=== PATIENT | female | born 1945 | race Caucasian/White ===

== ENCOUNTER → 2017-01-17 | Outpatient (CLI) | payer BC ==
[~2017-01-17] MED LIST: ACET-1138 PO; ASPEC81 PO; ATEN50TA8 PO; ATOR-24 PO; CLBCRM30 EXT; CLR10 PO; GLC/500 PO; LISI10TA PO; MULTCAP98 PO; OXYSR10 PO; PARO20TA4 PO; POTA-335 PO; RXC5 PO; TRIA75TA53 PO
== END | disposition home or self-care (01) ==
LOC: C.PATHSPEC 10:36
PROVIDERS: ATTEND Plastic Surgery
DX: C44.722 Squamous cell carcinoma of skin of right lower limb, including hip (principal)

== ENCOUNTER 2020-09-24 09:39 | Inpatient (IN) ==
[2020-09-24 10:15] LABS: Basophils # (auto) 0.01 K/uL (0-0.2); Basophils % (auto) 0.1 %; Eosinophils # (auto) 0.19 K/uL (0-0.5); Eosinophils % (auto) 2.6 %; Hematocrit (blood only) 30.4 % (37-47); Hemoglobin 10.1 g/dL (12.0-16.0); Immature Granulocytes # (auto) 0.01 K/uL (0.00-0.02); Immature Granulocytes % (auto) 0.1 %; Lymphocytes # (auto) 0.97 K/uL (1.2-3.4); Lymphocytes % (auto) 13.5 %; Mean Corpuscular Hemoglobin 32.1 pg (25-34); Mean Corpuscular Hgb Conc 33.2 g/dL (32-36); Mean Corpuscular Volume 96.5 fL (80-100); Mean Platelet Volume 11.6 fL (7.4-10.4); Neutrophils # (auto) 5.51 K/uL (1.4-6.5); Neutrophils % (auto) 76.7 %; Platelet Count 108 K/uL (130-400); RDW Coefficient of Variation 15.5 % (11.5-14.5); RDW Standard Deviation 54.1 fL (36.4-46.3); Red Blood Count 3.15 M/uL (4.2-5.4); White Blood Count 7.19 K/uL (4.8-10.8)
[2020-09-24 10:27] LABS: INR 2.1 (0.9-1.1)
[2020-09-24 10:38] LABS: Albumin Level 2.8 gm/dl (3.4-5.0); BUN Creatinine Ratio 11.1 (10-20); Calcium 8.7 mg/dl (8.5-10.1); Creatinine Clr Calc Pharmacy 12.6 ml/min; Est GFR (African American) 15.3; Est GFR (Non-African American) 13.2; Potassium 3.5 mmol/L (3.5-5.1)
[2020-09-24 10:48] LABS: Albumin Globulin Ratio 0.6 (0.9-2); Bilirubin,Total 1.9 mg/dl (0.2-1); Globulin 4.9 gm/dl (2.5-4.0); Phosphorus 3.3 mg/dl (2.5-4.9); Thyroid Stimulating Hormone 2.76 uIu/ml (0.300-4.500); Total Protein 7.7 gm/dl (6.4-8.2)
--- NOTE | 2020-09-24 11:11 | Emergency Department Note ---
Impression & Plan Renal failure (ARF), acute on chronic ED Provider Note Provider: Kevan Erazo MD DATE OF SERVICE: 09/24/2020 CHIEF COMPLAINT: Lab abnormality HISTORY OF PRESENT ILLNESS: Patient is a 74-year-old female history of Reardon liver disease, CKD, hypertension, and arthritis presenting here today referred by her application spec. Evidently the patient states her renal functions and worsening in her numbers from blood draw on Sunday were bad and her doctor sent her here to be admitted for further care. Patient herself denies significant nausea or fevers. She denies any trauma. Denies difficulty urinating. Patient states she stopped her diuretics recently at the direction of her doctor. Rep orts over the past several she is had a little bit of bandlike discomfort around her back and abdomen but not more focal than that. Denies any palpitations or chest discomfort. Occasionally some exertion she might get a little short of breath but this has been ongoing for some weeks. Denies sick contact to her knowledge. REVIEW OF SYSTEMS: A total of 10 review of systems was obtained and negative except as stated above in the HPI. PAST MEDICAL HISTORY: As noted above MEDICATIONS: Reviewed home medication list SOCIAL HISTORY: Former smoker, lives at home PHYSICAL EXAM: GENERAL: alert and oriented in no acute distress on stretcher Head: normocephalic and atraumatic EYES: No injection, discharge or icterus. NECK: Trachea midline. LUNGS: Airway patent. No retractions. Breath sounds clear with good air entry bilaterally. HEART: Regular rate and rhythm. No chest wall tenderness ABDOMEN: Soft and non-tender, without guarding or rebound. There is slight distention but not peritoneal and no large fluid wave appreciated. SKIN: Acyanotic, warm, dry, without rashes EXTREMITIES: Without swelling, tenderness or deformity NEUROLOGICAL: No focal deficits. No aphasia. No facial droop or slurred speech. CONTINUOUS CARDIAC MONITORING: was ordered and showed a heart rate of 62 bpm in normal sinus rhythm Patient's laboratory studies reviewed. Differential includes Renal colic, UTI, appendicitis, diverticulitis, mesenteric ischemia, aortic pathology, infections, inflammatory bowel disease, PUD, biliary pathology, as well as other pathologies. IMPRESSION/MEDICAL DECISION MAKING: Patient presents not significantly symptomatic but with worsening renal function. Referred by her application spec. No severe electrolyte abnormality noted today. Thyroid function appears normal. Negative Covid test. Slight anemia but no leukocytosis. Do not believe any abdominal imaging at this time of the abdomen pelvis. Given the chronicity of this doubt this is acute obstructive process some doubt kidney stone. As her application spec notes from [facility] which were reviewed note do believe there is likely some component of hepatorenal dysfunction related to her liver disease. I doubt SBP or the need for tap of the abdomen with a very minimal fluid likely present but very likely her liver function and issues are playing into her renal dysfunction. Given the concern of her application spec did discuss with the hospitalist group (who had previously been alerted by nephrology and was awaiting the patient) who will evaluate the patient for admission and further inpatient care. Patient was in agreement this plan. DIAGNOSIS: Renal failure acute on chronic DISPOSITION: Hospitalist will evaluate Patient was agreeable with this plan. 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 Pancreatic cyst Portal hypertension Secondary esophageal varices without bleeding Squamous cell cancer of skin of forearm Weight loss Surgical History History of appendectomy History of bilateral knee replacement History of tonsillectomy and adenoidectomy Social History Smoking Status: Former smoker Tobacco Type: Cigarettes Second Hand Exposure: No; Hx Alcohol Use: No Hx Substance Use: No Preferred Language: Kiswahili Communication Ability: Effective Brick Machine Operator Required: No Beliefs That Will Affect Care: None Current Living Situation: Spouse Feels Safe at Home: Yes Safety Concerns: Feels Safe At This Time Assistive Devices: Cane, Denture - Upper and Glasses Allergies Allergies Allergy/AdvReac Type Severity Reaction Status Date / Time No Known Drug Allergies Allergy Unknown Verified 09/24/20 10:40 adhesive AdvReac Intermediate BANDAIDS-INCREASES Unverified 09/24/20 10:40 ECZEMA REDNESS Home Meds Home Medications Medication Instructions Recorded Confirmed clobetasol [Temovate] 1 applic TOPICAL DAILY PRN #0 tube 10/09/14 09/24/20 loratadine [Claritin] 10 mg PO QAM #0 tab 10/09/14 09/24/20 paroxetine HCl [Paxil] 10 mg PO QAM #0 tab 10/09/14 09/24/20 potassium chloride 20 meq PO QAM #0 01/24/18 09/24/20 Bifidobacterium infantis [Align] 4 mg PO QAM 01/21/19 09/24/20 ferrous sulfate 27 mg PO QAM 01/21/19 09/24/20 dicyclomine 10 mg PO HS 04/05/20 09/24/20 furosemide 10 mg PO DAILY 09/24/20 09/24/20 multivitamin 1 tab PO QAM 09/24/20 09/24/20 spironolactone 12.5 mg PO DAILY 09/24/20 09/24/20 Results & Data (ED) Vital Signs Vital Signs - 24 hr 09/24/20 09:47 09/24/20 11:18 Temperature 36.6 C Temperature Source Skin Pulse Rate 55 L 58 L Respiratory Rate 20 16 Respiratory Effort / Characteristics Non-Labored Spontaneous Respiratory Depth Normal Respiratory Pattern Regular Blood Pressure 134/74 114/67 Blood Pressure Mean 94 82 Pulse Oximetry 100 98 Oxygen Delivery Method Room Air Sepsis Recent Fever Within 48 Hours No Sepsis New/Unexplained Change in Mental Status N/A Sepsis Action Taken by Nursing No Action Required Laboratory Data Result diagrams: 09/24/20 10:01 09/24/20 10:01 Lab Results 09/24/20 09/24/20 09/24/20 Range/Units 10:01 10:01 10:01 WBC 7.19 (4.8-10.8) K/uL RBC 3.15 L (4.2-5.4) M/uL Hgb 10.1 L (12.0-16.0) g/dL Hct 30.4 L (37-47) % MCV 96.5 (80-100) fL MCH 32.1 (25-34) pg MCHC 33.2 (32-36) g/dL RDW Std Deviation 54.1 H (36.4-46.3) fL RDW Coeff of Suly 15.5 H (11.5-14.5) % Plt Count 108 L (130-400) K/uL MPV 11.6 H (7.4-10.4) fL Immature Gran % (Auto) 0.1 % Neut % (Auto) 76.7 % Lymph % (Auto) 13.5 % Beauregard % (Auto) 7.0 % Eos % (Auto) 2.6 % Baso % (Auto) 0.1 % Neut # (Auto) 5.51 (1.4-6.5) K/uL Lymph # (Auto) 0.97 L (1.2-3.4) K/uL Beauregard # (Auto) 0.50 (0.11-0.59) K/uL Eos # (Auto) 0.19 (0-0.5) K/uL Baso # (Auto) 0.01 (0-0.2) K/uL Immature Gran # (Auto) 0.01 (0.00-0.02) K/uL PT 20.0 H (9.0-12.0) Seconds INR 2.1 H (0.9-1.1) Sodium 143 (136-145) mmol/L Potassium 3.5 (3.5-5.1) mmol/L Chloride 119 H (98-107) mmol/L Carbon Dioxide 13 L (21-32) mmol/L Anion Gap 11.0 (3-11) BUN 37 H (7-18) mg/dl Creatinine 3.29 H (0.6-1.2) mg/dl Est Cr Clr Drug Dosing 12.6 ml/min Est GFR ( Amer) 15.3 Est GFR (Non-Af Amer) 13.2 BUN/Creatinine Ratio 11.1 (10-20) Glucose 138 H (70-99) mg/dl Calcium 8.7 (8.5-10.1) mg/dl Phosphorus 3.3 (2.5-4.9) mg/dl Magnesium 2.0 (1.8-2.4) mg/dl Total Bilirubin 1.9 H (0.2-1) mg/dl AST 72 H (15-37) U/L ALT 69 (12-78) U/L Alkaline Phosphatase 463 H (45-117) U/L Total Protein 7.7 (6.4-8.2) gm/dl Albumin 2.8 L (3.4-5.0) gm/dl Globulin 4.9 H (2.5-4.0) gm/dl Albumin/Globulin Ratio 0.6 L (0.9-2) TSH 2.760 (0.300-4.500) uIu/ml COVID-19 Eval Order SARS-CoV-2, RNA, NAAT (NEGATIVE) 09/24/20 09/24/20 Range/Units 10:26 10:26 WBC (4.8-10.8) K/uL RBC (4.2-5.4) M/uL Hgb (12.0-16.0) g/dL Hct (37-47) % MCV (80-100) fL MCH (25-34) pg MCHC (32-36) g/dL RDW Std Deviation (36.4-46.3) fL RDW Coeff of Suly (11.5-14.5) % Plt Count (130-400) K/uL MPV (7.4-10.4) fL Immature Gran % (Auto) % Neut % (Auto) % Lymph % (Auto) % Beauregard % (Auto) % Eos % (Auto) % Baso % (Auto) % Neut # (Auto) (1.4-6.5) K/uL Lymph # (Auto) (1.2-3.4) K/uL Beauregard # (Auto) (0.11-0.59) K/uL Eos # (Auto) (0-0.5) K/uL Baso # (Auto) (0-0.2) K/uL Immature Gran # (Auto) (0.00-0.02) K/uL PT (9.0-12.0) Seconds INR (0.9-1.1) Sodium (136-145) mmol/L Potassium (3.5-5.1) mmol/L Chloride (98-107) mmol/L Carbon Dioxide (21-32) mmol/L Anion Gap (3-11) BUN (7-18) mg/dl Creatinine (0.6-1.2) mg/dl Est Cr Clr Drug Dosing ml/min Est GFR ( Amer) Est GFR (Non-Af Amer) BUN/Creatinine Ratio (10-20) Glucose (70-99) mg/dl Calcium (8.5-10.1) mg/dl Phosphorus (2.5-4.9) mg/dl Magnesium (1.8-2.4) mg/dl Total Bilirubin (0.2-1) mg/dl AST (15-37) U/L ALT (12-78) U/L Alkaline Phosphatase (45-117) U/L Total Protein (6.4-8.2) gm/dl Albumin (3.4-5.0) gm/dl Globulin (2.5-4.0) gm/dl Albumin/Globulin Ratio (0.9-2) TSH (0.300-4.500) uIu/ml COVID-19 Eval Order Covid19 [facility] SARS-CoV-2, RNA, NAAT NEGATIVE (NEGATIVE) Discharge Plan Visit Data Chief Complaint: Abnormal Labs/Diagnostic Testing Stated Complaint: KIDNEY DISEASE, SENT FOR ADMISSION ED Provider: Kevan Erazo Discharge Problem: Renal failure (ARF), acute on chronic Patient Disposition: Admitted As Inpatient Discharge Instructions Interventions: ED Discharge Assessment Last Done: 09/24/20 11:44
--- NOTE | 2020-09-24 11:12 | History & Physical Report ---
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 Acute on chronic renal insufficiency CKD IV Sent in by Dr. Hernandez for worsening renal function. 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 Ordered MRCP to rule out biliary obstruction, US for ascites check Keep previously scheduled EGD/EUS appt on 11/01/2020 Low Na diet Pancreas IPMNs Last OP pancreas MRI from Jul 2020 showing: * "progressive dilatation of proximal common bile duct with abrupt cut off in the mid portion, possibly from presumed stricture; also possible stricture of pancreatic duct and persistent soft tissue in the retroperitoneum, celiac and peripancreatic regions -this is indeterminate, a benign etiology is favored given stability from previous MRIs" GI plans for further monitoring with OP EUS on 11/01/20 Anxiety Continue SSRI JESSICA Continue iron supplementation DVT Ppx: SCDs in setting of elevated INR and thrombocytopenia Code status: FULL PCP: Rosalina Dispo: Admitted to med/surg. Plan to return home once medically stable. Patient seen in collaboration with Dr. La. Please see addendum. History of Present Illness Chief Complaint: abnormal labwork Primary Care Provider: Anisha Romano DO This is a 74yo F with a PMH of CKD IV, REARDON cirrhosis with portal HTN and secondary esophageal varices without bleeding and ascites development (MELD 12), JESSICA, HTN, h/o recurrent Cdiff s/p fecal transplant, IPMN pancreas and other medical problems listed below who was sent in due to abnormal lab work. Patient follows with Dr. Hernandez for continued worsening of renal function and ongoing significant acid-base abnormalities. Diuretics were discontinued approximately 2 weeks ago. Lab work from 09/21 showed continued decline of renal function with Cr 3.2 (from 2.8 on 09/15). Was agreeable to coming to hospital for further evaluation. Patient is currently feeling well. Endorses some dyspnea on exertion that is worse over the course of the past month. Has not noticed lower extremity swelling. Also endorses mild lower back discomfort on left side in bandlike distribution. Denies fever, chills, headache, lightheadedness, visual changes, sore throat, cough, chest pain, palpitations, shortness of breath, abdominal pain, nausea, vomiting, dysuria, constipation or diarrhea. Allergies Allergy/AdvReac Type Severity Reaction Status Date / Time No Known Drug Allergies Allergy Unknown Verified 09/24/20 10:40 adhesive AdvReac Intermediate BANDAIDS-INCREASES Unverified 09/24/20 10:40 ECZEMA REDNESS Home Medications Medication Instructions Recorded Confirmed Type clobetasol [Temovate] 1 applic TOPICAL DAILY PRN #0 tube 10/09/14 09/24/20 History loratadine [Claritin] 10 mg PO QAM #0 tab 10/09/14 09/24/20 History paroxetine HCl [Paxil] 10 mg PO QAM #0 tab 10/09/14 09/24/20 History potassium chloride 20 meq PO QAM #0 01/24/18 09/24/20 History Align 4 mg PO QAM 01/21/19 09/24/20 History ferrous sulfate 27 mg PO QAM 01/21/19 09/24/20 History dicyclomine 10 mg PO HS 04/05/20 09/24/20 History furosemide 10 mg PO DAILY 09/24/20 09/24/20 History multivitamin 1 tab PO QAM 09/24/20 09/24/20 History spironolactone 12.5 mg PO DAILY 09/24/20 09/24/20 History ciprofloxacin HCl 500 mg PO HS #4 tab 09/30/20 Rx simethicone [Gas Relief 80 mg PO TID PRN #30 tab 09/30/20 Rx (simethicone)] sodium bicarbonate 650 mg PO BID #60 tab 09/30/20 Rx Past Med/Surg History Medical History Anxiety CKD (chronic kidney disease), stage IV Degenerative arthritis of left knee History of Clostridioides difficile infection s/p fecal transplant JESSICA (iron deficiency anemia) 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 Pancreatic cyst Portal hypertension Secondary esophageal varices without bleeding Squamous cell cancer of skin of forearm Weight loss [facility] weights 2019145; March 158; Apr 145; Aug 2020 133 lb Surgical History History of appendectomy History of bilateral knee replacement History of tonsillectomy and adenoidectomy Family History Father Cancer Mother Diabetes Social History Smoking Status: Former smoker Tobacco Type: Cigarettes Second Hand Exposure: No; Hx Alcohol Use: No Hx Substance Use: No Preferred Language: Portuguese Communication Ability: Effective Ophthalmic Tech Required: No Beliefs That Will Affect Care: None marital status: yes Current Living Situation: Spouse Feels Safe at Home: Yes Safety Concerns: Feels Safe At This Time Assistive Devices: Denture - Upper, Denture - Lower and Glasses Review of Systems Review of Systems: At least ten systems reviewed and negative except as noted in the HPI. Physical Exam Physical Exam: General Appearance: WD/WN, vitals as above, NAD, sitting up in bed, pleasant, conversing easily Head: normocephalic, atraumatic Eyes: normal inspection, PERRL, conjunctivae normal, anicteric sclerae ENT: external ear and nose normal, oropharynx normal Neck: normal visual inspection, trachea midline, no thyromegaly Respiratory: normal respiratory effort, lungs clear to auscultation, no wheeze, rales, rhonchi. No accessory muscle use Cardiovascular: regular rate, rhythm, no murmur, normal peripheral pulses, no BLE edema. Vessels: no JVD Chest: normal inspection of chest Abdomen/GI: normal bowel sounds, mildly distended but soft, nontender, no hepatosplenomegaly Extremities/Musculoskeletal: no cyanosis or clubbing, extremities motor strength 5/5 Neurologic: PERRL, EOMI, accommodation nl, no face palsy, no dysarthria, CN's II-XI intact bilaterally and moves all extremities Psychiatric: A+Ox3, euthymic affect Skin: no rashes, normal color, warm/dry Results & Data Results & Data ([facility]) Vital Signs (Past 12 Hours) Vital Signs Temp Pulse Resp BP Pulse Ox 09/24/20 09:47 36.6 C 55 L 20 134/74 100 Laboratory Results Short CBC 09/24/20 09/24/20 Range/Units 10:01 11:41 WBC 7.19 (4.8-10.8) K/uL Hgb 10.1 L (12.0-16.0) g/dL Hct 30.4 L (37-47) % Plt Count 108 L (130-400) K/uL Protein/Creatinin Ratio 0.8 H (0-0.2) BMP 09/24/20 10:01 Sodium 143 Potassium 3.5 Chloride 119 H Carbon Dioxide 13 L BUN 37 H Creatinine 3.29 H Glucose 138 H Calcium 8.7 Liver Function 09/24/20 Range/Units 10:01 Total Bilirubin 1.9 H (0.2-1) mg/dl AST 72 H (15-37) U/L ALT 69 (12-78) U/L Alkaline Phosphatase 463 H (45-117) U/L Albumin 2.8 L (3.4-5.0) gm/dl Urine 09/24/20 Range/Units 11:41 Urine Color Dark Yellow Urine Appearance Cloudy A (Clear) Urine pH 5.0 (4.5-7.5) Ur Specific Otis 1.017 (1.000-1.030) Urine Protein 1+ H (Negative) Urine Glucose (UA) Negative (Negative) Diagnostic Findings CXR: pending Abd ultrasound: pending Supervising Physician Co-Signing Physician Notes Pt was seen and examined. Agreed with Jocelyn EDUARDO exam, assessment and plan. 74yo F with a PMH of CKD IV, REARDON cirrhosis with portal HTN and secondary esophageal varices without bleeding and ascites development (MELD 12), JESSICA, HTN, h/o recurrent Cdiff s/p fecal transplant, IPMN pancreas was sent to the hospital due to abnormal lab work. Pt creatinine has been worsening at 3.2 even though lasix has been on hold. Pt said that she does not have any symptoms. Denies fever, chills, headache, lightheadedness, visual changes, sore throat, cough, chest pain, palpitations, shortness of breath, abdominal pain, nausea, vomiting, dysuria, constipation or diarrhea. Lab showed creatinine 3.29 and elevated alkaline phos and AST. Nephrology consult. Will continue monitor BMP. Gastro was consulted. Will get an abdominal u/s. Case discussed with GI recommended to get a MRCP. Continue monitor closely. MD Bessie
[2020-09-24 11:58] LABS: Appearance Urine Cloudy (Clear); Bacteria Urine Automated Negative (Negative); Bilirubin Urine Negative (Negative); Blood Urine 2+ (Negative); Color Urine Dark Yellow; Epithelial Cell Urine Auto >30 /lpf (0-5); Glucose Urine UA Negative (Negative); Ketones Urine Negative (Negative); Leukocyte Esterase Urine 2+ (Negative); Nitrite Urine Negative (Negative); Protein Urine 1+ (Negative); Specific Gravity Urine 1.017 (1.000-1.030); Urobilinogen Urine Negative (Negative); WBC Urine Automated >30 /hpf (0-5)
[2020-09-24] MEDS ORDERED: POLYETHYLENE (MIRALAX) 17 GM PACK PO PRN (12:06)
[2020-09-24] MEDS ORDERED: ONDANSETRON INJ 2 MG/ML 2 ML VIAL IV PRN (12:06)
[2020-09-24 12:23] LABS: Creatinine Urine Random 96.8 mg/dl; Protein Creatinine Ratio Urine 0.8 (0-0.2); Total Protein Urine Random 77.9 mg/dl (0-11.9)
[2020-09-24] MEDS ORDERED: HEPARIN SOD 5,000 UNIT/0.5 ML VIAL SQ SCH (14:00)
--- NOTE | 2020-09-24 14:26 | Gastrointestinal Consultation ---
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 Baseline MELD 12, currently 28. LFTs w elevation of Tbili and alk phos compared to baseline but otherwise no clinical signs of liver dz decompensation (encephalopathy, volume overload, GI bleeding etc). - Nephrology following - Will obtain MRCP to r/o biliary obstruction given rise in Tbili and alk phos - US for ascites check - Keep previously scheduled EGD/EUS appt on 11/01/2020 - Pls recall GI over weekend if have questions/concerns Supervising Physician Co-Signing Physician Notes I saw and evaluated the patient. We were consulted as he was admitted with worsening renal failure. The patient does have a history of nonalcoholic steatohepatitis and is followed for cirrhosis. She notes no abdominal pain nausea or vomiting. She also has a history of a pancreatic cyst and is due for follow-up with endoscopic ultrasound early next month. Physical examination No obvious distress, no scleral icterus no abdominal tenderness Impression: Patient with worsening renal insufficiency, based on the available information it appears that it may not be related to hepatorenal syndrome. I would recommend further consultation with nephrology as this could represent prerenal azotemia or perhaps another process. Please call with any additional questions or concerns during the remainder of the hospital admission History of Present Illness Reason for Consultation: REARDON cirrhosis, pancreas cyst Requesting Physician: Dr. Dawit La Attending Physician: Dr. Manny Duron History of Present Illness Pt is a 74 y/o female who is referred to ED by her matting press tender (Dr. Keyana Hernandez) for worsening renal function 2.8 -> 3.2. She has hx of recurrent Cdiff s/p fecal transplant, IPMN pancreas, REARDON cirrhosis complicated by portal HTN, grade II varices development, ascites development (MELD 12). Previously has u/s paracentesis ordered but found to not have sufficient ascites to be removed. TIPS placement deferred. Her diuretics have been on hold since 09/10 per Nephrology given worsening renal function. She is reporting some LEE in past month. Denies fever, chills, abd pain, increased abd distension or leg edema. Bowels move 3x a day, soft stools, denies rectal bleeding. She is currently scheduled to undergo repeat EUS on 11/01/2020 as her last outpt MRI to monitor pancreas IPMNs showed progressive dilatation of proximal common bile duct with abrupt cut off in the mid portion, possibly from presumed stricture; also possible stricture of pancreatic duct. She was also noted to have persistent soft tissue in the retroperitoneum, celiac and peripancreatic regions. This is indeterminate, a benign etiology is favored given stability from previous MRIs. Labs from admission reviewed, LFTs noted to be increased especially Tbili now 1.9, alk phos 400s. Allergies Allergy/AdvReac Type Severity Reaction Status Date / Time No Known Drug Allergies Allergy Unknown Verified 09/24/20 10:40 adhesive AdvReac Intermediate BANDAIDS-INCREASES Unverified 09/24/20 10:40 ECZEMA REDNESS Home Medications Medication Instructions Recorded Confirmed Type clobetasol [Temovate] 1 applic TOPICAL DAILY PRN #0 tube 10/09/14 09/24/20 History loratadine [Claritin] 10 mg PO QAM #0 tab 10/09/14 09/24/20 History paroxetine HCl [Paxil] 10 mg PO QAM #0 tab 10/09/14 09/24/20 History potassium chloride 20 meq PO QAM #0 01/24/18 09/24/20 History Bifidobacterium infantis [Align] 4 mg PO QAM 01/21/19 09/24/20 History ferrous sulfate 27 mg PO QAM 01/21/19 09/24/20 History dicyclomine 10 mg PO HS 04/05/20 09/24/20 History furosemide 10 mg PO DAILY 09/24/20 09/24/20 History multivitamin 1 tab PO QAM 09/24/20 09/24/20 History spironolactone 12.5 mg PO DAILY 09/24/20 09/24/20 History Patient History Medical History Anxiety Degenerative arthritis of left knee DJD (degenerative joint disease) of knee History of Clostridioides difficile infection History of hypertension JESSICA (iron deficiency anemia) 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 Pancreatic cyst Portal hypertension Secondary esophageal varices without bleeding Squamous cell cancer of skin of forearm Weight loss Surgical History History of appendectomy History of bilateral knee replacement History of tonsillectomy and adenoidectomy Social History Smoking Status: Former smoker Tobacco Type: Cigarettes Second Hand Exposure: No; Hx Alcohol Use: No Hx Substance Use: No Preferred Language: Kiswahili Communication Ability: Effective Photogrammetric Engineer Required: No Beliefs That Will Affect Care: None Current Living Situation: Spouse Feels Safe at Home: Yes Safety Concerns: Feels Safe At This Time Assistive Devices: Cane, Denture - Upper and Glasses Review of Systems Review of Systems: All systems reviewed & are unremarkable except as noted in HPI & below Physical Exam Constitutional: WD/WN, vitals as above well groomed, cooperative and comfortable Eyes: PERRL, conjunctivae normal, anicteric sclerae ENMT: external ear and nose normal, oropharynx normal Respiratory: normal respiratory effort, lungs clear to auscultation Cardiovascular: RRR, no murmur, no edema Gastrointestinal (Abdomen): normal bowel sounds, soft, nontender, no hepat osplenomegaly Skin: no rashes, warm and dry no jaundice Neurologic: Motor/Sensory: no asterixis Psychiatric: A+Ox3, euthymic affect Lymphatic: no lymphedema Results & Data ([facility]) Vital Signs (Past 12 Hours) Vital Signs Temp Pulse Pulse Resp BP BP Pulse Ox 09/24/20 12:10 36.3 C L 60 16 140/65 100 09/24/20 11:18 58 L 16 114/67 98 09/24/20 09:47 36.6 C 55 L 20 134/74 100
[2020-09-24] MEDS ORDERED: CLOBETASOL PROPIONATE 0.05% OINT 15 GM TUBE EXT PRN (14:58)
--- NOTE | 2020-09-24 16:13 | Magnetic Resonance Report ---
MR MRCP CLINICAL HISTORY: Ductal dilatation. Hepatic cirrhosis. Possible choledocholithiasis COMPARISON STUDY: No previous studies for comparison. FINDINGS: A breath-hold MRCP was performed. There is abdominal ascites. The spleen is enlarged measuring 13.4 cm. The liver has a cirrhotic morphology. There is intra and extrahepatic biliary ductal dilatation. The common bile duct measures 12 mm. The g allbladder appears distended. There is an abrupt cut off of the common bile duct suggestive of a stri cture or mass. There are multiple cystic lesions within the pancreatic body and tail. The pancreatic duct within the distal body is dilated measuring 7 mm. There is an abrupt change in the pancreatic du ctal caliber and the duct within the proximal pancreatic body and head appears narrowed. The findings suggest a pancreatic stricture or mass. There is mild soft tissue fullness in the region of the panc reatic head. An ERCP with endoscopic ultrasound should be considered in follow-up. IMPRESSION: 1. Cirrhotic morphology the liver with ascites and splenomegaly 2. Intra and extrahepatic biliary ductal dilatation with abrupt common bile duct cut off suggestive o f a stricture or mass 3. Dilatation of the pancreatic duct within the distal body and tail with an abrupt change in pancrea tic ductal caliber involving the proximal body and head. The findings are also suggestive of a strict ure or mass. 4. Multiple cystic lesions within the pancreatic body and tail, possibly representing IPMNs 5. No ductal calculi identified 6. An ERCP with endoscopic ultrasound should be considered in follow-up. ACT 112: Negative or not required by law. Electronically signed by: Dave Parada M.D. 09/24/2020 4:12 PM
--- NOTE | 2020-09-24 17:00 | XRay Report ---
SINGLE VIEW CHEST CLINICAL HISTORY: Dyspnea on exertion. FINDINGS: An AP, portable, upright chest radiograph is compared to study dated 06/22/2016. The heart is enlarged noting atherosclerotic calcification of the thoracic aorta. The pulmonary vasculature is noncongested. Chronic interstitial thickening is similar to previous. There is no airspace consolidat ion or large pleural effusion. No pneumothorax is seen. The skeletal structures are osteopenic. The b winnie thorax is grossly intact. IMPRESSION: Cardiomegaly with no active disease in the chest. ACT 112: Negative or not required by law. Electronically signed by: Jadon Esparza M.D. 09/24/2020 4:58 PM
--- NOTE | 2020-09-24 17:29 | Nephrology Consultation ---
Date of Consultation September 24, 2020 Assessment & Plan (1) Acute on chronic renal insufficiency: rapidly progressive CKD bordering on stage 5. Her baseline creatinine in 2019 had been 1.7-1.9 through April but worsened thereafter to mid then in 2020 high 2's. her most recent bloodwork on 09/21 as OP showed creatinine of 3.2. Her diuretics have been on complete hold since 09/10/20. inflamed urine sediment without evidence for infection and 800 mg protienuria >> ? 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 anion gap for her albumin corrected is 13.2. also w/ hyperchloremia and hypokalemia despite K supplements -strict I/O -ABG ordered -bicarb rich fluids as above Present on Admission?: Yes (4) Hypertension: intermittent hypertension > ? a sign of volume overload; generally like most liver pts she is normotensive -low Na diet Present on Admission?: Yes History of Present Illness Reason for Consultation: worsening renal function Requesting Physician: Dr La Attending Physician: Dawit La MD History of Present Illness 74 y/o F whom I'm asked to see for worsening renal function was direct admission here today at my request for same. PMH includes REARDON cirrhosis c/b portal HTN, esophageal varices, and loculated ascites, ideopathic PMN of pancreas, recurrent C diff starting 2016 s/p fecal transplant, CKD4, squamous cell carcinoma of skin. Note no HTN, no DM. She did on 09/18 have Mohs excision of atypical squamous proliferation on her left lower leg; two excisions in August as well for LLE SCC. Recent negative outpatient work up for bradycardia. Her baseline creatinine in 2019 had been 1.7-1.9 through April but worsened thereafter to mid then in 2020 high 2's. her baseline creatinine in late 2018 was mid ones. her most recent bloodwork on 09/21 as OP showed creatinine of 3.2. Her diuretics have been on complete hold since 09/10/20. She is only in the past few days noticing some slight volume increase with this -- though her weights have been stable at 133-137 lb at home, she is noticing a bit more dyspnea in the 24 hrs prior to admission and slightly more abdominal fullness. Other ROS notable for back pain above her BL iliac crests more in the past few months. no voiding concerns. no palpitations or chest pain. no edema. GI saw the pt and given elevation of Tbili and alk phos compared to baseline did MRCP. OP EUS remains on schedule for next month. Allergies Allergy/AdvReac Type Severity Reaction Status Date / Time No Known Drug Allergies Allergy Unknown Verified 09/24/20 10:40 adhesive AdvReac Intermediate BANDAIDS-INCREASES Unverified 09/24/20 10:40 ECZEMA REDNESS Home Medications Medication Instructions Recorded Confirmed Type clobetasol [Temovate] 1 applic TOPICAL DAILY PRN #0 tube 10/09/14 09/24/20 History loratadine [Claritin] 10 mg PO QAM #0 tab 10/09/14 09/24/20 History paroxetine HCl [Paxil] 10 mg PO QAM #0 tab 10/09/14 09/24/20 History potassium chloride 20 meq PO QAM #0 01/24/18 09/24/20 History Bifidobacterium infantis [Align] 4 mg PO QAM 01/21/19 09/24/20 History ferrous sulfate 27 mg PO QAM 01/21/19 09/24/20 History dicyclomine 10 mg PO HS 04/05/20 09/24/20 History furosemide 10 mg PO DAILY 09/24/20 09/24/20 History multivitamin 1 tab PO QAM 09/24/20 09/24/20 History spironolactone 12.5 mg PO DAILY 09/24/20 09/24/20 History Patient History Medical History (Updated 09/24/20 @ 17:48 by Keyana Hernandez MD, PhD) Anxiety CKD (chronic kidney disease), stage IV Degenerative arthritis of left knee History of Clostridioides difficile infection s/p fecal transplant JESSICA (iron deficiency anemia) 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 Pancreatic cyst Portal hypertension Secondary esophageal varices without bleeding Squamous cell cancer of skin of forearm Weight loss [facility] clinic weights 2019145; March 158; Apr 145; Aug 2020 133 lb Surgical History History of appendectomy History of bilateral knee replacement History of tonsillectomy and adenoidectomy Family History Father Cancer Mother Diabetes Social History Smoking Status: Former smoker Tobacco Type: Cigarettes Second Hand Exposure: No; Hx Alcohol Use: No Hx Substance Use: No Preferred Language: Macedonian Communication Ability: Effective Salvage Repairer Required: No Beliefs That Will Affect Care: None Current Living Situation: Spouse Feels Safe at Home: Yes Safety Concerns: Feels Safe At This Time Assistive Devices: Cane, Denture - Upper and Glasses Review of Systems Review of Systems: All systems reviewed & are unremarkable except as noted in HPI & below Physical Exam Constitutional: well developed and well nourished; no acute distress on RA Eyes: EOM intact bilaterally ENMT: Ears: no external ear abnormality Nose: no external nose abnormality Mouth: + dry oral mucous membranes Neck: no nuchal rigidity Respiratory: normal respiratory effort and + labored breathing (slight but notable) Auscultation: + diminished lung sounds and + crackles (end inspiratory L base fine) on RA Cardiovascular: Rate/Rhythm: regular rhythm and + bradycardic Extremities: no edema Gastrointestinal (Abdomen): Inspection/Auscultation: + abdomen distended and normal bowel sounds Percussion/Palpation: abdomen soft and + ascites; abdomen nontender Musculoskeletal: Extremities: strength 5/5 throughout Skin: no rashes, warm and dry + lesion (numerous 1 cm scabs from recent derm cryo procedures ) and + wound (L medial calf healing after Mohs) Neurologic: sanchez, fluent speech, no tremor Psychiatric: A+Ox3, euthymic affect Insight: good insight Judgement: good judgement Results & Data ([facility]) Vital Signs (Past 12 Hours) Vital Signs Temp Pulse Pulse Resp BP BP Pulse Ox 09/24/20 16:36 36.7 C 52 L 20 144/79 H 100 09/24/20 12:10 36.3 C L 60 16 140/65 100 09/24/20 11:18 58 L 16 114/67 98 09/24/20 09:47 36.6 C 55 L 20 134/74 100 Laboratory Results 09/24/20 10:01 09/24/20 10:01 UA >> 1017, 2+ blood , 2+ LE, no bacter; > 30 epithelial cells 800 mg proteinuria on spot ratio Diagnostic Findings Outpatient MRI pancreas 08/11/20 1. Gallbladder hydrops with progressive dilatation of proximal common bile duct with abrupt cut off in the mid portion, possibly from presumed stricture. No obstructive mass is identified. Consider repeat EUS for confirmation depending on clinical suspicion. 2. Stable cystic lesions in the pancreatic body/tail, may represent mixed type IPMNs given distal pancreatic ductal dilatation or multiple side-branch IPMNs with possible stricture of the pancreatic duct. 3. Persistent soft tissue in the retroperitoneum, celiac and peripancreatic regions. This is indeterminate, a benign etiology is favored given stability from previous MRIs. Attention is recommended on follow-up MRI. 4. Cirrhosis with portal hypertension, as above. cxr IMPRESSION: Cardiomegaly with no active disease in the chest. MRCP There is abdominal ascites. The spleen is enlarged measuring 13.4 cm. The liver has a cirrhotic morphology. There is intra and extrahepatic biliary ductal dilatation. The common bile duct measures 12 mm. The gallbladder appears distended. There is an abrupt cut off of the common bile duct suggestive of a stricture or mass. There are multiple cy stic lesions within the pancreatic body and tail. The pancreatic duct within the distal body is dilated measuring 7 mm. There is an abrupt change in the pancreatic ductal caliber and the duct within the proximal pancreatic body and head appears narrowed. The findings suggest a pancreatic stricture or mass. There is mild soft tissue fullness in the region of the pancreatic head. An ERCP with endoscopic ultrasound should be considered in follow-up. IMPRESSION: 1. Cirrhotic morphology the liver with ascites and splenomegaly 2. Intra and extrahepatic biliary ductal dilatation with abrupt common bile duct cut off suggestive of a stricture or mass 3. Dilatation of the pancreatic duct within the distal body and tail with an abrupt change in pancreatic ductal caliber involving the proximal body and head. The findings are also suggestive of a stricture or mass. 4. Multiple cystic lesions within the pancreatic body and tail, possibly representing IPMNs 5. No ductal calculi identified 6. An ERCP with endoscopic ultrasound should be considered in follow-up. complete abd u/s pending
[2020-09-24 18:35] LABS: Base Excess ABG -11.3 mEq/L (-9-1.8); HCO3 ABG 12 mmol/L (19-24); PCO2 ABG 22 mmHg (35-46); PO2 ABG 140 mmHg (80-95); pH ABG 7.37 (7.35-7.45)
[2020-09-24 18:36] LABS: Allen Test Pos (Pos)
[2020-09-24] MEDS: SODIUM BICARBONATE IV SCH (19:54)
[2020-09-24] MEDS: POTASSIUM CHLORIDE IV SCH (19:54)
[2020-09-24] MEDS: DEXTROSE 5% IV SCH (19:54)
--- NOTE | 2020-09-24 20:50 | Ultrasound Report ---
US abdomen complete CLINICAL HISTORY: Biliary ductal dilatation. Possible common bile duct mass. Ascites. COMPARISON STUDY: MRCP dated 09/24/2020 FINDINGS: The liver has a cirrhotic morphology. There is perihepatic ascites. There is ductal dilatation. The gallbladder is sludge-filled with a few shadowing calculi.. There is mild wall thickening likely secondary to hepatocellular disease. The common bile duct measures 1 cm. The right kidney measures 9.2 cm in length. The left kidney measures 9.2 cm in length. There is no hy dronephrosis. Spleen is mildly enlarged measuring 12.5 cm. There is no evidence of abdominal aortic aneurysm. The IVC is patent. Evaluation the pancreas was nondiagnostic. IMPRESSION: 1. Hepatic cirrhosis 2. Biliary ductal dilatation 3. Low volume ascites 4. Gallbladder sludge and calculi 5. Nondiagnostic evaluation the pancreas 6. Mild splenomegaly ACT 112: Negative or not required by law. Electronically signed by: Dave Parada M.D. 09/24/2020 8:48 PM
[2020-09-24] MEDS: DICYCLOMINE HCL 10 MG CAP PO SCH (22:03)
[2020-09-25 06:14] LABS: Hemoglobin 8.4 g/dL (12.0-16.0); Mean Corpuscular Hemoglobin 32.2 pg (25-34); Mean Corpuscular Hgb Conc 33.6 g/dL (32-36); Mean Corpuscular Volume 95.8 fL (80-100); RDW Coefficient of Variation 15.1 % (11.5-14.5); RDW Standard Deviation 52.5 fL (36.4-46.3); Red Blood Count 2.61 M/uL (4.2-5.4); White Blood Count 4.12 K/uL (4.8-10.8)
[2020-09-25 06:28] LABS: Mean Platelet Volume 11.7 fL (7.4-10.4); Platelet Count 85 K/uL (130-400)
[2020-09-25 06:53] LABS: Albumin Level 2.3 gm/dl (3.4-5.0); Calcium 8.1 mg/dl (8.5-10.1); Creatinine Clr Calc Pharmacy 13.4 ml/min; Est GFR (African American) 16.4; Est GFR (Non-African American) 14.1; Potassium 3.3 mmol/L (3.5-5.1)
[2020-09-25 06:55] LABS: Albumin Globulin Ratio 0.5 (0.9-2); Bilirubin,Total 1.5 mg/dl (0.2-1); Globulin 4.2 gm/dl (2.5-4.0); Total Protein 6.5 gm/dl (6.4-8.2)
[2020-09-25] MEDS: FERROUS SULFATE 325 MG TAB PO SCH (07:44)
[2020-09-25] MEDS: PARoxetine HCL 10 MG TAB PO SCH (07:44)
[2020-09-25] MEDS: MULTIVITAMIN TAB PO SCH (07:44)
[2020-09-25] MEDS: ADVANCED PROBIOTIC 1250 MG CAPSULE PO SCH (07:44)
[2020-09-25] MEDS: LORATADINE 10 MG TAB PO SCH (07:44)
[2020-09-25 07:50] LABS: Hepatitis B Surf Ag Rflx Conf Neg (Neg)
[2020-09-25] MEDS: SODIUM BICARBONATE IV SCH ×2 (08:11→22:38)
[2020-09-25] MEDS: DEXTROSE 5% IV SCH ×2 (08:11→22:38)
[2020-09-25] MEDS: POTASSIUM CHLORIDE IV SCH ×2 (08:11→22:38)
[2020-09-25 08:19] LABS: Hepatitis C IgG 13Yrs+Old_Rflx Neg (Neg)
[2020-09-25] MEDS ORDERED: POTASSIUM CHLORIDE CRTAB 20 MEQ TABCR PO SCH (09:00)
[2020-09-25] MEDS ORDERED: POTASSIUM CHLORIDE 10 MEQ TABCR PO STA (09:46)
--- NOTE | 2020-09-25 15:17 | Progress Notes ---
DATE: 09/25/2020 I reviewed the MRCP that was performed on the and it shows evidence of an abrupt change at both the common bile duct and pancreatic duct. This is suggestive of a stricture or mass lesion. Though the bilirubin is stable, further diagnostic imaging and possible therapeutic maneuvers may be indicated. I will discuss this case with my advanced endoscopic colleagues and plan for an EUS and possible ERCP in the near future as scheduling at the hospital permits. Continue to follow liver enzymes. BRIGETTED
--- NOTE | 2020-09-25 15:24 | Progress Notes ---
DATE: 09/25/2020 SUBJECTIVE: Overnight, no new issues. The patient appears completely normal and at baseline. She denies having any symptoms at this time. OBJECTIVE: VITAL SIGNS: Blood pressure is 139/64, pulse rate 58, temperature 36.8, 99% on room air. HEENT: Mucous membranes moist. NECK: Supple. No jugular venous distention. CHEST: Bilateral clear to auscultation. CARDIOVASCULAR: S1, S2 regular. ABDOMEN: Distended, mildly but at about baseline. EXTREMITIES: Shows no edema. LABORATORY TESTS: From this morning shows sodium 146, potassium 3.3, BUN 41, creatinine is down a little bit to 3.12 from yesterday. Albumin is 2.3. 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 Acute on chronic renal failure. The patient appears very comfortable and has normal vital signs at this time. Given her current blood pressure of 139 and her physical exam, she does not appear to be really volume depleted at this time. However, she does have a low bicarbonate and low potassium, so we will continue with the fluid, but I would like to change the fluid to D5 with 2 amps of sodium bicarbonate with 20 mEq of potassium chloride and run at 80 mL per hour. RECOMMENDATIONS: 1. Continue fluid restriction. 2. Continue to hold diuretics for at least 1 more day more as a trial. 3. Continue daily labs. 4. Continue input output charting. Urine from yesterday showed lots of epithelial cells, Blood and protein and that is more consistent with ATN like picture than a simple prerenal. But even if it is acute tubular necrosis, there is no guarantee she will recover and it may take a long time even if it recovers. MTDD
--- NOTE | 2020-09-25 17:16 | Hospitalist Progress Note ---
Date of Service September 25, 2020 Assessment & Plan (1) Acute on chronic renal insufficiency: (2) CKD (chronic kidney disease), stage IV: This is a 74yo F with a PMH of CKD IV, REARDON cirrhosis with portal HTN and secondary esophageal varices without bleeding and ascites development (MELD 12), JESSICA, HTN, h/o recurrent Cdiff s/p fecal transplant, IPMN pancreas was sent to the hospital by [employer] due to abnormal blood work. 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 Hepatitis C negative MRCP showed cirrhotic morphology of the liver with ascites and splenomegaly Abdominal u/s showed Hepatic cirrhosis biliary ductal dilatation and Low volume ascites Continue monitor closely while diuretic on hold Keep previously scheduled EGD/EUS appt on 11/01/2020 Low Na diet (4) Pancreatic cyst: MRCP showed Intra and extrahepatic biliary ductal dilatation with abrupt common bile duct cut off suggestive of a stricture or mass Dilatation of the pancreatic duct within the distal body and tail with an abrupt change in pancreatic ductal caliber involving the proximal body and head. The findings are also suggestive of a stricture or mass. Multiple cystic lesions within the pancreatic body and tail, possibly representing IPMNs GI plan for an EUS and possible ERCP in the near future. Continue monitor (5) Hypertension: Diuretics on hold Continue monitor BP (6) Anxiety: Continue paroxetine Stable (7) JESSICA (iron deficiency anemia): Hgb dropped to 8.4 Continue iron supplement Continue monitor CBC Elevated INR Thrombocytopenia Due to Liver disease No sign of active bleeding Will avoid any anticoagulant for now Hypokalemia K 3.3 today K replaced and on IVF with Bicarb and Potassium Continue monitor BMP DVT Ppx: SCDs in setting of elevated INR and thrombocytopenia Code status: FULL PCP: Rosalina Dispo: Will discharge once medically stable Admission and Anticipated Discharge Date Admission Date: September 24, 2020 Subjective Pt was seen and examined for follow up of PUNEET Sitting in chair with no distress watching TV Pt said that she feels ok She denies any chest pain, palpitation, dizziness and SOB Physical Exam Physical Exam: General- No acute distress Head- atraumatic Eyes- PERRL, EOMI, ENT- oropharynx clear Neck- supple, no JVD Lungs- clear to auscultation Heart- regular rhythm; no murmur Abdomen- normal bowel sounds, +distended Extremities- no calf tenderness, No edema Neuro- alert, oriented x 3; PERRL, EOMI; no facial palsy; no dysarthria Skin- warm & dry Results & Data Results & Data ([facility]) Vital Signs (Past 12 Hours) Vital Signs Temp Pulse Resp BP Pulse Ox 09/25/20 16:16 36.9 C 59 L 18 145/69 H 92 09/25/20 07:26 36.8 C 58 L 18 139/64 99
[2020-09-25] MEDS: POTASSIUM CHLORIDE CRTAB 20 MEQ TABCR PO SCH (21:14)
[2020-09-25] MEDS: DICYCLOMINE HCL 10 MG CAP PO SCH (21:14)
[2020-09-26 06:11] LABS: Hemoglobin 8.9 g/dL (12.0-16.0); Mean Corpuscular Hemoglobin 32.6 pg (25-34); Mean Corpuscular Hgb Conc 34.2 g/dL (32-36); Mean Corpuscular Volume 95.2 fL (80-100); RDW Coefficient of Variation 15.2 % (11.5-14.5); RDW Standard Deviation 53.2 fL (36.4-46.3); Red Blood Count 2.73 M/uL (4.2-5.4); White Blood Count 4.68 K/uL (4.8-10.8)
[2020-09-26 06:24] LABS: Mean Platelet Volume 11.4 fL (7.4-10.4); Platelet Count 91 K/uL (130-400)
[2020-09-26 06:48] LABS: Albumin Globulin Ratio 0.6 (0.9-2); Albumin Level 2.3 gm/dl (3.4-5.0); Bilirubin,Total 1.3 mg/dl (0.2-1); Calcium 8.7 mg/dl (8.5-10.1); Creatinine Clr Calc Pharmacy 14.4 ml/min; Est GFR (African American) 17.6; Est GFR (Non-African American) 15.2; Total Protein 6.3 gm/dl (6.4-8.2)
[2020-09-26] MEDS: MULTIVITAMIN TAB PO SCH (07:56)
[2020-09-26] MEDS: ADVANCED PROBIOTIC 1250 MG CAPSULE PO SCH (07:56)
[2020-09-26] MEDS: PARoxetine HCL 10 MG TAB PO SCH (07:56)
[2020-09-26] MEDS: LORATADINE 10 MG TAB PO SCH (07:56)
[2020-09-26] MEDS: FERROUS SULFATE 325 MG TAB PO SCH (07:56)
[2020-09-26] MEDS: POTASSIUM CHLORIDE CRTAB 20 MEQ TABCR PO SCH ×2 (07:58→20:14)
--- NOTE | 2020-09-26 08:23 | Progress Notes ---
DATE: 09/26/2020 NEPHROLOGY PROGRESS NOTE SUBJECTIVE: Overnight, no new issues. The patient appears completely normal and at baseline. She denies having any symptoms at this time. OBJECTIVE: VITAL SIGNS: Blood pressure 138/81, pulse rate 55, temperature 36.4, 99% on room air. HEENT: Mucous membrane is moist. NECK: Supple. No jugular venous distention. CHEST: Bilaterally clear to auscultation. CARDIOVASCULAR: S1, S2 regular. ABDOMEN: Soft, nontender, very minimal ascites. EXTREMITIES: Show no edema. LABORATORY TESTS: From this morning shows improving renal function. Sodium is 145, potassium 4.0, BUN 45, creatinine 2.93. ASSESSMENT AND PLAN: A 74-year-old female with liver cirrhosis secondary to nonalcoholic steatohepatitis and chronic kidney disease, admitted with acute on chronic renal failure. Acute renal failure: The acute component seems to be getting better slowly. Looking at the urine sediment on admission, it is quite possible that she has some component of acute tubular necrosis and there might be slight improvement in the coming days, but this is not guaranteed. This could very well be her new baseline. She has pending serologies for acute renal failure, but are very unlikely to be positive. At this time, she appears very normal without any complaints. Vital signs appear stable. Recommendations for today: 1. Stop the IV fluid. 2. Continue to hold diuretics for at least 1 more day. 3. Continue input/output. 4. Daily labs and will need followup with nephrology after discharge.
[2020-09-26] MEDS: SODIUM BICARBONATE 650 MG TAB PO SCH ×2 (08:47→20:14)
--- NOTE | 2020-09-26 17:21 | Hospitalist Progress Note ---
Date of Service September 26, 2020 Assessment & Plan (1) Acute on chronic renal insufficiency: (2) CKD (chronic kidney disease), stage IV: 74yo F with a PMH of CKD IV, REARDON cirrhosis with portal HTN and secondary esophageal varices without bleeding and ascites development (MELD 12), JESSICA, HTN, h/o recurrent Cdiff s/p fecal transplant, IPMN pancreas was sent to the hospital by [employer] due to worsening creatinine Creatinine on admission 3.2 Diuretics have been on hold since 09/10/20, but creatinine has been increased gradually Abdominal u/s showed no hydronephrosis Nephrology on board On D5W with Bicarb at 80ml Creatinine slighly decreased to 2.9 today Continue fluid restriction at 1500ml daily Markers for ANCA, DANIEL, anti DS DNA, SFLC, MAI, pending Continue to hold diuretic Continue monitor I/O Continue monitor BMP (3) 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 Hepatitis C negative MRCP showed cirrhotic morphology of the liver with ascites and splenomegaly Abdominal u/s showed Hepatic cirrhosis biliary ductal dilatation and Low volume ascites Continue monitor closely while diuretic on hold Plan EGD/EUS on 11/01/20 (4) Pancreatic cyst: MRCP showed Intra and extrahepatic biliary ductal dilatation with abrupt common bile duct cut off suggestive of a stricture or mass Dilatation of the pancreatic duct within the distal body and tail with an abrupt change in pancreatic ductal caliber involving the proximal body and head. The findings are also suggestive of a stricture or mass. Multiple cystic lesions within the pancreatic body and tail, possibly representing IPMNs GI plan for an EUS and possible ERCP in the near future. Will discuss with GI for possible inpatient ERCP and EUS (5) Hypertension: Diuretics on hold Continue monitor BP (6) Anxiety: Continue paroxetine Stable (7) JESSICA (iron deficiency anemia): Hgb slightly bumped to 8.9 Continue iron supplement Continue monitor CBC Elevated INR Thrombocytopenia Due to Liver disease Platelet slightly increased from 85 to 91 No sign of active bleeding Will avoid any anticoagulant for now Hypokalemia K 4 today K replaced and on IVF with Bicarb and Potassium Continue monitor BMP DVT Ppx: SCDs in setting of elevated INR and thrombocytopenia Code status: FULL PCP: Rosalina Dispo: Will discharge once medically stable Admission and Anticipated Discharge Date Admission Date: September 24, 2020 Subjective Pt was seen and examined for follow up of elevating creatinine Sitting in chair with no distress watching TV Pt said that she feels fine She said that she does not have any new complaint Denies any chest pain, palpitation, dizziness and SOB Review of Systems Review of Systems: All systems reviewed & are unremarkable except as noted in Subjective Physical Exam Physical Exam: General- No acute distress Head- atraumatic Eyes- PERRL, EOMI, ENT- oropharynx clear Neck- supple, no JVD Lungs- clear to auscultation Heart- regular rhythm; no murmur Abdomen- normal bowel sounds, +distended Extremities- no calf tenderness, No edema Neuro- alert, oriented x 3; PERRL, EOMI; no facial palsy; no dysarthria Skin- warm & dry Results & Data Results & Data ([facility]) Vital Signs (Past 12 Hours) Vital Signs Temp Pulse Resp BP Pulse Ox 09/26/20 15:22 36.7 C 56 L 18 127/79 99 09/26/20 07:46 36.4 C L 55 L 18 138/81 99
[2020-09-26] MEDS: DICYCLOMINE HCL 10 MG CAP PO SCH (20:14)
[2020-09-27] MEDS: MULTIVITAMIN TAB PO SCH (09:05)
[2020-09-27] MEDS: LORATADINE 10 MG TAB PO SCH (09:05)
[2020-09-27] MEDS: ADVANCED PROBIOTIC 1250 MG CAPSULE PO SCH (09:05)
[2020-09-27] MEDS: FERROUS SULFATE 325 MG TAB PO SCH (09:05)
[2020-09-27] MEDS: PARoxetine HCL 10 MG TAB PO SCH (09:06)
[2020-09-27] MEDS: POTASSIUM CHLORIDE CRTAB 20 MEQ TABCR PO SCH ×2 (09:06→19:49)
[2020-09-27] MEDS: SODIUM BICARBONATE 650 MG TAB PO SCH ×2 (09:06→19:50)
--- NOTE | 2020-09-27 10:50 | Gastroenterology Progress Note ---
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 Manny Duron to r/o choledocholithiasis, pancreatic or bile duct masses. Regarding cirrhosis and renal function - appreciated nephrology management of PUNEET and will defer to nephrology regarding timing/dosing of restarting her diuretics. Will order COVID PCR. OR aware - listed. NPO after midnight please. Present on Admission?: Yes (2) Pancreatic cyst: EUS tomorrow Present on Admission?: Yes (3) Dilated bile duct: EUS tomorrow Present on Admission?: Yes Admission and Anticipated Discharge Date Admission Date: September 24, 2020 Supervising Physician Co-Signing Physician Notes I have seen and discussed the management with LEORA Ma. Tolerating breakfast this morning. No acute complaints. Agree with further plan of care as per Jarad's assessment and plan. Subjective Ms Stafford is a 74-year-old female patient with cirrhosis who was admitted on September 24 for acute renal injury, which is improving. Imaging on arrival with suggestion of dilated bile duct and abrupt cut off at the distal bile duct. She also had bump in her LFTs. Denies any abdominal pain. Awake alert oriented not jaundiced. No leukocytosis or fevers. Review of Systems Review of Systems: ROS: Gen: Had weakness prior to arrival which is now improved. No fevers. + weight loss over the past year Eyes: No eye redness, or pain, no recent vision changes Resp: No SOB, no cough Cardio: No palpitations/irregular beats, no chest pain GI: No abdominal pain, no nausea/vomiting : Denies pain on urination Skin: No jaundice, itching or new rashes Constitutional: Appetite is good Physical Exam Constitutional: well developed, well nourished, cooperative and comfortable Eyes: PERRL, conjunctivae normal, anicteric sclerae ENMT: external ear and nose normal, oropharynx normal Neck: trachea midline, no thyromegaly Respiratory: normal respiratory effort, lungs clear to auscultation Cardiovascular: Rate/Rhythm: regular rate and regular rhythm Vessels: no JVD Extremities: + edema (trace bilat lower leg/ankle) Gastrointestinal (Abdomen): normal bowel sounds, soft, nontender, no hepatosplenomegaly Percussion/Palpation: abdomen soft mild ascites Skin: no rashes, warm and dry Neurologic: PERRL, EOMI, accommodation nl, no face palsy, no dysarthria Psychiatric: A+Ox3, euthymic affect Lymphatic: no cervical or axillary lymphadenopathy Results & Data ([facility]) Vital Signs (Past 12 Hours) Vital Signs Temp Pulse Resp BP Pulse Ox 09/27/20 07:24 36.7 C 75 16 144/48 H 96 09/26/20 22:44 36.8 C 63 16 144/86 H 99 Laboratory Results WBC 4.6, Hb 8.9, Hct 26, Na 145, BUN 41, Cr 2.93, T Bili 1.3, AST 55, ALT 55, AK 413. Diagnostic Findings MRCP 09/24/20: 1. Cirrhotic morphology the liver with ascites and splenomegaly 2. Intra and extrahepatic biliary ductal dilatation with abrupt common bile duct cut off suggestive of a stricture or mass 3. Dilatation of the pancreatic duct within the distal body and tail with an abrupt change in pancreatic ductal caliber involving the proximal body and head. The findings are also suggestive of a stricture or mass. 4. Multiple cystic lesions within the pancreatic body and tail, possibly representing IPMNs 5. No ductal calculi identified 6. An ERCP with endoscopic ultrasound should be considered in follow-up. Liver US 09/24/20: 1. Hepatic cirrhosis 2. Biliary ductal dilatation 3. Low volume ascites 4. Gallbladder sludge and calculi 5. Nondiagnostic evaluation the pancreas 6. Mild splenomegaly
[2020-09-27 12:57] LABS: BUN Creatinine Ratio 14.1 (10-20); Calcium 9.2 mg/dl (8.5-10.1); Creatinine Clr Calc Pharmacy 13.3 ml/min; Est GFR (Non-African American) 13.8; Potassium 4.1 mmol/L (3.5-5.1)
--- NOTE | 2020-09-27 17:53 | Hospitalist Progress Note ---
Date of Service September 27, 2020 Assessment & Plan (1) Acute on chronic renal insufficiency: (2) CKD (chronic kidney disease), stage IV: This is a 74yo F with a PMH of CKD IV, REARDON cirrhosis with portal HTN and secondary esophageal varices without bleeding and ascites development (MELD 12), JESSICA, HTN, h/o recurrent Cdiff s/p fecal transplant, IPMN pancreas was sent to the hospital by [facility] due to abnormal blood work. 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 Hepatitis C negative MRCP showed cirrhotic morphology of the liver with ascites and splenomegaly Abdominal u/s showed Hepatic cirrhosis biliary ductal dilatation and Low volume ascites Continue monitor closely while diuretic on hold (4) Pancreatic cyst: MRCP showed Intra and extrahepatic biliary ductal dilatation with abrupt common bile duct cut off suggestive of a stricture or mass Dilatation of the pancreatic duct within the distal body and tail with an abrupt change in pancreatic ductal caliber involving the proximal body and head. The findings are also suggestive of a stricture or mass. Multiple cystic lesions within the pancreatic body and tail, possibly representing IPMNs plan for EUS and ERCP tomorrow by GI Will make NPO after midnight (5) Hypertension: Continue to hold diuretic Continue monitor BP (6) Anxiety: Continue paroxetine Stable (7) JESSICA (iron deficiency anemia): Hgb dropped to 8.4 Continue iron supplement Continue monitor CBC Elevated INR Thrombocytopenia Due to Liver disease No sign of active bleeding Will avoid any anticoagulant for now Hypokalemia K 4.1 today Stable Continue monitor BMP DVT Ppx: SCDs in setting of elevated INR and thrombocytopenia Code status: FULL PCP: Rosalina Dispo: Will discharge once medically stable Admission and Anticipated Discharge Date Admission Date: September 24, 2020 Subjective Pt was seen and examined for follow up of elevating creatinine Sitting in chair with no distress watching TV She would like to get the ERCP and EUS while in the hospital Denies any chest pain, palpitation, dizziness and SOB Review of Systems Review of Systems: All systems reviewed & are unremarkable except as noted in Subjective Physical Exam Physical Exam: General- No acute distress Head- atraumatic Eyes- PERRL, EOMI, ENT- oropharynx clear Neck- supple, no JVD Lungs- clear to auscultation Heart- regular rhythm; no murmur Abdomen- normal bowel sounds, +distended Extremities- no calf tenderness, No edema Neuro- alert, oriented x 3; PERRL, EOMI; no facial palsy; no dysarthria Skin- warm & dry Results & Data Results & Data ([facility]) Vital Signs (Past 12 Hours) Vital Signs Temp Pulse Resp BP Pulse Ox 09/27/20 15:00 36.6 C 57 L 16 122/64 99 09/27/20 07:24 36.7 C 75 16 144/48 H 96
[2020-09-27] MEDS: DICYCLOMINE HCL 10 MG CAP PO SCH (19:49)
[2020-09-28 05:55] LABS: Hemoglobin 8.4 g/dL (12.0-16.0); Mean Corpuscular Hemoglobin 32.7 pg (25-34); Mean Corpuscular Hgb Conc 33.6 g/dL (32-36); Mean Corpuscular Volume 97.3 fL (80-100); RDW Coefficient of Variation 15.3 % (11.5-14.5); RDW Standard Deviation 54.2 fL (36.4-46.3); Red Blood Count 2.57 M/uL (4.2-5.4)
[2020-09-28 06:00] LABS: Mean Platelet Volume 11.4 fL (7.4-10.4); Platelet Count 84 K/uL (130-400)
[2020-09-28 06:23] LABS: BUN Creatinine Ratio 13.8 (10-20); Calcium 8.6 mg/dl (8.5-10.1); Creatinine Clr Calc Pharmacy 12.9 ml/min; Est GFR (African American) 15.4; Est GFR (Non-African American) 13.3; Potassium 4.2 mmol/L (3.5-5.1)
--- NOTE | 2020-09-28 09:01 | Gastroenterology Progress Note ---
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 (2) Pancreatic cyst: EUS today (3) Dilated bile duct: EUS today Will order COVID PCR (RNA negative x 2, but PCR not done yet - ordered urgently). Continue NPO. OR and endo aware. Procedure described in detail to the pt including complications. She would like to go forward with the procedure. Admission and Anticipated Discharge Date Admission Date: September 24, 2020 Supervising Physician Co-Signing Physician Notes I have seen and examined the patient and discussed the management with LEORA Ma. No acute complaints this am. REARDON cirrhotic admitted with arf that is improving. Imaging showing distal cbd findings. Agree with further plan of care as per Jarad's plan of care. Subjective 74 yr female with cirrhosis with ascites admitted for PUNEET. MRCP with brian dil and abrupt cut off of the distal CBD. Pt sitting up in a chair at the bedside. No events overnight. Comfortable. NPO. Review of Systems Review of Systems: ROS: Gen: Denies weakness, fevers, weight loss Eyes: No eye redness, or pain, no recent vision changes Resp: No SOB, no cough Cardio: No palpitations/irregular beats, no chest pain GI: No abdominal pain, no nausea/vomiting : Denies pain on urination Skin: No jaundice, itching or new rashes Physical Exam Constitutional: well developed, well nourished, cooperative and comfortable Eyes: PERRL, conjunctivae normal, anicteric sclerae ENMT: external ear and nose normal, oropharynx normal Neck: trachea midline, no thyromegaly Respiratory: normal respiratory effort, lungs clear to auscultation Cardiovascular: Rate/Rhythm: regular rate and regular rhythm Vessels: no JVD Extremities: + edema (trace bilat lower leg/ankle) Gastrointestinal (Abdomen): normal bowel sounds, soft, nontender, no hepatosplenomegaly Percussion/Palpation: abdomen soft Skin: no rashes, warm and dry Neurologic: PERRL, EOMI, accommodation nl, no face palsy, no dysarthria Psychiatric: A+Ox3, euthymic affect Lymphatic: no cervical or axillary lymphadenopathy Results & Data ([facility]) Vital Signs (Past 12 Hours) Vital Signs Temp Pulse Resp BP Pulse Ox 09/28/20 07:44 36.7 C 68 18 158/82 H 98 09/27/20 22:00 36.8 C 61 16 125/56 L 99 Laboratory Results WBC 4, Hb 8.4, Hct 25, Plats 84, Na 145, K 4.2, Cl 120, CO2 15, BUN 45, Cr 3.28, 114 Diagnostic Findings MRCP 09/24/20: 1. Cirrhotic morphology the liver with ascites and splenomegaly 2. Intra and extrahepatic biliary ductal dilatation with abrupt common bile duct cut off suggestive of a stricture or mass 3. Dilatation of the pancreatic duct within the distal body and tail with an abrupt change in pancreatic ductal caliber involving the proximal body and head. The findings are also suggestive of a stricture or mass. 4. Multiple cystic lesions within the pancreatic body and tail, possibly representing IPMNs 5. No ductal calculi identified 6. An ERCP with endoscopic ultrasound should be considered in follow-up.
[2020-09-28] MEDS: PARoxetine HCL 10 MG TAB PO SCH (09:31)
[2020-09-28] MEDS: SODIUM BICARBONATE 650 MG TAB PO SCH ×2 (09:31→20:05)
[2020-09-28] MEDS: ADVANCED PROBIOTIC 1250 MG CAPSULE PO SCH (09:31)
[2020-09-28] MEDS: POTASSIUM CHLORIDE CRTAB 20 MEQ TABCR PO SCH ×2 (09:31→20:06)
[2020-09-28] MEDS: FERROUS SULFATE 325 MG TAB PO SCH (09:31)
[2020-09-28] MEDS: LORATADINE 10 MG TAB PO SCH (09:31)
[2020-09-28] MEDS: MULTIVITAMIN TAB PO SCH (09:32)
[2020-09-28 10:49] LABS: Influenza A virus by PCR Negative (Neg); Influenza B virus by PCR Negative (Neg); RSV by PCR Negative (Neg); SARS CoV2 RNA(COVID-19) InHosp NEGATIVE (Negative)
[2020-09-28] MEDS ORDERED: fentaNYL citrate 100 MCG/2 ML VIAL ONE (11:43)
[2020-09-28] MEDS ORDERED: MIDAZOLAM HCL 1 MG/ML 2ML VIAL ONE (11:43)
[2020-09-28] MEDS ORDERED: PROPOFOL IV EMULSION 10 MG/ML 20 ML VIAL IV ONE (11:43)
--- NOTE | 2020-09-28 11:54 | History & Physical Bridge Note ---
Date of Service September 28, 2020 History & Physical Bridge Note I have examined the patient, reviewed the History & Physical and in the interval since the performance of the History & Physical I have noted the following changes of clinical significance: no changes noted. We are planning for EUS and ERCP this afternoon for suspected biliary obstruction from a large pancreatic body IPMN. We have discussed the risks to include bleeding, infection, peforation, pain, pancreatitits and failed biliary cannulation.
[2020-09-28] MEDS: CIPROFLOXACIN / D5W 200 MG/100 ML BAG IV SCH ×2 (12:29→21:05)
[2020-09-28] MEDS ORDERED: INDOMETHACIN 50 MG SUPP PR ONE (12:30)
[2020-09-28] MEDS ORDERED: LIDOCAINE HCL 2% 2 ML VIAL/AMP(20MG/ML) INFIL ONE (12:49)
[2020-09-28] MEDS ORDERED: ONDANSETRON INJ 2 MG/ML 2 ML VIAL ONE (12:49)
--- NOTE | 2020-09-28 13:08 | Anesthesiology Consultation ---
Date of Service September 28, 2020 Assessment & Plan Chart Review Chart Review: Acceptable Risk for Surgery Consults Requested none History Surgery Operation Date: 09/28/20 08:50 Proposed Procedures p Endoscopic Retrograde Cholangiopancreato - Manny Duron DO Operation Date: 09/28/20 13:00 Proposed Procedures p Upper Endoscopic Ultrasonography, - Manny Duron DO s Esophagogastroduodenoscopy - Manny Duron DO Height/Weight Height: 5 ft 1 in Weight: 59 kg Allergies Allergy/AdvReac Type Severity Reaction Status Date / Time No Known Drug Allergies Allergy Unknown Verified 09/24/20 10:40 adhesive AdvReac Intermediate BANDAIDS-INCREASES Unverified 09/24/20 10:40 ECZEMA REDNESS Medications Home Medications Medication Instructions Recorded Confirmed Last Taken clobetasol [Temovate] 1 applic TOPICAL DAILY PRN #0 tube 10/09/14 09/24/20 01/19/19 loratadine [Claritin] 10 mg PO QAM #0 tab 10/09/14 09/24/20 09/23/20 paroxetine HCl [Paxil] 10 mg PO QAM #0 tab 10/09/14 09/24/20 09/23/20 potassium chloride 20 meq PO QAM #0 01/24/18 09/24/20 09/23/20 Bifidobacterium infantis [Align] 4 mg PO QAM 01/21/19 09/24/20 09/23/20 ferrous sulfate 27 mg PO QAM 01/21/19 09/24/20 09/23/20 dicyclomine 10 mg PO HS 04/05/20 09/24/20 09/23/20 furosemide 10 mg PO DAILY 09/24/20 09/24/20 Unknown multivitamin 1 tab PO QAM 09/24/20 09/24/20 09/23/20 spironolactone 12.5 mg PO DAILY 09/24/20 09/24/20 Unknown Active Medications Generic Name Dose Route Start Last Admin Trade Name Freq PRN Reason Stop Dose Admin Dicyclomine HCl 10 mg 09/24/20 21:00 09/27/20 19:49 Dicyclomine Hcl 10 Mg Cap PO 10/24/20 20:59 10 mg HS KARAN Administration Ferrous Sulfate 325 mg 09/25/20 09:00 09/28/20 09:31 Ferrous Sulfate 325 Mg Tab PO 10/25/20 08:59 325 mg QAM KARAN Administration Ciprofloxacin Lactate 200 mg in 100 mls @ 100 mls/hr 09/28/20 12:15 09/28/20 12:29 Cipro / D5w IV 09/30/20 12:14 100 mls/hr Q12 KARAN Administration Protocol Lactobacillus Acidoph/Casei/Rhamnos 2 cap 09/25/20 09:00 09/28/20 09:31 Advanced Probiotic 1250 Mg Capsule PO 10/25/20 08:59 2 cap QAM KARAN Administration Loratadine 10 mg 09/25/20 09:00 09/28/20 09:31 Loratadine 10 Mg Tab PO 10/25/20 08:59 10 mg QAM KARAN Administration Multivitamins 1 tab 09/25/20 09:00 09/28/20 09:32 Multivitamin Tab PO 10/25/20 08:59 1 tab QAM KARAN Administration Paroxetine HCl 10 mg 09/25/20 09:00 09/28/20 09:31 Paroxetine Hcl 10 Mg Tab PO 10/25/20 08:59 10 mg QAM KARAN Administration Potassium Chloride 20 meq 09/25/20 21:00 09/28/20 09:31 Potassium Chloride Crtab 20 Meq Tabcr PO 10/25/20 20:59 20 meq BID KARAN Administration Sodium Bicarbonate 650 mg 09/26/20 09:00 09/28/20 09:31 Sodium Bicarbonate 650 Mg Tab PO 10/26/20 08:59 650 mg BID KARAN Administration NPO Date Last Intake of Fluids: 09/28/20 Time Last Intake of Fluids: 20:00 Last Intake of Fluids Comment: sip of water 0930 w/meds Date Last Intake of Solids: 09/28/20 Time Last Intake of Solids: 18:00 Past Medical History Medical History Anxiety CKD (chronic kidney disease), stage IV Degenerative arthritis of left knee History of Clostridioides difficile infection s/p fecal transplant JESSICA (iron deficiency anemia) 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 Pancreatic cyst Portal hypertension Secondary esophageal varices without bleeding Squamous cell cancer of skin of forearm Weight loss [facility] clinic weights 2019145; March 158; Apr 145; Aug 2020 133 lb Past Family History Family History Father Cancer Mother Diabetes Past Surgical History Surgical History History of appendectomy History of bilateral knee replacement History of tonsillectomy and adenoidectomy Social History Smoking Status: Former smoker tobacco type: cigarettes Hx Alcohol Use: No Hx Substance Use: No substance use type: does not use Physical Exam Vital Signs Last Vital Signs Temp 36.7 C 09/28/20 11:55 Pulse 58 L 09/28/20 11:55 Resp 18 09/28/20 11:55 BP 151/71 H 09/28/20 11:55 Pulse Ox 100 09/28/20 11:55 Testing Laboratory Results 09/28/20 05:26 09/28/20 05:26 PT 20.0 Seconds (9.0-12.0) H 09/24/20 10:01 INR 2.1 (0.9-1.1) H 09/24/20 10:01 Urine Color Dark Yellow 09/24/20 11:41 Urine Appearance Cloudy (Clear) A 09/24/20 11:41 Urine pH 5.0 (4.5-7.5) 09/24/20 11:41 Ur Specific [place] 1.017 (1.000-1.030) 09/24/20 11:41 Urine Protein 1+ (Negative) H 09/24/20 11:41 Urine Glucose (UA) Negative (Negative) 09/24/20 11:41 Urine Ketones Negative (Negative) 09/24/20 11:41 Urine Nitrite Negative (Negative) 09/24/20 11:41 Ur Leukocyte Esterase 2+ (Negative) H 09/24/20 11:41 Urine WBC (Auto) >30 /hpf (0-5) H 09/24/20 11:41 Urine RBC (Auto) 10-30 /hpf (0-4) H 09/24/20 11:41 U Hyaline Cast (Auto) 1-5 /lpf (0-5) 09/24/20 11:41 U Epithel Cells (Auto) >30 /lpf (0-5) H 09/24/20 11:41 Urine Bacteria (Auto) Negative (Negative) 09/24/20 11:41 09/24/20 11:41 Urine Culture - Final Urine,Clean Catch Three types of organisms present, all high counts. Repeat collection recommended. No further identifications or sensitivities to follow.
[2020-09-28] MEDS ORDERED: fentaNYL citrate 100 MCG/2 ML VIAL IV PRN (13:09)
[2020-09-28] MEDS ORDERED: METOCLOPRAMIDE HCL INJ 5 MG/ML 2 ML VIAL IV PRN (13:09)
[2020-09-28] MEDS ORDERED: HYDROmorphone INJ 2 MG/ML SYR/VIAL IV PRN (13:09)
[2020-09-28] MEDS ORDERED: ePHEDrine sulfate 50 MG/ML AMP IV PRN (13:09)
[2020-09-28] MEDS ORDERED: ONDANSETRON INJ 2 MG/ML 2 ML VIAL IV PRN (13:09)
[2020-09-28] MEDS ORDERED: PROMETHAZINE HCL 12.5 MG in SODIUM CHLORIDE 0.9% 50 ML IV PRN (13:09)
[2020-09-28] MEDS ORDERED: ATROPINE SULFATE 0.1 MG/ML 10ML SYR IV PRN (13:09)
--- NOTE | 2020-09-28 14:02 | Post Operative Brief Note ---
Immediate Post Op Note v1 Date of Surgery September 28, 2020 Pre & Post Diagnosis Operation Date: 09/28/20 08:50 <No data on this case meets the specified criteria> Operation Date: 09/28/20 13:00 Pre-Op Diagnosis: Pancreatic Cyst; Biliary Obstruction Post-Op Diagnosis: Pancreatic Cystic neoplasm; Biliary Obstruction I identified the patient and participated in the time-out.: Yes Procedure Operation Date: 09/28/20 08:50 <No data on this case meets the specified criteria> Operation Date: 09/28/20 13:00 Actual Procedures p Upper Endoscopic Ultrasonography, Esophagogastroduodenoscopy(Not Applicable) - Manny Duron DO s Endoscopic Retrograde Cholangiopancreatography(Not Applicable) - Manny Duron DO Surgeon Manny Duron DO Nurse Wound Nonce Estimated Blood Loss 0 Findings Consistent with Post-Op Diagnosis
--- NOTE | 2020-09-28 14:05 | Communication Note ---
Date of Service: September 28, 2020 The patient underwent EUS and ERCP this afternoon for biliary obstruction. She was found to have a large cystic mass arising from the pancreatic body extending into the uncinate process of the pancreas. This was causing biliary obstruction of the midportion of the common bile duct fine-needle aspiration was performed from the primary mass and a biliary stent was placed into the common bile duct and a prophylactic stent was placed into the pancreatic duct. Recommendations May have clear liquids today Advance diet as tolerated tomorrow Prophylactic antibiotic coverage with ciprofloxacin twice daily for a total of 5 days Avoid anticoagulation and antiplatelet agents for 5 days Please call with any questions or concerns
[2020-09-28] MEDS ORDERED: NEOSTIGMINE METHYLSULFATE 5 MG/5 ML SYR ONE (14:07)
[2020-09-28] MEDS ORDERED: SUCCINYLCHOLINE CHLORIDE 20 MG/ML 10 ML VIAL IV ONE (14:07)
[2020-09-28] MEDS ORDERED: ROCURONIUM BROMIDE 10 MG/ML 5 ML VIAL IV ONE (14:07)
[2020-09-28] MEDS ORDERED: GLYCOPYRROLATE 0.2 MG/ML VIAL ONE (14:07)
--- NOTE | 2020-09-28 14:08 | Fluoroscopy Report ---
FL ERCP biliary ductal CLINICAL HISTORY: ERCP TO BE DONE IN THE O.R. COMPARISON STUDY: None. FLUOROSCOPY TIME: 2 minutes and 58 seconds. FINDINGS: 12 fluoroscopic spot images of the right upper quadrant were submitted. The ampulla was can nulated and contrast was injected into the common bile duct. A balloon sweep was performed. Focal manny rowing/stricture at the mid common bile duct. There is mild intrahepatic bile duct dilatation. IMPRESSION: Fluoroscopy for for ERCP. Common bile duct stricturing is again noted and raises the poss ibility of a pancreatic mass. ACT 112: Negative or not required by law. Electronically signed by: Mike George M.D. 09/28/2020 2:07 PM
--- NOTE | 2020-09-28 14:15 | GI REPORT ---
Patient Name: Roselia Stafford Procedure Date: 09/28/2020 12:17 PM Date of : 1945 Admit Type: Inpatient Age: 74 Gender: Female Attending MD: Manny Duron DO Procedure: Upper EUS Providers: Manny Duron DO Referring MD: Referred Jair, [place] BARNHART Indications: Dilated pancreatic duct on MRCP, Suspected mass in pancreas on MRCP, Obstruction of bile duct on MRCP Medicines: General Anesthesia Complications: No immediate complications. Estimated blood loss: Minimal. Estimated Blood Loss: Estimated blood loss was minimal. Procedure: Pre-Anesthesia Assessment: - Prior to the procedure, a History and Physical was performed, and patient medications, allergies and sensitivities were reviewed. The patient's tolerance of previous anesthesia was reviewed. - The risks and benefits of the procedure and the sedation options and risks were discussed with the patient. All questions were answered and informed consent was obtained. - Patient identification and proposed procedure were verified prior to the procedure by the physician, the nurse and the blueberry grower. The procedure was verified in the procedure room. - Pre-procedure physical examination revealed no contraindications to sedation. - ASA Grade Assessment: III - A patient with severe systemic disease. - After reviewing the risks and benefits, the patient was deemed in satisfactory condition to undergo the procedure. - The anesthesia plan was to use general anesthesia. - Immediately prior to administration of medications, the patient was re-assessed for adequacy to receive sedatives. - The heart rate, respiratory rate, oxygen saturations, blood pressure, adequacy of pulmonary ventilation, and response to care were monitored throughout the procedure. - The physical status of the patient was re-assessed after the procedure. After obtaining informed consent, the endoscope was passed under direct vision. Throughout the procedure, the patient's blood pressure, pulse, and oxygen saturations were monitored continuously. The scope was introduced through the mouth, and advanced to the second part of duodenum. The upper EUS was accomplished without difficulty. The patient tolerated the procedure well. Findings: ENDOSONOGRAPHIC FINDING: : There was no sign of significant endosonographic abnormality in the ampulla. No masses were identified. There was dilation in the upper third of the main bile duct which measured up to 11 mm. There was a suggestion of a stricture in the middle third of the main bile duct. Intrahepatid ductal dilation No lymphadenopathy seen. An irregular mass was identified in the pancreatic body and uncinate process of the pancreas. The mass was hypoechoic, heterogenous and multicystic. The mass measured 35 mm by 28 mm in maximal cross-sectional diameter. The endosonographic borders were poorly-defined. An intact interface was seen between the mass and the superior mesenteric artery, celiac trunk and portal vein suggesting a lack of invasion. The remainder of the pancreas was examined. The endosonographic appearance of parenchyma and the upstream pancreatic duct indicated parenchymal atrophy. Diagnostic needle aspiration for fluid was performed. Color Doppler imaging was utilized prior to needle puncture to confirm a lack of significant vascular structures within the needle path. Two passes were made with the 22 gauge needle using a transgastric approach. A stylet was used. The amount of fluid collected was 2 mL. The fluid was serous and viscous. Sample(s) were sent for amylase concentration, cytology and CEA. Fine needle aspiration for cytology was performed. Color Doppler imaging was utilized prior to needle puncture to confirm a lack of significant vascular structures within the needle path. Three passes were made with the 22 gauge needle using a transduodenal approach. A stylet was used. A summer analyst was present and performed a preliminary cytologic examination. Final cytology results are pending. Estimated blood loss was minimal. A small amount of fluid, visualized as a hypoechoic feature, was found in the peritoneal cavity. Impression: - There was no sign of significant pathology in the ampulla. - There was dilation in the upper third of the main bile duct which measured up to 11 mm. - There was a suggestion of a stricture in the middle third of the main bile duct. - A mass was identified in the pancreatic body and uncinate process of the pancreas. The diagnosis is consistent with an intraductal papillary mucinous neoplasm. This was staged T3 N0 M0 by endosonographic criteria. The staging applies if malignancy is confirmed. Fine needle aspiration for fluid performed. Fine needle aspiration performed. Recommendation: - Perform an upper endoscopic ultrasound (UEUS) today. - Await cytology results and await tumor markers. - Use broad spectrum antibiotics for 5 days. Manny Duron D.O. Manny Duron, 09/28/2020 2:15:27 PM This report has been signed electronically. Note Initiated On: 09/28/2020 12:17 PM Number of Addenda: 0 I attest to the content of the Intraoperative Record and orders documented therein, exceptions below {[id number]}
--- NOTE | 2020-09-28 14:25 | GI REPORT ---
Patient Name: Roselia Stafford Procedure Date: 09/28/2020 12:56 PM Date of : 1945 Admit Type: Inpatient Age: 74 Gender: Female Attending MD: Manny Duron DO Procedure: ERCP Providers: Manny Duron DO Referring MD: [place] KHANNA Indications: Abnormal abdominal MRI, Abnormal endoscopic ultrasound of the biliary system, Elevated alkaline phosphatase Medicines: General Anesthesia Complications: No immediate complications. Estimated blood loss: Minimal. Estimated Blood Loss: Estimated blood loss was minimal. Procedure: Pre-Anesthesia Assessment: - Prior to the procedure, a History and Physical was performed, and patient medications, allergies and sensitivities were reviewed. The patient's tolerance of previous anesthesia was reviewed. - The risks and benefits of the procedure and the sedation options and risks were discussed with the patient. All questions were answered and informed consent was obtained. - Patient identification and proposed procedure were verified prior to the procedure by the physician, the nurse and the instructor wastewater treatment plant. The procedure was verified in the procedure room. - Pre-procedure physical examination revealed no contraindications to sedation. - ASA Grade Assessment: III - A patient with severe systemic disease. - After reviewing the risks and benefits, the patient was deemed in satisfactory condition to undergo the procedure. - The anesthesia plan was to use general anesthesia. - Immediately prior to administration of medications, the patient was re-assessed for adequacy to receive sedatives. - The heart rate, respiratory rate, oxygen saturations, blood pressure, adequacy of pulmonary ventilation, and response to care were monitored throughout the procedure. - The physical status of the patient was re-assessed after the procedure. After obtaining informed consent, the scope was passed under direct vision. Throughout the procedure, the patient's blood pressure, pulse, and oxygen saturations were monitored continuously. The Scope was introduced through the mouth, and advanced to the duodenum and used to inject contrast into the bile duct and ventral pancreatic duct. The patient tolerated the procedure well. The ERCP was performed with moderate difficulty due to difficulty passing guidewires through biliary ductal stenosis. Successful completion of the procedure was aided by performing the maneuvers documented (below) in this report. Findings: A operations specialists film of the abdomen was obtained. Surgical clips, consistent with a previous cholecystectomy, were seen in the area of the right upper quadrant of the abdomen. The esophagus was successfully intubated under direct vision without detailed examination of the pharynx, larynx, and associated structures, and upper GI tract. The upper GI tract was grossly normal. The major papilla was normal. The ventral pancreatic duct was inadvertently cannulated with the short-nosed traction sphincterotome and 0.025 in Acrobat 2 guidewire without any complications. The wire was left in place to aid in biliary cannulaion and later place a prophylactic pancreatic stent. The bile duct was deeply cannulated with the short-nosed traction sphincterotome and 0.025 in Acrobat 2guidewire. Contrast was injected. I personally interpreted the bile duct images. Contrast extended to the hepatic ducts. The middle third of the main bile duct contained a single segmental stenosis 20 mm in length. The upper third of the main bile duct, common hepatic duct, right main hepatic duct and right intrahepatic branches were diffusely dilated. The largest diameter was 12 mm. Biliary sphincterotomy was made with a monofilament Fusion OMNI sphincterotome using ERBE electrocautery. There was no post-sphincterotomy bleeding. The wire was then exchanged for a 0.035 in Acrobat 2 to help with later placement of a stent. Cells for cytology were obtained by brushing in the middle third of the main bile duct. One 7 Fr by 5 cm pancreatic stent with a 3/4 external pigtail and no internal flaps was placed 7 cm into the ventral pancreatic duct. Clear fluid flowed through the stent. The stent was in good position. One 8.5 Fr by 8 cm covered metal stent ([place] Viabil) was placed 8 cm into the common bile duct. Bile flowed through the stent. The stent was in good position. Indomethacin 100 mg was given via suppository to decrease the risk of post-ERCP pancreatitis (PEP). The endoscope was withdrawn from the patient. Impression: - The major papilla appeared normal. - A single segmental biliary stricture was found in the middle third of the main bile duct. The stricture was malignant appearing and correlates with the mass seen during EUS. - The upper third of the main bile duct, right main hepatic duct, right intrahepatic branches and common hepatic duct were dilated. - A biliary sphincterotomy was performed. - Cells for cytology obtained in the middle third of the main bile duct. - One pancreatic stent was placed into the ventral pancreatic duct. - One covered metal stent was placed into the common bile duct. - Indomethacin given to decrease risk of post-ERCP pancreatitis. Recommendation: - Avoid aspirin and nonsteroidal anti-inflammatory medicines for 5 days. - Clear liquid diet today. - Use broad spectrum antibiotics for 5 days. - Await cytology results. - Surgical oncology referral (had been seen by Dr. Bai in the past) Manny Duron D.O. Manny Duron, 09/28/2020 2:24:57 PM This report has been signed electronically. Note Initiated On: 09/28/2020 12:56 PM Number of Addenda: 0 I attest to the content of the Intraoperative Record and orders documented therein, exceptions below {[id number]}
--- NOTE | 2020-09-28 14:34 | Anesthesiology Progress Note ---
Date of Service September 28, 2020 Anesthesia Post Procedure Vital Signs Vital Signs: Temp Pulse Pulse Resp BP Pulse Ox 09/28/20 14:10 59 L 15 144/64 H 99 09/28/20 14:00 69 12 122/68 100 09/28/20 13:50 36.0 C L 84 14 127/71 97 09/28/20 11:55 36.7 C 58 L 18 151/71 H 100 09/28/20 07:44 36.7 C 68 18 158/82 H 98 09/27/20 22:00 36.8 C 61 16 125/56 L 99 09/27/20 15:00 36.6 C 57 L 16 122/64 99 Pain Intensity Lower Back: Pain Intensity: 1 Transfer of Care Handoff Completed per policy Notes Mental Status: alert / awake / arousable Patient Amnestic to Procedure: Yes Nausea / Vomiting: adequately controlled Pain: adequately controlled Airway Patency, RR, SpO2: stable & adequate BP & HR: stable & adequate Hydration State: stable & adequate Anesthetic Complications: no major complications apparent and Pt Satisfied with anesthetic care
--- NOTE | 2020-09-28 14:40 | Progress Notes ---
DATE: 09/28/2020 SUBJECTIVE: Overnight, no new acute symptoms. However, creatinine has started to get worse again for no clear reason. She is scheduled to have a procedure done later today for dilated CB duct and suspected biliary obstruction. She is otherwise feeling fine. OBJECTIVE: VITAL SIGNS: Blood pressure is 127/71, temperature 36 degrees Celsius, oxygen 4 liters per minute, and 97% saturation. HEENT: Mucous membrane moist. NECK: Supple. No jugular venous distention. CHEST: Bilateral clear to auscultation. CARDIOVASCULAR: S1, S2 regular. ABDOMEN: Slightly distended. EXTREMITIES: Shows no edema. LABORATORY TESTS: From this morning shows creatinine has started to get worse again. It was down to 2.93 two days ago, but it is now up to 3.28. BUN today is 45. Sodium 145, potassium 4.2. ASSESSMENT AND PLAN: A 74-year-old female with liver cirrhosis secondary to nonalcoholic steatohepatitis and chronic kidney disease stage IV to stage V, admitted with acute on chronic renal failure. Acute renal failure: It seems the acute component is very minimal if any. After improving slowly down to 2.93, creatinine is up again to 3.29. So, my sense is this is pretty much her baseline from this point. The plan was to restart diuretics today, but now with a rising creatinine and dilated/obstructed common bile duct we will hold off for today. She is scheduled to have ERCP later today depending on the labs tomorrow will decide about the diuretics. However, I do not feel that we have to wait for the renal recovery at this point as it is very unlikely she will recover much and this will be accepted as her baseline.
--- NOTE | 2020-09-28 18:41 | Hospitalist Progress Note ---
Date of Service September 28, 2020 Assessment & Plan (1) Acute on chronic renal insufficiency: (2) CKD (chronic kidney disease), stage IV: This is a 74yo F with a PMH of CKD IV, REARDON cirrhosis with portal HTN and secondary esophageal varices without bleeding and ascites development (MELD 12), JESSICA, HTN, h/o recurrent Cdiff s/p fecal transplant, IPMN pancreas was sent to the hospital by [employer] due to abnormal blood work. Creatinine on presentation 3.2 Diuretics have been on hold since 09/10/20, but creatinine has been increased gradually Abdominal u/s showed no hydronephrosis Nephrology on board IVF was discontinued by nephrology Creatinine continue to bump to 3.28 today (Might be her new baseline creatinine as per Nephrology) Continue fluid restriction at 1500ml daily Markers for ANCA, DANIEL, anti DS DNA, SFLC, MAI, pending Continue to hold diuretic Continue monitor I/O Continue monitor BMP (3) 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 Hepatitis C negative MRCP showed cirrhotic morphology of the liver with ascites and splenomegaly Abdominal u/s showed Hepatic cirrhosis biliary ductal dilatation and Low volume ascites Continue monitor closely while diuretic on hold (4) Pancreatic cyst: MRCP showed Intra and extrahepatic biliary ductal dilatation with abrupt common bile duct cut off suggestive of a stricture or mass Dilatation of the pancreatic duct within the distal body and tail with an abrupt change in pancreatic ductal caliber involving the proximal body and head. The findings are also suggestive of a stricture or mass. Multiple cystic lesions within the pancreatic body and tail, possibly representing IPMNs s/p Upper Endoscopic Ultrasonography, Esophagogastroduodenoscopy by Dr. Manny Duron S/p Endoscopic Retrograde Cholangiopancreatography performed by Manny Duron, DO ERCP showed a billiary structure with malignancy appearance Starting on clear liquids today Advance diet as tolerated tomorrow Prophylactic antibiotic coverage with ciprofloxacin twice daily for a total of 5 days Avoid anticoagulation and antiplatelet agents for 5 days Cytology pending Will need to follow with Oncology (5) Hypertension: Continue to hold diuretic Continue monitor BP (6) Anxiety: Continue paroxetine Stable (7) JESSICA (iron deficiency anemia): Hgb dropped to 8.4 Continue iron supplement Continue monitor CBC Elevated INR Thrombocytopenia Due to Liver disease No sign of active bleeding Will avoid any anticoagulant for now Hypokalemia K 4.2 today Stable Continue monitor BMP DVT Ppx: SCDs in setting of elevated INR and thrombocytopenia Code status: FULL PCP: Rosalina Dispo: Will discharge once medically stable Admission and Anticipated Discharge Date Admission Date: September 24, 2020 Subjective Pt was seen and examined for follow up on elevated creatinine Lying in bed with no distress Pt said that she feels tired because she just got back from OR for the ERCP She denies any chest pain, palpitation, dizziness and SOB Review of Systems Review of Systems: All systems reviewed & are unremarkable except as noted in Subjective Physical Exam Physical Exam: General- No acute distress Head- atraumatic Eyes- PERRL, EOMI, ENT- oropharynx clear Neck- supple, no JVD Lungs- clear to auscultation Heart- regular rhythm; no murmur Abdomen- normal bowel sounds, +distended Extremities- no calf tenderness, No edema Neuro- alert, oriented x 3; PERRL, EOMI; no facial palsy; no dysarthria Skin- warm & dry Results & Data Results & Data ([facility]) Vital Signs (Past 12 Hours) Vital Signs Temp Pulse Pulse Resp BP Pulse Ox 09/28/20 17:50 36.3 C L 52 L 18 149/72 H 99 09/28/20 16:51 36.3 C L 50 L 16 123/65 95 09/28/20 15:50 36.2 C L 51 L 16 128/71 99 09/28/20 15:23 36.6 C 52 L 16 120/58 L 100 09/28/20 14:50 36.2 C L 58 L 14 138/76 100 09/28/20 14:30 36.4 C L 50 L 13 143/70 H 99 09/28/20 14:20 51 L 14 140/67 99 09/28/20 14:10 59 L 15 144/64 H 99 09/28/20 14:00 69 12 122/68 100 09/28/20 13:50 36.0 C L 84 14 127/71 97 09/28/20 11:55 36.7 C 58 L 18 151/71 H 100 09/28/20 07:44 36.7 C 68 18 158/82 H 98
[2020-09-28] MEDS: DICYCLOMINE HCL 10 MG CAP PO SCH (20:06)
[2020-09-29 05:50] LABS: Hematocrit (blood only) 24.5 % (37-47); Hemoglobin 8.1 g/dL (12.0-16.0); Mean Corpuscular Hemoglobin 32.5 pg (25-34); Mean Corpuscular Hgb Conc 33.1 g/dL (32-36); Mean Corpuscular Volume 98.4 fL (80-100); Mean Platelet Volume 11.6 fL (7.4-10.4); Platelet Count 81 K/uL (130-400); RDW Coefficient of Variation 14.9 % (11.5-14.5); RDW Standard Deviation 54.1 fL (36.4-46.3); Red Blood Count 2.49 M/uL (4.2-5.4); White Blood Count 4.56 K/uL (4.8-10.8)
[2020-09-29 06:34] LABS: Albumin Level 2.2 gm/dl (3.4-5.0); BUN Creatinine Ratio 14.2 (10-20); Calcium 8.6 mg/dl (8.5-10.1); Creatinine Clr Calc Pharmacy 12.5 ml/min; Est GFR (African American) 15.2; Est GFR (Non-African American) 13.1; Potassium 4.5 mmol/L (3.5-5.1)
[2020-09-29 06:37] LABS: Albumin Globulin Ratio 0.6 (0.9-2); Bilirubin,Total 1.2 mg/dl (0.2-1); Globulin 3.7 gm/dl (2.5-4.0); Total Protein 5.9 gm/dl (6.4-8.2)
[2020-09-29] MEDS: CIPROFLOXACIN / D5W 200 MG/100 ML BAG IV SCH (07:54)
[2020-09-29] MEDS: FERROUS SULFATE 325 MG TAB PO SCH (07:55)
[2020-09-29] MEDS: POTASSIUM CHLORIDE CRTAB 20 MEQ TABCR PO SCH ×2 (07:55→21:16)
[2020-09-29] MEDS: SODIUM BICARBONATE 650 MG TAB PO SCH ×2 (07:55→21:16)
[2020-09-29] MEDS: PARoxetine HCL 10 MG TAB PO SCH (07:56)
[2020-09-29] MEDS: MULTIVITAMIN TAB PO SCH (07:56)
[2020-09-29] MEDS: ADVANCED PROBIOTIC 1250 MG CAPSULE PO SCH (07:56)
[2020-09-29] MEDS: LORATADINE 10 MG TAB PO SCH (07:56)
--- NOTE | 2020-09-29 08:31 | Anesthesiology Progress Note ---
Date of Service September 29, 2020 Anesthesia Post Procedure Vital Signs Vital Signs: Temp Pulse Pulse Resp BP BP Pulse Ox 09/29/20 08:00 36.6 C 50 L 18 104/81 99 09/29/20 03:38 36.3 C L 54 L 16 123/78 98 09/28/20 22:43 36.6 C 54 L 18 150/70 H 96 09/28/20 19:19 36.5 C 57 L 18 153/73 H 97 09/28/20 17:50 36.3 C L 52 L 18 149/72 H 99 09/28/20 16:51 36.3 C L 50 L 16 123/65 95 09/28/20 15:50 36.2 C L 51 L 16 128/71 99 09/28/20 15:23 36.6 C 52 L 16 120/58 L 100 09/28/20 14:50 36.2 C L 58 L 14 138/76 100 09/28/20 14:30 36.4 C L 50 L 13 143/70 H 99 09/28/20 14:20 51 L 14 140/67 99 09/28/20 14:10 59 L 15 144/64 H 99 09/28/20 14:00 69 12 122/68 100 09/28/20 13:50 36.0 C L 84 14 127/71 97 09/28/20 11:55 36.7 C 58 L 18 151/71 H 100 Pain Intensity Lower Back: Pain Intensity: 1 Notes Mental Status: alert / awake / arousable and participated in evaluation Patient Amnestic to Procedure: Yes Nausea / Vomiting: see Notes below Pain: adequately controlled Airway Patency, RR, SpO2: stable & adequate BP & HR: stable & adequate Hydration State: stable & adequate Anesthetic Complications: no major complications apparent and Pt Satisfied with anesthetic care
[2020-09-29] MEDS ORDERED: STAT IV STA (10:11)
[2020-09-29] MEDS ORDERED: SODIUM BICARBONATE 8.4% 75 MEQ in DEXTROSE 5% 1,000 ML IV SCH (10:30)
--- NOTE | 2020-09-29 10:43 | Progress Notes ---
DATE: 09/29/2020 NEPHROLOGY PROGRESS NOTE SUBJECTIVE: Overnight, she had ERCP done and had a stent placed in both bile duct as well as pancreatic duct. She is on a limited diet at this time. PHYSICAL EXAMINATION: VITAL SIGNS: Shows somewhat lower blood pressure than before 104/81, pulse 50, temperature 36.6, 99% on room air. HEENT: Mucous membranes moist. NECK: Supple. No jugular venous distention. CHEST: Bilaterally clear to auscultation. CARDIOVASCULAR: S1, S2 regular. ABDOMEN: Soft, nontender. He does have some ascites, but it is not very prominent. EXTREMITIES: Show no edema. LABORATORY TESTS: From this morning shows serum sodium slightly high at 146, potassium 4.5, bicarbonate is 18, BUN 47, creatinine is 3.32 and it has been going very slowly for the last 4 days. ASSESSMENT AND PLAN: A 74-year-old female with liver cirrhosis secondary to nonalcoholic steatohepatitis and chronic kidney disease stage IV to stage V at baseline, admitted with [id number] renal failure. Acute renal failure: It seems the acute component is very minimal if any. At this point, I will declare her to have chronic kidney disease stage V with liver cirrhosis. Given marginal and limited fluid/food intake, I would like to give her 1 liter of fluid to see if it makes any difference with her rising creatinine. Continue to hold diuretics at least for a day, but pretty soon we will have to restart her diuretics. We do not necessarily have to have much improved creatinine for discharge. As long as it is relatively stable, we can discharge her as long as she does not have any other gastrointestinal issues.
--- NOTE | 2020-09-29 11:00 | Gastroenterology Progress Note ---
Date of Service September 29, 2020 Assessment & Plan (1) 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: Regarding cirrhosis and renal function - appreciate nephrology management of PUNEET and will defer to nephrology regarding timing/dosing of restarting her diuretics. Present on Admission?: Yes (2) Dilated bile duct: Will await cytology results. OP Surg oncology referral was placed in [facility] by Dr. Duron. OK to adv diet to regular consistency, low fat. No GI contraindication to discharge - will contact her with results by phone when available. Present on Admission?: Yes Admission and Anticipated Discharge Date Admission Date: September 24, 2020 Supervising Physician Co-Signing Physician Notes I have seen and discussed the management with LEORA Ma. Doing well this am s/p eus -fna and pancreatic stent/biliary stent placement yesterday no pain reported, no change in PE Agree with further plan of care as per Jarad's plan of care. Subjective 74, Female, cirrhosis with ascites, admitted for JOSE. Diuretics not yet restarted. Nephrology following. Underwent EGD/EUS/ERCP yesterday with brushing of malignant appearing CBD stricture by Dr. Duron. Today, feels well, would like to eat. Review of Systems Review of Systems: ROS: Gen: Denies weakness, fevers, weight loss Eyes: No eye redness, or pain, no recent vision changes Resp: No SOB, no cough Cardio: No palpitations/irregular beats, no chest pain GI: No abdominal pain, no nausea/vomiting : Denies pain on urination Skin: No jaundice, itching or new rashes Physical Exam Constitutional: well developed, well nourished, cooperative and comfortable Eyes: PERRL, conjunctivae normal, anicteric sclerae ENMT: external ear and nose normal, oropharynx normal Neck: trachea midline, no thyromegaly Respiratory: normal respiratory effort, lungs clear to auscultation Cardiovascular: Rate/Rhythm: regular rate and regular rhythm Vessels: no JVD Extremities: no edema Gastrointestinal (Abdomen): normal bowel sounds, soft, nontender, no hepatosplenomegaly Percussion/Palpation: abdomen soft mild, non taunt ascites Skin: no rashes, warm and dry Neurologic: PERRL, EOMI, accommodation nl, no face palsy, no dysarthria Psychiatric: A+Ox3, euthymic affect Lymphatic: no cervical or axillary lymphadenopathy Results & Data ([facility]) Vital Signs (Past 12 Hours) Vital Signs Temp Pulse Resp BP Pulse Ox 09/29/20 08:00 36.6 C 50 L 18 104/81 99 09/29/20 03:38 36.3 C L 54 L 16 123/78 98 Laboratory Results WBC 4.5, Hb 8, Hct 24, Plt 81, Na 156, K 4.5, BUN 47, Cr 3.32, Glucose 86, T Bili 1.2, AST 41, ALT 40, Alk PHos 371. Diagnostic Findings ERCP 09/28 Dr. Manny Duron: - A single segmental biliary stricture was found in the middle third of the main bile duct. The stricture was malignant appearing and correlates with the mass seen during EUS. - The upper third of the main bile duct, right main hepatic duct, right intrahepatic branches and common hepatic duct were dilated. - A biliary sphincterotomy was performed. - Cells for cytology obtained in the middle third of the main bile duct. - One pancreatic stent was placed into the ventral pancreatic duct. - One covered metal stent was placed into the common bile duct. - Indomethacin given to decrease risk of post-ERCP
--- NOTE | 2020-09-29 13:04 | Hospitalist Progress Note ---
Date of Service September 29, 2020 Assessment & Plan (1) Acute on chronic renal insufficiency: (2) CKD (chronic kidney disease), stage IV: Pt is a 74yo F with a PMH of CKD IV, REARDON cirrhosis with portal HTN and secondary esophageal varices without bleeding and ascites development (MELD 12), JESSICA, HTN, h/o recurrent Cdiff s/p fecal transplant, IPMN pancreas was sent to the hospital by [employer] [facility] due to abnormal blood work. Creatinine on presentation 3.2 Diuretics have been on hold since 09/10/20, but creatinine has been increased gradually Abdominal u/s showed no hydronephrosis Nephrology on board IVF was discontinued by nephrology Creatinine continue to bump to 3.3 (Might be her new baseline creatinine as per Nephrology) Continued fluid restriction at 1500ml daily Markers for ANCA, DANIEL, anti DS DNA, SFLC, MAI, pending Continue to hold diuretic Continue monitor I/O Continue monitor BMP Give 1 L of IVF today (09/29) (3) 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 Hepatitis C negative MRCP showed cirrhotic morphology of the liver with ascites and splenomegaly Abdominal u/s showed Hepatic cirrhosis biliary ductal dilatation and Low volume ascites Continue monitor closely while diuretic on hold (4) Pancreatic cyst: MRCP showed Intra and extrahepatic biliary ductal dilatation with abrupt common bile duct cut off suggestive of a stricture or mass Dilatation of the pancreatic duct within the distal body and tail with an abrupt change in pancreatic ductal caliber involving the proximal body and head. The findings are also suggestive of a stricture or mass. Multiple cystic lesions within the pancreatic body and tail, possibly representing IPMNs s/p Upper Endoscopic Ultrasonography, Esophagogastroduodenoscopy by Dr. 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 Advance diet as tolerated today (low fat) Prophylactic antibiotic coverage with ciprofloxacin twice daily for a total of 5 days Avoid anticoagulation and antiplatelet agents for 5 days Cytology pending Will need to follow with Oncology (5) Hypertension: Continue to hold diuretic Continue monitor BP (6) Anxiety: Continue paroxetine Stable (7) JESSICA (iron deficiency anemia): Hgb dropped to 8.1 Continue iron supplement Continue monitor CBC Elevated INR Thrombocytopenia Due to Liver disease No sign of active bleeding Will avoid any anticoagulant for now Hypokalemia K 4.2 today Stable Continue monitor BMP DVT Ppx: SCDs in setting of elevated INR and thrombocytopenia Code status: FULL PCP: Rosalina Dispo: Will discharge once medically stable, likely tomorrow Admission and Anticipated Discharge Date Admission Date: September 24, 2020 Subjective Pt seen in follow up of cirrhosis with ascites, admitted for JOSE. Pt underwent EUS/ERCP yesterday w/ GI, tolerated procedure well Diuretics not yet restarted. Nephrology following. Recommend 1L of IVF today Today, feels well, would like to eat. Diet ordered Review of Systems Review of Systems: All systems reviewed & are unremarkable except as noted in HPI & below Constitutional: no fever and no chills Respiratory: no cough and no dyspnea Cardiovascular: no chest pain and no palpitations Gastrointestinal: no abdominal pain, no nausea and no vomiting Physical Exam Physical Exam: General- No acute distress Head- atraumatic Eyes- PERRL, EOMI, ENT- oropharynx clear Neck- supple, no JVD Lungs- clear to auscultation Heart- regular rhythm; no murmur Abdomen- normal bowel sounds, +non-distended (improved), nontender to palpation Extremities- no calf tenderness, No edema, moves extremities Neuro- alert, oriented x 3; PERRL, EOMI; no facial palsy; no dysarthria Skin- warm & dry Results & Data Results & Data ([facility]) Vital Signs (Past 12 Hours) Vital Signs Temp Pulse Resp BP Pulse Ox 09/29/20 08:00 36.6 C 50 L 18 104/81 99 09/29/20 03:38 36.3 C L 54 L 16 123/78 98 Laboratory Results 09/29/20 09/29/20 09/28/20 Range/Units 05:32 05:32 14:17 WBC 4.56 L (4.8-10.8) K/uL RBC 2.49 L (4.2-5.4) M/uL Hgb 8.1 L (12.0-16.0) g/dL Hct 24.5 L (37-47) % MCV 98.4 (80-100) fL MCH 32.5 (25-34) pg MCHC 33.1 (32-36) g/dL RDW Std Deviation 54.1 H (36.4-46.3) fL RDW Coeff of Suly 14.9 H (11.5-14.5) % Plt Count 81 L (130-400) K/uL MPV 11.6 H (7.4-10.4) fL Sodium 146 H (136-145) mmol/L Potassium 4.5 (3.5-5.1) mmol/L Chloride 119 H (98-107) mmol/L Carbon Dioxide 18 L (21-32) mmol/L Anion Gap 9.0 (3-11) BUN 47 H (7-18) mg/dl Creatinine 3.32 H (0.6-1.2) mg/dl Est Cr Clr Drug Dosing 12.5 ml/min Est GFR ( Amer) 15.2 Est GFR (Non-Af Amer) 13.1 BUN/Creatinine Ratio 14.2 (10-20) Glucose 86 (70-99) mg/dl Calcium 8.6 (8.5-10.1) mg/dl Total Bilirubin 1.2 H (0.2-1) mg/dl AST 41 H (15-37) U/L ALT 40 (12-78) U/L Alkaline Phosphatase 371 H (45-117) U/L Total Protein 5.9 L (6.4-8.2) gm/dl Albumin 2.2 L (3.4-5.0) gm/dl Globulin 3.7 (2.5-4.0) gm/dl Albumin/Globulin Ratio 0.6 L (0.9-2) Fluid Amylase Cancelled Pancr Cyst Fl Amylase Pending Pancreatic Cyst Fl CEA Pending Medications Administered Current Inpatient Medications Ciprofloxacin (Ciprofloxacin 500 Mg Tab) 500 mg PO HS [facility]; Protocol Stop: 10/03/20 12:00 Clobetasol Propionate (Clobetasol Propionate 0.05% Oint 15 Gm Tube) 1 appln EXT DAILY PRN PRN Reason: Rash Stop: 10/24/20 14:57 Dicyclomine HCl (Dicyclomine Hcl 10 Mg Cap) 10 mg PO HS [facility] Stop: 10/24/20 20:59 Last Admin: 09/28/20 20:06 Dose: 10 mg Documented by: Ferrous Sulfate (Ferrous Sulfate 325 Mg Tab) 325 mg PO QAM [facility] Stop: 10/25/20 08:59 Last Admin: 09/29/20 07:55 Dose: 325 mg Documented by: Sodium Bicarbonate 75 meq/ (Dextrose) 1,075 mls @ 80 mls/hr IV .[id number] [facility] Stop: 09/29/20 23:56 Last Admin: 09/29/20 10:43 Dose: 80 mls/hr Documented by: Lactobacillus Acidoph/Casei/Rhamnos (Advanced Probiotic 1250 Mg Capsule) 2 cap PO QAM [facility] Stop: 10/25/20 08:59 Last Admin: 09/29/20 07:56 Dose: 2 cap Documented by: Loratadine (Loratadine 10 Mg Tab) [facility] [place]: 10/25/20 08:59 Last Admin: 09/29/20 07:56 Dose: 10 mg Documented by: Multivitamins (Multivitamin Tab) 1 tab PO QAM [facility] Stop: 10/25/20 08:59 Last Admin: 09/29/20 07:56 Dose: 1 tab Documented by: Ondansetron HCl (Ondansetron Inj 2 Mg/Ml 2 Ml Vial) 4 mg IV Q6H PRN PRN Reason: Nausea Stop: 10/24/20 12:05 Paroxetine HCl (Paroxetine Hcl 10 Mg Tab) 10 mg PO QAM [facility] Stop: 10/25/20 08:59 Last Admin: 09/29/20 07:56 Dose: 10 mg Documented by: Polyethylene Glycol (Polyethylene (Miralax) 17 Gm Pack) 17 gm PO DAILY PRN PRN Reason: Constipation Stop: 10/24/20 12:05 Potassium Chloride (Potassium Chloride Crtab 20 Meq Tabcr) 20 meq PO BID [facility] Stop: 10/25/20 20:59 Last Admin: 09/29/20 07:55 Dose: 20 meq Documented by: Sodium Bicarbonate (Sodium Bicarbonate 650 Mg Tab) 650 mg PO BID [facility] Stop: 10/26/20 08:59 Last Admin: 09/29/20 07:55 Dose: 650 mg Documented by:
[2020-09-29] MEDS ORDERED: CIPROFLOXACIN 500 MG TAB PO SCH (21:00)
[2020-09-29] MEDS: DICYCLOMINE HCL 10 MG CAP PO SCH (21:16)
[2020-09-30 06:01] LABS: Hematocrit (blood only) 25.6 % (37-47); Hemoglobin 8.6 g/dL (12.0-16.0); Mean Corpuscular Hgb Conc 33.6 g/dL (32-36); Mean Corpuscular Volume 98.1 fL (80-100); RDW Coefficient of Variation 14.7 % (11.5-14.5); RDW Standard Deviation 52.3 fL (36.4-46.3); Red Blood Count 2.61 M/uL (4.2-5.4); White Blood Count 5.36 K/uL (4.8-10.8)
[2020-09-30 06:02] LABS: Mean Platelet Volume 11.8 fL (7.4-10.4); Platelet Count 85 K/uL (130-400)
[2020-09-30 06:29] LABS: BUN Creatinine Ratio 15.1 (10-20); Creatinine Clr Calc Pharmacy 12.7 ml/min; Est GFR (African American) 15.2; Est GFR (Non-African American) 13.1; Potassium 4.5 mmol/L (3.5-5.1)
--- NOTE | 2020-09-30 08:26 | Hospitalist Progress Note ---
Date of Service September 30, 2020 Assessment & Plan (1) Acute on chronic renal insufficiency: (2) CKD (chronic kidney disease), stage IV: Pt is a 74yo F with a PMH of CKD IV, REARDON cirrhosis with portal HTN and secondary esophageal varices without bleeding and ascites development (MELD 12), JESSICA, HTN, h/o recurrent Cdiff s/p fecal transplant, IPMN pancreas was sent to the hospital by [employer] due to abnormal blood work. Creatinine on presentation 3.2 Diuretics have been on hold since 09/10/20, but creatinine has been increased gradually Abdominal u/s showed no hydronephrosis Nephrology on board IVF was discontinued by nephrology Creatinine continue to bump to 3.3 (Might be her new baseline creatinine as per Nephrology) Continued fluid restriction at 1500ml daily Markers for ANCA, DANIEL, anti DS DNA, SFLC, MAI, pending Continue to hold diuretic Continue monitor I/O Continue monitor BMP 1 L of IVF (09/29) Essentially no change on Cr, per nephrology ok to resume home diuretics and follow up in 1-2 weeks Bicarb Rx sent to pt' pharmacy (3) 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 Hepatitis C negative MRCP showed cirrhotic morphology of the liver with ascites and splenomegaly Abdominal u/s showed Hepatic cirrhosis biliary ductal dilatation and Low volume ascites Continue monitor closely while diuretic on hold (4) Pancreatic cyst: MRCP showed Intra and extrahepatic biliary ductal dilatation with abrupt common bile duct cut off suggestive of a stricture or mass Dilatation of the pancreatic duct within the distal body and tail with an abrupt change in pancreatic ductal caliber involving the proximal body and head. The findings are also suggestive of a stricture or mass. Multiple cystic lesions within the pancreatic body and tail, possibly representing IPMNs s/p Upper Endoscopic Ultrasonography, Esophagogastroduodenoscopy by Dr. Manny Duron (09/28) S/p Endoscopic Retrograde Cholangiopancreatography performed by Manny Duron DO (09/28) S/p pancreatic duct and biliary duct stent placement Advance diet as tolerated(low fat) Prophylactic antibiotic coverage with ciprofloxacin for a total of 5 days Avoid anticoagulation and antiplatelet agents for 5 days Cytology pending Will need to follow with Oncology Follow up w/ GI scheduled (5) Hypertension: Continued to hold diuretic , ok to resume on dc Continue monitor BP (6) Anxiety: Continue paroxetine Stable (7) JESSICA (iron deficiency anemia): Hgb dropped to 8.1 Continue iron supplement Continue monitor CBC Elevated INR Thrombocytopenia Due to Liver disease No sign of active bleeding Will avoid any anticoagulant for now Hypokalemia K 4.2 today Stable Continue monitor BMP DVT Ppx: SCDs in setting of elevated INR and thrombocytopenia Code status: FULL PCP: Rosalina Dispo: Plan to discharge home today Admission and Anticipated Discharge Date Admission Date: September 24, 2020 Subjective Pt seen in follow up of cirrhosis with ascites, admitted for JOSE. Pt underwent EUS/ERCP w/ GI, tolerated procedure well Diuretics not yet restarted. But ok to restart on discharge. Pt feels well, sitting in the chair, however says that sometimes she feels blo ated and gets dry heaves. she says she was able to eat some. Review of Systems Review of Systems: All systems reviewed & are unremarkable except as noted in HPI & below Constitutional: no fever and no chills Respiratory: no cough and no dyspnea Cardiovascular: no chest pain and no palpitations Gastrointestinal: + nausea (on and off); no abdominal pain and no vomiting Physical Exam Physical Exam: General- No acute distress Head- atraumatic Eyes- PERRL, EOMI, ENT- oropharynx clear Neck- supple, no JVD Lungs- clear to auscultation Heart- regular rhythm; no murmur Abdomen- normal bowel sounds, +non-distended (improved), nontender to palpation Extremities- no calf tenderness, No edema, moves extremities Neuro- alert, oriented x 3; PERRL, EOMI; no facial palsy; no dysarthria Skin- warm & dry Results & Data Results & Data ([facility]) Vital Signs (Past 12 Hours) Vital Signs Temp Pulse Resp BP Pulse Ox 09/30/20 07:54 36.8 C 70 16 125/67 95 09/29/20 22:00 37.2 C 65 16 132/70 96 Laboratory Results 09/30/20 09/30/20 Range/Units 05:35 05:35 WBC 5.36 (4.8-10.8) K/uL RBC 2.61 L (4.2-5.4) M/uL Hgb 8.6 L (12.0-16.0) g/dL Hct 25.6 L (37-47) % MCV 98.1 (80-100) fL MCH 33.0 (25-34) pg MCHC 33.6 (32-36) g/dL RDW Std Deviation 52.3 H (36.4-46.3) fL RDW Coeff of Suly 14.7 H (11.5-14.5) % Plt Count 85 L (130-400) K/uL MPV 11.8 H (7.4-10.4) fL Sodium 145 (136-145) mmol/L Potassium 4.5 (3.5-5.1) mmol/L Chloride 118 H (98-107) mmol/L Carbon Dioxide 19 L (21-32) mmol/L Anion Gap 8.0 (3-11) BUN 50 H (7-18) mg/dl Creatinine 3.32 H (0.6-1.2) mg/dl Est Cr Clr Drug Dosing 12.7 ml/min Est GFR ( Amer) 15.2 Est GFR (Non-Af Amer) 13.1 BUN/Creatinine Ratio 15.1 (10-20) Glucose 107 H (70-99) mg/dl Calcium 8.0 L (8.5-10.1) mg/dl Medications Administered Current Inpatient Medications Ciprofloxacin (Ciprofloxacin 500 Mg Tab) 500 mg PO HS [facility]; Protocol Stop: 10/03/20 12:00 Last Admin: 09/29/20 21:16 Dose: 500 mg Documented by: Clobetasol Propionate (Clobetasol Propionate 0.05% Oint 15 Gm Tube) 1 appln EXT DAILY PRN PRN Reason: Rash Stop: 10/24/20 14:57 Dicyclomine HCl (Dicyclomine Hcl 10 Mg Cap) 10 mg PO HS [facility] Stop: 10/24/20 20:59 Last Admin: 09/29/20 21:16 Dose: 10 mg Documented by: Ferrous Sulfate (Ferrous Sulfate 325 Mg Tab) 325 mg PO QAM [facility] Stop: 10/25/20 08:59 Last Admin: 09/29/20 07:55 Dose: 325 mg Documented by: Lactobacillus Acidoph/Casei/Rhamnos (Advanced Probiotic 1250 Mg Capsule) 2 cap PO QAM [facility] Stop: 10/25/20 08:59 Last Admin: 09/29/20 07:56 Dose: 2 cap Documented by: Loratadine (Loratadine 10 Mg Tab) 10 mg PO QAM [facility] Stop: 10/25/20 08:59 Last Admin: 09/29/20 07:56 Dose: 10 mg Documented by: Multivitamins (Multivitamin Tab) 1 tab PO QAM [facility] Stop: 10/25/20 08:59 Last Admin: 09/29/20 07:56 Dose: 1 tab Documented by: Ondansetron HCl (Ondansetron Inj 2 Mg/Ml 2 Ml Vial) 4 mg IV Q6H PRN PRN Reason: Nausea Stop: 10/24/20 12:05 Paroxetine HCl (Paroxetine Hcl 10 Mg Tab) 10 mg PO QAM [facility] Stop: 10/25/20 08:59 Last Admin: 09/29/20 07:56 Dose: 10 mg Documented by: Polyethylene Glycol (Polyethylene (Miralax) 17 Gm Pack) 17 gm PO DAILY PRN PRN Reason: Constipation Stop: 10/24/20 12:05 Potassium Chloride (Potassium Chloride Crtab 20 Meq Tabcr) 20 meq PO BID [facility] Stop: 10/25/20 20:59 Last Admin: 09/29/20 21:16 Dose: 20 meq Documented by: Sodium Bicarbonate (Sodium Bicarbonate 650 Mg Tab) 650 mg PO BID [facility] Stop: 10/26/20 08:59 Last Admin: 09/29/20 21:16 Dose: 650 mg Documented by:
[2020-09-30] MEDS: LORATADINE 10 MG TAB PO SCH (08:39)
[2020-09-30] MEDS: FERROUS SULFATE 325 MG TAB PO SCH (08:40)
[2020-09-30] MEDS: MULTIVITAMIN TAB PO SCH (08:40)
[2020-09-30] MEDS: ADVANCED PROBIOTIC 1250 MG CAPSULE PO SCH (08:40)
[2020-09-30] MEDS: POTASSIUM CHLORIDE CRTAB 20 MEQ TABCR PO SCH (08:40)
[2020-09-30] MEDS: PARoxetine HCL 10 MG TAB PO SCH (08:40)
[2020-09-30] MEDS: SODIUM BICARBONATE 650 MG TAB PO SCH (08:41)
--- NOTE | 2020-09-30 10:37 | Progress Notes ---
DATE: 09/30/2020 SUBJECTIVE: Overnight, she had no new issues. She is gradually eating and drinking better, although she does not have much appetite, but that is not new. She is making urine. Denies any other symptoms. PHYSICAL EXAMINATION: VITAL SIGNS: Blood pressure is 125/67, pulse rate 70, temperature 36.8, 95% on room air. HEENT: Mucous membranes moist. NECK: Supple. No jugular venous distention. CHEST: Bilateral clear to auscultation. CARDIOVASCULAR: S1, S2 regular. ABDOMEN: Soft, nontender, mildly distended with very minimal ascites on exam. EXTREMITIES: Shows no edema. LABORATORY TESTS: From this morning shows sodium 145, potassium 4.5, BUN is 50, creatinine is 3.32, which is same as yesterday. Calcium 8.0, hemoglobin is low at 8.6, although better than yesterday, platelet count 85,000. ASSESSMENT AND PLAN: A 74-year-old female with liver cirrhosis secondary to nonalcoholic steatohepatitis and chronic kidney disease stage V. At this time, admitted with acute on chronic renal failure. Acute renal failure: It seems the acute component is very minimal if any. She has been in the hospital for a week now without diuretics and has received significant amount of fluid, but despite all this, her creatinine really has not changed much. So at this point, we will declare her as chronic kidney disease stage V with liver cirrhosis. RECOMMENDATIONS: 1. She is stable for discharge from renal standpoint. However, final decision is up to GI and primary service. 2. We can restart her diuretics that she was getting as an outpatient. It is obvious that she does not need a hefty dose of diuretics as she has done pretty well despite receiving no diuretics for a week. 3. Follow up with Nephrology, Dr. Keyana Hernandez within the next 1-2 weeks.
--- NOTE | 2020-09-30 12:38 | Discharge Summary ---
Date of Service September 30, 2020 Admission HPI Per Admitting Provider This is a 74yo F with a PMH of CKD IV, REARDON cirrhosis with portal HTN and secondary esophageal varices without bleeding and ascites development (MELD 12), JESSICA, HTN, h/o recurrent Cdiff s/p fecal transplant, IPMN pancreas and other medical problems listed below who was sent in due to abnormal lab work. Patient follows with Dr. Hernandez for continued worsening of renal function and ongoing significant acid-base abnormalities. Diuretics were discontinued approximately 2 weeks ago. Lab work from 09/21 showed continued decline of renal function with Cr 3.2 (from 2.8 on 09/15). Was agreeable to coming to hospital for further evaluation. Patient is currently feeling well. Endorses some dyspnea on exertion that is worse over the course of the past month. Has not noticed lower extremity swelling. Also endorses mild lower back discomfort on left side in bandlike distribution. Denies fever, chills, headache, lightheadedness, visual changes, sore throat, cough, chest pain, palpitations, shortness of breath, abdominal pain, nausea, vomiting, dysuria, constipation or diarrhea. Admission Exam Per Admitting Provider General Appearance: WD/WN, vitals as above, NAD, sitting up in bed, pleasant, conversing easily Head: normocephalic, atraumatic Eyes: normal inspection, PERRL, conjunctivae normal, anicteric sclerae ENT: external ear and nose normal, oropharynx normal Neck: normal visual inspection, trachea midline, no thyromegaly Respiratory: normal respiratory effort, lungs clear to auscultation, no wheeze, rales, rhonchi. No accessory muscle use Cardiovascular: regular rate, rhythm, no murmur, normal peripheral pulses, no BLE edema. 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 Pancreatic cyst Discharge Exam General- No acute distress Head- atraumatic Eyes- PERRL, EOMI, ENT- oropharynx clear Neck- supple, no JVD Lungs- clear to auscultation Heart- regular rhythm; no murmur Abdomen- normal bowel sounds, +non-distended (improved), nontender to palpation Extremities- no calf tenderness, No edema, moves extremities Neuro- alert, oriented x 3; PERRL, EOMI; no facial palsy; no dysarthria Skin- warm & dry Discharge Data Allergies Allergy/AdvReac Type Severity Reaction Status Date / Time No Known Drug Allergies Allergy Unknown Verified 09/24/20 10:40 adhesive AdvReac Intermediate BANDAIDS-INCREASES Unverified 09/24/20 10:40 ECZEMA REDNESS Consultations 09/24/20 10:51 ED Decision to Admit Stat 09/24/20 11:25 Consult Nephrology Routine 09/24/20 12:06 Consult Gastroenterology Routine Procedures Performed Operation Date: 09/28/20 08:50 <No data on this case meets the specified criteria> Operation Date: 09/28/20 13:00 Actual Procedures p Upper Endoscopic Ultrasonography, Esophagogastroduodenoscopy(Not Applicable) - Manny Duron DO s Endoscopic Retrograde Cholangiopancreatography(Not Applicable) - Manny Duron DO Ordered Studies 09/24/20 11:24 US abdomen complete Routine 09/24/20 14:27 MR MRCP Routine 09/28/20 12:00 FL ERCP biliary ductal Routine 09/28/20 12:12 US upper EUS PACS images Routine Hospital Course (1) Acute on chronic renal insufficiency: (2) CKD (chronic kidney disease), stage IV: Pt is a 74yo F with a PMH of CKD IV, REARDON cirrhosis with portal HTN and secondary esophageal varices without bleeding and ascites development (MELD 12), JESSICA, HTN, h/o recurrent Cdiff s/p fecal transplant, IPMN pancreas was sent to the hospital by [facility] due to abnormal blood work. Creatinine on presentation 3.2 Diuretics have been on hold since 09/10/20, but creatinine has been increased gradually Abdominal u/s showed no hydronephrosis Nephrology on board IVF was discontinued by nephrology Creatinine continue to bump to 3.3 (Might be her new baseline creatinine as per Nephrology) Continued fluid restriction at 1500ml daily Markers for ANCA, DANIEL, anti DS DNA, SFLC, MAI, pending Continue to hold diuretic Continue monitor I/O Continue monitor BMP 1 L of IVF (09/29) Essentially no change on Cr, per nephrology ok to resume home diuretics and follow up in 1-2 weeks Bicarb Rx sent to pt' pharmacy (3) 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 Hepatitis C negative MRCP showed cirrhotic morphology of the liver with ascites and splenomegaly Abdominal u/s showed Hepatic cirrhosis biliary ductal dilatation and Low volume ascites Continue monitor closely while diuretic on hold (4) Pancreatic cyst: MRCP showed Intra and extrahepatic biliary ductal dilatation with abrupt common bile duct cut off suggestive of a stricture or mass Dilatation of the pancreatic duct within the distal body and tail with an abrupt change in pancreatic ductal caliber involving the proximal body and head. The findings are also suggestive of a stricture or mass. Multiple cystic lesions within the pancreatic body and tail, possibly representing IPMNs s/p Upper Endoscopic Ultrasonography, Esophagogastroduodenoscopy by Dr. Manny Duron (09/28) S/p Endoscopic Retrograde Cholangiopancreatography performed by Manny Duron DO (09/28) S/p pancreatic duct and biliary duct stent placement Advance diet as tolerated(low fat) Prophylactic antibiotic coverage with ciprofloxacin for a total of 5 days Avoid anticoagulation and antiplatelet agents for 5 days Cytology pending Will need to follow with Oncology Follow up w/ GI scheduled (5) Hypertension: Continued to hold diuretic , ok to resume on dc Continue monitor BP (6) Anxiety: Continue paroxetine Stable (7) JESSICA (iron deficiency anemia): Hgb dropped to 8.1 Continue iron supplement Continue monitor CBC Elevated INR Thrombocytopenia Due to Liver disease No sign of active bleeding Will avoid any anticoagulant for now Hypokalemia K 4.2 Stable Continue monitor BMP PCP: Dr. 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 Pancreatic cyst Activity: Per Instructions section Non-emergency contact: Primary Care Provider, [employer] and [facility] Call non-emergency contact if: you have any medication questions and your symptoms worsen Follow-up/Referrals: Anisha Romano DO [Primary Care Provider] - (Date & Time 10/05/2020 11:10 AM Provider Anisha Romano DO Department Internal Medicine [facility] ) Janis Valverde PA-C [Physician Radiology Specialist] - (Date & Time 10/05/2020 12:00 PM Provider Jan[facility]de [facility]-C [facility] PLEASE NOTE THAT THIS IS A TELEVIDEO APPOINTMENT. PLEASE FOLLOW THE INSTRUCTIONS IN YOUR EMAIL THAT YOU WILL RECEIVE. IF YOU HAVE ANY QUESTIONS ABOUT THIS APPOINTMENT, PLEASE CALL ) Diet: Low Fat Fluids: 1800ml (7 cups) Addtl Attending Provider Instructions: Follow up with primary care provider, the appointment was scheduled for you for 10/05. If that does not work for you, please make sure to reschedule. Take antibiotic, ciprofloxacin, for 4 more days. Take sodium bicarbonate twice a day as prescribed. Follow up with nephrology - Dr. Hernandez - the appointment will be scheduled for you, and Gastroenterology as already scheduled. Continue your home diuretics - lasix and spironolactone. Monitor your weight at home and record these numbers. Make sure to bring this log to your health care providers during your appointments. Pending Studies at Discharge: No Stand-Alone Forms: My [facility] [employer], Smoking Cessation Medications and DC Order Prescriptions: New ciprofloxacin HCl 500 mg Tablet 500 mg PO HS Qty: 4 RF: 0 sodium bicarbonate 650 mg Tablet 650 mg PO BID Qty: 60 RF: 0 simethicone [Gas Relief (simethicone)] 80 mg tablet,chewable 80 mg PO TID PRN (Reason: abdominal distention) Qty: 30 RF: 0 Continued paroxetine HCl [Paxil] 10 mg Tablet 10 mg PO QAM Qty: 0 RF: 0 clobetasol [Temovate] 0.05 % Cream 1 applic TOPICAL DAILY PRN (Reason: Rash) Qty: 0 RF: 0 loratadine [Claritin] 10 mg Tablet 10 mg PO QAM Qty: 0 RF: 0 potassium chloride 20 mEq Tablet Extended Release 20 meq PO QAM Qty: 0 RF: 0 multivitamin Tablet 1 tab PO QAM RF: 0 spironolactone 25 mg tablet 12.5 mg PO DAILY RF: 0 furosemide 20 mg tablet 10 mg PO DAILY RF: 0 Align 4 mg Capsule 4 mg PO QAM RF: 0 ferrous sulfate 27 mg iron Tablet 27 mg PO QAM RF: 0 dicyclomine 10 mg Capsule 10 mg PO HS RF: 0 Discharge Orders: Discharge Order (Routine); Ordered 09/30/20 Ordered By: Alfredo Guadarrama Admission Data Admit Date/Time: 09/24/20 11:22 Attending Provider: Alfredo Guadarrama Admit Provider: Dawit La Primary Care Provider: Anisha Romano Other Providers: Dawit La ; Keyana Hernandez ; Manny Duron
[2020-09-30 23:01] LABS: ANCA Screen Negative (Negative); Albumin 2.7 g/dL (3.8-4.8); Alpha 1 Globulin 0.3 g/dL (0.2-0.3); Alpha 2 Globulin 0.6 g/dL (0.5-0.9); Anti Nuclear Antibody Screen NEGATIVE (NEGATIVE); Anti-dsDNA Recombinant <1 IU/mL; Beta-1-Globulin 0.4 g/dL (0.4-0.6); Beta-2-Globulin 0.8 g/dL (0.2-0.5); Complement C3 100 mg/dL (83-193); Complement Total(CH50) >60 U/mL (31-60); Free Kappa 177.6 mg/L (3.3-19.4); Free Kappa/Lambda Ratio 1.44 (0.26-1.65); Gamma Globulin 1.3 g/dL (0.8-1.7); Hepatitis B Core Antibody IgM NON-REACTIVE (NON-REACTIVE); Monoclonal Protein Band 2 DNR g/dL (NONE DETECTED); Monoclonal Protein Band 3 DNR g/dL (NONE DETECTED); Total Protein 6.1 g/dL (6.1-8.1)
== END 2020-09-30 15:15 | disposition home or self-care (01) | DRG 682 ==
LOC: ED 09:39 → 3N 11:22 → SUATTDRO 11:22 → 3N 11:44

== ENCOUNTER 2020-10-22 19:01 | Inpatient (IN) ==
[2020-10-22] MEDS ORDERED: SODIUM CHLORIDE 0.9% 500 ML IV SCH (19:30)
--- NOTE | 2020-10-22 19:33 | Emergency Department Note ---
History of Present Illness General Chief complaint: Weakness Stated complaint: lethargic, weak Time Seen by Provider: 10/22/20 19:12 Source: patient Mode of arrival: ambulatory Limitations: no limitations History of Present Illness Provider complaint: Generalized weakness Maximum Pain Intensity: 4 This is a 75-year-old female who presents to the ED with a chief complaint of generalized weakness. The patient also reports weight loss. She was discharged from the hospital just under a month ago. She was admitted for acute renal failure, liver cirrhosis secondary to Villagomez and a pancreatic cyst as well as a stricture of the common bile duct that required a stent placed in the pancreatic duct and biliary duct. The patient states that since discharge, she has been feeling weak and generally not well. She has been cold and having chills. She reports a history of C. difficile and has been having some liquid-like stools. She states that her weight went from 143 down to 128 since she was discharged a few weeks ago. She talk to the GI service and they recommended that she come in for evaluation. She reports poor appetite and decreased p.o. intake. She states that the site of food makes her lose her appetite. Home Medications Medication Instructions Recorded Confirmed Type loratadine [Claritin] 10 mg PO QAM #0 tab 10/09/14 10/22/20 History paroxetine HCl [Paxil] 10 mg PO QAM #0 tab 10/09/14 10/22/20 History potassium chloride 20 meq PO BID #0 01/24/18 10/22/20 History Align 4 mg PO QAM 01/21/19 10/22/20 History ferrous sulfate 27 mg PO QAM 01/21/19 10/22/20 History dicyclomine 10 mg PO HS 04/05/20 10/22/20 History furosemide 40 mg PO DAILY 09/24/20 10/22/20 History multivitamin 1 tab PO QAM 09/24/20 10/22/20 History simethicone [Gas Relief 80 mg PO TID PRN #30 tab 09/30/20 10/22/20 Rx (simethicone)] sodium bicarbonate 650 mg PO BID #60 tab 09/30/20 10/22/20 Rx cholecalciferol (vitamin D3) 25 mcg PO DAILY 10/22/20 10/22/20 History Allergies Allergy/AdvReac Type Severity Reaction Status Date / Time No Known Drug Allergies Allergy Unknown Verified 10/22/20 20:13 adhesive AdvReac Intermediate BANDAIDS-INCREASES Unverified 10/22/20 20:13 ECZEMA REDNESS Past Med/Surg History Medical History Anxiety CKD (chronic kidney disease), stage IV Degenerative arthritis of left knee History of Clostridioides difficile infection s/p fecal transplant JESSICA (iron deficiency anemia) Liver cirrhosis secondary to VILLAGOMEZ Pancreatic cyst Portal hypertension Secondary esophageal varices without bleeding Squamous cell cancer of skin of forearm Weight loss [facility] weights 2019145; March 158; Apr 145; Aug 2020 133 lb Surgical History History of appendectomy History of bilateral knee replacement History of tonsillectomy and adenoidectomy Family History Father Cancer Mother Diabetes Social History Smoking Status: Never smoker Tobacco Type: Cigarettes Second Hand Exposure: No; Hx Alcohol Use: No Hx Substance Use: No Preferred Language: Honduran Communication Ability: Effective Mortar Worker Required: No Beliefs That Will Affect Care: None marital status: yes Current Living Situation: Spouse Feels Safe at Home: Yes Assistive Devices: Denture - Upper, Denture - Lower and Glasses Review of Systems A total of 10 systems reviewed and were otherwise negative Physical Exam Vital Signs Vital Signs - 24 hr 10/22/20 19:07 10/22/20 19:36 10/22/20 19:52 Temperature 37.4 C Temperature Source Temporal Artery Scan Pulse Rate 97 H 89 Pulse Rate from SpO2 Sensor 89 Respiratory Rate 18 28 H Respiratory Effort / Characteristics Non-Labored Spontaneous Respiratory Depth Normal Blood Pressure 130/80 129/68 Blood Pressure Mean 96 88 Pulse Oximetry 99 100 97 Oxygen Delivery Method Room Air Room Air Sepsis Recent Fever Within 48 Hours No Sepsis New/Unexplained Change in Mental Status No Sepsis Action Taken by Nursing No Action Required 10/22/20 20:01 10/22/20 20:31 Temperature Temperature Source Pulse Rate 88 82 Pulse Rate from SpO2 Sensor 89 80 Respiratory Rate 21 23 Respiratory Effort / Characteristics Respiratory Depth Blood Pressure 116/63 123/71 Blood Pressure Mean 80 88 Pulse Oximetry 97 100 Oxygen Delivery Method Sepsis Recent Fever Within 48 Hours Sepsis New/Unexplained Change in Mental Status Sepsis Action Taken by Nursing CONSTITUTIONAL/VITAL SIGNS: Reviewed / noted above. GENERAL: Non-toxic in appearance. INTEGUMENTARY: Warm, dry, and [place]. HEAD: Normocephalic. EYES: without scleral icterus or trauma. ENT/OROPHARYNX: clear and moist. LYMPHADENOPATHY/NECK: Is supple without lymphadenopathy or meningismus. RESPIRATORY: Lungs clear and equal. CARDIOVASCULAR: Regular rate and rhythm. GI/ABDOMEN: Soft and nontender. No organomegaly or pulsatile mass. No rebound or guarding. Normal bowel sounds. EXTREMITIES: Warm and well perfused. BACK: No CVA tenderness. NEUROLOGICAL: Intact without focal deficits. PSYCHIATRIC: normal affect. MUSCULOSKELETAL: Normally developed with good muscle tone. TRIAGE NURSING DOCUMENTATION REVIEWED. Course Administered Medications Discontinued Medications Sodium Chloride (Nss) 500 mls @ 999 mls/hr IV .Q31M KARAN Stop: 10/22/20 20:00 Last Infusion: 10/22/20 20:44 Dose: 0 mls/hr Documented by: [id number] Admin: 10/22/20 19:50 Dose: 999 mls/hr Documented by: [id number] Medical Decision Making Differential Diagnosis Differential includes acute coronary syndrome, myocardial infarction, CVA, TIA, anemia, infection, pneumonia, UTI, pyelonephritis, poor nutrition, dehydration, electrolyte disturbance,hypoglycemia. Medical Records Attestation: I reviewed the patient's medical records. Home Medications Current Medication List: was personally reviewed by me Laboratory Data Attestation: I reviewed the patient's lab results. Result diagrams: 10/22/20 19:43 10/22/20 19:43 Lab Results 10/22/20 10/22/20 10/22/20 Range/Units 19:43 19:43 19:43 WBC 21.51 H (4.8-10.8) K/uL RBC 2.87 L (4.2-5.4) M/uL Hgb 9.4 L (12.0-16.0) g/dL Hct 26.4 L (37-47) % MCV 92.0 (80-100) fL MCH 32.8 (25-34) pg MCHC 35.6 (32-36) g/dL RDW Std Deviation 44.1 (36.4-46.3) fL RDW Coeff of Suly 12.9 (11.5-14.5) % Plt Count 127 L (130-400) K/uL MPV 11.5 H (7.4-10.4) fL Immature Gran % (Auto) 0.3 % Neut % (Auto) 86.3 % Lymph % (Auto) 8.1 % [place] % (Auto) 5.3 % Eos % (Auto) 0.0 % Baso % (Auto) 0.0 % Neut # (Auto) 18.54 H (1.4-6.5) K/uL Lymph # (Auto) 1.75 (1.2-3.4) K/uL [place] # (Auto) 1.13 H (0.11-0.59) K/uL Eos # (Auto) 0.01 (0-0.5) K/uL Baso # (Auto) 0.01 (0-0.2) K/uL Immature Gran # (Auto) 0.07 H (0.00-0.02) K/uL PT 16.0 H (9.0-12.0) Seconds INR 1.6 H (0.9-1.1) Sodium 133 L (136-145) mmol/L Potassium 3.6 (3.5-5.1) mmol/L Chloride 104 (98-107) mmol/L Carbon Dioxide 16 L (21-32) mmol/L Anion Gap 13.0 H (3-11) BUN 48 H (7-18) mg/dl Creatinine 5.11 H* (0.6-1.2) mg/dl Est Cr Clr Drug Dosing 8.0 ml/min Est GFR ( Amer) 8.9 Est GFR (Non-Af Amer) 7.7 BUN/Creatinine Ratio 9.4 L (10-20) Glucose 195 H (70-99) mg/dl Calcium 9.0 (8.5-10.1) mg/dl Magnesium 1.4 L (1.8-2.4) mg/dl Total Bilirubin 0.8 (0.2-1) mg/dl AST 17 (15-37) U/L ALT 15 (12-78) U/L Alkaline Phosphatase 173 H (45-117) U/L Troponin I < 0.015 (0-0.045) ng/ml Total Protein 7.6 (6.4-8.2) gm/dl Albumin 2.4 L (3.4-5.0) gm/dl Globulin 5.2 H (2.5-4.0) gm/dl Albumin/Globulin Ratio 0.5 L (0.9-2) Procalcitonin (0-0.5) ng/ml TSH 2.080 (0.300-4.500) uIu/ml Urine Color Urine Appearance (Clear) Urine pH (4.5-7.5) Ur Specific [place] (1.000-1.030) Urine Protein (Negative) Urine Glucose (UA) (Negative) Urine Ketones (Negative) Urine Blood (Negative) Urine Nitrite (Negative) Urine Bilirubin (Negative) Urine Urobilinogen (Negative) Ur Leukocyte Esterase (Negative) Urine WBC (Auto) (0-5) /hpf Urine RBC (Auto) (0-4) /hpf U Hyaline Cast (Auto) (0-5) /lpf U Epithel Cells (Auto) (0-5) /lpf Urine Bacteria (Auto) (Negative) COVID-19 Eval Order 10/22/20 10/22/20 10/22/20 Range/Units 20:24 20:57 21:00 WBC (4.8-10.8) K/uL RBC (4.2-5.4) M/uL Hgb (12.0-16.0) g/dL Hct (37-47) % MCV (80-100) fL MCH (25-34) pg MCHC (32-36) g/dL RDW Std Deviation (36.4-46.3) fL RDW Coeff of Suly (11.5-14.5) % Plt Count (130-400) K/uL MPV (7.4-10.4) fL Immature Gran % (Auto) % Neut % (Auto) % Lymph % (Auto) % [place] % (Auto) % Eos % (Auto) % Baso % (Auto) % Neut # (Auto) (1.4-6.5) K/uL Lymph # (Auto) (1.2-3.4) K/uL [place] # (Auto) (0.11-0.59) K/uL Eos # (Auto) (0-0.5) K/uL Baso # (Auto) (0-0.2) K/uL Immature Gran # (Auto) (0.00-0.02) K/uL PT (9.0-12.0) Seconds INR (0.9-1.1) Sodium (136-145) mmol/L Potassium (3.5-5.1) mmol/L Chloride (98-107) mmol/L Carbon Dioxide (21-32) mmol/L Anion Gap (3-11) BUN (7-18) mg/dl Creatinine (0.6-1.2) mg/dl Est Cr Clr Drug Dosing ml/min Est GFR ( Amer) Est GFR (Non-Af Amer) BUN/Creatinine Ratio (10-20) Glucose (70-99) mg/dl Calcium (8.5-10.1) mg/dl Magnesium (1.8-2.4) mg/dl Total Bilirubin (0.2-1) mg/dl AST (15-37) U/L ALT (12-78) U/L Alkaline Phosphatase (45-117) U/L Troponin I (0-0.045) ng/ml Total Protein (6.4-8.2) gm/dl Albumin (3.4-5.0) gm/dl Globulin (2.5-4.0) gm/dl Albumin/Globulin Ratio (0.9-2) Procalcitonin 16.43 H (0-0.5) ng/ml TSH (0.300-4.500) uIu/ml Urine Color Yellow Urine Appearance Cloudy A (Clear) Urine pH 5.0 (4.5-7.5) Ur Specific [place] 1.013 (1.000-1.030) Urine Protein Trace H (Negative) Urine Glucose (UA) Negative (Negative) Urine Ketones Negative (Negative) Urine Blood 3+ H (Negative) Urine Nitrite Negative (Negative) Urine Bilirubin Negative (Negative) Urine Urobilinogen Negative (Negative) Ur Leukocyte Esterase 1+ H (Negative) Urine WBC (Auto) 10-30 H (0-5) /hpf Urine RBC (Auto) 10-30 H (0-4) /hpf U Hyaline Cast (Auto) 1-5 (0-5) /lpf U Epithel Cells (Auto) >30 H (0-5) /lpf Urine Bacteria (Auto) Negative (Negative) COVID-19 Eval Order Covid19 IDNow [facility] Imaging Data Radiologist's Impression: SINGLE VIEW CHEST CLINICAL HISTORY: Generalized weakness. FINDINGS: An AP, portable, upright chest radiograph is compared to study dated 09/24/2020. The heart is enlarged noting atherosclerotic calcification of the thoracic aorta. The pulmonary vasculature is noncongested. Chronic interstitial thickening is similar to previous. The lungs and pleural spaces are clear. No pneumothorax is seen. The skeletal structures are osteopenic. The bony thorax is grossly intact. IMPRESSION: Cardiomegaly with no active disease in the chest. ECG Data Attestation: I personally reviewed and interpreted this ECG as follows: Indication: + weakness Rate (beats per minute): 84 Rhythm: + sinus rhythm ECG Intervals/blocks: + Normal QT-c ECG ST segments: no ST elevation ECG Findings: no PVCs MDM Narrative There is a 75-year-old female who presents with generalized weakness, weight loss and overall just not feeling well. Details listed above. The patient has a relatively benign exam. She is in no distress. The patient has no abdominal tenderness on my exam. Her lungs are clear. Her vital signs are normal. She is afebrile. Her EKG shows a normal sinus rhythm. Chest x-ray did not show acute process. Blood blood count is elevated 21.5. This could be related to C. difficile. Hemoglobin is 9.4. BUN is 48 and creatinine is 5.1. Baseline creatinine is 3.2. Magnesium slightly low at 1.4. Troponin was negative. Urine did not show obvious infection. The patient was told the results. She was hydrated with 500 cc of normal saline IV. I spoke with the hospitalist, who will see the patient for further inpatient evaluation and care. Impression & Plan Acute on chronic kidney failure, Leukocytosis, Weakness Discharge Plan Visit Data Chief Complaint: Weakness Stated Complaint: lethargic, weak ED Provider: Mayco Rollins Discharge Problem: Acute on chronic kidney failure, Leukocytosis, Weakness Patient Disposition: Being Evaluated by Hospitalist Forms Stand Alone Forms: My [facility] Prescriptions Prescriptions: No Action paroxetine HCl [Paxil] 10 mg Tablet 10 mg PO QAM Qty: 0 RF: 0 loratadine [Claritin] 10 mg Tablet 10 mg PO QAM Qty: 0 RF: 0 potassium chloride 20 mEq Tablet Extended Release 20 meq PO BID Qty: 0 RF: 0 multivitamin Tablet 1 tab PO QAM RF: 0 furosemide 20 mg tablet 40 mg PO DAILY RF: 0 sodium bicarbonate 650 mg Tablet 650 mg PO BID Qty: 60 RF: 0 simethicone [Gas Relief (simethicone)] 80 mg tablet,chewable 80 mg PO TID PRN (Reason: abdominal distention) Qty: 30 RF: 0 Align 4 mg Capsule 4 mg PO QAM RF: 0 ferrous sulfate 27 mg iron Tablet 27 mg PO QAM RF: 0 dicyclomine 10 mg Capsule 10 mg PO HS RF: 0 cholecalciferol (vitamin D3) 25 mcg (1,000 unit) Tablet 25 mcg PO DAILY RF: 0 Referrals Referrals: Anisha Romano DO [Primary Care Provider] -
[2020-10-22 20:00] LABS: Basophils # (auto) 0.01 K/uL (0-0.2); Eosinophils # (auto) 0.01 K/uL (0-0.5); Hematocrit (blood only) 26.4 % (37-47); Hemoglobin 9.4 g/dL (12.0-16.0); Immature Granulocytes # (auto) 0.07 K/uL (0.00-0.02); Immature Granulocytes % (auto) 0.3 %; Lymphocytes # (auto) 1.75 K/uL (1.2-3.4); Lymphocytes % (auto) 8.1 %; Mean Corpuscular Hemoglobin 32.8 pg (25-34); Mean Corpuscular Hgb Conc 35.6 g/dL (32-36); Mean Platelet Volume 11.5 fL (7.4-10.4); Monocytes # (auto) 1.13 K/uL (0.11-0.59); Monocytes % (auto) 5.3 %; Neutrophils # (auto) 18.54 K/uL (1.4-6.5); Neutrophils % (auto) 86.3 %; Platelet Count 127 K/uL (130-400); RDW Coefficient of Variation 12.9 % (11.5-14.5); RDW Standard Deviation 44.1 fL (36.4-46.3); Red Blood Count 2.87 M/uL (4.2-5.4); White Blood Count 21.51 K/uL (4.8-10.8)
--- NOTE | 2020-10-22 20:06 | XRay Report ---
SINGLE VIEW CHEST CLINICAL HISTORY: Generalized weakness. FINDINGS: An AP, portable, upright chest radiograph is compared to study dated 09/24/2020. The heart i s enlarged noting atherosclerotic calcification of the thoracic aorta. The pulmonary vasculature is n oncongested. Chronic interstitial thickening is similar to previous. The lungs and pleural spaces are clear. No pneumothorax is seen. The skeletal structures are osteopenic. The bony thorax is grossly i ntact. IMPRESSION: Cardiomegaly with no active disease in the chest. ACT 112: Negative or not required by law. Electronically signed by: Jadon Esparza M.D. 10/22/2020 8:05 PM
[2020-10-22 20:19] LABS: INR 1.6 (0.9-1.1)
[2020-10-22 20:34] LABS: Alanine Aminotransferase 15 U/L (12-78); Albumin Globulin Ratio 0.5 (0.9-2); Albumin Level 2.4 gm/dl (3.4-5.0); Alkaline Phosphatase 173 U/L (45-117); Aspartate Aminotransferase 17 U/L (15-37); BUN Creatinine Ratio 9.4 (10-20); Bilirubin,Total 0.8 mg/dl (0.2-1); Blood Urea Nitrogen 48 mg/dl (7-18); Carbon Dioxide 16 mmol/L (21-32); Chloride 104 mmol/L (98-107); Est GFR (African American) 8.9; Est GFR (Non-African American) 7.7; Globulin 5.2 gm/dl (2.5-4.0); Glucose 195 mg/dl (70-99); Magnesium 1.4 mg/dl (1.8-2.4); Potassium 3.6 mmol/L (3.5-5.1); Sodium 133 mmol/L (136-145); Total Protein 7.6 gm/dl (6.4-8.2); Troponin I < 0.015 ng/ml (0-0.045)
[2020-10-22] MEDS ORDERED: metroNIDAZOLE 500 MG/100 ML BAG IV STA (20:56)
[2020-10-22] MEDS ORDERED: LACTATED RINGER'S 1,000 ML IV ONE (20:56)
[2020-10-22 21:10] LABS: Appearance Urine Cloudy (Clear); Bacteria Urine Automated Negative (Negative); Bilirubin Urine Negative (Negative); Blood Urine 3+ (Negative); Color Urine Yellow; Epithelial Cell Urine Auto >30 /lpf (0-5); Glucose Urine UA Negative (Negative); Ketones Urine Negative (Negative); Leukocyte Esterase Urine 1+ (Negative); Nitrite Urine Negative (Negative); Protein Urine Trace (Negative); Specific Gravity Urine 1.013 (1.000-1.030); Urobilinogen Urine Negative (Negative)
--- NOTE | 2020-10-22 21:26 | History & Physical Report ---
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 Chart review, HPI completed by Amparo William PA-C. Assessment and Plan per Dr Bedoya, please see addendum. History of Present Illness Chief Complaint: chills Primary Care Provider: Anisha Romano, Pt is 75 y/o F with PMH CKD IV, REARDON cirrhosis with portal HTN, secondary esophageal varices without bleeding, ascites, HTN, h/o recurrent Cdiff s/p fecal transplant, IPMN pancreas presented to ER with c/o chills, diarrhea. Pt with recent hospitalization 09/24/20-09/30/20 for PUNEET on CKD IV. Pt states always feels cold however past 2 days with shaking chills. She denies any recorded fevers. Since home pt states having poor appetite and decreased oral intake. Is on 1800ml fluid restriction however pt reports only drinking approx 1000ml daily. She feels thirsty. Feels generalized weakness. Reports decreased urine output. Has chronic diarrhea at baseline however pt states recently with more watery diarrhea. Pt reports had her lasix increased from 20mg to 40mg daily a couple of weeks ago secondary to BLE edema. She feels edema has improved. Has lost approx 16 pounds since last hospital discharge. Denies any abdominal pain, cough, SOB, CP, diaphoresis, N/V, hematochezia, melena, hematuria, dysuria, FUNG, dizziness, syncope, vision changes, neck pain, orthopnea, palpitations, sore throat, choking, otalgia, rhinorrhea, paresthesias, rashes, ill contacts. Allergies Allergy/AdvReac Type Severity Reaction Status Date / Time No Known Drug Allergies Allergy Unknown Verified 10/22/20 20:13 adhesive AdvReac Intermediate BANDAIDS-INCREASES Unverified 10/22/20 20:13 ECZEMA REDNESS Home Medications Medication Instructions Recorded Confirmed Type loratadine [Claritin] 10 mg PO QAM #0 tab 10/09/14 10/22/20 History paroxetine HCl [Paxil] 10 mg PO QAM #0 tab 10/09/14 10/22/20 History potassium chloride 20 meq PO BID #0 01/24/18 10/22/20 History Align 4 mg PO QAM 01/21/19 10/22/20 History ferrous sulfate 27 mg PO QAM 01/21/19 10/22/20 History dicyclomine 10 mg PO HS 04/05/20 10/22/20 History furosemide 40 mg PO DAILY 09/24/20 10/22/20 History multivitamin 1 tab PO QAM 09/24/20 10/22/20 History simethicone [Gas Relief 80 mg PO TID PRN #30 tab 09/30/20 10/22/20 Rx (simethicone)] sodium bicarbonate 650 mg PO BID #60 tab 09/30/20 10/22/20 Rx cholecalciferol (vitamin D3) 25 mcg PO DAILY 10/22/20 10/22/20 History Past Med/Surg History Medical History Anxiety CKD (chronic kidney disease), stage IV Degenerative arthritis of left knee History of Clostridioides difficile infection s/p fecal transplant JESSICA (iron deficiency anemia) 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 Pancreatic cyst Portal hypertension Secondary esophageal varices without bleeding Squamous cell cancer of skin of forearm [place] [facility] 2019145; March 158; Apr 145; Aug 2020 133 lb Surgical History History of appendectomy History of bilateral knee replacement History of tonsillectomy and adenoidectomy Family History Father Cancer Mother Diabetes Social History Smoking Status: Former smoker Tobacco Type: Cigarettes Second Hand Exposure: No; Hx Alcohol Use: No Hx Substance Use: No Preferred Language: Lithuanian Communication Ability: Effective 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 Beliefs That Will Affect Care: None marital status: Current Living Situation: Spouse Other Information That Helps Us Care for You: No Feels Safe at Home: Yes Safety Concerns: Feels Safe At This Time Assistive Devices: Glasses Review of Systems Review of Systems: All systems reviewed & are unremarkable except as noted in HPI & below Physical Exam Physical Exam: General: no acute distress, WDWN Head: normocephalic, atraumatic Eyes: conjunctiva non-injected, anicteric ENT: normal inspection external ears, nose, mucous membranes mildly dry Neck: supple, trachea midline Lungs: clear, no respiratory distress, no wheezing/rhonchi/rales CV: RRR, no murmur, no significant LE edema Abd: normal BS, soft, non-tender Ext: no cyanosis, no calf tenderness Neuro: A&O x 3, no focal deficits noted, normal affect Skin: warm, dry Results & Data Results & Data ([facility]) Vital Signs (Past 12 Hours) Vital Signs Temp Pulse Resp BP Pulse Ox 10/22/20 20:31 82 23 123/71 100 10/22/20 20:01 88 21 116/63 97 10/22/20 19:52 97 10/22/20 19:36 89 28 H 129/68 100 10/22/20 19:07 37.4 C 97 H 18 130/80 99 Laboratory Results Short CBC 10/22/20 10/22/20 Range/Units 19:43 19:43 WBC 21.51 H (4.8-10.8) K/uL Hgb 9.4 L (12.0-16.0) g/dL Hct 26.4 L (37-47) % Plt Count 127 L (130-400) K/uL Creatinine 5.11 H* (0.6-1.2) mg/dl BMP 10/22/20 19:43 Sodium 133 L Potassium 3.6 Chloride 104 Carbon Dioxide 16 L BUN 48 H Creatinine 5.11 H* Glucose 195 H Calcium 9.0 Cardiac Enzymes 10/22/20 Range/Units 19:43 Troponin I < 0.015 (0-0.045) ng/ml Liver Function 10/22/20 Range/Units 19:43 Total Bilirubin 0.8 (0.2-1) mg/dl AST 17 (15-37) U/L ALT 15 (12-78) U/L Alkaline Phosphatase 173 H (45-117) U/L Albumin 2.4 L (3.4-5.0) gm/dl Diagnostic Findings CXR: IMPRESSION: Cardiomegaly with no active disease in the chest. Supervising Physician Co-Signing Physician Notes IM ATTENDING : Patient seen and examined. History obtained from patient and records. Preceding documentation by Ms. Amparo William PA-C reviewed. In addition : CT abdomen pelvis initial read: Enlarged pancreatic head with loss of adjacent fat planes likely reflecting pancreatic head mass or pancreatitis. Correlate with pancreatic enzymes. Nonspecific colitis. Nephrolithiasis. Peritoneal fluid likely related to pancreatic inflammation. FINAL ASSESSMENT AND PLAN as follows : Severe sepsis SIRS plus ARF on CKD Possible sources : Recurrent C. difficile colitis, hx C. difficile status post fecal transplantation Complicated UTI NAFLD cirrhosis, patient currently clinically dry Hypertension, BP stable Chronic anemia, hemoglobin better than baseline likely secondary to hemoconcentration Chronic metabolic acidosis Hyperglycemia rule out DM Past tobacco abuse Medical telemetry Cultures, Cefepime Stool C. difficile, Flagyl for now given sepsis criteria. May need oral vancomycin/[facility] ID consult for recurrent C. difficile if stool C. difficile positive Monitor creatinine response to IVF, appropriate hold home diuretics for now Nephrology consult Re: ARF on CKD Check hemoglobin A1c DVT prophylaxis. SCDs Re: Thrombocytopenia Full code Text document was generated using [employer] voice recognition software. It may contain grammatical or spelling errors. Kindly contact undersigned for clarification of any documentation item in question.
[2020-10-22] MEDS ORDERED: CEFEPIME 2,000 MG/20 ML VIAL IV STA (22:16)
[2020-10-22] MEDS ORDERED: ACETAMINOPHEN 325 MG TAB PO PRN (23:29)
[2020-10-22] MEDS ORDERED: CEFEPIME CONSULT ACTIVE PRN (23:29)
[2020-10-23] MEDS: MAGNESIUM SULFATE / D5W 1 GM/100 ML BAG IV SCH ×4 (00:21→04:55)
[2020-10-23 00:38] LABS: Base Excess VBG -7.6 mEq/L; HCO3 VBG 17 mmol/L; PCO2 VBG 31 mmHg (38-50); PO2 VBG 19 mmHg; pH VBG 7.35 (7.36-7.41)
[2020-10-23 00:39] LABS: Oxygen Saturation VBG < 60.0 %
[2020-10-23 00:58] LABS: BUN Creatinine Ratio 9.8 (10-20); Calcium 8.4 mg/dl (8.5-10.1); Creatinine Clr Calc Pharmacy 8.2 ml/min; Est GFR (African American) 9.2; Est GFR (Non-African American) 7.9; Potassium 3.3 mmol/L (3.5-5.1)
[2020-10-23] MEDS ORDERED: POTASSIUM CHLORIDE CRTAB 20 MEQ TABCR PO STA (01:47)
[2020-10-23] MEDS: POTASSIUM CHLORIDE 20 MEQ in LACTATED RINGER'S 1,000 ML IV SCH ×2 (03:12→13:44)
[2020-10-23] MEDS ORDERED: LACTATED RINGER'S 1,000 ML IV SCH (04:00)
[2020-10-23 06:27] LABS: Estimated Average Glucose 126 mg/dl
[2020-10-23] MEDS: metroNIDAZOLE 500 MG/100 ML BAG IV SCH ×3 (06:50→21:39)
[2020-10-23 07:31] LABS: Basophils # (auto) 0.01 K/uL (0-0.2); Basophils % (auto) 0.1 %; Eosinophils # (auto) 0.03 K/uL (0-0.5); Eosinophils % (auto) 0.2 %; Immature Granulocytes # (auto) 0.05 K/uL (0.00-0.02); Immature Granulocytes % (auto) 0.3 %; Lymphocytes % (auto) 4.7 %; Mean Corpuscular Hemoglobin 31.9 pg (25-34); Mean Corpuscular Hgb Conc 34.8 g/dL (32-36); Mean Corpuscular Volume 91.6 fL (80-100); Mean Platelet Volume 11.5 fL (7.4-10.4); Monocytes # (auto) 1.89 K/uL (0.11-0.59); Monocytes % (auto) 12.6 %; Neutrophils # (auto) 12.31 K/uL (1.4-6.5); Neutrophils % (auto) 82.1 %; Platelet Count 100 K/uL (130-400); RDW Coefficient of Variation 12.9 % (11.5-14.5); RDW Standard Deviation 43.8 fL (36.4-46.3); Red Blood Count 2.51 M/uL (4.2-5.4); White Blood Count 14.99 K/uL (4.8-10.8)
[2020-10-23] MEDS: SODIUM BICARBONATE 650 MG TAB PO SCH ×2 (08:08→21:44)
[2020-10-23] MEDS: PARoxetine HCL 10 MG TAB PO SCH (08:08)
[2020-10-23] MEDS: MULTIVITAMIN TAB PO SCH (08:08)
[2020-10-23] MEDS: LORATADINE 10 MG TAB PO SCH (08:08)
[2020-10-23 08:14] LABS: Albumin Globulin Ratio 0.4 (0.9-2); Albumin Level 1.8 gm/dl (3.4-5.0); Bilirubin,Total 0.8 mg/dl (0.2-1); Calcium 8.5 mg/dl (8.5-10.1); Creatinine Clr Calc Pharmacy 8.5 ml/min; Est GFR (African American) 9.6; Est GFR (Non-African American) 8.3; Globulin 4.2 gm/dl (2.5-4.0); Magnesium 2.4 mg/dl (1.8-2.4); Potassium 3.6 mmol/L (3.5-5.1)
[2020-10-23] MEDS ORDERED: NON-FORMULARY MEDICATION (Ferrous Sulfate 27 mg iron Tablet) PO SCH (09:00)
--- NOTE | 2020-10-23 10:17 | CT Scan Report ---
ABDOMEN AND PELVIS CT WITHOUT CONTRAST CT DOSE: 330.48 mGy.cm HISTORY: Acute generalized abdominal pain with diarrhea and renal failure abd discomfort, diarrhea, renal failure TECHNIQUE: Multiaxial CT images of the abdomen and pelvis were performed without contrast. A dose lo wering technique was utilized adhering to the principles of ALARA. COMPARISON STUDY: MRCP 09/24/2020 FINDINGS: Inferior cardiac chambers are unremarkable. Mild bibasilar atelectasis. Limited exam withou t the use of contrast. There is no pneumatosis or pneumoperitoneum. The spleen measures the upper gagnon its of normal in size. Unremarkable adrenal glands. Interstitial and peripancreatic edema. The previo usly described numerous cystic foci of the pancreatic body and tail are better appreciated on compari son MRCP. Dilated pancreatic duct redemonstrated with satisfactory positioning of the pancreatic sten t. There is no well-defined pancreatic mass identified. Fluid and debris is noted within a common brian e duct stent. Pneumobilia. Cirrhotic morphology of the liver. High density material within the gallbl adder lumen suggests sludge with possible cholelithiasis versus vicarious excretion of contrast. There are least 4 nonobstructing calculi of the right kidney measuring up to 3 mm. There are least 5 nonobstructing calculi of the left kidney measuring up to 5 mm. No ureteral calculi or obstructive ur opathy. Unremarkable urinary bladder. Hysterectomy. No aortic aneurysm. Abdominal pelvic ascites. Mild nonspecific distal esophageal wall thickening. No bowel obstruction. There are scattered small l arge bowel air-fluid levels. Mild wall thickening of the cecum and ascending colon suggested, likely secondary to partial distention. The appendix is not definitively seen. Generalized body wall edema. No acute fracture. Degenerative changes of the spine, pelvis and hips. IMPRESSION: 1. Limited exam as above. 2. Cirrhotic morphology of the liver with abdominal pelvic ascites. 3. Colonic air-fluid levels suggestive of diarrheal illness with small bowel air-fluid levels suggest dashawn of ileus or enteritis.. 4. Satisfactory positioning of the pancreatic and common bile duct stents. 5. Pancreatic ductal dilation with numerous cystic lesions of the pancreatic body and tail redemonstr ated, better characterized on comparison MRCP 6. Findings suggestive of acute pancreatitis. 7. Nonobstructing bilateral nephrolithiasis. 8. No bowel obstruction. ACT 112: Negative or not required by law. The above report was generated using voice recognition software. It may contain grammatical, syntax o r spelling errors. Electronically signed by: Walter Cuadra M.D. 10/23/2020 10:16 AM
--- NOTE | 2020-10-23 12:09 | Electrocardiogram Report ---
Test Reason : Blood Pressure : / mmHG Vent. Rate : 086 BPM Atrial Rate : 086 BPM P-R Int : 150 ms QRS Dur : 076 ms QT Int : 344 ms P-R-T Axes : 097 004 036 degrees QTc Int : 411 ms Poor data quality, interpretation may be adversely affected Sinus rhythm with Premature atrial complexes Junctional ST depression, probably normal Borderline ECG When compared with ECG of 22-JUN-2016 10:57, Premature atrial complexes are now Present Vent. rate has increased BY 37 BPM Confirmed by Sundar Dawn ([id number]) on 10/23/2020 12:08:41 PM Referred By: Claudia Aragon Confirmed By:Sundar Dawn
[2020-10-23] MEDS: traMADol HCL 50 MG TABLET PO PRN ×2 (12:48→21:38)
[2020-10-23] MEDS: PROMETHAZINE HCL 12.5 MG in SODIUM CHLORIDE 0.9% 50 ML IV PRN ×2 (14:30→21:40)
--- NOTE | 2020-10-23 14:55 | Hospitalist Progress Note ---
Date of Service October 23, 2020 Assessment & Plan (1) Sepsis: Met sepsis criteria on admission with elevating WBC, tachycardia and procalcitonin Unknown etiology Urine cx no growth now Blood cx pending Continue IV cefepime and Metronidazole for now (2) Acute on chronic renal insufficiency: Present on admission with diarrhea and weakness Creatinine on admission 5.11 Continue IVF Creatinine 4.8 today Continue to hold diuresis Nephrology on board Continue monitor BMP Diarrhea CT abd/pelvis showed colonic air-fluid levels suggestive of diarrheal illness with small bowel air-fluid levels suggestive of ileus or enteritis. Findings sug gestive of acute pancreatitis. 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 The findings are also suggestive of a stricture or mass. Multiple cystic lesions within the pancreatic body and tail, possibly representing IPMNs s/p Upper Endoscopic Ultrasonography, Esophagogastroduodenoscopy by Dr. Manny Duron during last admission S/p Endoscopic Retrograde Cholangiopancreatography performed by dr. Manny Duron (during last admission ) Follow up with gastro for stent removal Hypertension: Continue to hold diuretic Continue monitor BP Anxiety Continue paroxetine Stable JESSICA (iron deficiency anemia): Hgb 8.0 Continue iron supplement Continue monitor CBC Elevated INR Thrombocytopenia Due to Liver disease No sign of active bleeding Will avoid any anticoagulant for now DVT Ppx: SCDs in setting of elevated INR and thrombocytopenia Code status: FULL PCP: Rosalina Admission and Anticipated Discharge Date Admission Date: October 22, 2020 Subjective Pt was seen and examined for follow up of diarrhea and weakness Lying in bed with no distress Pt said that her abdominal pain improves Pt said that she has a mild tenderness with palpation in his left side of her abdomen She said that her diarrhea seems to improve because she has only one BM today Denies any chest pain, palpitation, dizziness and SOB Review of Systems Review of Systems: All systems reviewed & are unremarkable except as noted in Subjective Physical Exam Physical Exam: General- No acute distress Head- atraumatic Eyes- PERRL, EOMI, ENT- oropharynx clear Neck- supple, no JVD Lungs- clear to auscultation Heart- regular rhythm; no murmur Abdomen- normal bowel sounds, soft, nontender Extremities- no calf tenderness Neuro- alert, oriented x 3; PERRL, EOMI; no facial palsy; no dysarthria Skin- warm & dry Results & Data Results & Data ([facility]) Vital Signs (Past 12 Hours) Vital Signs Temp Pulse Pulse Resp BP BP Pulse Ox 10/23/20 14:47 36.9 C 60 20 125/77 97 10/23/20 12:32 36.7 C 75 22 101/62 96 10/23/20 07:24 68 10/23/20 07:00 36.6 C 73 20 94/55 L 97 10/23/20 04:16 37 C 84 20 100/58 L 98
[2020-10-23] MEDS ORDERED: ONDANSETRON INJ 2 MG/ML 2 ML VIAL IV PRN (17:50)
--- NOTE | 2020-10-23 18:14 | Nephrology Consultation ---
Date of Consultation October 23, 2020 Assessment & Plan (1) Acute kidney injury superimposed on CKD: at least some of a prerenal component here since she has responded somewhat to holding diuretic and fluid resuscitation; some crackles though; this in the background of relentlessly and rapidly progressive CKD, now stage 5 prior to admission. urine not c/w infection though possibly w/ interstitial nephritis (very hard to dx that on UA) -no further IVF after she completes the 3 L -cont to hold diuretics -daily bmp -strict I/O -no indication for urgent dialysis though cannot rule out discussion of goals of care this admission; she is probably not a dialysis candidate -not a renal biopsy candidate Present on Admission?: Yes (2) Sepsis: unclear source -cont abtx, f/u cxs Present on Admission?: Yes (3) Dilated bile duct: concern from GI and surgical teams for malignancy though none identified -low threshold for GI consult or at least update Present on Admission?: Yes History of Present Illness Reason for Consultation: PUNEET on CKD Requesting Physician: Dr Cohn Attending Physician: Dawit La MD History of Present Illness 75 y/o F whom I'm asked to see for PUNEET on CKD after she was admitted for sepsis yesterday after presenting w/ a few weeks of shaking chills, worsening oral intake, generalized weakness, and constant liquid diarrhea. PMH includes rapidly progressive CKD IV, REARDON cirrhosis with portal HTN and non bleeding esophageal varices and ascites, HTN, h/o recurrent Cdiff s/p fecal transplant, pancreatic IPMN. She denies F prior to admission. States she has lost 16 lb since recent hospital d/c (13 lb on clinic weights in [facility]). she feels her edema has decreased. She had leukocytosis, elevated procalcitonin, tachycardia and PUNEET on presentation. Cxs were obtained; she is on cefepime and flagyl. has also been receiving LR w/ 20mEq/L K x 3L. Pt admitted here 09/24/20-09/30/20 for PUNEET on CKD IV. During that admission she had EGD/EUS/ERCP with brushing of malignant appearing CBD stricture by Dr. Duron >> path was benign but overall clinical picture concerning, including CA 19-9 of 1233. Referred to surgical oncology and deemed poor candidate for surgical resection d/t liver cirrhosis/ascites; repeat endoscopic u/s planned for 11/01 w/ repeat FNA. Her presenting creatinine was 5.1, down to 4.8 this AM w/ K improving from 3.3 to 3.6. Her creatinine has worsened rapidly in recent months: she was 3.3 at recent hospital d/c and 3.7 in late september. Had been in high 2s in early 2020. she is on RA w/ ongoing chills, no sob. very poor po and today for first time n. also endorses diminished UOP prior to admission but states this has picked up since arrival to hospital. She has had 800 mL uop so far today. Allergies Allergy/AdvReac Type Severity Reaction Status Date / Time No Known Drug Allergies Allergy Unknown Verified 10/22/20 20:13 adhesive AdvReac Intermediate BANDAIDS-INCREASES Unverified 10/22/20 20:13 ECZEMA REDNESS Home Medications Medication Instructions Recorded Confirmed Type loratadine [Claritin] 10 mg PO QAM #0 tab 10/09/14 10/22/20 History paroxetine HCl [Paxil] 10 mg PO QAM #0 tab 10/09/14 10/22/20 History potassium chloride 20 meq PO BID #0 01/24/18 10/22/20 History Align 4 mg PO QAM 01/21/19 10/22/20 History ferrous sulfate 27 mg PO QAM 01/21/19 10/22/20 History dicyclomine 10 mg PO HS 04/05/20 10/22/20 History furosemide 40 mg PO DAILY 09/24/20 10/22/20 History multivitamin 1 tab PO QAM 09/24/20 10/22/20 History simethicone [Gas Relief 80 mg PO TID PRN #30 tab 09/30/20 10/22/20 Rx (simethicone)] sodium bicarbonate 650 mg PO BID #60 tab 09/30/20 10/22/20 Rx cholecalciferol (vitamin D3) 25 mcg PO DAILY 10/22/20 10/22/20 History Patient History Medical History Anxiety CKD (chronic kidney disease), stage IV Degenerative arthritis of left knee History of Clostridioides difficile infection s/p fecal transplant JESSICA (iron deficiency anemia) 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 Pancreatic cyst Portal hypertension Secondary esophageal varices without bleeding Squamous cell cancer of skin of forearm Weight loss [facility] [place] weights 2019145; March 158; Apr 145; Aug 2020 133 lb Surgical History History of appendectomy History of bilateral knee replacement History of tonsillectomy and adenoidectomy Family History Father Cancer Mother Diabetes Social History Smoking Status: Former smoker Tobacco Type: Cigarettes Second Hand Exposure: No; Hx Alcohol Use: No Hx Substance Use: No Preferred Language: Turkish Communication Ability: Effective 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 Beliefs That Will Affect Care: None marital status: yes Current Living Situation: Spouse Other Information That Helps Us Care for You: No Feels Safe at Home: Yes Safety Concerns: Feels Safe At This Time Assistive Devices: Glasses Review of Systems Review of Systems: All systems reviewed & are unremarkable except as noted in HPI & below Physical Exam Constitutional: well developed and well nourished; no acute distress Eyes: + anicteric sclerae and EOM intact bilaterally ENMT: Ears: no external ear abnormality Nose: no external nose abnormality Mouth: + dry oral mucous membranes Neck: no nuchal rigidity Respiratory: normal respiratory effort Auscultation: + crackles Cardiovascular: Rate/Rhythm: regular rate and regular rhythm Extremities: + edema (1+) Gastrointestinal (Abdomen): Inspection/Auscultation: + abdomen distended and normal bowel sounds Percussion/Palpation: abdomen soft; abdomen nontender Musculoskeletal: Extremities: strength 5/5 throughout Skin: no rashes, warm and dry Neurologic: sanchez, fluent speech, no tremor Psychiatric: A+Ox3, euthymic affect Insight: good insight Judgement: good judgement Genitourinary: no reilly Results & Data ([facility]) Vital Signs (Past 12 Hours) Vital Signs Temp Pulse Pulse Resp BP BP Pulse Ox 10/23/20 15:00 75 10/23/20 14:47 36.9 C 60 20 125/77 97 10/23/20 12:32 36.7 C 75 22 101/62 96 10/23/20 07:24 68 10/23/20 07:00 36.6 C 73 20 94/55 L 97 Laboratory Results 10/23/20 07:09 10/23/20 07:09 C diff negative ua cloudy trace protein, 3+ blood, 1+ LE; 10-30 WBC/RBC; > 30 epi, no bacteria Diagnostic Findings CT abd/pelvis FINDINGS: Inferior cardiac chambers are unremarkable. Mild bibasilar atelectasis. Limited exam without the use of contrast. There is no pneumatosis or pneumoperitoneum. The spleen measures the upper limits of normal in size. Unremarkable adrenal glands. Interstitial and peripancreatic edema. The previously described numerous cystic foci of the pancreatic body and tail are better appreciated on comparison MRCP. Dilated pancreatic duct redemonstrated with satisfactory positioning of the pancreatic stent. There is no well-defined pancreatic mass identified. Fluid and debris is noted within a common bile duct stent. Pneumobilia. Cirrhotic morphology of the liver. High density material within the gallbladder lumen suggests sludge with possible cholelithiasis versus vicarious excretion of contrast. There are least 4 nonobstructing calculi of the right kidney measuring up to 3 mm. There are least 5 nonobstructing calculi of the left kidney measuring up to 5 mm. No ureteral calculi or obstructive uropathy. Unremarkable urinary bladder. Hysterectomy. No aortic aneurysm. Abdominal pelvic ascites. Mild nonspecific distal esophageal wall thickening. No bowel obstruction. There are scattered small large bowel air-fluid levels. Mild wall thickening of the cecum and ascending colon suggested, likely secondary to partial distention. The appendix is not definitively seen. Generalized body wall edema. No acute fracture. Degenerative changes of the spine, pelvis and hips. IMPRESSION: 1. Limited exam as above. 2. Cirrhotic morphology of the liver with abdominal pelvic ascites. 3. Colonic air-fluid levels suggestive of diarrheal illness with small bowel air-fluid levels suggestive of ileus or enteritis.. 4. Satisfactory positioning of the pancreatic and common bile duct stents. 5. Pancreatic ductal dilation with numerous cystic lesions of the pancreatic body and tail redemonstrated, better characterized on comparison MRCP 6. Findings suggestive of acute pancreatitis. 7. Nonobstructing bilateral nephrolithiasis. 8. No bowel obstruction. cxr Cardiomegaly with no active disease in the chest.
[2020-10-23] MEDS: CEFEPIME 500 MG in SYRINGE 0 ML IV SCH (21:40)
[2020-10-23] MEDS ORDERED: METOCLOPRAMIDE HCL INJ 5 MG/ML 2 ML VIAL IV ONE (22:11)
[2020-10-24] MEDS: POTASSIUM CHLORIDE 20 MEQ in LACTATED RINGER'S 1,000 ML IV SCH (03:06)
[2020-10-24] MEDS: metroNIDAZOLE 500 MG/100 ML BAG IV SCH ×3 (05:55→21:01)
[2020-10-24] MEDS: SODIUM BICARBONATE 650 MG TAB PO SCH ×2 (08:14→21:00)
[2020-10-24] MEDS: MULTIVITAMIN TAB PO SCH (08:14)
[2020-10-24] MEDS: LORATADINE 10 MG TAB PO SCH (08:14)
[2020-10-24] MEDS: PARoxetine HCL 10 MG TAB PO SCH (08:14)
[2020-10-24 09:13] LABS: Hematocrit (blood only) 27.5 % (37-47); Hemoglobin 9.4 g/dL (12.0-16.0); Mean Corpuscular Hemoglobin 31.9 pg (25-34); Mean Corpuscular Hgb Conc 34.2 g/dL (32-36); Mean Corpuscular Volume 93.2 fL (80-100); Mean Platelet Volume 11.1 fL (7.4-10.4); Platelet Count 143 K/uL (130-400); RDW Coefficient of Variation 13.1 % (11.5-14.5); RDW Standard Deviation 44.5 fL (36.4-46.3); Red Blood Count 2.95 M/uL (4.2-5.4); White Blood Count 20.78 K/uL (4.8-10.8)
[2020-10-24 10:05] LABS: Albumin Globulin Ratio 0.4 (0.9-2); Albumin Level 1.9 gm/dl (3.4-5.0); BUN Creatinine Ratio 11.2 (10-20); Bilirubin,Total 0.8 mg/dl (0.2-1); Calcium 8.7 mg/dl (8.5-10.1); Creatinine Clr Calc Pharmacy 8.7 ml/min; Est GFR (African American) 9.6; Est GFR (Non-African American) 8.3; Potassium 3.7 mmol/L (3.5-5.1); Total Protein 6.9 gm/dl (6.4-8.2)
--- NOTE | 2020-10-24 13:52 | Nephrology Progress Note ---
Date of Service October 24, 2020 Assessment & Plan (1) Acute kidney injury superimposed on CKD: at least some of a prerenal component here since she has responded somewhat to holding diuretic and fluid resuscitation; this in the background of relentlessly and rapidly progressive CKD, now stage 5 prior to admission. urine not c/w infection though possibly w/ interstitial nephritis (very hard to dx that on UA) -no further IVF today -cont to hold diuretics -daily bmp -strict I/O -no indication for urgent dialysis though cannot rule out discussion of goals of care this admission; as a liver pt she is not a great dialysis candidate d/t concerns about hypotension and bleeding on HD; that said, pt not w/ typical fluid issues of liver pts however; she is open to dialysis if need arises and we did discuss risks of complciations above -not a renal biopsy candidate (2) Sepsis: unclear source -cont abtx, f/u cxs (3) Dilated bile duct: concern from GI and surgical teams for malignancy though none identified -low threshold for GI consult or at least update Admission and Anticipated Discharge Date Admission Date: October 22, 2020 Subjective feels improved today; first day she's felt hungry; no sob, no n/v, eating tomato soup and ice cream. no edema. Review of Systems Review of Systems: All systems reviewed & are unremarkable except as noted in Subjective Physical Exam Constitutional: well developed and well nourished; no acute distress Eyes: + anicteric sclerae and EOM intact bilaterally ENMT: Ears: no external ear abnormality Nose: no external nose abnormality Mouth: + dry oral mucous membranes Neck: no nuchal rigidity Respiratory: normal respiratory effort Auscultation: lungs clear to auscultation bilaterally Cardiovascular: Rate/Rhythm: regular rate and regular rhythm Extremities: + edema (at most alina) Gastrointestinal (Abdomen): Inspection/Auscultation: + abdomen distended (but minimal fluid wave) and normal bowel sounds Percussion/Palpation: abdomen soft; abdomen nontender Musculoskeletal: Extremities: strength 5/5 throughout Skin: no rashes, warm and dry Neurologic: no tremor, sanchez, fluent speech Psychiatric: A+Ox3, euthymic affect Insight: good insight Judgement: good judgement Results & Data ([facility]) Vital Signs (Past 12 Hours) Vital Signs Temp Pulse Pulse Resp BP BP Pulse Ox 10/24/20 11:26 36.5 C 69 18 105/65 96 10/24/20 08:02 36.6 C 78 18 114/77 97 10/24/20 07:16 72 10/24/20 03:15 36.8 C 74 20 112/70 95 10/24/20 01:35 82 Laboratory Results 10/24/20 09:02 10/24/20 09:02
--- NOTE | 2020-10-24 17:23 | Hospitalist Progress Note ---
Date of Service October 24, 2020 Assessment & Plan (1) Sepsis: Met sepsis criteria on admission with elevating WBC, tachycardia and procalcitonin Unknown etiology Urine cx no growth now Blood cx no growth Continue IV cefepime and Metronidazole for now (2) Acute on chronic renal insufficiency: Present on admission with diarrhea and weakness Creatinine on admission 5.11 Continue IVF Creatinine 4.8 today Continue to hold diuresis Nephrology on board Continue monitor BMP Diarrhea CT abd/pelvis showed colonic air-fluid levels suggestive of diarrheal illness with small bowel air-fluid levels suggestive of ileus or enteritis. Findings s uggestive of acute pancreatitis. 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 The findings are also suggestive of a stricture or mass. Multiple cystic lesions within the pancreatic body and tail, possibly representing IPMNs s/p Upper Endoscopic Ultrasonography, Esophagogastroduodenoscopy by Dr. Manny Duron during last admission S/p Endoscopic Retrograde Cholangiopancreatography performed by dr. Manny Duron (during last admission ) Follow up with gastro for stent removal Hypertension: Continue to hold diuretic Continue monitor BP Anxiety Continue paroxetine Stable JESSCIA (iron deficiency anemia): Hgb 9.4 today Continue iron supplement Continue monitor CBC Elevated INR Thrombocytopenia Due to Liver disease No sign of active bleeding Will avoid any anticoagulant for now DVT Ppx: SCDs in setting of elevated INR and thrombocytopenia Code status: FULL PCP: Rosalina Admission and Anticipated Discharge Date Admission Date: October 22, 2020 Subjective Pt was seen and examined for follow up of diarrhea and weakness Lying in bed with no distress Pt said that she feels much better She said that her abdominal pain improves She said that the had an explosive episode of diarrhea today Denies any chest pain, palpitation, dizziness and SOB Physical Exam Physical Exam: General- No acute distress Head- atraumatic Eyes- PERRL, EOMI, ENT- oropharynx clear Neck- supple, no JVD Lungs- clear to auscultation Heart- regular rhythm; no murmur Abdomen- normal bowel sounds, soft, nontender Extremities- no calf tenderness Neuro- alert, oriented x 3; PERRL, EOMI; no facial palsy; no dysarthria Skin- warm & dry Results & Data Results & Data ([facility]) Vital Signs (Past 12 Hours) Vital Signs Temp Pulse Pulse Resp BP BP Pulse Ox 10/24/20 15:58 36.6 C 72 18 108/71 96 10/24/20 15:00 75 10/24/20 11:26 36.5 C 69 18 105/65 96 10/24/20 08:02 36.6 C 78 18 114/77 97 10/24/20 07:16 72
[2020-10-24] MEDS: CEFEPIME 500 MG in SYRINGE 0 ML IV SCH (21:00)
[2020-10-25] MEDS: metroNIDAZOLE 500 MG/100 ML BAG IV SCH ×3 (05:53→21:36)
[2020-10-25] MEDS: LORATADINE 10 MG TAB PO SCH (07:51)
[2020-10-25] MEDS: PARoxetine HCL 10 MG TAB PO SCH (07:51)
[2020-10-25] MEDS: SODIUM BICARBONATE 650 MG TAB PO SCH ×2 (07:52→21:34)
[2020-10-25] MEDS: MULTIVITAMIN TAB PO SCH (07:52)
[2020-10-25 10:53] LABS: Albumin Globulin Ratio 0.4 (0.9-2); Albumin Level 1.8 gm/dl (3.4-5.0); BUN Creatinine Ratio 11.3 (10-20); Bilirubin,Total 0.8 mg/dl (0.2-1); Creatinine Clr Calc Pharmacy 9.2 ml/min; Est GFR (African American) 10.3; Est GFR (Non-African American) 8.9; Globulin 4.7 gm/dl (2.5-4.0); Potassium 3.5 mmol/L (3.5-5.1); Total Protein 6.5 gm/dl (6.4-8.2)
--- NOTE | 2020-10-25 10:55 | Gastroenterology Progress Note ---
Date of Service October 25, 2020 Assessment & Plan Admission and Anticipated Discharge Date Admission Date: October 22, 2020 Supervising Physician Co-Signing Physician Notes Attg add: I interviewed and examined pt, reviewed chart and labs. 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 LFT's at baseline, imaging shows CBD stent in place, ascites, pneumobilia. WBC 20. C diff neg. Lipase 91. A/P: No clinical evidence of cholangitis, although SBP may be possible. Cont empiric abx. Add cholestyramine for abx assoc diarrhea. Consider albumin, in case renal function may be affected by portal HTN/sepsis. Tap ascitic fluid Results & Data ([facility]) Vital Signs (Past 12 Hours) Vital Signs Temp Pulse Pulse Resp BP Pulse Ox 10/25/20 07:19 75 10/25/20 07:00 36.8 C 73 20 111/70 95 10/25/20 03:13 36.8 C 76 18 109/67 96 10/25/20 01:03 71 10/24/20 23:00 37 C 80 20 112/73 96
--- NOTE | 2020-10-25 11:34 | Gastrointestinal Consultation ---
Date of Consultation October 25, 2020 Assessment & Plan (1) Diarrhea: She is C-diff (-); diarrhea likely antibiotic associated. Will try cholestyramine. Present on Admission?: Yes (2) Dilated bile duct: Has bile duct stricture - but unlikely to have occlusion of the stent or cholangitis. Though SBP is considered as a possible cause of the leukocytosis/chills. Agree with empiric antibiotics. Present on Admission?: Yes (3) 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: Will plan for paracentesis with fluid cell count and culture. Albumin before/after paracentesis. Appreciate nephrology management of PUNEET on CKD. Present on Admission?: Yes Supervising Physician Co-Signing Physician Notes Attg add: I interviewed and examined pt, reviewed chart and labs. 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 LFT's at baseline, imaging shows CBD stent in place, ascites, pneumobilia. WBC 20. C diff neg. Lipase 91. A/P: No clinical evidence of cholangitis, although SBP may be possible. Cont empiric abx. Add cholestyramine for abx assoc diarrhea. Consider albumin, in case renal function may be affected by portal HTN/sepsis. Tap ascitic fluid History of Present Illness Reason for Consultation: Stent eval ( pt request) Requesting Physician: Dr. La Attending Physician: Dawit La MD History of Present Illness Ms. Roselia Stafford is a 75 yr old female pt of Dr. Romano with a hx of CKD 4, HTN, h/o recurrent Cdiff s/p fecal transplant, IPMN, REARDON cirrhosis complicated by EV, ascites,IPMNs, bile duct stricture. She has chronic diarrhea, hx of C- diff and she presented to the ED on 10/24 for chills, worsening diarrhea and decreased appetite. On arrival, tx for sepsis and PUNEET on CKD Cr at 5.1 on arrival up from baseline of 3, today improved to 4.3. CT with chronic bile duct dilation, cirrhosis, moderate ascites, ileus/enteritis, and suggestion of acute pancreatitis. Pt feels well today, denies abd pain, though continues with diarrhea. Allergies Allergy/AdvReac Type Severity Reaction Status Date / Time No Known Drug Allergies Allergy Unknown Verified 10/22/20 20:13 adhesive AdvReac Intermediate BANDAIDS-INCREASES Unverified 10/22/20 20:13 ECZEMA REDNESS Home Medications Medication Instructions Recorded Confirmed Type loratadine [Claritin] 10 mg PO QAM #0 tab 10/09/14 10/22/20 History paroxetine HCl [Paxil] 10 mg PO QAM #0 tab 10/09/14 10/22/20 History potassium chloride 20 meq PO BID #0 01/24/18 10/22/20 History Align 4 mg PO QAM 01/21/19 10/22/20 History ferrous sulfate 27 mg PO QAM 01/21/19 10/22/20 History dicyclomine 10 mg PO HS 04/05/20 10/22/20 History furosemide 40 mg PO DAILY 09/24/20 10/22/20 History multivitamin 1 tab PO QAM 09/24/20 10/22/20 History simethicone [Gas Relief 80 mg PO TID PRN #30 tab 09/30/20 10/22/20 Rx (simethicone)] sodium bicarbonate 650 mg PO BID #60 tab 09/30/20 10/22/20 Rx cholecalciferol (vitamin D3) 25 mcg PO DAILY 10/22/20 10/22/20 History Patient History Medical History Anxiety CKD (chronic kidney disease), stage IV Degenerative arthritis of left knee History of Clostridioides difficile infection s/p fecal transplant JESSICA (iron deficiency anemia) 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 Pancreatic cyst Portal hypertension Secondary esophageal varices without bleeding Squamous cell cancer of skin of forearm Weight loss [facility] clinic weights 2019145; March 158; Apr 145; Aug 2020 133 lb Surgical History History of appendectomy History of bilateral knee replacement History of tonsillectomy and adenoidectomy Family History Father Cancer Mother Diabetes Social History Smoking Status: Former smoker Tobacco Type: Cigarettes Second Hand Exposure: No; Hx Alcohol Use: No Hx Substance Use: No Preferred Language: French Communication Ability: Effective [employer]onstr[employer] Appliances Required: No Beliefs That Will Affect Care: None marital status: Current Living Situation: Spouse Other Information That Helps Us Care for You: No Feels Safe at Home: Yes Safety Concerns: Feels Safe At This Time Assistive Devices: Glasses Review of Systems Review of Systems: ROS: Gen: + chills, slight weakness, no fevers or weight loss Eyes: No eye redness, or pain, no recent vision changes Resp: No SOB, no cough Cardio: No palpitations/irregular beats, no chest pain GI: No abdominal pain, no nausea/vomiting : Denies pain on urination Skin: No jaundice, itching or new rashes Constitutional: +weakness, weight loss, denies fevers Physical Exam Constitutional: WD/WN, vitals as above well nourished, well groomed, cooperative and comfortable Eyes: PERRL, conjunctivae normal, anicteric sclerae ENMT: external ear and nose normal, oropharynx normal Neck: trachea midline, no thyromegaly Respiratory: normal respiratory effort, lungs clear to auscultation Cardiovascular: RRR, no murmur, no edema Gastrointestinal (Abdomen): Inspection/Auscultation: + abdomen distended (moderate; not taunt) and normal bowel sounds Percussion/Palpation: + ascites; abdomen nontender Musculoskeletal: no cyanosis or clubbing, extremities motor strength 5/5 Skin: no rashes, warm and dry Neurologic: PERRL, EOMI, accommodation nl, no face palsy, no dysarthria Psychiatric: A+Ox3, euthymic affect Lymphatic: no cervical or axillary lymphadenopathy Results & Data ([facility]) Vital Signs (Past 12 Hours) Vital Signs Temp Pulse Pulse Resp BP BP Pulse Ox 10/25/20 11:29 36.7 C 84 20 103/67 97 10/25/20 07:19 75 10/25/20 07:00 36.8 C 73 20 111/70 95 10/25/20 03:13 36.8 C 76 18 109/67 96 10/25/20 01:[address] abd/pelvis on 10/22/20 1. Limited exam as above. 2. Cirrhotic morphology of the liver with abdominal pelvic ascites. 3. Colonic air-fluid levels suggestive of diarrheal illness with small bowel air-fluid levels suggestive of ileus or enteritis.. 4. Satisfactory positioning of the pancreatic and common bile duct stents. 5. Pancreatic ductal dilation with numerous cystic lesions of the pancreatic body and tail redemonstrated, better characterized on comparison MRCP 6. Findings suggestive of acute pancreatitis. 7. Nonobstructing bilateral nephrolithiasis. 8. No bowel obstruction.
--- NOTE | 2020-10-25 11:49 | Progress Notes ---
DATE: 10/25/2020 NEPHROLOGY PROGRESS NOTE SUBJECTIVE: Overnight, no new symptoms reported. She continues to have poor appetite and some abdominal discomfort. OBJECTIVE: VITAL SIGNS: Blood pressure 111/70, pulse rate 75, temperature 36.8, 95% on room air. HEENT: Mucous membranes moist. NECK: Supple. No jugular venous distention. CHEST: Bilaterally clear to auscultation. CARDIOVASCULAR: S1, S2 regular. ABDOMEN: Soft, nontender. Mild ascites noted. EXTREMITIES: Show no edema. LABORATORY TESTS: Blood work from this morning shows creatinine is slightly less than yesterday at 4.53, BUN is 51. Sodium 133, potassium 3.5. ASSESSMENT AND PLAN: A 75-year-old female with end-stage liver disease as well as chronic kidney disease stage V at baseline, admitted with diarrhea and possible sepsis. Acute on chronic kidney disease: At this point, the acute component is pretty minimal. She has had multiple admissions in the recent past. Diuretics are currently on hold, but I think we will have to restart it by tomorrow depending on the laboratories and her oral intake. Creatinine today is slightly less than yesterday, so at least we know it is not rapidly worsening. She is very close to needing chronic dialysis. However, she is not a great candidate given issues with end-stage liver disease. No need of dialysis today. Serum sodium is low, but this is because of chronic kidney disease V and end-stage liver disease. Continue daily laboratories. Continue to hold diuretics for today.
[2020-10-25] MEDS: ALBUMIN 25% 12.5 GM/50 ML VIAL IV SCH ×4 (13:01→17:50)
--- NOTE | 2020-10-25 14:59 | Ultrasound Report ---
ULTRASOUND-GUIDED DIAGNOSTIC PARACENTESIS: HISTORY: Ascites. Procedure: The procedure and its risks, benefits and alternatives were discussed with the patient and written informed consent was obtained. Preliminary ultrasound of the abdomen was performed to determ ine a safe needle entry site. The right lower quadrant was prepped and draped in the usual sterile fashion. 1% Lidocaine was used f or local anesthesia. A 18-gauge spinal needle was inserted into the peritoneal space using ultrasound guidance. The needle was connected to tubing and a vacuum suction device. A total of 1 liter of yell ow ascites was aspirated. The sheath was removed and a sterile dressing applied. The patient tolerated the procedure well and there were no immediate complications. IMPRESSION: Ultrasound-guided therapeutic paracentesis with aspiration of 1 liter of ascites. [facility] to [facility] for further analysis at the request of the referring physician. ACT 112: Negative or not required by law. Electronically signed by: Mike George M.D. 10/25/2020 2:58 PM
[2020-10-25 15:25] LABS: Appearance Peritoneal Fluid HAZY; Color Peritoneal Fluid STRAW; RBC Peritoneal Fluid (A) < 3000 /uL; WBC Peritoneal Fluid (A) 915 /ul (0-300)
[2020-10-25 16:51] LABS: Eosinophils, Fluid 0 %; Lymphocytes, Fluid 22 %; Mono,Macrophage,Mesothelial 11 %; Neutrophils, Fluid 67 %
--- NOTE | 2020-10-25 19:18 | Hospitalist Progress Note ---
Date of Service October 25, 2020 Assessment & Plan (1) Sepsis: Met sepsis criteria on admission with elevating WBC, tachycardia and procalcitonin Unknown etiology Urine cx no growth now Blood cx no growth Continue IV cefepime and Metronidazole for now (2) Acute on chronic renal insufficiency: Acute kidney failure on CKD stage 5 Present on admission with diarrhea and weakness Creatinine on admission 5.11 Continue IVF Creatinine 4.5 today Continue to hold diuresis Nephrology on board Continue monitor BMP Diarrhea CT abd/pelvis showed colonic air-fluid levels suggestive of diarrheal illness with small bowel air-fluid levels suggestive of ileus or enteritis. Findings suggestive of acute pancreatitis. Stools for C-diff negative Lipase normal Received IVF Will add cholestyramine. 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 Albumin was given pre and post paracentesis Peritoneal fluid was sent for cx and gram gavin - Pending Pancreatic cyst: MRCP showed Intra and extrahepatic biliary ductal dilatation with abrupt common bile duct cut off suggestive of a stricture or mass Dilatation of the pancreatic duct within the distal body and tail with an abrupt change in pancreatic ductal caliber involving the proximal body and head. The findings are also suggestive of a stricture or mass. Multiple cystic lesions within the pancreatic body and tail, possibly representing IPMNs s/p Upper Endoscopic Ultrasonography, Esophagogastroduodenoscopy by Dr. Manny Duron during last admission S/p Endoscopic Retrograde Cholangiopancreatography performed by dr. Manny Duron (during last admission ) U/S guided fine needle aspiration positive mucinous cyst fluid consistent with intraductal papillary mucinous neoplasm Follow up with gastro for stent removal Will need to follow with oncology Hypertension: Continue to hold diuretic Continue monitor BP Anxiety Continue paroxetine Stable JESSICA (iron deficiency anemia): Hgb 9.4 today Continue iron supplement Continue monitor CBC Elevated INR Thrombocytopenia Due to Liver disease No sign of active bleeding Will avoid any anticoagulant for now DVT Ppx: SCDs in setting of elevated INR and thrombocytopenia Code status: FULL PCP: Rosalina Admission and Anticipated Discharge Date Admission Date: October 22, 2020 Subjective Pt was seen and examined for follow up of diarrhea and weakness Lying in bed with no distress She said that her abdominal pain improves She said that she had another episode of diarrhea Pt said that she cannot hold it when she had to use the bathroom Denies any chest pain, palpitation, dizziness and SOB Review of Systems Review of Systems: All systems reviewed & are unremarkable except as noted in Subjective Physical Exam Physical Exam: General- No acute distress Head- atraumatic Eyes- PERRL, EOMI, ENT- oropharynx clear Neck- supple, no JVD Lungs- clear to auscultation Heart- regular rhythm; no murmur Abdomen- normal bowel sounds, soft, nontender Extremities- no calf tenderness Neuro- alert, oriented x 3; PERRL, EOMI; no facial palsy; no dysarthria Skin- warm & dry Results & Data Results & Data ([facility]) Vital Signs (Past 12 Hours) Vital Signs Temp Pulse Pulse Resp BP Pulse Ox 10/25/20 18:59 37 C 70 18 106/64 98 10/25/20 17:47 37 C 74 18 106/62 98 10/25/20 16:00 62 10/25/20 15:12 36.8 C 68 20 111/66 98 10/25/20 13:04 85 106/71 10/25/20 11:29 36.7 C 84 20 103/67 97 10/25/20 07:19 75
[2020-10-25] MEDS: CEFEPIME 500 MG in SYRINGE 0 ML IV SCH (21:38)
[2020-10-26] MEDS: metroNIDAZOLE 500 MG/100 ML BAG IV SCH (05:26)
[2020-10-26] MEDS: PARoxetine HCL 10 MG TAB PO SCH (08:35)
[2020-10-26] MEDS: MULTIVITAMIN TAB PO SCH (08:36)
[2020-10-26] MEDS: LORATADINE 10 MG TAB PO SCH (08:36)
[2020-10-26] MEDS: SODIUM BICARBONATE 650 MG TAB PO SCH ×2 (08:36→21:01)
[2020-10-26 08:58] LABS: Hemoglobin 9.2 g/dL (12.0-16.0); Mean Corpuscular Hemoglobin 31.8 pg (25-34); Mean Corpuscular Hgb Conc 34.1 g/dL (32-36); Mean Corpuscular Volume 93.4 fL (80-100); Mean Platelet Volume 10.8 fL (7.4-10.4); Platelet Count 135 K/uL (130-400); RDW Coefficient of Variation 13.1 % (11.5-14.5); RDW Standard Deviation 44.7 fL (36.4-46.3); Red Blood Count 2.89 M/uL (4.2-5.4); White Blood Count 11.59 K/uL (4.8-10.8)
[2020-10-26 09:40] LABS: BUN Creatinine Ratio 11.5 (10-20); Creatinine Clr Calc Pharmacy 9.1 ml/min; Est GFR (African American) 10.2; Est GFR (Non-African American) 8.8; Potassium 3.4 mmol/L (3.5-5.1)
--- NOTE | 2020-10-26 12:34 | Nephrology Progress Note ---
Date of Service October 26, 2020 Assessment & Plan Admission and Anticipated Discharge Date Admission Date: October 22, 2020 Subjective NEPHROLOGY PROGRESS NOTE SUBJECTIVE: Overnight, no new symptoms reported. She continues to have poor appetite and some abdominal discomfort. OBJECTIVE: HEENT: Mucous membranes moist. NECK: Supple. No jugular venous distention. CHEST: Bilaterally clear to auscultation. CARDIOVASCULAR: S1, S2 regular. ABDOMEN: Soft, nontender. Mild ascites noted. EXTREMITIES: Show no edema. LABORATORY TESTS: Blood work from this morning shows creatinine is slightly less than yesterday at 4.53, BUN is 51. Sodium 133, potassium 3.5. ASSESSMENT AND PLAN: A 75-year-old female with end-stage liver disease as well as chronic kidney disease stage V at baseline, admitted with diarrhea and possible sepsis. Acute on chronic kidney disease: At this point, the acute component is pretty minimal. She has had multiple admissions in the recent past. Diuretics are currently on hold, but I think we will have to restart it. Creatinine today is about same, so at least we know it is not rapidly worsening. She is very close to needing chronic dialysis. However, she is not a great candidate given issues with end-stage liver disease. No need of dialysis today. Serum sodium is low, but this is because of chronic kidney disease V and end-stage liver disease. Continue daily laboratories. She wants to go home. Can be discharged if Diarrhea stable.At this point this is essentially CKD 5 with end-stage liver disease. make sure to have appointment with Nephrology next week preferably in [place] but could be in [place] if needed. Results & Data ([facility]) Vital Signs (Past 12 Hours) Vital Signs Temp Pulse Pulse Resp BP BP Pulse Ox 10/26/20 11:09 36.9 C 77 18 102/65 97 10/26/20 11:02 94 10/26/20 07:18 36.9 C 67 18 95/55 L 97 10/26/20 07:00 61 10/26/20 03:04 37.0 C 67 18 104/60 97 10/26/20 01:34 67
--- NOTE | 2020-10-26 13:01 | Gastroenterology Progress Note ---
Date of Service October 26, 2020 Assessment & Plan (1) Diarrhea: She is C-diff (-); diarrhea likely antibiotic associated. Will try cholestyramine. (2) Dilated bile duct: Has bile duct stricture - but unlikely to have occlusion of the stent or cholangitis. Being followed by Dr. Duron and Dr. Bai - surg oncology as OP. 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 Continue Cefepime. If discharged, needs Cipro 500 BID x 7 days. May DC metronidazole. (4) CKD (chronic kidney disease), stage IV: For worsening renal function in the setting of liver cirrhosis, will add Octreotide 50mcg/hr drip. Urine Na. Present on Admission?: Yes Admission and Anticipated Discharge Date Admission Date: October 22, 2020 Supervising Physician Co-Signing Physician Notes Attg add: I interviewed and examined pt, reviewed chart and labs. Pt without abdominal pain or diarrhea today. Her uop is not recorded. Her exam is sig for non tender, stably distended abdomen. Lab show stable creat, U NA remains pending, improved WBC, and ascitic fluid studies suggestive of SBP. WIll begin albumin, cont cefepime monotherapy/transition to oral quinolone to complete 7 d abx to treat SBP. Midodrine for BP support, will also begin octreotide. Ok to resume diuretics with albumin - defer to nephro. Subjective 75 female with hx of NAFLD Cirrhosis with ascites. Possibly malignant CBD stricture sp recent ERCP and stent. IPMNs Admitted for weakness, SOB, increased lower ext edema, PUNEET on CKD Pt feeling well. Awake, alert, oriented. Diarrhea much improved - 1 BM thus far today. Cr still above baseline, today 4.57 yesterday 4.3. Paracentesis yesterday with findings of SBP: 915 WBCs with 67% neutrophils= 633 Review of Systems Review of Systems: ROS: Gen: + chills, slight weakness, no fevers or weight loss Eyes: No eye redness, or pain, no recent vision changes Resp: No SOB, no cough Cardio: No palpitations/irregular beats, no chest pain GI: No abdominal pain, no nausea/vomiting : Denies pain on urination Skin: No jaundice, itching or new rashes Physical Exam Constitutional: WD/WN, vitals as above well nourished, well groomed, cooperative and comfortable Eyes: PERRL, conjunctivae normal, anicteric sclerae ENMT: external ear and nose normal, oropharynx normal Neck: trachea midline, no thyromegaly Respiratory: normal respiratory effort, lungs clear to auscultation Cardiovascular: RRR, no murmur, no edema Gastrointestinal (Abdomen): Inspection/Auscultation: + abdomen distended (mld; not taunt; not tender) and normal bowel sounds Percussion/Palpation: + ascites; abdomen nontender Musculoskeletal: no cyanosis or clubbing, extremities motor strength 5/5 Skin: no rashes, warm and dry Neurologic: PERRL, EOMI, accommodation nl, no face palsy, no dysarthria Psychiatric: A+Ox3, euthymic affect Lymphatic: no cervical or axillary lymphadenopathy Results & Data ([facility]) Vital Signs (Past 12 Hours) Vital Signs Temp Pulse Pulse Resp BP BP Pulse Ox 10/26/20 11:09 36.9 C 77 18 102/65 97 10/26/20 11:02 94 10/26/20 07:18 36.9 C 67 18 95/55 L 97 10/26/20 07:00 61 10/26/20 03:04 37.0 C 67 18 104/60 97 10/26/20 01:34 67
[2020-10-26] MEDS ORDERED: OCTREOTIDE ACETATE 50 MCG in SYRINGE 9.5 ML IV STA (13:14)
[2020-10-26] MEDS: FUROSEMIDE 40 MG TAB PO SCH (13:33)
[2020-10-26] MEDS: OCTREOTIDE ACETATE 500 MCG in 0.9 % SODIUM CHLORIDE 100 ML IV SCH ×2 (13:56→22:04)
[2020-10-26] MEDS ORDERED: ALBUMIN 25% 12.5 GM/50 ML VIAL IV SCH (14:00)
[2020-10-26] MEDS ORDERED: POTASSIUM CHLORIDE CRTAB 20 MEQ TABCR PO STA (14:33)
--- NOTE | 2020-10-26 19:56 | Hospitalist Progress Note ---
Date of Service October 26, 2020 Assessment & Plan (1) Sepsis: Met sepsis criteria on admission with elevating WBC, tachycardia and procalcitonin Unknown etiology Urine cx no growth now Blood cx no growth Peritoneal fluid for gram stain and cx no growth Peritoneal fluid showed WBC above 900, suggested possible SBP Continue IV cefepime , and transition to PO Cipro on discharge to complete a total 7 days course abx (2) Acute on chronic renal insufficiency: Acute kidney failure on CKD stage 5 Present on admission with diarrhea and weakness Creatinine on admission 5.11 Continue IVF Creatinine 4.5 today Continue to hold diuresis Nephrology on board Continue monitor BMP Diarrhea CT abd/pelvis showed colonic air-fluid levels suggestive of diarrheal illness with small bowel air-fluid levels suggestive of ileus or enteritis. Findings suggestive of acute pancreatitis. Stools for C-diff negative Lipase normal Continue cholestyramine. Continue monitor electrolytes Diarrhea improves 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: No clinical signs of decompensated cirrhosis CT head showed pancreatic ductal dilation with numerous cystic lesions of the pancreatic body and tail redemonstrated, better characterized on comparison MRCP Continue monitor closely while diuretic on hold S/P paracentesis with aspiration of 1 liter of ascites. Albumin was given pre and post paracentesis Peritoneal fluid was sent for cx and gram gavin - No growth Peritoneal fluid showed WBC above 900, suggested possible SBP Continue cefepime monotherapy/transition to oral quinolone (Cipro 500mg BID if discharge) to complete 7 d abx to treat SBP Starting on Albumin, Midodrine and Octreotide by Gastro Continue monitor Pancreatic cyst: MRCP showed Intra and extrahepatic biliary ductal dilatation with abrupt common bile duct cut off suggestive of a stricture or mass Dilatation of the pancreatic duct within the distal body and tail with an abrupt change in pancreatic ductal caliber involving the proximal body and head. The findings are also suggestive of a stricture or mass. Multiple cystic lesions within the pancreatic body and tail, possibly representing IPMNs s/p Upper Endoscopic Ultrasonography, Esophagogastroduodenoscopy by Dr. Manny Duron during last admission S/p Endoscopic Retrograde Cholangiopancreatography performed by dr. Manny Duron (during last admission ) U/S guided fine needle aspiration positive mucinous cyst fluid consistent with intraductal papillary mucinous neoplasm Follow up with gastro for stent removal - Dr. Duron Follow with Dr. Bai - surg oncology as OP. Hypertension: Continue to hold diuretic Continue monitor BP Anxiety Continue paroxetine Stable JESSICA (iron deficiency anemia): Hgb 9.4 today Continue iron supplement Continue monitor CBC Elevated INR Thrombocytopenia Due to Liver disease No sign of active bleeding Will avoid any anticoagulant for now DVT Ppx: SCDs in setting of elevated INR and thrombocytopenia Code status: FULL PCP: Rosalina Admission and Anticipated Discharge Date Admission Date: October 22, 2020 Subjective Pt was seen and examined Sitting in chair with no distress Pt said that she feels much better She said that her stool is starting to get formed Denies any chest pain, palpitation, dizziness and SOB Review of Systems Review of Systems: All systems reviewed & are unremarkable except as noted in Subjective Physical Exam Physical Exam: General- No acute distress Head- atraumatic Eyes- PERRL, EOMI, ENT- oropharynx clear Neck- supple, no JVD Lungs- clear to auscultation Heart- regular rhythm; no murmur Abdomen- normal bowel sounds, soft, nontender Extremities- no calf tenderness Neuro- alert, oriented x 3; PERRL, EOMI; no facial palsy; no dysarthria Skin- warm & dry Results & Data Results & Data ([facility]) Vital Signs (Past 12 Hours) Vital Signs Temp Pulse Resp BP BP Pulse Ox 10/26/20 19:46 37.2 C 82 20 99/65 L 97 10/26/20 15:02 36.9 C 72 18 96/63 L 95 10/26/20 11:09 36.9 C 77 18 102/65 97
[2020-10-26] MEDS: ALBUMIN 25% 12.5 GM/50 ML VIAL IV SCH ×2 (21:01→22:16)
[2020-10-26] MEDS: CEFEPIME 500 MG in SYRINGE 0 ML IV SCH (21:02)
[2020-10-26] MEDS ORDERED: CHOLESTYRAMINE LIGHT 4 GM PKT PO SCH (22:00)
[2020-10-27 06:50] LABS: Hematocrit (blood only) 25.3 % (37-47); Hemoglobin 8.6 g/dL (12.0-16.0); Mean Corpuscular Hemoglobin 31.7 pg (25-34); Mean Corpuscular Volume 93.4 fL (80-100); Platelet Count 119 K/uL (130-400); RDW Coefficient of Variation 13.2 % (11.5-14.5); RDW Standard Deviation 44.3 fL (36.4-46.3); Red Blood Count 2.71 M/uL (4.2-5.4); White Blood Count 8.47 K/uL (4.8-10.8)
[2020-10-27 07:44] LABS: Calcium 8.2 mg/dl (8.5-10.1); Creatinine Clr Calc Pharmacy 8.7 ml/min; Est GFR (African American) 9.7; Est GFR (Non-African American) 8.3; Potassium 3.8 mmol/L (3.5-5.1)
--- NOTE | 2020-10-27 08:10 | Hospitalist Progress Note ---
Date of Service October 27, 2020 Assessment & Plan (1) Sepsis: Met sepsis criteria on admission with elevating WBC, tachycardia and procalcitonin Unknown etiology initially, possibly due to SBP Urine cx no growth now Blood cx no growth Peritoneal fluid for gram stain and cx no growth Peritoneal fluid showed WBC above 900, 67% neutrophils c/w SBP Continue IV cefepime , and transition to PO Cipro on discharge to complete a total 7 days course abx (2) Acute on chronic renal insufficiency: Acute kidney failure on CKD stage 5 Present on admission with diarrhea and weakness Creatinine on admission 5.11 Continued IVF Creatinine 4.5- 5 Held diuretics initially, now on furosemide 40 twice daily by nephrology Nephrology following Continue monitor BMP Plan to follow-up with nephrology within a week as outpatient Diarrhea CT abd/pelvis showed colonic air-fluid levels suggestive of diarrheal illness with small bowel air-fluid levels suggestive of ileus or enteritis. Findings suggestive of acute pancreatitis. Stools for C-diff negative Lipase normal Continue cholestyramine. Continue monitor electrolytes Diarrhea improved 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: No clinical signs of decompensated cirrhosis CT head showed pancreatic ductal dilation with numerous cystic lesions of the pancreatic body and tail redemonstrated, better characterized on comparison MRCP Continue monitor closely while diuretic on hold S/P paracentesis with aspiration of 1 liter of ascites. Albumin was given pre and post paracentesis Peritoneal fluid was sent for cx and gram gavin - No growth Peritoneal fluid showed WBC above 900, 67% neutrophils, suggestive of SBP Continue cefepime monotherapy/transition to oral quinolone (Cipro) to complete 7 d abx to treat SBP Starting on Albumin, Midodrine and Octreotide by Gastro Octreotide can be stopped by nephrology, midodrine titrated down, continue albumin for now (10/28) Plan for paracentesis tomorrow (10/28/20) Continue monitor Pancreatic cyst: MRCP showed Intra and extrahepatic biliary ductal dilatation with abrupt common bile duct cut off suggestive of a stricture or mass Dilatation of the pancreatic duct within the distal body and tail with an abrupt change in pancreatic ductal caliber involving the proximal body and head. The findings are also suggestive of a stricture or mass. Multiple cystic lesions within the pancreatic body and tail, possibly representing IPMNs s/p Upper Endoscopic Ultrasonography, Esophagogastroduodenoscopy by Dr. Manny Duron during last admission S/p Endoscopic Retrograde Cholangiopancreatography performed by dr. Manny Duron (during last admission ) U/S guided fine needle aspiration positive mucinous cyst fluid consistent with intraductal papillary mucinous neoplasm Follow up with gastro for stent removal - Dr. Duron Follow with Dr. Bai - surg oncology as OP. Hypertension: Continue to hold diuretic Continue monitor BP Anxiety Continue paroxetine Stable JESSICA (iron deficiency anemia): Hgb 9.4 today Continue iron supplement Continue monitor CBC Elevated INR Thrombocytopenia Due to Liver disease No sign of active bleeding Will avoid any anticoagulant for now DVT Ppx: SCDs in setting of elevated INR and thrombocytopenia Code status: FULL PCP: Dr. Romano Admission and Anticipated Discharge Date Admission Date: October 22, 2020 Subjective Pt was seen and examined in follow up of SBP, CKD stage V and liver disease Pt is sitting in chair in no distress Denies any abd. pain reports feeling much better Had about 1 or 2 BMs today Denies any chest pain, palpitation, dizziness and SOB GI and Nephrology following Plan for thoracentesis tomorrow Review of Systems Review of Systems: All systems reviewed & are unremarkable except as noted in HPI & below Constitutional: no fever and no chills Respiratory: no cough and no dyspnea Cardiovascular: no chest pain Gastrointestinal: no abdominal pain and no vomiting Physical Exam Physical Exam: General- No acute distress Head- atraumatic Eyes- PERRL, EOMI, ENT- oropharynx clear Neck- supple, no JVD Lungs- clear to auscultation Heart- regular rhythm; no murmur Abdomen- normal bowel sounds, soft, nontender Extremities- no calf tenderness Neuro- alert, oriented x 3; PERRL, EOMI; no facial palsy; no dysarthria Skin- warm & dry Results & Data Results & Data ([facility]) Vital Signs (Past 12 Hours) Vital Signs Temp Pulse Pulse Resp BP BP Pulse Ox 10/27/20 08:01 61 10/27/20 07:17 36.7 C 69 18 124/70 98 10/27/20 04:00 36.9 C 54 L 18 141/79 H 97 10/27/20 00:00 62 10/26/20 23:05 36.7 C 68 18 109/60 99 Laboratory Results 10/27/20 10/27/20 10/27/20 Range/Units 06:20 06:20 03:35 WBC 8.47 (4.8-10.8) K/uL RBC 2.71 L (4.2-5.4) M/uL Hgb 8.6 L (12.0-16.0) g/dL Hct 25.3 L (37-47) % MCV 93.4 (80-100) fL MCH 31.7 (25-34) pg MCHC 34.0 (32-36) g/dL RDW Std Deviation 44.3 (36.4-46.3) fL RDW Coeff of Suly 13.2 (11.5-14.5) % Plt Count 119 L (130-400) K/uL MPV 10.0 (7.4-10.4) fL Sodium 135 L (136-145) mmol/L Potassium 3.8 (3.5-5.1) mmol/L Chloride 108 H (98-107) mmol/L Carbon Dioxide 20 L (21-32) mmol/L Anion Gap 7.0 (3-11) BUN 57 H (7-18) mg/dl Creatinine 4.79 H* (0.6-1.2) mg/dl Est Cr Clr Drug Dosing 8.7 ml/min Est GFR ( Amer) 9.7 Est GFR (Non-Af Amer) 8.3 BUN/Creatinine Ratio 12.0 (10-20) Glucose 123 H (70-99) mg/dl Calcium 8.2 L (8.5-10.1) mg/dl Ur Random Sodium 54 mmol/L 10/26/20 10/26/20 Range/Units 08:21 08:21 WBC 11.59 H (4.8-10.8) K/uL RBC 2.89 L (4.2-5.4) M/uL Hgb 9.2 L (12.0-16.0) g/dL Hct 27.0 L (37-47) % MCV 93.4 (80-100) fL MCH 31.8 (25-34) pg MCHC 34.1 (32-36) g/dL RDW Std Deviation 44.7 (36.4-46.3) fL RDW Coeff of Suly 13.1 (11.5-14.5) % Plt Count 135 (130-400) K/uL MPV 10.8 H (7.4-10.4) fL Sodium 134 L (136-145) mmol/L Potassium 3.4 L (3.5-5.1) mmol/L Chloride 106 (98-107) mmol/L Carbon Dioxide 17 L (21-32) mmol/L Anion Gap 11.0 (3-11) BUN 53 H (7-18) mg/dl Creatinine 4.57 H* (0.6-1.2) mg/dl Est Cr Clr Drug Dosing 9.1 ml/min Est GFR ( Amer) 10.2 Est GFR (Non-Af Amer) 8.8 BUN/Creatinine Ratio 11.5 (10-20) Glucose 78 (70-99) mg/dl Calcium 9.0 (8.5-10.1) mg/dl Ur Random Sodium mmol/L Medications Administered Current Inpatient Medications Acetaminophen (Acetaminophen 325 Mg Tab) 325 mg PO Q6H PRN PRN Reason: Mild Pain Stop: 11/21/20 23:28 Last Admin: 10/23/20 00:21 Dose: 325 mg Documented by: Furosemide (Furosemide 40 Mg Tab) 40 mg PO QAM [facility] Stop: 11/25/20 12:44 Last Admin: 10/26/20 13:33 Dose: 40 mg Documented by: Promethazine HCl 12.5 mg/ (Sodium Chloride) 50.5 mls @ 202 mls/hr IV Q6H PRN PRN Reason: Nausea And Vomiting Stop: 11/21/20 23:28 Last Infusion: 10/23/20 22:09 Dose: Infused Documented by: Cefepime HCl 500 mg/ Syringe 5.65 mls @ 5.5 mls/min IV Q24H [facility]; Protocol Stop: 11/02/20 21:59 Last Admin: 10/26/20 21:02 Dose: 5.5 mls/min Documented by: Octreotide Acetate 500 mcg/ (Sodium Chloride) 100.5 mls @ 10.05 mls/hr IV .Q10H [facility] Stop: 11/25/20 13:14 Last Admin: 10/26/20 22:04 Dose: 50 mcg/hr, 10.1 mls/hr Documented by: Albumin Human (Albumin 25%) 12.5 gm in 50 mls @ 50 mls/hr IV 0800,0900,1300,1400,2000,2100 [facility] Stop: 10/29/20 19:59 Last Infusion: 10/26/20 23:05 Dose: Infused Documented by: Loratadine (Loratadine 10 Mg Tab) 10 mg PO QAM [facility] Stop: 11/22/20 08:59 Last Admin: 10/26/20 08:36 Dose: 10 mg Documented by: Midodrine (Midodrine Hcl 2.5 Mg Tab) 5 mg PO TID@0800,1200,1700 [facility] Stop: 11/26/20 07:59 Miscellaneous Information (Cefepime Consult Active) 1 ea N/A UD PRN PRN Reason: Consult Stop: 11/21/20 23:28 Multivitamins (Multivitamin Tab) 1 tab PO [facility] Stop: 11/22/20 08:59 Last Admin: 10/26/20 08:36 Dose: 1 tab Documented by: Ondansetron HCl (Ondansetron Inj 2 Mg/Ml 2 Ml Vial) 4 mg IV Q6H PRN PRN Reason: Nausea And Vomiting Stop: 11/22/20 17:49 Last Admin: 10/23/20 20:31 Dose: 4 mg Documented by: Paroxetine HCl (Paroxetine Hcl 10 Mg Tab) 10 mg PO QAM [facility] Stop: 11/22/20 08:59 Last Admin: 10/26/20 08:35 Dose: 10 mg Documented by: Sodium Bicarbonate (Sodium Bicarbonate 650 Mg Tab) 650 mg PO BID [facility] Stop: 11/22/20 08:59 Last Admin: 10/26/20 21:01 Dose: 650 mg Documented by: Tramadol HCl (Tramadol Hcl 50 Mg Tablet) 25 - 50 mg PO Q4H PRN PRN Reason: Pain Stop: 11/21/20 23:28 Last Admin: 10/23/20 21:38 Dose: 50 mg Documented by:
[2020-10-27] MEDS: MIDODRINE HCL 2.5 MG TAB PO SCH ×3 (08:32→16:13)
[2020-10-27] MEDS: PARoxetine HCL 10 MG TAB PO SCH (08:32)
[2020-10-27] MEDS: MULTIVITAMIN TAB PO SCH (08:32)
[2020-10-27] MEDS: SODIUM BICARBONATE 650 MG TAB PO SCH ×2 (08:32→20:12)
[2020-10-27] MEDS: FUROSEMIDE 40 MG TAB PO SCH ×2 (08:33→20:13)
[2020-10-27] MEDS: LORATADINE 10 MG TAB PO SCH (08:33)
[2020-10-27] MEDS: OCTREOTIDE ACETATE 500 MCG in 0.9 % SODIUM CHLORIDE 100 ML IV SCH (08:33)
[2020-10-27] MEDS: ALBUMIN 25% 12.5 GM/50 ML VIAL IV SCH ×6 (08:39→21:17)
[2020-10-27] MEDS ORDERED: CHOLESTYRAMINE LIGHT 4 GM PKT PO SCH ×2 (09:00→10:00)
--- NOTE | 2020-10-27 10:04 | Progress Notes ---
DATE: 10/27/2020 NEPHROLOGY PROGRESS NOTE SUBJECTIVE: No new issues overnight. Renal labs are abnormal, but stable. Diarrhea is much better. OBJECTIVE: VITAL SIGNS: Blood pressure is 117/69, pulse rate 62, temperature 36.7, 97% on room air. HEENT: Mucous membranes moist. NECK: Supple. No jugular venous distention. CHEST: Bilaterally clear to auscultation. CARDIOVASCULAR: S1, S2 regular. ABDOMEN: Soft, nontender. Does have some ascites. EXTREMITIES: Show 1+ edema. LABORATORY TESTS: From this morning, BUN 57, creatinine 4.79, sodium 135. ASSESSMENT AND PLAN: A 75-year-old female with end-stage liver disease as well as chronic kidney disease stage V at baseline, admitted with diarrhea and possible sepsis. Acute on chronic kidney disease: At this point, we can declare her as end-stage renal disease. I did start her on Lasix 40 mg yesterday, but this is not enough given she has both end-stage liver disease as well as end-stage renal disease. Raise to 40 bid. No need of dialysis today. Serum sodium is low from chronic kidney disease and end-stage liver disease. She really wants to go home. Octreotide and Albumin can be stopped. At this point, she is essentially chronic kidney disease V and will need dialysis if she desires in the very near future. However, she is not really a good candidate for dialysis and we will defer dialysis Decision to her regular geophysical prospecting permit agent, Dr. Keyana Hernandez. [facility]
--- NOTE | 2020-10-27 12:15 | Gastroenterology Progress Note ---
Date of Service October 27, 2020 Assessment & Plan (1) Diarrhea: She is C-diff (-); diarrhea likely antibiotic associated. 1-2 BMs/day on one dose of cholestyramine/day. (2) Dilated bile duct: Has bile duct stricture - but unlikely to have occlusion of the stent or cholangitis. Being followed by Dr. Duron and Dr. Bai - surg oncology as OP. 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 Certainly, this can contribute to worsening renal function. Continue Cefepime. If discharged, needs Cipro - total 7 days of antibiotics. (4) Acute kidney injury superimposed on CKD: Appreciate nephrology input will likely, eventual require dialysis - pt would like to start - says, "not ready to let go yet." Continue furosemide 40 BID, Octreotide DC'ed this morning per neurology, OK to DC Midodrine today, Would continue Albumin 12.5 Q8 until d/c likely tomorrow.. Present on Admission?: Yes Admission and Anticipated Discharge Date Admission Date: October 22, 2020 Supervising Physician Co-Signing Physician Notes Attg add: I interviewed and examined pt, reviewed chart and labs. Pt with no cmoplaints - her abdominal pain is resolved, and diarrhea is resolved. Her uop remains low and creat is unchanged. His WBC is much improved. On exam, she is comfortable and pleasant. Her abdomen is distended. SBP, ARF/CKD - D/w nephro -- limited benefit to albumin, midodrine to prevent HRS, as pt is ESRD. Will cont albumin and titrate midodrine through today. - Regarding SBP - Complete 7 d abx, ok to transition to oral cipro. Will need prophylaxis on dc. - Regarding ascites - consider small vol tap prior to d.c. Subjective 75 female REARDON Cirrhosis with ascites. Admitted on 10/22 with JOSE on CKD. Paracentesis on 10/25 - removal of 1L analysis consistent with SBP; on cefepime. Urine: random sodium 54 Urine and blood cultures (-). Cr 5.1 on admission ->4.5 yesterday ->4.97 today. Feeling well. Sitting up in a chair. 1-2 loose BMs/day. Per nephrology - Octreotide stopped. Furosemide increased to 40 BID. Review of Systems Review of Systems: ROS: Gen: Denies weakness, fevers, weight loss Eyes: No eye redness, or pain, no recent vision changes Resp: No SOB, no cough Cardio: No palpitations/irregular beats, no chest pain GI: moderate/stable ascites; no abdominal pain, no nausea/vomiting, no blood in stools : Denies pain on urination Skin: No jaundice, itching or new rashes Physical Exam Constitutional: WD/WN, vitals as above well nourished, well groomed, cooperative and comfortable Eyes: PERRL, conjunctivae normal, anicteric sclerae ENMT: external ear and nose normal, oropharynx normal Neck: trachea midline, no thyromegaly Respiratory: normal respiratory effort, lungs clear to auscultation Cardiovascular: RRR, no murmur, no edema Gastrointestinal (Abdomen): Inspection/Auscultation: + abdomen distended (mld; not taunt; not tender) and normal bowel sounds Percussion/Palpation: + ascites; abdomen nontender Musculoskeletal: no cyanosis or clubbing, extremities motor strength 5/5 Skin: no rashes, warm and dry Neurologic: PERRL, EOMI, accommodation nl, no face palsy, no dysarthria Psychiatric: A+Ox3, euthymic affect Lymphatic: no cervical or axillary lymphadenopathy Results & Data ([facility]) Vital Signs (Past 12 Hours) Vital Signs Temp Pulse Pulse Resp BP BP Pulse Ox 10/27/20 11:03 36.9 C 63 20 115/57 L 97 10/27/20 10:54 36.6 C 63 18 119/72 99 10/27/20 10:15 36.9 C 59 L 20 116/59 L 99 10/27/20 08:44 36.7 C 62 20 117/69 97 10/27/20 08:01 61 10/27/20 07:17 36.7 C 69 18 124/70 98 10/27/20 04:00 36.9 C 54 L 18 141/79 H 97 Laboratory Results WBC 8, Hb 8.6, Hct 25, plts 119, Na 135, K 3.8, BUN 57, Cr 4.79, glucose [address] abd/pelvis on 10/22: 1. Limited exam as above. 2. Cirrhotic morphology of the liver with abdominal pelvic ascites. 3. Colonic air-fluid levels suggestive of diarrheal illness with small bowel air-fluid levels suggestive of ileus or enteritis.. 4. Satisfactory positioning of the pancreatic and common bile duct stents. 5. Pancreatic ductal dilation with numerous cystic lesions of the pancreatic body and tail redemonstrated, better characterized on comparison MRCP 6. Findings suggestive of acute pancreatitis. 7. Nonobstructing bilateral nephrolithiasis. 8. No bowel obstruction.
[2020-10-27] MEDS: CEFEPIME 500 MG in SYRINGE 0 ML IV SCH (16:48)
[2020-10-28 06:29] LABS: Hematocrit (blood only) 23.6 % (37-47); Hemoglobin 8.3 g/dL (12.0-16.0); Mean Corpuscular Hgb Conc 35.2 g/dL (32-36); Mean Corpuscular Volume 91.1 fL (80-100); Mean Platelet Volume 10.3 fL (7.4-10.4); Platelet Count 134 K/uL (130-400); RDW Standard Deviation 42.9 fL (36.4-46.3); Red Blood Count 2.59 M/uL (4.2-5.4); White Blood Count 7.89 K/uL (4.8-10.8)
[2020-10-28 06:51] LABS: INR 3.1 (0.9-1.1)
[2020-10-28 07:14] LABS: BUN Creatinine Ratio 11.6 (10-20); Calcium 9.1 mg/dl (8.5-10.1); Creatinine Clr Calc Pharmacy 8.5 ml/min; Est GFR (African American) 9.4; Est GFR (Non-African American) 8.1; Magnesium 2.1 mg/dl (1.8-2.4); Phosphorus 4.4 mg/dl (2.5-4.9); Potassium 3.8 mmol/L (3.5-5.1)
[2020-10-28] MEDS: ALBUMIN 25% 12.5 GM/50 ML VIAL IV SCH ×4 (07:40→16:24)
[2020-10-28] MEDS: LORATADINE 10 MG TAB PO SCH (08:07)
[2020-10-28] MEDS: MULTIVITAMIN TAB PO SCH (08:07)
[2020-10-28] MEDS: SODIUM BICARBONATE 650 MG TAB PO SCH (08:07)
[2020-10-28] MEDS: MIDODRINE HCL 2.5 MG TAB PO SCH ×3 (08:08→17:22)
[2020-10-28] MEDS: PARoxetine HCL 10 MG TAB PO SCH (08:08)
[2020-10-28] MEDS ORDERED: PHYTONADIONE 5 MG TAB PO STA (08:53)
--- NOTE | 2020-10-28 08:56 | Hospitalist Progress Note ---
Date of Service October 28, 2020 Assessment & Plan (1) Sepsis: Met sepsis criteria on admission with elevating WBC, tachycardia and procalcitonin Unknown etiology initially, possibly due to SBP Urine cx no growth now Blood cx no growth Peritoneal fluid for gram stain and cx no growth Peritoneal fluid showed WBC above 900, 67% neutrophils c/w SBP Continue IV cefepime , and transition to PO Cipro on discharge to complete a total 7 days course abx (2) Acute on chronic renal insufficiency: Acute kidney failure on CKD stage 5 Present on admission with diarrhea and weakness Creatinine on admission 5.11 Continued IVF Creatinine 4.5- 5 Held diuretics initially, now on furosemide 40 twice daily by nephrology Nephrology following Continue monitor BMP Plan to follow-up with nephrology within a week as outpatient-appointment scheduled for November [address] abd/pelvis showed colonic air-fluid levels suggestive of diarrheal illness with small bowel air-fluid levels suggestive of ileus or enteritis. Findings suggestive of acute pancreatitis. Stools for C-diff negative Lipase normal Continued cholestyramine. 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 Albumin was given pre and post paracentesis Peritoneal fluid was sent for cx and gram gavin - No growth Peritoneal fluid showed WBC above 900, 67% neutrophils, suggestive of SBP Continue cefepime monotherapy/transition to oral quinolone (Cipro) to complete 7 d abx to treat SBP Starting on Albumin, Midodrine and Octreotide by Gastro Octreotide can be stopped by nephrology, midodrine titrated down, continue albumin for now (10/28) Now s/p second paracentesis (10/28/20), 1.6 L of ascitic fluid removed, fluid analysis currently pending Continue monitor Pancreatic cyst: MRCP showed Intra and extrahepatic biliary ductal dilatation with abrupt common bile duct cut off suggestive of a stricture or mass Dilatation of the pancreatic duct within the distal body and tail with an abrupt change in pancreatic ductal caliber involving the proximal body and head. The findings are also suggestive of a stricture or mass. Multiple cystic lesions within the pancreatic body and tail, possibly representing IPMNs s/p Upper Endoscopic Ultrasonography, Esophagogastroduodenoscopy by Dr. Manny Duron during last admission S/p Endoscopic Retrograde Cholangiopancreatography performed by dr. Manny Duron (during last admission ) U/S guided fine needle aspiration positive mucinous cyst fluid consistent with intraductal papillary mucinous neoplasm Follow up with gastro for stent removal - Dr. Duron Follow with Dr. Bai - surg oncology as OP. Hypertension: Diuretic, Lasix resumed Continue monitor BP BP was on lower side, and midodrine was started by GI, not plan to continue after discharge Anxiety Continue paroxetine Stable JESSICA (iron deficiency anemia): Hgb 8.3 today Continue iron supplement Continue monitor CBC Elevated INR Thrombocytopenia Due to Liver disease and poor oral intake No sign of active bleeding Will avoid any anticoagulant for now Gave 2.5 mg of vit K PO this AM d/t planned paracentesis DVT Ppx: SCDs in setting of elevated INR and thrombocytopenia Code status: FULL PCP: Dr. Romano Admission and Anticipated Discharge Date Admission Date: October 22, 2020 Subjective Pt was seen and examined in follow up of SBP, CKD stage V and liver disease Pt is sitting in chair in no distress Denies any abd. pain reports feeling much better Denies any chest pain, palpitation, dizziness and SOB GI and Nephrology following S/p paracentesis today Patient is eager to go home Review of Systems Review of Systems: All systems reviewed & are unremarkable except as noted in HPI & below Constitutional: no fever and no chills Respiratory: no cough and no dyspnea Cardiovascular: no chest pain and no palpitations Gastrointestinal: no abdominal pain and no vomiting Physical Exam Physical Exam: General- elderly female sitting up in the chair, in no acute distress Head- atraumatic Eyes- PERRL, EOMI, ENT- oropharynx clear Neck- supple, no JVD Lungs- clear to auscultation Heart- regular rhythm; no murmur Abdomen- normal bowel sounds, soft, nontender Extremities- no calf tenderness Neuro- alert, oriented x 3; PERRL, EOMI; no facial palsy; no dysarthria Skin- warm & dry Results & Data Results & Data ([facility]) Vital Signs (Past 12 Hours) Vital Signs Temp Pulse Pulse Resp BP BP Pulse Ox 10/28/20 08:48 37 C 54 L 20 119/70 99 10/28/20 08:29 37 C 68 20 136/77 100 10/28/20 07:50 36.9 C 58 L 20 122/71 98 10/28/20 07:45 36.9 C 51 L 20 106/62 99 10/28/20 07:03 56 L 10/28/20 06:57 37.0 C 82 18 109/66 95 10/28/20 03:53 36.5 C 56 L 17 130/65 95 10/28/20 00:00 60 10/27/20 23:00 37.0 C 58 L 18 136/64 97 Laboratory Results 10/28/20 10/28/20 10/28/20 Range/Units 05:57 05:57 05:57 WBC 7.89 (4.8-10.8) K/uL RBC 2.59 L (4.2-5.4) M/uL Hgb 8.3 L (12.0-16.0) g/dL Hct 23.6 L (37-47) % MCV 91.1 (80-100) fL MCH 32.0 (25-34) pg MCHC 35.2 (32-36) g/dL RDW Std Deviation 42.9 (36.4-46.3) fL RDW Coeff of Suly 13.0 (11.5-14.5) % Plt Count 134 (130-400) K/uL MPV 10.3 (7.4-10.4) fL PT 29.0 H (9.0-12.0) Seconds INR 3.1 H (0.9-1.1) Sodium 137 (136-145) mmol/L Potassium 3.8 (3.5-5.1) mmol/L Chloride 107 (98-107) mmol/L Carbon Dioxide 20 L (21-32) mmol/L Anion Gap 10.0 (3-11) BUN 58 H (7-18) mg/dl Creatinine 4.89 H* (0.6-1.2) mg/dl Est Cr Clr Drug Dosing 8.5 ml/min Est GFR ( Amer) 9.4 Est GFR (Non-Af Amer) 8.1 BUN/Creatinine Ratio 11.6 (10-20) Glucose 125 H (70-99) mg/dl Calcium 9.1 (8.5-10.1) mg/dl Phosphorus 4.4 (2.5-4.9) mg/dl Magnesium 2.1 (1.8-2.4) mg/dl Medications Administered Current Inpatient Medications Acetaminophen (Acetaminophen 325 Mg Tab) 325 mg PO Q6H PRN PRN Reason: Mild Pain Stop: 11/21/20 23:28 Last Admin: 10/23/20 00:21 Dose: 325 mg Documented by: Furosemide (Furosemide 40 Mg Tab) 40 mg PO BID [facility] Stop: 11/26/20 20:59 Last Admin: 10/27/20 20:13 Dose: 40 mg Documented by: Promethazine HCl 12.5 mg/ (Sodium Chloride) 50.5 mls @ 202 mls/hr IV Q6H PRN PRN Reason: Nausea And Vomiting Stop: 11/21/20 23:28 Last Infusion: 10/23/20 22:09 Dose: Infused Documented by: Cefepime HCl 500 mg/ Syringe 5.65 mls @ 5.5 mls/min IV Q24H [facility]; Protocol Stop: 11/02/20 21:59 Last Admin: 10/27/20 16:48 Dose: 5.5 mls/min Documented by: Albumin Human (Albumin 25%) 12.5 gm in 50 mls @ 50 mls/hr IV 0800,0900,1300,1400,2000,2100 [facility] Stop: 10/29/20 19:59 Last Admin: 10/28/20 08:28 Dose: 50 mls/hr Documented by: Loratadine (Loratadine 10 Mg Tab) 10 mg PO QAM [facility] Stop: 11/22/20 08:59 Last Admin: 10/28/20 08:07 Dose: 10 mg Documented by: Midodrine (Midodrine Hcl 2.5 Mg Tab) 2.5 mg PO TID@0800,1200,1700 [facility] Stop: 11/26/20 16:59 Last Admin: 10/28/20 08:08 Dose: 2.5 mg Documented by: Miscellaneous Information (Cefepime Consult Active) 1 ea N/A UD PRN PRN Reason: Consult Stop: 11/21/20 23:28 Multivitamins (Multivitamin Tab) 1 tab PO QAM [facility] Stop: 11/22/20 08:59 Last Admin: 10/28/20 08:07 Dose: 1 tab Documented by: Ondansetron HCl (Ondansetron Inj 2 Mg/Ml 2 Ml Vial) 4 mg IV Q6H PRN PRN Reason: Nausea And Vomiting Stop: 11/22/20 17:49 Last Admin: 10/23/20 20:31 Dose: 4 mg Documented by: Paroxetine HCl (Paroxetine Hcl 10 Mg Tab) 10 mg PO QAM [facility] Stop: 11/22/20 08:59 Last Admin: 10/28/20 08:08 Dose: 10 mg Documented by: Phytonadione (Phytonadione 5 Mg Tab) 2.5 mg PO NOW STA Stop: 10/28/20 08:54 Sodium Bicarbonate (Sodium Bicarbonate 650 Mg Tab) 650 mg PO BID [facility] Stop: 11/22/20 08:59 Last Admin: 10/28/20 08:07 Dose: 650 mg Documented by: Tramadol HCl (Tramadol Hcl 50 Mg Tablet) 25 - 50 mg PO Q4H PRN PRN Reason: Pain Stop: 11/21/20 23:28 Last Admin: 10/23/20 21:38 Dose: 50 mg Documented by:
[2020-10-28] MEDS: FUROSEMIDE 40 MG TAB PO SCH (09:14)
--- NOTE | 2020-10-28 10:42 | Nephrology Progress Note ---
Date of Service October 28, 2020 Assessment & Plan Admission and Anticipated Discharge Date Admission Date: October 22, 2020 Subjective SUBJECTIVE: No new issues overnight. Renal labs are abnormal, but stable. Diarrhea is much better. OBJECTIVE: HEENT: Mucous membranes moist. NECK: Supple. No jugular venous distention. CHEST: Bilaterally clear to auscultation. CARDIOVASCULAR: S1, S2 regular. ABDOMEN: Soft, nontender. Does have some ascites. EXTREMITIES: Show 1+ edema. LABORATORY TESTS: Renal Labs overall abnormal but stable. ASSESSMENT AND PLAN: A 75-year-old female with end-stage liver disease as well as chronic kidney disease stage V at baseline, admitted with diarrhea and possible sepsis. Acute on chronic kidney disease: At this point, we can declare her as end-stage renal disease. Continue lasix 40 bid for discharge also. No need of dialysis today. Serum sodium is low from chronic kidney disease and end-stage liver disease. She really wants to go home. At this point, she is essentially chronic kidney disease V and will need dialysis if she desires in the very near future. However, she is not really a good candidate for dialysis and we will defer dialysis Decision to her regular [facility] blancher, Dr. Keyana Hernandez. I had discussion again today about the Dialysis. She wants to think more about this Results & Data ([facility]) Vital Signs (Past 12 Hours) Vital Signs Temp Pulse Pulse Resp BP BP Pulse Ox 10/28/20 09:16 36.8 C 51 L 20 125/83 100 10/28/20 08:48 37 C 54 L 20 119/70 99 10/28/20 08:29 37 C 68 20 136/77 100 10/28/20 07:50 36.9 C 58 L 20 122/71 98 10/28/20 07:45 36.9 C 51 L 20 106/62 99 10/28/20 07:03 56 L 10/28/20 06:57 37.0 C 82 18 109/66 95 10/28/20 03:53 36.5 C 56 L 17 130/65 95 10/28/20 00:00 60 10/27/20 23:00 37.0 C 58 L 18 136/64 97
--- NOTE | 2020-10-28 12:22 | Gastroenterology Progress Note ---
Date of Service October 28, 2020 Assessment & Plan (1) Diarrhea: She is C-diff (-); diarrhea likely antibiotic associated. 1-2 BMs/day on one dose of cholestyramine/day. (2) Dilated bile duct: Has bile duct stricture - but unlikely to have occlusion of the stent or cholangitis. Being followed by Dr. Duron and Dr. Bai - surg oncology as OP. 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 Certainly, this aw well as SBP may have contributed to worsening renal function. Continue Cefepime. If discharged, needs Cipro - total 7 days of antibiotics. 3 Liter paracentesis planned for today, though INR 3 due to liver dx, unsure if radiology willing to perform paracentesis with risk of bleeding. If not, then would plan as OP if ascites is causing discomfort and/or difficulty breathing. Will continue close OK f/u with LEORA Stinson (who is aware of this pt's admission). (4) Acute kidney injury superimposed on CKD: Appreciate nephrology input will likely, eventual require dialysis - pt would like to start - says, "not ready to let go yet." Continue diuretics at current dosing: furosemide 40mg BID. Admission and Anticipated Discharge Date Admission Date: October 22, 2020 Supervising Physician Co-Signing Physician Notes Attg add: I interviewed and examined pt, reviewed chart and labs. Pt without complaints. S/p small vol tap. Labs show no improvement in renal function. ok for d/c with completion of 7 d abx for SBP. Plan to continue SBP [facility] after abx completed - consider cipro 250 qOD. Subjective 75 yr female with cirrhosis with ascites, SBP, JOSE on CKD4 Sitting in a chair at bedside. Comfortable. States, "going home today," and is tearful when stating this. Review of Systems Review of Systems: ROS: Gen: Denies weakness, fevers, weight loss Eyes: No eye redness, or pain, no recent vision changes Resp: No SOB, no cough Cardio: No palpitations/irregular beats, no chest pain GI: moderate/stable ascites; no abdominal pain, no nausea or vomiting, no blood in stools : Denies pain on urination Skin: No jaundice, itching or new rashes Physical Exam Constitutional: WD/WN, vitals as above well nourished, well groomed, cooperative and comfortable Eyes: PERRL, conjunctivae normal, anicteric sclerae ENMT: external ear and nose normal, oropharynx normal Neck: trachea midline, no thyromegaly Respiratory: normal respiratory effort, lungs clear to auscultation Cardiovascular: RRR, no murmur, no edema Gastrointestinal (Abdomen): Inspection/Auscultation: + abdomen distended (mld; not taunt; not tender) and normal bowel sounds Percussion/Palpation: + ascites; abdomen nontender Musculoskeletal: no cyanosis or clubbing, extremities motor strength 5/5 Skin: no rashes, warm and dry Neurologic: PERRL, EOMI, accommodation nl, no face palsy, no dysarthria Psychiatric: A+Ox3, euthymic affect Lymphatic: no cervical or axillary lymphadenopathy Results & Data ([facility]) Vital Signs (Past 12 Hours) Vital Signs Temp Pulse Pulse Resp BP BP Pulse Ox 10/28/20 11:18 36.6 C 56 L 18 141/70 H 99 10/28/20 09:16 36.8 C 51 L 20 125/83 100 10/28/20 08:48 37 C 54 L 20 119/70 99 10/28/20 08:29 37 C 68 20 136/77 100 10/28/20 07:50 36.9 C 58 L 20 122/71 98 10/28/20 07:45 36.9 C 51 L 20 106/62 99 10/28/20 07:03 56 L 10/28/20 06:57 37.0 C 82 18 109/66 95 10/28/20 03:53 36.5 C 56 L 17 130/65 95
--- NOTE | 2020-10-28 15:07 | Ultrasound Report ---
PARACENTESIS UNDER ULTRASOUND GUIDANCE CLINICAL HISTORY: Ascites. COMPARISON STUDY: Abdominal CT dated 10/23/2020. PROCEDURE: The risks, benefits, and alternatives to the procedure were discussed with the patient who voiced understanding. Written informed consent was obtained. Following real-time ultrasound localiza tion of a suitable pocket of fluid in the left lower quadrant, the abdomen was prepped and draped in the usual sterile fashion. The skin and soft tissues were anesthetized with 1% lidocaine. The sheathe d paracentesis needle was inserted and approximately 1.6 liters of serosanguineous ascitic fluid was removed by vacuum suction. The procedure was well tolerated and without immediate complication. The p atient left the department in satisfactory condition. IMPRESSION: Completed ultrasound-guided paracentesis with removal of approximately 1.6 liters of asci tic fluid. ACT 112: Negative or not required by law. Electronically signed by: Jadon Esparza M.D. 10/28/2020 3:06 PM
--- NOTE | 2020-10-28 16:50 | Discharge Summary ---
Date of Service October 28, 2020 Admission HPI Per Admitting Provider Pt is 75 y/o F with PMH CKD IV, VILLAGOMEZ cirrhosis with portal HTN, secondary esophageal varices without bleeding, ascites, HTN, h/o recurrent Cdiff s/p fecal transplant, IPMN pancreas presented to ER with c/o chills, diarrhea. Pt with recent hospitalization 09/24/20-09/30/20 for PUNEET on CKD IV. Pt states always feels cold however past 2 days with shaking chills. She denies any recorded fevers. Since home pt states having poor appetite and decreased oral intake. Is on 1800ml fluid restriction however pt reports only drinking approx 1000ml daily. She feels thirsty. Feels generalized weakness. Reports decreased urine output. Has chronic diarrhea at baseline however pt states recently with more watery diarrhea. Pt reports had her lasix increased from 20mg to 40mg daily a couple of weeks ago secondary to BLE edema. She feels edema has improved. Has lost approx 16 pounds since last hospital discharge. Denies any abdominal pain, cough, SOB, CP, diaphoresis, N/V, hematochezia, melena, hematuria, dysuria, FUNG, dizziness, syncope, vision changes, neck pain, orthopnea, palpitations, sore throat, choking, otalgia, rhinorrhea, paresthesias, rashes, ill contacts. Admission Exam Per Admitting Provider General: no acute distress, WDWN Head: normocephalic, atraumatic Eyes: conjunctiva non-injected, anicteric ENT: normal inspection external ears, nose, mucous membranes mildly dry Neck: supple, trachea midline Lungs: clear, no respiratory distress, no wheezing/rhonchi/rales CV: RRR, no murmur, no significant LE edema Abd: normal BS, soft, non-tender Ext: no cyanosis, no calf tenderness Neuro: A&O x 3, no focal deficits noted, normal affect Skin: warm, dry Principal Diagnosis Sepsis SBP Liver cirrhosis secondary to Villagomez CKD stage V Discharge Exam General- elderly female sitting up in the chair, in no acute distress Head- atraumatic Eyes- PERRL, EOMI, ENT- oropharynx clear Neck- supple, no JVD Lungs- clear to auscultation Heart- regular rhythm; no murmur Abdomen- normal bowel sounds, soft, nontender Extremities- no calf tenderness Neuro- alert, oriented x 3; PERRL, EOMI; no facial palsy; no dysarthria Skin- warm & dry Discharge Data Allergies Allergy/AdvReac Type Severity Reaction Status Date / Time No Known Drug Allergies Allergy Unknown Verified 10/22/20 20:13 adhesive AdvReac Intermediate BANDAIDS-INCREASES Unverified 10/22/20 20:13 ECZEMA REDNESS Consultations 10/22/20 21:51 ED Decision to Admit Stat 10/22/20 23:29 Consult Nephrology Routine 10/25/20 07:00 Consult Gastroenterology Routine Ordered Studies 10/22/20 21:48 CT abd pelvis wo con Urgent IMPRESSION: 1. Limited exam as above. 2. Cirrhotic morphology of the liver with abdominal pelvic ascites. 3. Colonic air-fluid levels suggestive of diarrheal illness with small bowel air-fluid levels suggestive of ileus or enteritis.. 4. Satisfactory positioning of the pancreatic and common bile duct stents. 5. Pancreatic ductal dilation with numerous cystic lesions of the pancreatic body and tail redemonstrated, better characterized on comparison MRCP 6. Findings suggestive of acute pancreatitis. 7. Nonobstructing bilateral nephrolithiasis. 8. No bowel obstruction. 10/25/20 11:28 US paracentesis abd w/image Routine Ultrasound-guided therapeutic paracentesis with aspiration of 1 liter of ascites. This was sent to the laboratory for further analysis at the request of the referring physician. 10/28/20 14:00 US paracentesis abd w/image Routine MPRESSION: Completed ultrasound-guided paracentesis with removal of approximately 1.6 liters of ascitic fluid. Hospital Course (1) Sepsis: Met sepsis criteria on admission with elevating WBC, tachycardia and procalcitonin Unknown etiology initially, possibly due to SBP Urine cx no growth now Blood cx no growth Peritoneal fluid for gram stain and cx no growth Peritoneal fluid showed WBC above 900, 67% neutrophils c/w SBP Continue IV cefepime , and transition to PO Cipro on discharge to complete a total 7 days course abx (2) Acute on chronic renal insufficiency: Acute kidney failure on CKD stage 5 Present on admission with diarrhea and weakness Creatinine on admission 5.11 Continued IVF Creatinine 4.5- 5 Held diuretics initially, now on furosemide 40 twice daily by nephrology Nephrology following Continue monitor BMP Plan to follow-up with nephrology within a week as outpatient-appointment scheduled for November [address] abd/pelvis showed colonic air-fluid levels suggestive of diarrheal illness with small bowel air-fluid levels suggestive of ileus or enteritis. Findings suggestive of acute pancreatitis. Stools for C-diff negative Lipase normal Continued cholestyramine. Continue monitor electrolytes Diarrhea resolved Liver cirrhosis secondary to VILLAGOMEZ: No clinical signs of decompensated cirrhosis CT head showed pancreatic ductal dilation with numerous cystic lesions of the pancreatic body and tail re-demonstrated, better characterized on comparison MRCP Continue monitor closely while diuretic on hold S/P paracentesis with aspiration of 1 liter of ascites. Albumin was given pre and post paracentesis Peritoneal fluid was sent for cx and gram gavin - No growth Peritoneal fluid showed WBC above 900, 67% neutrophils, suggestive of SBP Continue cefepime monotherapy/transition to oral quinolone (Cipro) to complete 7 d abx to treat SBP Starting on Albumin, Midodrine and Octreotide by Gastro Octreotide can be stopped by nephrology, midodrine titrated down, continue albumin for now (10/28) Now s/p second paracentesis (10/28/20), 1.6 L of ascitic fluid removed, fluid analysis currently pending Continue monitor Pancreatic cyst: MRCP showed Intra and extrahepatic biliary ductal dilatation with abrupt common bile duct cut off suggestive of a stricture or mass Dilatation of the pancreatic duct within the distal body and tail with an abrupt change in pancreatic ductal caliber involving the proximal body and head. The findings are also suggestive of a stricture or mass. Multiple cystic lesions within the pancreatic body and tail, possibly representing IPMNs s/p Upper Endoscopic Ultrasonography, Esophagogastroduodenoscopy by Dr. Manny Duron during last admission S/p Endoscopic Retrograde Cholangiopancreatography performed by dr. Manny Duron (during last admission ) U/S guided fine needle aspiration positive mucinous cyst fluid consistent with intraductal papillary mucinous neoplasm Follow up with gastro for stent removal - Dr. Duron Follow with Dr. Bai - surg oncology as OP. Hypertension: Diuretic, Lasix resumed Continue monitor BP BP was on lower side, and midodrine was started by GI, not plan to continue after discharge Anxiety Continue paroxetine Stable JESSICA (iron deficiency anemia): Hgb 8.3 today Continue iron supplement Continue monitor CBC Elevated INR Thrombocytopenia Due to Liver disease and poor oral intake No sign of active bleeding Will avoid any anticoagulant for now Gave 2.5 mg of vit K PO this AM d/t planned paracentesis PCP: Dr. 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 CKD stage V Activity: Per Instructions section Non-emergency contact: Primary Care Provider, Business Process Analyst and [employer]er Call non-emergency contact if: you have any medication questions and your symptoms worsen Follow-up/Referrals: Anisha Romano DO [Primary Care Provider] - (Date & Time 11/02/2020 11:50 AM Provider Anisha Romano DO Department Internal Medicine [facility] ) Janis Valverde PA-C [Physician Wool Hanker] - (Date & Time 11/02/2020 2:30 PM Provider Janis Valverde PA-C Department Nephrology [facility] ) Diet: Dialysis Renal and Low Sodium (2gm) Addtl Attending Provider Instructions: Follow-up with your primary care doctor and director utilization management, the appointment was scheduled for you for November 02. Your diuretic, Lasix, was increased to 40 mg twice a day. Take antibiotic, ciprofloxacin, tomorrow, October 29, 2020. Follow-up with gastroenterology, you will be contacted about the appointment. Pending Studies at Discharge: Yes Studies:: Fluid analysis from paracentesis 10/28 Stand-Alone Forms: [facility] [employer], Smoking Cessation Medications and DC Order Prescriptions: New furosemide 40 mg Tablet 40 mg PO BID Qty: 30 RF: 0 ciprofloxacin HCl 250 mg tablet 250 mg PO DAILY Qty: 1 RF: 0 Continued paroxetine HCl [Paxil] 10 mg Tablet 10 mg PO QAM Qty: 0 RF: 0 loratadine [Claritin] 10 mg Tablet 10 mg PO QAM Qty: 0 RF: 0 potassium chloride 20 mEq Tablet Extended Release 20 meq PO BID Qty: 0 RF: 0 multivitamin Tablet 1 tab PO QAM RF: 0 sodium bicarbonate 650 mg Tablet 650 mg PO BID Qty: 60 RF: 0 simethicone [Gas Relief (simethicone)] 80 mg tablet,chewable 80 mg PO TID PRN (Reason: abdominal distention) Qty: 30 RF: 0 Align 4 mg Capsule 4 mg PO QAM RF: 0 ferrous sulfate 27 mg iron Tablet 27 mg PO QAM RF: 0 dicyclomine 10 mg Capsule 10 mg PO HS RF: 0 cholecalciferol (vitamin D3) 25 mcg (1,000 unit) Tablet 25 mcg PO DAILY RF: 0 Changed furosemide 20 mg tablet 40 mg PO BID Qty: 0 RF: 0 Discharge Orders: Discharge Order (Routine); Ordered 10/28/20 Ordered By: Alfredo Arroyo/Other Patient Handouts: A1C Admission Data Admit Date/Time: 10/22/20 22:11 Attending Provider: Alfredo Guadarrama Admit Provider: Cleveland Bedoya Primary Care Provider: Anisha Romano Other Providers: Cleveland Bedoya ; Keyana Hernandez ; Nino King ; Beverly Ruiz ; Janis Valverde Japheth E. ; Kaz Andres Irphan E. ; Dawit La
[2020-10-28] MEDS: CEFEPIME 500 MG in SYRINGE 0 ML IV SCH (17:20)
== END 2020-10-28 19:00 | disposition home or self-care (01) | DRG 871 ==
LOC: ED 19:01 → 2W 22:11 → SUATTDRO 22:11 → 2W 22:56 → 2N 10-25 23:41

== ENCOUNTER 2020-11-24 15:47 | Inpatient (IN) ==
--- NOTE | 2020-11-24 18:41 | Emergency Department Note ---
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 She has a past medical history of Villagomez and PUNEET as well as hypertension. She notes that her shortness of breath has been getting worse over the past week. Is only present with laying flat but also with up moving around. She denies any chest pain. No belly pain but admits to abdominal distention. She was last tapped in October. Denies any dysuria urgency or frequency but admits to significant decrease in urine output. Still taking Lasix. No other exacerbating or remitting factors ROS: See above HPI for pertinent positives & negatives. A total of 10 systems reviewed and were otherwise negative. PAST MEDICAL HISTORY:See Below PAST SURGICAL HISTORY:See Below FAMILY HISTORY:See Below SOCIAL HISTORY:See Below HOME MEDICATIONS:See Below ALLERGIES:See Below VITALS:See Below PHYSICAL EXAMINATION: GENERAL: Sitting up in bed, alert, chronically ill-appearing EYE EXAM: normal conjunctiva. OROPHARYNX: no exudate, no erythema, lips, buccal mucosa, and tongue normal and mucous membranes are moist NECK: supple, no nuchal rigidity, no adenopathy, non-tender LUNGS: Clear to auscultation. Normal chest wall mechanics HEART: no murmurs, S1 normal and S2 normal ABDOMEN: abdomen soft, non-tender, normo-active bowel sounds, distended with positive fluid wave, no rebound or guarding. UPPER EXTREMITIES: upper extremities are grossly normal. LOWER EXTREMITIES: Mild pitting edema bilateral NEURO EXAM: Normal sensorium, cranial nerves II-XII grossly intact, normal speech, no gross weakness of arms, no gross weakness of legs. MEDICAL DECISION MAKING: Patient is a 75-year-old female who presents the ER for decreased urine output and increased shortness of breath over the past week. IV was established blood work was obtained. Labs show mild anemia at 8.6. INR at 1.4. BMP with an acidosis and a creatinine of 7.5 up from a baseline about 4.8. LFTs bilirubin were unremarkable. Troponin was negative. Lipase unremarkable. UA was unremarkable. Covid was negative. Discussed with nephrology who recommended 40 mg IV Lasix. Patient was updated bedside discussed the hospitalist admitted for further work-up. Triage Nursing notes reviewed. Limited review of prior medical records performed Vital Signs: reviewed and remarkable for HTN Differential diagnosis: Differential diagnoses includes but is not limited to pneumonia, bronchitis, COPD/Asthma exacerbation, pneumothorax, pulmonary embolism, congestive heart failure, acute coronary syndrome ER treatment provided: See below Diagnostics interpreted by me: ECG: Sinus rhythm rate 81 Normal axis QTC 429 PACs Cardiac Monitoring: An order was placed for continuous cardiac monitoring. The monitor shows a rate of 80 with sinus rhythm. Laboratory studies: As stated above and show below. Imaging studies: Portable AP upright 1 view the chest shows no focal infiltrate Consultation(s): Discussed with the hospitalist for further evaluation Discussed with nephrology who recommended IV Lasix and admission Procedures: none Critical Care: None Past Med/Surg History Medical History (Updated 11/24/20 @ 23:28 by Tom Aviles DO) Anxiety Degenerative arthritis of left knee End stage renal disease follows with Dr. 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 follows with [facility] Hepatology Osteoarthritis Pancreatic cyst Portal hypertension Secondary esophageal varices without bleeding Squamous cell cancer of skin of forearm Weight loss [facility] weights [id number]; March 158; Apr 145; Aug 2020 133 lb Surgical History History of appendectomy History of carpal tunnel release of both wrists History of colonoscopy History of endoscopy EUS History of ERCP With EUS/EGD 09/28/20 during admission at [facility] for PUNEET on CKD/cirrhosis History of esophagogastroduodenoscopy (EGD) History of knee replacement procedure of left knee History of knee replacement procedure of right knee History of squamous cell carcinoma excision History of surgical removal of ganglion cyst History of tonsillectomy and adenoidectomy History of total abdominal hysterectomy and bilateral salpingo-oophorectomy Family History Father Cancer Mother Diabetes Other No family history of adverse response to anesthesia Social History Smoking Status: Never smoker Tobacco Type: Cigarettes Second Hand Exposure: No; Hx Alcohol Use: No Hx Substance Use: No Preferred Language: Kyrgyz Communication Ability: Effective Solar [employer]urer[employer] Representative Required: No Beliefs That Will Affect Care: None marital status: Current Living Situation: Spouse Feels Safe at Home: Yes Assistive Devices: Denture - Upper Allergies Allergies Allergy/AdvReac Type Severity Reaction Status Date / Time adhesive AdvReac Intermediate BANDAIDS-INCREASES Verified 11/24/20 19:14 ECZEMA REDNESS Home Meds Home Medications Medication Instructions Recorded Confirmed loratadine [Claritin] 10 mg PO QAM #0 tab 10/09/14 11/24/20 paroxetine HCl [Paxil] 10 mg PO QAM #0 tab 10/09/14 11/24/20 potassium chloride 20 meq PO BID #0 01/24/18 11/24/20 Align 4 mg PO QAM 01/21/19 11/24/20 ferrous sulfate 27 mg PO QAM 01/21/19 11/24/20 dicyclomine 10 mg PO HS 04/05/20 11/24/20 multivitamin 1 tab PO QAM 09/24/20 11/24/20 cholecalciferol (vitamin D3) 25 mcg PO QAM 10/22/20 11/24/20 alprazolam [Xanax] 0.25 mg PO HS PRN 11/16/20 11/24/20 ciprofloxacin HCl 250 mg PO QAM 11/16/20 11/24/20 furosemide 20 mg PO QAM 11/16/20 11/24/20 Previous Rx's Medication Instructions Recorded sodium bicarbonate 650 mg PO BID #60 tab 09/30/20 Results & Data (ED) Vital Signs Vital Signs - 24 hr 11/24/20 16:04 11/24/20 16:10 11/24/20 18:11 Temperature 36.4 C L Temperature Source Temporal Artery Scan Pulse Rate 95 H 89 Pulse Rate [Right Finger] 93 H Pulse Rate from SpO2 Sensor 89 Pulse Rhythm [Right Finger] Regular Pulse Strength [Right Finger] Normal Respiratory Rate 18 20 Respiratory Effort / Characteristics Non-Labored Spontaneous Non-Labored Spontaneous Non-Labored Respiratory Depth Normal Normal Normal Respiratory Pattern Regular Regular Blood Pressure 159/83 H 181/92 H Blood Pressure [Right Arm] 181/92 H Blood Pressure Mean 108 121 Blood Pressure Mean [Right Arm] 121 Pulse Oximetry 100 100 Oxygen Delivery Method Room Air Room Air Room Air Sepsis Recent Fever Within 48 Hours No Sepsis New/Unexplained Change in Mental Status No Sepsis Action Taken by Nursing No Action Required 11/24/20 18:21 11/24/20 18:30 11/24/20 19:00 Temperature Temperature Source Pulse Rate 86 90 90 Pulse Rate [Right Finger] Pulse Rate from SpO2 Sensor 84 90 Pulse Rhythm [Right Finger] Pulse Strength [Right Finger] Respiratory Rate 22 21 22 Respiratory Effort / Characteristics Respiratory Depth Respiratory Pattern Blood Pressure Blood Pressure [Right Arm] Blood Pressure Mean Blood Pressure Mean [Right Arm] Pulse Oximetry 100 100 Oxygen Delivery Method Sepsis Recent Fever Within 48 Hours Sepsis New/Unexplained Change in Mental Status Sepsis Action Taken by Nursing 11/24/20 19:11 11/24/20 19:13 11/24/20 19:30 Temperature Temperature Source Pulse Rate 78 91 H Pulse Rate [Right Finger] Pulse Rate from SpO2 Sensor 80 90 Pulse Rhythm [Right Finger] Pulse Strength [Right Finger] Respiratory Rate 22 25 H Respiratory Effort / Characteristics Respiratory Depth Respiratory Pattern Blood Pressure 168/91 H 145/88 H Blood Pressure [Right Arm] Blood Pressure Mean 116 107 Blood Pressure Mean [Right Arm] Pulse Oximetry 100 99 99 Oxygen Delivery Method Room Air Sepsis Recent Fever Within 48 Hours Sepsis New/Unexplained Change in Mental Status Sepsis Action Taken by Nursing 11/24/20 19:31 11/24/20 20:00 11/24/20 20:01 Temperature Temperature Source Pulse Rate 92 H 82 93 H Pulse Rate [Right Finger] Pulse Rate from SpO2 Sensor 93 H 83 92 H Pulse Rhythm [Right Finger] Pulse Strength [Right Finger] Respiratory Rate 19 21 19 Respiratory Effort / Characteristics Respiratory Depth Respiratory Pattern Blood Pressure 154/94 H Blood Pressure [Right Arm] Blood Pressure Mean 114 Blood Pressure Mean [Right Arm] Pulse Oximetry 100 100 98 Oxygen Delivery Method Sepsis Recent Fever Within 48 Hours Sepsis New/Unexplained Change in Mental Status Sepsis Action Taken by Nursing 11/24/20 20:30 11/24/20 21:00 11/24/20 21:01 Temperature Temperature Source Pulse Rate 86 89 83 Pulse Rate [Right Finger] Pulse Rate from SpO2 Sensor 84 90 86 Pulse Rhythm [Right Finger] Pulse Strength [Right Finger] Respiratory Rate 20 20 20 Respiratory Effort / Characteristics Respiratory Depth Respiratory Pattern Blood Pressure 124/87 151/85 H Blood Pressure [Right Arm] Blood Pressure Mean 99 107 Blood Pressure Mean [Right Arm] Pulse Oximetry 100 99 100 Oxygen Delivery Method Sepsis Recent Fever Within 48 Hours Sepsis New/Unexplained Change in Mental Status Sepsis Action Taken by Nursing 11/24/20 21:30 11/24/20 21:31 11/24/20 22:00 Temperature Temperature Source Pulse Rate 86 92 H 93 H Pulse Rate [Right Finger] Pulse Rate from SpO2 Sensor 84 92 H 92 H Pulse Rhythm [Right Finger] Pulse Strength [Right Finger] Respiratory Rate 19 20 23 Respiratory Effort / Characteristics Respiratory Depth Respiratory Pattern Blood Pressure 152/87 H 144/80 H Blood Pressure [Right Arm] Blood Pressure Mean 108 101 Blood Pressure Mean [Right Arm] Pulse Oximetry 100 100 99 Oxygen Delivery Method Sepsis Recent Fever Within 48 Hours Sepsis New/Unexplained Change in Mental Status Sepsis Action Taken by Nursing 11/24/20 22:01 11/24/20 22:30 11/24/20 23:00 Temperature Temperature Source Pulse Rate 93 H 98 H 95 H Pulse Rate [Right Finger] Pulse Rate from SpO2 Sensor 93 H 95 H 93 H Pulse Rhythm [Right Finger] Pulse Strength [Right Finger] Respiratory Rate 23 20 18 Respiratory Effort / Characteristics Respiratory Depth Respiratory Pattern Blood Pressure 177/88 H 149/87 H Blood Pressure [Right Arm] Blood Pressure Mean 117 107 Blood Pressure Mean [Right Arm] Pulse Oximetry 100 99 100 Oxygen Delivery Method Sepsis Recent Fever Within 48 Hours Sepsis New/Unexplained Change in Mental Status Sepsis Action Taken by Nursing 11/24/20 23:01 Temperature Temperature Source Pulse Rate 85 Pulse Rate [Right Finger] Pulse Rate from SpO2 Sensor 88 Pulse Rhythm [Right Finger] Pulse Strength [Right Finger] Respiratory Rate 19 Respiratory Effort / Characteristics Respiratory Depth Respiratory Pattern Blood Pressure Blood Pressure [Right Arm] Blood Pressure Mean Blood Pressure Mean [Right Arm] Pulse Oximetry 99 Oxygen Delivery Method Sepsis Recent Fever Within 48 Hours Sepsis New/Unexplained Change in Mental Status Sepsis Action Taken by Nursing Laboratory Data Result diagrams: 11/24/20 18:55 11/24/20 18:55 Lab Results 11/24/20 11/24/20 11/24/20 Range/Units 18:55 18:55 18:55 WBC 9.46 (4.8-10.8) K/uL RBC 2.71 L (4.2-5.4) M/uL Hgb 8.6 L (12.0-16.0) g/dL Hct 25.3 L (37-47) % MCV 93.4 (80-100) fL MCH 31.7 (25-34) pg MCHC 34.0 (32-36) g/dL RDW Std Deviation 51.1 H (36.4-46.3) fL RDW Coeff of Suly 15.2 H (11.5-14.5) % Plt Count 118 L (130-400) K/uL MPV 10.0 (7.4-10.4) fL Immature Gran % (Auto) 0.3 % Neut % (Auto) 83.2 % Lymph % (Auto) 9.6 % Treasure % (Auto) 5.4 % Eos % (Auto) 1.3 % Baso % (Auto) 0.2 % Neut # (Auto) 7.87 H (1.4-6.5) K/uL Lymph # (Auto) 0.91 L (1.2-3.4) K/uL Treasure # (Auto) 0.51 (0.11-0.59) K/uL Eos # (Auto) 0.12 (0-0.5) K/uL Baso # (Auto) 0.02 (0-0.2) K/uL Immature Gran # (Auto) 0.03 H (0.00-0.02) K/uL PT 13.7 H (9.0-12.0) Seconds INR 1.4 H (0.9-1.1) Sodium 134 L (136-145) mmol/L Potassium 5.0 (3.5-5.1) mmol/L Chloride 110 H (98-107) mmol/L Carbon Dioxide 12 L (21-32) mmol/L Anion Gap 12.0 H (3-11) BUN 59 H (7-18) mg/dl Creatinine 7.57 H* (0.6-1.2) mg/dl Est Cr Clr Drug Dosing Not Reportable Est GFR ( Amer) 5.6 Est GFR (Non-Af Amer) 4.8 BUN/Creatinine Ratio 7.6 L (10-20) Glucose 116 H (70-99) mg/dl Calcium 8.7 (8.5-10.1) mg/dl Total Bilirubin 0.6 (0.2-1) mg/dl AST 33 (15-37) U/L ALT 25 (12-78) U/L Alkaline Phosphatase 165 H (45-117) U/L Troponin I < 0.015 (0-0.045) ng/ml Total Protein 8.0 (6.4-8.2) gm/dl Albumin 3.2 L (3.4-5.0) gm/dl Globulin 4.8 H (2.5-4.0) gm/dl Albumin/Globulin Ratio 0.7 L (0.9-2) Lipase 311 (73-393) U/L Urine Color Urine Appearance (Clear) Urine pH (4.5-7.5) Ur Specific [place] (1.000-1.030) Urine Protein (Negative) Urine Glucose (UA) (Negative) Urine Ketones (Negative) Urine Blood (Negative) Urine Nitrite (Negative) Urine Bilirubin (Negative) Urine Urobilinogen (Negative) Ur Leukocyte Esterase (Negative) Urine WBC (Auto) (0-5) /hpf Urine RBC (Auto) (0-4) /hpf U Hyaline Cast (Auto) (0-5) /lpf U Epithel Cells (Auto) (0-5) /lpf Urine Bacteria (Auto) (Negative) Urine Yeast COVID-19 Eval Order SARS-CoV-2 (PCR) (Negative) Influenza Type A (PCR) (Neg) Influenza Type B (PCR) (Neg) RSV (RT-PCR) (Neg) 11/24/20 11/24/20 11/24/20 Range/Units 22:28 Unknown Unknown WBC (4.8-10.8) K/uL RBC (4.2-5.4) M/uL Hgb (12.0-16.0) g/dL Hct (37-47) % MCV (80-100) fL MCH (25-34) pg MCHC (32-36) g/dL RDW Std Deviation (36.4-46.3) fL RDW Coeff of Usly (11.5-14.5) % Plt Count (130-400) K/uL MPV (7.4-10.4) fL Immature Gran % (Auto) % Neut % (Auto) % Lymph % (Auto) % Treasure % (Auto) % Eos % (Auto) % Baso % (Auto) % Neut # (Auto) (1.4-6.5) K/uL Lymph # (Auto) (1.2-3.4) K/uL Treasure # (Auto) (0.11-0.59) K/uL Eos # (Auto) (0-0.5) K/uL Baso # (Auto) (0-0.2) K/uL Immature Gran # (Auto) (0.00-0.02) K/uL PT (9.0-12.0) Seconds INR (0.9-1.1) Sodium (136-145) mmol/L Potassium (3.5-5.1) mmol/L Chloride (98-107) mmol/L Carbon Dioxide (21-32) mmol/L Anion Gap (3-11) BUN (7-18) mg/dl Creatinine (0.6-1.2) mg/dl Est Cr Clr Drug Dosing Est GFR ( Amer) Est GFR (Non-Af Amer) BUN/Creatinine Ratio (10-20) Glucose (70-99) mg/dl Calcium (8.5-10.1) mg/dl Total Bilirubin (0.2-1) mg/dl AST (15-37) U/L ALT (12-78) U/L Alkaline Phosphatase (45-117) U/L Troponin I (0-0.045) ng/ml Total Protein (6.4-8.2) gm/dl Albumin (3.4-5.0) gm/dl Globulin (2.5-4.0) gm/dl Albumin/Globulin Ratio (0.9-2) Lipase (73-393) U/L Urine Color Yellow Urine Appearance Clear (Clear) Urine pH 5.0 (4.5-7.5) Ur Specific [place] 1.012 (1.000-1.030) Urine Protein Negative (Negative) Urine Glucose (UA) Negative (Negative) Urine Ketones Negative (Negative) Urine Blood 2+ H (Negative) Urine Nitrite Negative (Negative) Urine Bilirubin Negative (Negative) Urine Urobilinogen Negative (Negative) Ur Leukocyte Esterase 2+ H (Negative) Urine WBC (Auto) >30 H (0-5) /hpf Urine RBC (Auto) 0-4 (0-4) /hpf U Hyaline Cast (Auto) 1-5 (0-5) /lpf U Epithel Cells (Auto) >30 H (0-5) /lpf Urine Bacteria (Auto) Negative (Negative) Urine Yeast Not Reportable COVID-19 Eval Order CovFluRsv at [facility] SARS-CoV-2 (PCR) NEGATIVE (Negative) Influenza Type A (PCR) Negative (Neg) Influenza Type B (PCR) Negative (Neg) RSV (RT-PCR) Negative (Neg) Administered Medications Discontinued Medications Furosemide (Furosemide 40 Mg/4 Ml Vial) 40 mg IV NOW STA Stop: 11/24/20 20:52 Last Admin: 11/24/20 21:01 Dose: 40 mg Documented by: [id number] Imaging Data Radiologist's Impression: Chest X-Ray 11/24/20 18:36 XR chest 1V portable CLINICAL HISTORY: Shortness of breath. COMPARISON STUDY: Chest radiograph October 22, 2020. FINDINGS: Lung volumes are normal. Lungs are clear. There is no pneumothorax or pleural effusion. Cardiac size is normal. Mediastinal contours are normal. There is no evidence for pulmonary edema. IMPRESSION: No acute cardiopulmonary findings. ACT 112: Negative or not required by law. Electronically signed by: Jp Hassan M.D. 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, Metabolic acidosis, Anemia Forms Stand Alone Forms: My [facility] Prescriptions Prescriptions: No Action paroxetine HCl [Paxil] 10 mg Tablet 10 mg PO QAM Qty: 0 RF: 0 loratadine [Claritin] 10 mg Tablet 10 mg PO QAM Qty: 0 RF: 0 potassium chloride 20 mEq Tablet Extended Release 20 meq PO BID Qty: 0 RF: 0 multivitamin Tablet 1 tab PO QAM RF: 0 sodium bicarbonate 650 mg Tablet 650 mg PO BID Qty: 60 RF: 0 Align 4 mg Capsule 4 mg PO QAM RF: 0 ferrous sulfate 27 mg iron Tablet 27 mg PO QAM RF: 0 dicyclomine 10 mg Capsule 10 mg PO HS RF: 0 cholecalciferol (vitamin D3) 25 mcg (1,000 unit) Tablet 25 mcg PO QAM RF: 0 ciprofloxacin HCl 250 mg tablet 250 mg PO QAM RF: 0 furosemide 20 mg tablet 20 mg PO QAM RF: 0 alprazolam [Xanax] 0.25 mg Tablet 0.25 mg PO HS PRN (Reason: Anxiety) RF: 0 Discharge Problem: Anemia Qualifiers: Anemia type: unspecified type Qualified Code(s): D64.9 - Anemia, unspecified
--- NOTE | 2020-11-24 19:11 | XRay Report ---
XR chest 1V portable CLINICAL HISTORY: Shortness of breath. COMPARISON STUDY: Chest radiograph October 22, 2020. FINDINGS: Lung volumes are normal. Lungs are clear. There is no pneumothorax or pleural effusion. Car diac size is normal. Mediastinal contours are normal. There is no evidence for pulmonary edema. IMPRESSION: No acute cardiopulmonary findings. ACT 112: Negative or not required by law. Electronically signed by: Jp Hassan M.D. 11/24/2020 7:09 PM
[2020-11-24 19:13] LABS: Basophils # (auto) 0.02 K/uL (0-0.2); Basophils % (auto) 0.2 %; Eosinophils # (auto) 0.12 K/uL (0-0.5); Eosinophils % (auto) 1.3 %; Hematocrit (blood only) 25.3 % (37-47); Hemoglobin 8.6 g/dL (12.0-16.0); Immature Granulocytes # (auto) 0.03 K/uL (0.00-0.02); Immature Granulocytes % (auto) 0.3 %; Lymphocytes # (auto) 0.91 K/uL (1.2-3.4); Lymphocytes % (auto) 9.6 %; Mean Corpuscular Hemoglobin 31.7 pg (25-34); Mean Corpuscular Volume 93.4 fL (80-100); Monocytes # (auto) 0.51 K/uL (0.11-0.59); Monocytes % (auto) 5.4 %; Neutrophils # (auto) 7.87 K/uL (1.4-6.5); Neutrophils % (auto) 83.2 %; Platelet Count 118 K/uL (130-400); RDW Coefficient of Variation 15.2 % (11.5-14.5); RDW Standard Deviation 51.1 fL (36.4-46.3); Red Blood Count 2.71 M/uL (4.2-5.4); White Blood Count 9.46 K/uL (4.8-10.8)
[2020-11-24 19:28] LABS: INR 1.4 (0.9-1.1); Prothrombin Time 13.7 Seconds (9.0-12.0)
[2020-11-24 20:08] LABS: Alanine Aminotransferase 25 U/L (12-78); Albumin Globulin Ratio 0.7 (0.9-2); Albumin Level 3.2 gm/dl (3.4-5.0); Alkaline Phosphatase 165 U/L (45-117); Aspartate Aminotransferase 33 U/L (15-37); BUN Creatinine Ratio 7.6 (10-20); Bilirubin,Total 0.6 mg/dl (0.2-1); Blood Urea Nitrogen 59 mg/dl (7-18); Calcium 8.7 mg/dl (8.5-10.1); Carbon Dioxide 12 mmol/L (21-32); Chloride 110 mmol/L (98-107); Est GFR (African American) 5.6; Est GFR (Non-African American) 4.8; Globulin 4.8 gm/dl (2.5-4.0); Glucose 116 mg/dl (70-99); Lipase 311 U/L (73-393); Sodium 134 mmol/L (136-145); Troponin I < 0.015 ng/ml (0-0.045)
[2020-11-24] MEDS ORDERED: FUROSEMIDE 40 MG/4 ML VIAL IV STA (20:51)
[2020-11-24 21:50] LABS: Influenza A virus by PCR Negative (Neg); Influenza B virus by PCR Negative (Neg); RSV by PCR Negative (Neg); SARS CoV2 RNA(COVID-19) InHosp NEGATIVE (Negative)
[2020-11-24 22:41] LABS: Appearance Urine Clear (Clear); Bacteria Urine Automated Negative (Negative); Bilirubin Urine Negative (Negative); Blood Urine 2+ (Negative); Color Urine Yellow; Epithelial Cell Urine Auto >30 /lpf (0-5); Glucose Urine UA Negative (Negative); Ketones Urine Negative (Negative); Leukocyte Esterase Urine 2+ (Negative); Nitrite Urine Negative (Negative); Protein Urine Negative (Negative); RBC Urine Automated 0-4 /hpf (0-4); Specific Gravity Urine 1.012 (1.000-1.030); Urobilinogen Urine Negative (Negative); WBC Urine Automated >30 /hpf (0-5)
[2020-11-25] MEDS ORDERED: NITROGLYCERIN SL 0.4 MG/TAB TAB SL PRN (00:04)
[2020-11-25] MEDS ORDERED: FUROSEMIDE 40 MG/4 ML VIAL IV STA (00:04)
[2020-11-25] MEDS ORDERED: ONDANSETRON INJ 2 MG/ML 2 ML VIAL IV PRN (00:04)
[2020-11-25] MEDS ORDERED: FUROSEMIDE 40 MG in SYRINGE 0 ML IV ONE (00:15)
[2020-11-25] MEDS ORDERED: CEFEPIME 2,000 MG in SYRINGE 0 ML IV ONE (00:30)
[2020-11-25] MEDS: ALPRAZolam 0.25 MG TABLET PO PRN (00:43)
[2020-11-25] MEDS ORDERED: CEFEPIME CONSULT ACTIVE PRN (00:44)
--- NOTE | 2020-11-25 02:24 | History and Physical Report ---
DATE OF ADMISSION: 11/24/2020 CHIEF COMPLAINT: Shortness of breath. HISTORY OF PRESENT ILLNESS: A 75-year-old female with past medical history significant for REARDON liver cirrhosis with ascites, esophageal varices without bleeding, portal hypertension, history of bradycardia, hyperlipidemia, intraductal papillary mucinous neoplasm of the pancreas, chronic kidney disease stage IV/V, hypertension, presence of pancreatic duct stent, eczema, iron deficiency anemia, thrombocytopenia, anxiety, history of C. diff infection, who lives with her , who was recently in the hospital for sepsis, treated with cefepime and discharged on p.o. Cipro for possible SBP, and PUNEET on chronic kidney disease stage IV to V, and the patient did fine and discharged. The patient is supposed to see vascular surgery at the end of the month for possibly starting on dialysis. Presents because of feeling weak, tired, poor appetite. Getting shortness of breath on exertion and distended abdomen. She is taking Lasix 20 mg daily at home. In the ER, her labs showed INR of 1.4, creatinine of 7.5, which was around 4.5-4.8 on discharge last admission. Given dose of IV Lasix in the ER after talking to nephrology. Made urine in the ER. Currently, resting comfortably and hemodynamically stable. Denies any chest pain. No cough, feeling cold. No fevers, no headache, no blurred vision, no earache, no runny nose, no sore throat. Appetite is down. No difficulty swallowing. No diarrhea or constipation. Denies any blood in the stools. Denies any blood in the urine. Ambulating without support, but feeling very weak at home. ALLERGIES: ADHESIVES. PAST MEDICAL HISTORY: As mentioned above. PAST SURGICAL HISTORY: Bilateral knee arthroplasty, bilateral carpal tunnel surgeries, colonoscopies, colposcopy of cervix with biopsy, conization of cervix, cystoscopy, dilatation and curettage, EGD with endoscopic ultrasounds, multiple Pap screen, appendectomy, removal of oviducts, tonsillectomy, bilateral cataract surgeries, left ganglion on wrist removed, diagnostic sigmoidoscopy, total abdominal hysterectomy with removal of tubes. MEDICATIONS: The patient is on Align 4 mg p.o. a.m., Xanax 0.25 mg p.o. at bedtime p.r.n., vitamin D 25 mcg p.o. a.m., dicyclomine 10 mg p.o. at bedtime, ferrous sulfate 325 mg p.o. a.m., Lasix 20 mg p.o. a.m., Claritin 10 mg p.o. a.m., multivitamin 1 tablet a.m., paroxetine 10 mg p.o. a.m., potassium chloride 20 mEq p.o. b.i.d., sodium bicarbonate 650 mg p.o. b.i.d. FAMILY HISTORY: Significant for sister has rheumatoid arthritis; sister has breast cancer; father has lung cancer; brother has diabetes; mother has diabetes, heart disorder, hypertension, stroke; brother has urethral cancer; another brother has hepatitis C; maternal grandmother had stroke; maternal grandfather has heart disorder. SOCIAL HISTORY: , lives with her . Quit smoking in 1980. Smoked half pack a day for 29 years. Alcohol rarely. No drug use. REVIEW OF SYSTEMS: As per HPI. Rest of the review of systems negative. PHYSICAL EXAMINATION: GENERAL: The patient is thin and frail, not in acute distress. VITAL SIGNS: Temperature 36.4, pulse 93, respiratory rate 23, blood pressure 144/80, oxygen 100% on room air. HEENT: Pupils equal, round, reactive to light. Oral mucosa moist. NECK: No JVD, no neck masses. CARDIOVASCULAR: S1, S2 heard, regular rate and rhythm, no murmur, no gallop. RESPIRATORY SYSTEM: Normal AP diameter. No accessory muscle use. No wheezing, no crackles. ABDOMEN: Distended. Bowel sounds present. No tenderness, no guarding, no rigidity. CENTRAL NERVOUS SYSTEM: Cranial nerves II through XII grossly intact, nonfocal. EXTREMITIES: Bilateral lower extremity edema present. Mild erythematous changes seen. LABORATORY DATA: WBC 9.4, hemoglobin 8.6, hematocrit 25.3, platelets 118. PT 13.7, INR 1.4. Sodium 134, potassium 5, chloride 110, bicarbonate 12, BUN 59, creatinine 7.5, serum glucose 116, calcium 8.7, total bilirubin 0.6, AST 33, ALT 25, alkaline phosphatase 165. Troponin I less than 0.015. Lipase 3111. Urine leukocyte esterase +2 positive. SARS-CoV-2 PCR negative. Influenza A and B PCR negative. RSV PCR negative. IMAGING DATA: Chest x-ray: No acute cardiopulmonary findings seen. EKG: Sinus rhythm with PACs at the rate of 81, no significant change was found. ASSESSMENT AND PLAN: This is a 75-year-old female who presents with shortness of breath with exertion and found to have acute kidney injury on chronic kidney disease V and also ascites. 1. Shortness of breath on exertion, weakness, poor appetite. Acute kidney injury on chronic kidney disease stage V: Baseline creatinine of 4.5, presently with creatinine of 7.5. Received a dose of Lasix 40 in the ER. Notified nephrology. Recommended another dose of IV Lasix 40mg and follow the repeat labs in a.m. Plan for dialysis or further plans as per nephrology in a.m. Follow I's and O's. 3. Metabolic acidosis secondary to above: Follow the repeat labs. Holding the potassium supplements and bicarbonate tablets for now as per nephrology recommendations.. 4. Ascites, REARDON liver cirrhosis: Holding diuretics secondary to acute kidney injury. We will order abdominal ultrasound with paracentesis in a.m. Needs albumin transfusion for paracentesis. GI consulted. 5. Thrombocytopenia secondary to liver cirrhosis: Follow the repeat labs. 6. Anemia: Most likely from liver cirrhosis. On iron supplements, which will be continued. 7. Depression and anxiety: Continue paroxetine and Xanax prn. 8. Possible urinary tract infection: We will place on cefepime. Follow the cultures. 9. History of hypertension: Holding diuretics. We will monitor the blood pressure. 10. Elevated INR from the liver disease, will monitor. 11. History of intraductal papillary mucinous neoplasm of pancreas: Recently seen by hematology/oncology. No intervention planned at this time because of comorbid conditions. 12. Deep venous thrombosis prophylaxis: Sequential compression devices. DISPOSITION: Closely monitor in tele floor. Level 1 full code as per my discussing with the patient. PT and OT prior to discharge. Social service to help with discharge planning. GARETT
[2020-11-25 06:50] LABS: Hematocrit (blood only) 20.6 % (37-47); Mean Corpuscular Hemoglobin 31.5 pg (25-34); Mean Corpuscular Volume 92.8 fL (80-100); Mean Platelet Volume 9.8 fL (7.4-10.4); Platelet Count 82 K/uL (130-400); RDW Standard Deviation 51.2 fL (36.4-46.3); Red Blood Count 2.22 M/uL (4.2-5.4); White Blood Count 6.19 K/uL (4.8-10.8)
[2020-11-25 07:11] LABS: Basophils # (auto) 0.01 K/uL (0-0.2); Basophils % (auto) 0.2 %; Eosinophils # (auto) 0.12 K/uL (0-0.5); Eosinophils % (auto) 1.9 %; Immature Granulocytes # (auto) 0.03 K/uL (0.00-0.02); Immature Granulocytes % (auto) 0.5 %; Lymphocytes # (auto) 0.66 K/uL (1.2-3.4); Lymphocytes % (auto) 10.7 %; Monocytes # (auto) 0.55 K/uL (0.11-0.59); Monocytes % (auto) 8.9 %; Neutrophils # (auto) 4.82 K/uL (1.4-6.5); Neutrophils % (auto) 77.8 %; Platelet Estimate Decreased (Normal); RBC Morphology Unremarkable
[2020-11-25 07:25] LABS: BUN Creatinine Ratio 8.6 (10-20); Calcium 8.2 mg/dl (8.5-10.1); Creatinine Clr Calc Pharmacy 5.3 ml/min; Est GFR (African American) 5.4; Est GFR (Non-African American) 4.7; Magnesium 1.4 mg/dl (1.8-2.4); Potassium 4.9 mmol/L (3.5-5.1)
--- NOTE | 2020-11-25 07:58 | Nephrology Consultation ---
Date of Consultation November 25, 2020 Assessment & Plan (1) IPMN (intraductal papillary mucinous neoplasm): presumptive diagnosis. Not a candidate for surgical or medical therapy per outpatient notes. In the setting of ESRD and advanced liver cirrhosis w/ complications from VILLAGOMEZ Recommend palliative consultation and follow-up GI recommendations Present on Admission?: Yes (2) ESRD (end stage renal disease): She certainly meets criteria for starting hemodialysis (d/t acidosis primarily, volume status, and poorer po intake though latter could be multifactorial) and I have obtained consent to do that. However prior to placing tunneled dialysis catheter or to initiating therapy, recommend palliative consultation to discuss goals of care. Hemodialysis at this point would be palliative. I did d/w pt that she is at higher risk than others for complications of dialysis especially symptomatic low blood pressure and challenges stopping bleeding -daily bmp and mag -cont to avoid nephrotoxins -f/u palliative recommendations -vascular surgery consult placed > for possible dialysis catheter placement tomorrow if dialysis still planned -for paracentesis today to help w/ volume issues -for now hold potassium supplements > despite her advanced renal disease, she needs significant K supplements daily as OP >>>for now w/ poor po intake and outpt K requirement and periodic lasix > could be on regular diet when taking po to start but do give her 1.5L fluid limit when taking po and not on liquid diet Present on Admission?: Yes (3) Anemia: -no epo d/t concern for malignancy, at least to start -transfuse prn per primary service Present on Admission?: Yes (4) Metabolic acidosis: combination of renal failure and ? GI issues as well -continue sodium bicarb po outpt dose > order in; would not give IV -dialysis Present on Admission?: Yes (5) Acute on chronic renal insufficiency: she is ESRD w/ continued progressive renal dysfunction; as above Present on Admission?: Yes (6) Hypomagnesemia: started mag ox po bid and gave 2 gm IV mag for mag 1.4 today >pls recheck mag in am (7) Liver cirrhosis secondary to VILLAGOMEZ: -for paracentesis today -give albumin w/ paracentesis -would continue lasix prn today >> would not redose until we see how she does today w/ paracentesis Present on Admission?: Yes History of Present Illness Reason for Consultation: ESRD, volume overload Requesting Physician: Dr. Guadarrama Attending Physician: Alfredo Guadarrama MD History of Present Illness 75-year-old female whom I am asked to evaluate for management of volume overload and renal dysfunction was admitted overnight with acute on chronic renal failure, worsening ascites after she presented with shortness of breath, poor p.o. intake, generalized weakness. 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 She has had rapidly declining renal function over the past several months. During her September admission here she had an ERCP with brushing of grossly malignant appearing CBD stricture: Pathology was benign overall clinical picture concerning, including CA 199 level of 1233 at the time. Surgical oncology evaluated the patient and deemed her poor candidate for surgical resection due to her liver disease. She was recently referred to oncology to evaluate whether she would be a candidate for chemotherapy were a cancer diagnosis to be made in order to determine whether to repeat endoscopy for tissue diagnosis. Oncology at their November 23 intake visit does not consider her a chemotherapy candidate. She had 2 paracenteses in October and did have a diagnosis of SBP at that time. Admitting team discussed her case with my partner overnight: She had 40 mg IV Lasix in the ER x 2 doses. Allergies Allergy/AdvReac Type Severity Reaction Status Date / Time adhesive AdvReac Intermediate BANDAIDS-INCREASES Verified 11/24/20 19:14 ECZEMA REDNESS Home Medications Medication Instructions Recorded Confirmed Type loratadine [Claritin] 10 mg PO QAM #0 tab 10/09/14 11/24/20 History paroxetine HCl [Paxil] 10 mg PO QAM #0 tab 10/09/14 11/24/20 History potassium chloride 20 meq PO BID #0 01/24/18 11/24/20 History Align 4 mg PO QAM 01/21/19 11/24/20 History ferrous sulfate 27 mg PO QAM 01/21/19 11/24/20 History dicyclomine 10 mg PO HS 04/05/20 11/24/20 History multivitamin 1 tab PO QAM 09/24/20 11/24/20 History sodium bicarbonate 650 mg PO BID #60 tab 09/30/20 11/24/20 Rx cholecalciferol (vitamin D3) 25 mcg PO QAM 10/22/20 11/24/20 History alprazolam [Xanax] 0.25 mg PO HS PRN 11/16/20 11/24/20 History ciprofloxacin HCl 250 mg PO QAM 11/16/20 11/24/20 History furosemide 20 mg PO QAM 11/16/20 11/24/20 History Patient History Medical History Anxiety Degenerative arthritis of left knee End stage renal disease follows with Dr. 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 follows with [facility] Hepatology Osteoarthritis Pancreatic cyst highly suspicious for mucinous neoplasm; not a surgical or chemotherapy candidate Portal hypertension Secondary esophageal varices without bleeding Squamous cell cancer of skin of forearm Weight loss [facility] weights [id number]; March 158; Apr 145; Aug 2020 133 lb Surgical History History of appendectomy History of carpal tunnel release of both wrists History of colonoscopy History of endoscopy EUS History of ERCP With EUS/EGD 09/28/20 during admission at [facility] for PUNEET on CKD/cirrhosis History of esophagogastroduodenoscopy (EGD) History of knee replacement procedure of left knee History of knee replacement procedure of right knee History of squamous cell carcinoma excision History of surgical removal of ganglion cyst History of tonsillectomy and adenoidectomy History of total abdominal hysterectomy and bilateral salpingo-oophorectomy Family History Father Cancer Mother Diabetes Other No family history of adverse response to anesthesia Social History Smoking Status: Never smoker Tobacco Type: Cigarettes Second Hand Exposure: No; Hx Alcohol Use: No Hx Substance Use: No Preferred Language: Korean Communication Ability: Effective [employer] Sales[employer] Required: No Beliefs That Will Affect Care: None marital status: Current Living Situation: Spouse Other Information That Helps Us Care for You: No Feels Safe at Home: Yes Safety Concerns: Feels Safe At This Time Assistive Devices: Cane, Denture - Upper and Glasses Review of Systems Review of Systems: All systems reviewed & are unremarkable except as noted in Subjective Constitutional: + fatigue, + weakness and + anorexia wt stable at about 1130 lb Respiratory: + dyspnea and + dyspnea on exertion; no cough and no hemoptysis Cardiovascular: + edema (minimal); no chest pain Gastrointestinal: + bloating and + early satiety; no abdominal pain, no nausea and no vomiting increased abd girth Genitourinary: + decreased urination; no dysuria, no difficulty urinating, no urinary frequency, no urinary urgency and no hematuria Integumentary: no rash Physical Exam Constitutional: well developed and + ill appearing (more chronically ill appe ari that last month); no acute distress Eyes: EOM intact bilaterally ENMT: Ears: no external ear abnormality Nose: no external nose abnormality Mouth: + dry oral mucous membranes Neck: no nuchal rigidity Respiratory: normal respiratory effort Auscultation: + diminished lung sounds and + crackles (end inspiratory crackles) Cardiovascular: Rate/Rhythm: regular rate and regular rhythm Heart Sounds: + murmur Extremities: + edema (trace BLE) Gastrointestinal (Abdomen): Inspection/Auscultation: + abdomen distended and normal bowel sounds Percussion/Palpation: abdomen soft and + ascites; abdomen nontender Musculoskeletal: Extremities: strength 5/5 throughout Skin: no rashes, warm and dry no jaundice Neurologic: sanchez, fluent speech, slight jaw tremor Psychiatric: A+Ox3, euthymic affect Speech: normal rate/rhythm/volume of speech Insight: good insight Judgement: good judgement Results & Data ([facility]) Vital Signs (Past 12 Hours) Vital Signs Temp Pulse Pulse Resp BP BP Pulse Ox 11/25/20 03:17 36.4 C L 95 H 19 159/95 H 97 11/25/20 00:32 149/73 H 11/24/20 23:45 36.8 C 98 H 20 178/94 H 98 11/24/20 23:01 85 19 99 11/24/20 23:00 95 H 18 149/87 H 100 11/24/20 22:30 98 H 20 177/88 H 99 11/24/20 22:01 93 H 23 100 04/14/21 22:00 93 H 23 144/80 H 99 11/24/20 21:31 92 H 20 100 11/24/20 21:30 86 19 152/87 H 100 11/24/20 21:01 83 20 100 11/24/20 21:00 89 20 151/85 H 99 11/24/20 20:30 86 20 124/87 100 11/24/20 20:01 93 H 19 98 11/24/20 20:00 82 21 154/94 H 100 Laboratory Results 11/25/20 06:09 11/25/20 06:09 mag this am 1.4 UACM > 1012, 5.0, 2+ blood, 2+LE, >30 WBC, 0-4 RBC, no bacteria, ++epi's (1) Anemia Anemia type: unspecified type Qualified Code(s): D64.9 - Anemia, unspecified
--- NOTE | 2020-11-25 08:17 | Gastrointestinal Consultation ---
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 intake, weakness, acute on chronic renal failure and found to be volume overloaded. Appears dialysis is being considered, palliative care also being consulted, and GI asked to evaluate given her ascites. LFTs at baseline, HGB noted to be 7.0, WBC 6. On exam she has mild to moderate nontense ascites, she is not encephalopathic and has no evidence of GI bleeding. - Agree with paracentesis today, albumin [id number], please send fluid for cell count culture - Diuretics held as per nephrology, primary service - Low Na diet - Monitor H&H, Trend and transfuse as needed per primary service - Appreciate nephrology, primary service mgmt of her co-morbidities Thank you for allowing us to participate in the care of this patient. Please call with any acute changes, questions or concerns. Please see addendum below with additional recommendation from my supervising physician. (2) Ascites: (3) IPMN (intraductal papillary mucinous neoplasm): Presumptive diagnosis as EUS for tissue diagnosis was not able to be obtained given patient's worsening renal disease. Appears patient is not a surgical or chemotherapy candidate should the diagnosis be made. Overall agree with goals of care discussion, palliative consult given her multiple co- morbidities. Supervising Physician Co-Signing Physician Notes I saw and evaluated the patient. We were consulted due to the patient's history of cirrhosis and suspected pancreatic cancer. She was admitted to the hospital with weakness, shortness of breath and fatigue. She did have a low volume paracentesis performed this morning and seems to be recovering well from it. The patient does have a history of multiple cysts within the pancreas and recently was found to have evidence of a pancreatic mass during endoscopic ultrasound. Unfortunately the fine-needle aspiration was nondiagnostic as it did not show evidence of malignancy. The patient did have biliary obstruction and had an ERCP performed at the same time with successful decompression of the biliary tree. Given the patient's clinical presentation she appears to have malignant degeneration of an IPMN. She has been seen by surgical oncology and medical oncology who feels she is not a candidate for resection nor chemotherapy given her comorbid medical problems. Physical examination No obvious distress, no scleral icterus No peritoneal fluid wave today Impression patient with a cystic mass of the pancreatic head, given the clinical scenario this likely represents malignant degeneration of an IPMN. Unfortunately the patient has not had a tissue diagnosis however, she is deemed not a candidate for surgical resection or chemotherapy by subspecialty providers in those joshua. Given this a repeat endoscopic ultrasound is probably not in her best interest at the present time. With regard to her renal failure she was seen by nephrology and had an evaluation during a recent admission where it was thought that she did not have hepatorenal syndrome. They are contemplating use of hemodialysis to help prolong the patient's life. I would suggest that hemodialysis be considered and perhaps the patient is best treated with periodic transfusion due to anemia as opposed to use of hormonal therapy. Recommendations No anticipation for EUS at this time Weight results from recent paracentesis Low-sodium diet Appreciate nephrology input Please call with any questions or concerns History of Present Illness Reason for Consultation: ascites, cirrhosis, puneet Requesting Physician: Dr. Ricks Attending Physician: Alfredo Guadarrama MD History of Present Illness This is a 75 y/o female with history of VILLAGOMEZ cirrhosis complicated by portal HTN, ascites, EV, history of SBP, IMPN pancreatic head causing biliary obstruction, grossly malignant appearing CBD stricture s/p placement of metal stent, end-stage CKD, HTN, h/o recurrent C. difficile SP fecal transplant, and others, admitted yesterday after presenting with poor p.o. intake, weakness, shortness of breath for the past several days. She was found to have volume overload and acute on chronic renal failure, nephrology has been consulted, and dialysis is being considered. GI asked to evaluate for presence of ascites, patient states that she has noticed over the last few days she has had increased abdominal distention. Last paracentesis was 10/28/2020. Due to history of SBP, she is on prophylactic therapy with daily Cipro. In general, she is on a low-salt diet and is compliant with daily at home. Presently, plan is for paracentesis today, with albumin treatment. Lab work reviewed, hemoglobin 7.0, transaminases are not elevated, chronic elevation of alk phos, INR 1.4, and worsening renal function are noted. MELD is 24. CXR with no acute changes. Currently pt states she feels somewhat improved from admission, less fatigued. Denies abdominal pain, nausea vomiting, leg edema, jaundice, pruritus, fevers or chills, diarrhea, melena or hematochezia, hematemesis, chest pain or dyspnea. Of note, EUS had been planned earlier this week to obtain cytology for tissue diagnosis for suspected malignancy involving her pancreatic head lesion, however this was not able to be performed due to her worsening renal status. She was previously deemed not a surgical candidate, and was also evaluated by medical oncology earlier this week to determine whether she would be a candidate for chemotherapy were a cancer diagnosis to be made, and it appears that she is not a chemotherapy candidate. Allergies Allergy/AdvReac Type Severity Reaction Status Date / Time adhesive AdvReac Intermediate BANDAIDS-INCREASES Verified 11/24/20 19:14 ECZEMA REDNESS Home Medications Medication Instructions Recorded Confirmed Type loratadine [Claritin] 10 mg PO QAM #0 tab 10/09/14 11/24/20 History paroxetine HCl [Paxil] 10 mg PO QAM #0 tab 10/09/14 11/24/20 History potassium chloride 20 meq PO BID #0 01/24/18 11/24/20 History Align 4 mg PO QAM 01/21/19 11/24/20 History ferrous sulfate 27 mg PO QAM 01/21/19 11/24/20 History dicyclomine 10 mg PO HS 04/05/20 11/24/20 History multivitamin 1 tab PO QAM 09/24/20 11/24/20 History sodium bicarbonate 650 mg PO BID #60 tab 09/30/20 11/24/20 Rx cholecalciferol (vitamin D3) 25 mcg PO QAM 10/22/20 11/24/20 History alprazolam [Xanax] 0.25 mg PO HS PRN 11/16/20 11/24/20 History ciprofloxacin HCl 250 mg PO QAM 11/16/20 11/24/20 History furosemide 20 mg PO QAM 11/16/20 11/24/20 History Patient History Medical History Anxiety Degenerative arthritis of left knee End stage renal disease follows with Dr. 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 follows with S Hepatology Osteoarthritis Pancreatic cyst highly suspicious for mucinous neoplasm; not a surgical or chemotherapy candidate Portal hypertension Secondary esophageal varices without bleeding Squamous cell cancer of skin of forearm [place] [facility] [place] [id number]; March 158; Apr 145; Aug 2020 133 lb Surgical History History of appendectomy History of carpal tunnel release of both wrists History of colonoscopy History of endoscopy EUS History of ERCP With EUS/EGD 09/28/20 during admission at [facility] for PUNEET on CKD/cirrhosis History of esophagogastroduodenoscopy (EGD) History of knee replacement procedure of left knee History of knee replacement procedure of right knee History of squamous cell carcinoma excision History of surgical removal of ganglion cyst History of tonsillectomy and adenoidectomy History of total abdominal hysterectomy and bilateral salpingo-oophorectomy Family History Father Cancer Mother Diabetes Other No family history of adverse response to anesthesia Social History Smoking Status: Never smoker Tobacco Type: Cigarettes Second Hand Exposure: No; Hx Alcohol Use: No Hx Substance Use: No Preferred Language: Uzbek Communication Ability: Effective Administrative Staff Supervisor Required: No Beliefs That Will Affect Care: None marital status: Current Living Situation: Spouse Other Information That Helps Us Care for You: No Feels Safe at Home: Yes Safety Concerns: Feels Safe At This Time Assistive Devices: Denture - Upper and Glasses Review of Systems Review of Systems: All systems reviewed & are unremarkable except as noted in HPI & below Physical Exam Constitutional: WD/WN, vitals as above Eyes: + anicteric sclerae Respiratory: normal respiratory effort, lungs clear to auscultation Cardiovascular: Rate/Rhythm: regular rate and regular rhythm Gastrointestinal (Abdomen): Inspection/Auscultation: normal bowel sounds Percussion/Palpation: abdomen soft; abdomen nontender mild-moderate nontense ascites noted Skin: no rashes, warm and dry no jaundice Neurologic: no asterixis Psychiatric: A+Ox3, euthymic affect Results & Data ([facility]) Vital Signs (Past 12 Hours) Vital Signs Temp Pulse Pulse Resp BP BP Pulse Ox 11/25/20 03:17 36.4 C L 95 H 19 159/95 H 97 11/25/20 00:32 149/73 H 11/24/20 23:45 36.8 C 98 H 20 178/94 H 98 11/24/20 23:01 85 19 99 11/24/20 23:00 95 H 18 149/87 H 100 11/24/20 22:30 98 H 20 177/88 H 99 11/24/20 22:01 93 H 23 100 11/24/20 22:00 93 H 23 144/80 H 99 11/24/20 21:31 92 H 20 100 11/24/20 21:30 86 19 152/87 H 100 11/24/20 21:01 83 20 100 11/24/20 21:00 89 20 151/85 H 99 11/24/20 20:30 86 20 124/87 100 Laboratory Results 11/25/20 11/25/20 11/24/20 Range/Units 06:09 06:09 Unknown WBC 6.19 (4.8-10.8) K/uL RBC 2.22 L (4.2-5.4) M/uL Hgb 7.0 L (12.0-16.0) g/dL Hct 20.6 L* (37-47) % MCV 92.8 (80-100) fL MCH 31.5 (25-34) pg MCHC 34.0 (32-36) g/dL RDW Std Deviation 51.2 H (36.4-46.3) fL RDW Coeff of Suly 15.0 H (11.5-14.5) % Plt Count 82 L (130-400) K/uL MPV 9.8 (7.4-10.4) fL Immature Gran % (Auto) 0.5 % Neut % (Auto) 77.8 % Lymph % (Auto) 10.7 % [place] % (Auto) 8.9 % Eos % (Auto) 1.9 % Baso % (Auto) 0.2 % Neut # (Auto) 4.82 (1.4-6.5) K/uL Lymph # (Auto) 0.66 L (1.2-3.4) K/uL [place] # (Auto) 0.55 (0.11-0.59) K/uL Eos # (Auto) 0.12 (0-0.5) K/uL Baso # (Auto) 0.01 (0-0.2) K/uL Immature Gran # (Auto) 0.03 H (0.00-0.02) K/uL Platelet Estimate Decreased L (Normal) RBC Morphology Unremarkable PT (9.0-12.0) Seconds INR (0.9-1.1) Sodium 136 (136-145) mmol/L Potassium 4.9 (3.5-5.1) mmol/L Chloride 113 H (98-107) mmol/L Carbon Dioxide 11 L (21-32) mmol/L Anion Gap 12.0 H (3-11) BUN 67 H (7-18) mg/dl Creatinine 7.74 H* (0.6-1.2) mg/dl Est Cr Clr Drug Dosing 5.3 Est GFR ( Amer) 5.4 Est GFR (Non-Af Amer) 4.7 BUN/Creatinine Ratio 8.6 L (10-20) Glucose 91 (70-99) mg/dl Calcium 8.2 L (8.5-10.1) mg/dl Magnesium 1.4 L (1.8-2.4) mg/dl Total Bilirubin (0.2-1) mg/dl AST (15-37) U/L ALT (12-78) U/L Alkaline Phosphatase (45-117) U/L Troponin I (0-0.045) ng/ml Total Protein (6.4-8.2) gm/dl Albumin (3.4-5.0) gm/dl Globulin (2.5-4.0) gm/dl Albumin/Globulin Ratio (0.9-2) Lipase (73-393) U/L Urine Color Urine Appearance (Clear) Urine pH (4.5-7.5) Ur Specific [place] (1.000-1.030) Urine Protein (Negative) Urine Glucose (UA) (Negative) Urine Ketones (Negative) Urine Blood (Negative) Urine Nitrite (Negative) Urine Bilirubin (Negative) Urine Urobilinogen (Negative) Ur Leukocyte Esterase (Negative) Urine WBC (Auto) (0-5) /hpf Urine RBC (Auto) (0-4) /hpf U Hyaline Cast (Auto) (0-5) /lpf U Epithel Cells (Auto) (0-5) /lpf Urine Bacteria (Auto) (Negative) Urine Yeast COVID-19 Eval Order SARS-CoV-2 (PCR) NEGATIVE (Negative) Influenza Type A (PCR) Negative (Neg) Influenza Type B (PCR) Negative (Neg) RSV (RT-PCR) Negative (Neg) 11/24/20 11/24/20 11/24/20 Range/Units Unknown 22:28 18:55 WBC (4.8-10.8) K/uL RBC (4.2-5.4) M/uL Hgb (12.0-16.0) g/dL Hct (37-47) % MCV (80-100) fL MCH (25-34) pg MCHC (32-36) g/dL RDW Std Deviation (36.4-46.3) fL RDW Coeff of Suly (11.5-14.5) % Plt Count (130-400) K/uL MPV (7.4-10.4) fL Immature Gran % (Auto) % Neut % (Auto) % Lymph % (Auto) % [place] % (Auto) % Eos % (Auto) % Baso % (Auto) % Neut # (Auto) (1.4-6.5) K/uL Lymph # (Auto) (1.2-3.4) K/uL [place] # (Auto) (0.11-0.59) K/uL Eos # (Auto) (0-0.5) K/uL Baso # (Auto) (0-0.2) K/uL Immature Gran # (Auto) (0.00-0.02) K/uL Platelet Estimate (Normal) RBC Morphology PT (9.0-12.0) Seconds INR (0.9-1.1) Sodium 134 L (136-145) mmol/L Potassium 5.0 (3.5-5.1) mmol/L Chloride 110 H (98-107) mmol/L Carbon Dioxide 12 L (21-32) mmol/L Anion Gap 12.0 H (3-11) BUN 59 H (7-18) mg/dl Creatinine 7.57 H* (0.6-1.2) mg/dl Est Cr Clr Drug Dosing Not Reportable Est GFR ( Amer) 5.6 Est GFR (Non-Af Amer) 4.8 BUN/Creatinine Ratio 7.6 L (10-20) Glucose 116 H (70-99) mg/dl Calcium 8.7 (8.5-10.1) mg/dl Magnesium (1.8-2.4) mg/dl Total Bilirubin 0.6 (0.2-1) mg/dl AST 33 (15-37) U/L ALT 25 (12-78) U/L Alkaline Phosphatase 165 H (45-117) U/L Troponin I < 0.015 (0-0.045) ng/ml Total Protein 8.0 (6.4-8.2) gm/dl Albumin 3.2 L (3.4-5.0) gm/dl Globulin 4.8 H (2.5-4.0) gm/dl Albumin/Globulin Ratio 0.7 L (0.9-2) Lipase 311 (73-393) U/L Urine Color Yellow Urine Appearance Clear (Clear) Urine pH 5.0 (4.5-7.5) Ur Specific [place] 1.012 (1.000-1.030) Urine Protein Negative (Negative) Urine Glucose (UA) Negative (Negative) Urine Ketones Negative (Negative) Urine Blood 2+ H (Negative) Urine Nitrite Negative (Negative) Urine Bilirubin Negative (Negative) Urine Urobilinogen Negative (Negative) Ur Leukocyte Esterase 2+ H (Negative) Urine WBC (Auto) >30 H (0-5) /hpf Urine RBC (Auto) 0-4 (0-4) /hpf U Hyaline Cast (Auto) 1-5 (0-5) /lpf U Epithel Cells (Auto) >30 H (0-5) /lpf Urine Bacteria (Auto) Negative (Negative) Urine Yeast Not Reportable COVID-19 Eval Order CovFluRsv at [facility] SARS-CoV-2 (PCR) (Negative) Influenza Type A (PCR) (Neg) Influenza Type B (PCR) (Neg) RSV (RT-PCR) (Neg) 11/24/20 11/24/20 Range/Units 18:55 18:55 WBC 9.46 (4.8-10.8) K/uL RBC 2.71 L (4.2-5.4) M/uL Hgb 8.6 L (12.0-16.0) g/dL Hct 25.3 L (37-47) % MCV 93.4 (80-100) fL MCH 31.7 (25-34) pg MCHC 34.0 (32-36) g/dL RDW Std Deviation 51.1 H (36.4-46.3) fL RDW Coeff of Suly 15.2 H (11.5-14.5) % Plt Count 118 L (130-400) K/uL MPV 10.0 (7.4-10.4) fL Immature Gran % (Auto) 0.3 % Neut % (Auto) 83.2 % Lymph % (Auto) 9.6 % [place] % (Auto) 5.4 % Eos % (Auto) 1.3 % Baso % (Auto) 0.2 % Neut # (Auto) 7.87 H (1.4-6.5) K/uL Lymph # (Auto) 0.91 L (1.2-3.4) K/uL [place] # (Auto) 0.51 (0.11-0.59) K/uL Eos # (Auto) 0.12 (0-0.5) K/uL Baso # (Auto) 0.02 (0-0.2) K/uL Immature Gran # (Auto) 0.03 H (0.00-0.02) K/uL Platelet Estimate (Normal) RBC Morphology PT 13.7 H (9.0-12.0) Seconds INR 1.4 H (0.9-1.1) Sodium (136-145) mmol/L Potassium (3.5-5.1) mmol/L Chloride (98-107) mmol/L Carbon Dioxide (21-32) mmol/L Anion Gap (3-11) BUN (7-18) mg/dl Creatinine (0.6-1.2) mg/dl Est Cr Clr Drug Dosing Est GFR ( Amer) Est GFR (Non-Af Amer) BUN/Creatinine Ratio (10-20) Glucose (70-99) mg/dl Calcium (8.5-10.1) mg/dl Magnesium (1.8-2.4) mg/dl Total Bilirubin (0.2-1) mg/dl AST (15-37) U/L ALT (12-78) U/L Alkaline Phosphatase (45-117) U/L Troponin I (0-0.045) ng/ml Total Protein (6.4-8.2) gm/dl Albumin (3.4-5.0) gm/dl Globulin (2.5-4.0) gm/dl Albumin/Globulin Ratio (0.9-2) Lipase (73-393) U/L Urine Color Urine Appearance (Clear) Urine pH (4.5-7.5) Ur Specific [place] (1.000-1.030) Urine Protein (Negative) Urine Glucose (UA) (Negative) Urine Ketones (Negative) Urine Blood (Negative) Urine Nitrite (Negative) Urine Bilirubin (Negative) Urine Urobilinogen (Negative) Ur Leukocyte Esterase (Negative) Urine WBC (Auto) (0-5) /hpf Urine RBC (Auto) (0-4) /hpf U Hyaline Cast (Auto) (0-5) /lpf U Epithel Cells (Auto) (0-5) /lpf Urine Bacteria (Auto) (Negative) Urine Yeast COVID-19 Eval Order SARS-CoV-2 (PCR) (Negative) Influenza Type A (PCR) (Neg) Influenza Type B (PCR) (Neg) RSV (RT-PCR) (Neg) Diagnostic Findings CXR: IMPRESSION: No acute cardiopulmonary findings. (1) Ascites Ascites type: other type Qualified Code(s): R18.8 - Other ascites
[2020-11-25] MEDS: LORATADINE 10 MG TAB PO SCH (08:30)
[2020-11-25] MEDS: ALBUMIN 25% 12.5 GM/50 ML VIAL IV SCH ×4 (08:39→14:24)
[2020-11-25] MEDS ORDERED: F PO SCH (09:00)
[2020-11-25] MEDS: MULTIVITAMIN TAB PO SCH (10:41)
[2020-11-25] MEDS: PARoxetine HCL 10 MG TAB PO SCH (10:41)
[2020-11-25] MEDS: FERROUS SULFATE 325 MG TAB PO SCH (10:41)
[2020-11-25] MEDS: CHOLECALCIFEROL 1,000 UNITS 25 MCG TAB PO SCH (10:41)
[2020-11-25] MEDS: ADVANCED PROBIOTIC 1250 MG CAPSULE PO SCH (10:41)
--- NOTE | 2020-11-25 11:01 | Hospitalist Progress Note ---
Date of Service November 25, 2020 Assessment & Plan (1) ESRD (end stage renal disease): (2) PUNEET (acute kidney injury): (3) Metabolic acidosis: (4) Anemia: (5) IPMN (intraductal papillary mucinous neoplasm): (6) Ascites: (7) Palliative care encounter: This is a 75-year-old female who presents with shortness of breath with exertion and found to have acute kidney injury on chronic kidney disease V and also ascites. 1. Shortness of breath on exertion, weakness, poor appetite. Acute kidney injury on chronic kidney disease stage V: Baseline creatinine of 4.5, presently with creatinine of 7.5. Received a dose of Lasix 40 in the ER. Notified nephrology. Recommended another dose of IV Lasix 40mg Plan for dialysis or further plans as per nephrology. Discussed with nephrology in detail, recommend palliative medicine consultation. Possibly starting dialysis. Consult vascular surgery for catheter placement. 3. Metabolic acidosis secondary to above: Follow the repeat labs. Holding the potassium supplements and bicarbonate tablets for now as per nephrology recommendations. Nephrology consulted, and further management per their service. Possibly starting dialysis. 4. Ascites, REARDON liver cirrhosis: Holding diuretics secondary to acute kidney injury. We will order abdominal ultrasound with paracentesis in a.m. Needs albumin transfusion for paracentesis. GI consulted. Patient is now status post paracentesis, November 25, 2020. 2.7 L of ascitic fluid removed. Patient received albumin before and after paracentesis. 5. Thrombocytopenia secondary to liver cirrhosis: Follow the repeat labs. 6. Anemia: Most likely from end-stage renal disease. On iron supplements, which will be continued. Repeat hemoglobin 7.0 and 6.8. Blood consent obtained. Plan to transfuse 1 unit of packed red blood cells. 7. Depression and anxiety: Continue paroxetine and Xanax prn. 8. Possible urinary tract infection: We will place on cefepime. Follow the cultures. 9. History of hypertension: Holding diuretics. We will monitor the blood pressure. 10. Elevated INR from the liver disease, will monitor. 11. History of intraductal papillary mucinous neoplasm of pancreas: Recently seen by hematology/oncology. No intervention planned at this time because of comorbid conditions. Goals of care: Palliative medicine consulted Deep venous thrombosis prophylaxis: Sequential compression devices. DISPOSITION: Closely monitor in tele floor. PT and OT prior to discharge. Social service to help with discharge planning. Admission and Anticipated Discharge Date Admission Date: November 24, 2020 Subjective Patient seen in follow-up of shortness of breath, ascites, end-stage renal disease Patient status post paracentesis, now feeling much better Denies any more shortness of breath Patient talk to nephrology about possibly starting dialysis, placing catheter tomorrow with vascular surgery She also talked to GI and palliative medicine Hemoglobin 7.0, 6.8 on repeat, blood consent obtained, plan to transfuse 1 unit of packed red blood cells Review of Systems Review of Systems: All systems reviewed & are unremarkable except as noted in HPI & below Constitutional: no fever and no chills Respiratory: no cough and no dyspnea Cardiovascular: no chest pain Gastrointestinal: no abdominal pain Physical Exam Physical Exam: GENERAL: The patient is thin and frail, not in acute distress. HEENT: Pupils equal, round, reactive to light. Oral mucosa moist. NECK: No JVD, no neck masses. CARDIOVASCULAR: S1, S2 heard, regular rate and rhythm, no murmur, no gallop. RESPIRATORY SYSTEM: Normal AP diameter. No accessory muscle use. No wheezing, no crackles. ABDOMEN: soft, mildly distended. Bowel sounds present. No tenderness, no guarding, no rigidity. NEURO: Alert and oriented x3, speech fluent, no facial asymmetry, answering questions appropriately, moving extremities spontaneously EXTREMITIES: + Bilateral lower extremity edema present. Mild erythematous changes noted. Results & Data Results & Data ([facility]) Vital Signs (Past 12 Hours) Vital Signs Temp Pulse Pulse Pulse Resp BP Pulse Ox 11/25/20 07:32 36.6 C 71 19 139/81 100 11/25/20 03:17 36.4 C L 95 H 19 159/95 H 97 11/25/20 00:32 149/73 H 11/24/20 23:45 36.8 C 98 H 20 178/94 H 98 11/24/20 23:01 85 19 99 Laboratory Results 11/25/20 11/25/20 11/24/20 Range/Units 06:09 06:09 Unknown WBC 6.19 (4.8-10.8) K/uL RBC 2.22 L (4.2-5.4) M/uL Hgb 7.0 L (12.0-16.0) g/dL Hct 20.6 L* (37-47) % MCV 92.8 (80-100) fL MCH 31.5 (25-34) pg MCHC 34.0 (32-36) g/dL RDW Std Deviation 51.2 H (36.4-46.3) fL RDW Coeff of Suly 15.0 H (11.5-14.5) % Plt Count 82 L (130-400) K/uL MPV 9.8 (7.4-10.4) fL Immature Gran % (Auto) 0.5 % Neut % (Auto) 77.8 % Lymph % (Auto) 10.7 % [place] % (Auto) 8.9 % Eos % (Auto) 1.9 % Baso % (Auto) 0.2 % Neut # (Auto) 4.82 (1.4-6.5) K/uL Lymph # (Auto) 0.66 L (1.2-3.4) K/uL [place] # (Auto) 0.55 (0.11-0.59) K/uL Eos # (Auto) 0.12 (0-0.5) K/uL Baso # (Auto) 0.01 (0-0.2) K/uL Immature Gran # (Auto) 0.03 H (0.00-0.02) K/uL Platelet Estimate Decreased L (Normal) RBC Morphology Unremarkable PT (9.0-12.0) Seconds INR (0.9-1.1) Sodium 136 (136-145) mmol/L Potassium 4.9 (3.5-5.1) mmol/L Chloride 113 H (98-107) mmol/L Carbon Dioxide 11 L (21-32) mmol/L Anion Gap 12.0 H (3-11) BUN 67 H (7-18) mg/dl Creatinine 7.74 H* (0.6-1.2) mg/dl Est Cr Clr Drug Dosing 5.3 Est GFR ( Amer) 5.4 Est GFR (Non-Af Amer) 4.7 BUN/Creatinine Ratio 8.6 L (10-20) Glucose 91 (70-99) mg/dl Calcium 8.2 L (8.5-10.1) mg/dl Magnesium 1.4 L (1.8-2.4) mg/dl Total Bilirubin (0.2-1) mg/dl AST (15-37) U/L ALT (12-78) U/L Alkaline Phosphatase (45-117) U/L Troponin I (0-0.045) ng/ml Total Protein (6.4-8.2) gm/dl Albumin (3.4-5.0) gm/dl Globulin (2.5-4.0) gm/dl Albumin/Globulin Ratio (0.9-2) Lipase (73-393) U/L Urine Color Urine Appearance (Clear) Urine pH (4.5-7.5) Ur Specific [place] (1.000-1.030) Urine Protein (Negative) Urine Glucose (UA) (Negative) Urine Ketones (Negative) Urine Blood (Negative) Urine Nitrite (Negative) Urine Bilirubin (Negative) Urine Urobilinogen (Negative) Ur Leukocyte Esterase (Negative) Urine WBC (Auto) (0-5) /hpf Urine RBC (Auto) (0-4) /hpf U Hyaline Cast (Auto) (0-5) /lpf U Epithel Cells (Auto) (0-5) /lpf Urine Bacteria (Auto) (Negative) Urine Yeast COVID-19 Eval Order SARS-CoV-2 (PCR) NEGATIVE (Negative) Influenza Type A (PCR) Negative (Neg) Influenza Type B (PCR) Negative (Neg) RSV (RT-PCR) Negative (Neg) 11/24/20 11/24/20 11/24/20 Range/Units Unknown 22:28 18:55 WBC (4.8-10.8) K/uL RBC (4.2-5.4) M/uL Hgb (12.0-16.0) g/dL Hct (37-47) % MCV (80-100) fL MCH (25-34) pg MCHC (32-36) g/dL RDW Std Deviation (36.4-46.3) fL RDW Coeff of Suly (11.5-14.5) % Plt Count (130-400) K/uL MPV (7.4-10.4) fL Immature Gran % (Auto) % Neut % (Auto) % Lymph % (Auto) % [place] % (Auto) % Eos % (Auto) % Baso % (Auto) % Neut # (Auto) (1.4-6.5) K/uL Lymph # (Auto) (1.2-3.4) K/uL [place] # (Auto) (0.11-0.59) K/uL Eos # (Auto) (0-0.5) K/uL Baso # (Auto) (0-0.2) K/uL Immature Gran # (Auto) (0.00-0.02) K/uL Platelet Estimate (Normal) RBC Morphology PT (9.0-12.0) Seconds INR (0.9-1.1) Sodium 134 L (136-145) mmol/L Potassium 5.0 (3.5-5.1) mmol/L Chloride 110 H (98-107) mmol/L Carbon Dioxide 12 L (21-32) mmol/L Anion Gap 12.0 H (3-11) BUN 59 H (7-18) mg/dl Creatinine 7.57 H* (0.6-1.2) mg/dl Est Cr Clr Drug Dosing Not Reportable Est GFR ( Amer) 5.6 Est GFR (Non-Af Amer) 4.8 BUN/Creatinine Ratio 7.6 L (10-20) Glucose 116 H (70-99) mg/dl Calcium 8.7 (8.5-10.1) mg/dl Magnesium (1.8-2.4) mg/dl Total Bilirubin 0.6 (0.2-1) mg/dl AST 33 (15-37) U/L ALT 25 (12-78) U/L Alkaline Phosphatase 165 H (45-117) U/L Troponin I < 0.015 (0-0.045) ng/ml Total Protein 8.0 (6.4-8.2) gm/dl Albumin 3.2 L (3.4-5.0) gm/dl Globulin 4.8 H (2.5-4.0) gm/dl Albumin/Globulin Ratio 0.7 L (0.9-2) Lipase 311 (73-393) U/L Urine Color Yellow Urine Appearance Clear (Clear) Urine pH 5.0 (4.5-7.5) Ur Specific [place] 1.012 (1.000-1.030) Urine Protein Negative (Negative) Urine Glucose (UA) Negative (Negative) Urine Ketones Negative (Negative) Urine Blood 2+ H (Negative) Urine Nitrite Negative (Negative) Urine Bilirubin Negative (Negative) Urine Urobilinogen Negative (Negative) Ur Leukocyte Esterase 2+ H (Negative) Urine WBC (Auto) >30 H (0-5) /hpf Urine RBC (Auto) 0-4 (0-4) /hpf U Hyaline Cast (Auto) 1-5 (0-5) /lpf U Epithel Cells (Auto) >30 H (0-5) /lpf Urine Bacteria (Auto) Negative (Negative) Urine Yeast Not Reportable COVID-[address] Eval [address] CovFluRsv at [facility] SARS-CoV-2 (PCR) (Negative) Influenza Type A (PCR) (Neg) Influenza Type B (PCR) (Neg) RSV (RT-PCR) (Neg) 11/24/20 11/24/20 Range/Units 18:55 18:55 WBC 9.46 (4.8-10.8) K/uL RBC 2.71 L (4.2-5.4) M/uL Hgb 8.6 L (12.0-16.0) g/dL Hct 25.3 L (37-47) % MCV 93.4 (80-100) fL MCH 31.7 (25-34) pg MCHC 34.0 (32-36) g/dL RDW Std Deviation 51.1 H (36.4-46.3) fL RDW Coeff of Suly 15.2 H (11.5-14.5) % Plt Count 118 L (130-400) K/uL MPV 10.0 (7.4-10.4) fL Immature Gran % (Auto) 0.3 % Neut % (Auto) 83.2 % Lymph % (Auto) 9.6 % [place] % (Auto) 5.4 % Eos % (Auto) 1.3 % Baso % (Auto) 0.2 % Neut # (Auto) 7.87 H (1.4-6.5) K/uL Lymph # (Auto) 0.91 L (1.2-3.4) K/uL [place] # (Auto) 0.51 (0.11-0.59) K/uL Eos # (Auto) 0.12 (0-0.5) K/uL Baso # (Auto) 0.02 (0-0.2) K/uL Immature Gran # (Auto) 0.03 H (0.00-0.02) K/uL Platelet Estimate (Normal) RBC Morphology PT 13.7 H (9.0-12.0) Seconds INR 1.4 H (0.9-1.1) Sodium (136-145) mmol/L Potassium (3.5-5.1) mmol/L Chloride (98-107) mmol/L Carbon Dioxide (21-32) mmol/L Anion Gap (3-11) BUN (7-18) mg/dl Creatinine (0.6-1.2) mg/dl Est Cr Clr Drug Dosing Est GFR ( Amer) Est GFR (Non-Af Amer) BUN/Creatinine Ratio (10-20) Glucose (70-99) mg/dl Calcium (8.5-10.1) mg/dl Magnesium (1.8-2.4) mg/dl Total Bilirubin (0.2-1) mg/dl AST (15-37) U/L ALT (12-78) U/L Alkaline Phosphatase (45-117) U/L Troponin I (0-0.045) ng/ml Total Protein (6.4-8.2) gm/dl Albumin (3.4-5.0) gm/dl Globulin (2.5-4.0) gm/dl Albumin/Globulin Ratio (0.9-2) Lipase (73-393) U/L Urine Color Urine Appearance (Clear) Urine pH (4.5-7.5) Ur Specific [place] (1.000-1.030) Urine Protein (Negative) Urine Glucose (UA) (Negative) Urine Ketones (Negative) Urine Blood (Negative) Urine Nitrite (Negative) Urine Bilirubin (Negative) Urine Urobilinogen (Negative) Ur Leukocyte Esterase (Negative) Urine WBC (Auto) (0-5) /hpf Urine RBC (Auto) (0-4) /hpf U Hyaline Cast (Auto) (0-5) /lpf U Epithel Cells (Auto) (0-5) /lpf Urine Bacteria (Auto) (Negative) Urine Yeast COVID-19 Eval Order SARS-CoV-2 (PCR) (Negative) Influenza Type A (PCR) (Neg) Influenza Type B (PCR) (Neg) RSV (RT-PCR) (Neg) Medications Administered Current Inpatient Medications Alprazolam (Alprazolam 0.25 Mg Tablet) 0.25 mg PO HS PRN PRN Reason: Anxiety Stop: 12/25/20 00:03 Last Admin: 11/25/20 00:43 Dose: 0.25 mg Documented by: Dicyclomine HCl (Dicyclomine Hcl 10 Mg Cap) 10 mg PO HS [facility] Stop: 12/25/20 20:59 Ferrous Sulfate (Ferrous Sulfate 325 Mg Tab) 325 mg PO QAM [facility] Stop: 12/25/20 08:59 Last Admin: 11/25/20 10:41 Dose: Not Given Documented by: Cefepime HCl 500 mg/ Syringe 5.65 mls @ 5.5 mls/min IV DAILY@2200 KARAN; Protocol Stop: 12/05/20 21:59 Magnesium Sulfate/Dextrose (Magnesium Sulfate / D5w) 1 gm in 100 mls @ 50 mls/hr IV Q2H [facility] Stop: 11/25/20 14:29 Lactobacillus Acidoph/Casei/Rhamnos (Advanced Probiotic 1250 Mg Capsule) [facility] [place]: 12/25/20 08:59 Last Admin: 11/25/20 10:41 Dose: Not Given Documented by: Loratadine (Loratadine 10 Mg Tab) [facility] [place] Stop: 12/25/20 08:59 Last Admin: 11/25/20 08:30 Dose: 10 mg Documented by: Magnesium Oxide (Magnesium Oxide 400 Mg Tab) 400 mg PO BID [facility] Stop: 12/25/20 10:14 Miscellaneous Information (Cefepime Consult Active) 1 ea N/A UD PRN PRN Reason: Consult Stop: 12/25/20 00:43 Multivitamins (Multivitamin Tab) [facility] [place] Stop: 12/25/20 08:59 Last Admin: 11/25/20 10:41 Dose: Not Given Documented by: Nitroglycerin (Nitroglycerin Sl 0.4 Mg/Tab Tab) 0.4 mg SL UD PRN PRN Reason: Chest Pain Stop: 12/25/20 00:03 Ondansetron HCl (Ondansetron Inj 2 Mg/Ml 2 Ml Vial) 4 mg IV Q6H PRN PRN Reason: Nausea Stop: 12/25/20 00:03 Paroxetine HCl (Paroxetine Hcl 10 Mg Tab) [facility] [place] Stop: 12/25/20 08:59 Last Admin: 11/25/20 10:41 Dose: Not Given Documented by: Sodium Bicarbonate (Sodium Bicarbonate 650 Mg Tab) 650 mg PO BID [facility] Stop: 12/25/20 10:14 Vitamin D (Cholecalciferol 1,000 Units 25 Mcg Tab) 1,000 units PO QAM [facility] Stop: 12/25/20 08:59 Last Admin: 11/25/20 10:41 Dose: Not Given Documented by: (1) Anemia Anemia type: unspecified type Qualified Code(s): D64.9 - Anemia, unspecified (2) Ascites Ascites type: other type Qualified Code(s): R18.8 - Other ascites
--- NOTE | 2020-11-25 11:14 | Ultrasound Report ---
ULTRASOUND GUIDED DIAGNOSTIC AND THERAPEUTIC PARACENTESIS CLINICAL HISTORY: abdominal distension, sob COMPARISON STUDY: Ultrasound guided paracentesis October 28, 2020. PROCEDURE: The risks, benefits, and alternatives to the procedure were discussed with the patient inc luding the risk of bleeding, infection and injury to adjacent structures. The patient agreed to the procedure and informed written consent was obtained. Following real-time ultrasound localization, the skin of the left lower quadrant was prepped and draped. Following local anesthesia with Xylocaine, t he sheath paracentesis needle was inserted and approximately 2.7 liters of straw-colored fluid was re moved by vacuum suction. The patient tolerated the procedure well and no immediate complications were evident. IMPRESSION: Ultrasound-guided paracentesis with removal of 2.7 liters of ascites. 1 L of ascites was sent to the laboratory for analysis as ordered. ACT 112: Negative or not required by law. Electronically signed by: Jp Hassan M.D. 11/25/2020 11:12 AM
[2020-11-25] MEDS: MAGNESIUM SULFATE / D5W 1 GM/100 ML BAG IV SCH ×2 (11:17→13:55)
[2020-11-25] MEDS: SODIUM BICARBONATE 650 MG TAB PO SCH ×2 (11:18→21:37)
[2020-11-25 11:32] LABS: Hematocrit (blood only) 20.1 % (37-47); Hemoglobin 6.8 g/dL (12.0-16.0)
[2020-11-25] MEDS ORDERED: SODIUM CHLORIDE 0.9% 250 ML IV PRN (11:45)
[2020-11-25] MEDS: MAGNESIUM OXIDE 400 MG TAB PO SCH ×2 (12:03→21:37)
[2020-11-25 14:03] LABS: Appearance Peritoneal Fluid CLEAR; Color Peritoneal Fluid PALE YELLOW; RBC Peritoneal Fluid (A) < 3000 /uL; WBC Peritoneal Fluid (A) 287 /ul (0-300)
[2020-11-25 14:32] LABS: Basophils, Fluid 0 %; Eosinophils, Fluid 0 %; Lymphocytes, Fluid 60 %; Mono,Macrophage,Mesothelial 29 %; Neutrophils, Fluid 11 %
--- NOTE | 2020-11-25 14:40 | Consultation ---
Date of Consultation November 25, 2020 Assessment & Plan (1) ESRD (end stage renal disease): Planning on permcath insertion tomorrow in OR by Dr Winslow. Procedure discussed at length with pt, she is agreeable. History of Present Illness Reason for Consultation: ESRD, need permcath Attending Physician: Alfredo Guadarrama MD History of Present Illness 75 yo f with multiple medical problems, including HTN, CKD, pancreatic cyst, IPMN, REARDON liver cirrhosis, portal HTN, esophageal varices, anxiety, chronic anemia, admitted with acute on chronic renal failure, seen in consultation today for placement of permcath for HD. Pt admits fatigue/malaise and abd distention, but states is feeling significantly better than yesterday. Had paracentesis earlier this morning and is no longer SOB. Denies FUNG, fever, chest pain, SOB presently, abd pain, N/V, rest pain, claudication, other complaints. Allergies Allergy/AdvReac Type Severity Reaction Status Date / Time adhesive AdvReac Intermediate BANDAIDS-INCREASES Verified 11/24/20 19:14 ECZEMA REDNESS Home Medications Medication Instructions Recorded Confirmed Type loratadine [Claritin] 10 mg PO QAM #0 tab 10/09/14 11/24/20 History paroxetine HCl [Paxil] 10 mg PO QAM #0 tab 10/09/14 11/24/20 History potassium chloride 20 meq PO BID #0 01/24/18 11/24/20 History Align 4 mg PO QAM 01/21/19 11/24/20 History ferrous sulfate 27 mg PO QAM 01/21/19 11/24/20 History dicyclomine 10 mg PO HS 04/05/20 11/24/20 History multivitamin 1 tab PO QAM 09/24/20 11/24/20 History sodium bicarbonate 650 mg PO BID #60 tab 09/30/20 11/24/20 Rx cholecalciferol (vitamin D3) 25 mcg PO QAM 10/22/20 11/24/20 History alprazolam [Xanax] 0.25 mg PO HS PRN 11/16/20 11/24/20 History ciprofloxacin HCl 250 mg PO QAM 11/16/20 11/24/20 History furosemide 20 mg PO QAM 11/16/20 11/24/20 History Patient History Medical History Anxiety Degenerative arthritis of left knee End stage renal disease follows with Dr. 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 follows with S Hepatology Osteoarthritis Pancreatic cyst highly suspicious for mucinous neoplasm; not a surgical or chemotherapy candidate Portal hypertension Secondary esophageal varices without bleeding Squamous cell cancer of skin of forearm [place] [facility] [place] [id number]; March 158; Apr 145; Aug 2020 133 lb Surgical History History of appendectomy History of carpal tunnel release of both wrists History of colonoscopy History of endoscopy EUS History of ERCP With EUS/EGD 09/28/20 during admission at [facility] for PUNEET on CKD/cirrhosis History of esophagogastroduodenoscopy (EGD) History of knee replacement procedure of left knee History of knee replacement procedure of right knee History of squamous cell carcinoma excision History of surgical removal of ganglion cyst History of tonsillectomy and adenoidectomy History of total abdominal hysterectomy and bilateral salpingo-oophorectomy Family History Father Cancer Mother Diabetes Other No family history of adverse response to anesthesia Social History Smoking Status: Never smoker Tobacco Type: Cigarettes Second Hand Exposure: No; Hx Alcohol Use: No Hx Substance Use: No Preferred Language: German Communication Ability: Effective Billet Examiner Required: No Beliefs That Will Affect Care: None marital status: Current Living Situation: Spouse Other Information That Helps Us Care for You: No Feels Safe at Home: Yes Safety Concerns: Feels Safe At This Time Assistive Devices: Walker Review of Systems Review of Systems: All systems reviewed & are unremarkable except as noted in HPI & below Physical Exam Constitutional: WD/WN, vitals as above + thin, cooperative and comfortable; not in distress Eyes: PERRL and EOM intact bilaterally Neck: trachea midline Respiratory: normal respiratory effort, lungs clear to auscultation Auscultation: + diminished lung sounds Cardiovascular: Rate/Rhythm: regular rate and regular rhythm Vessels: femoral pulses present, posterior tibial pulses present, dorsalis pedis pulses present and brachial pulses present; no carotid bruit and + abnormal peripheral pulses Extremities: normal capillary refill and + edema; no AV fistula Gastrointestinal (Abdomen): Inspection/Auscultation: + abdomen distended Percussion/Palpation: + ascites; abdomen nontender Musculoskeletal: no cyanosis or clubbing, extremities motor strength 5/5 Skin: no rashes, warm and dry Neurologic: moves all extremities and awake; no focal motor deficits and not confused Psychiatric: A+Ox3, euthymic affect Results & Data ([facility]) Vital Signs (Past 12 Hours) Vital Signs Temp Pulse Pulse Pulse Resp BP Pulse Ox 11/25/20 12:43 36.9 C 67 22 127/69 97 11/25/20 08:00 70 11/25/20 07:32 36.6 C 71 19 139/81 100 11/25/20 03:17 36.4 C L 95 H 19 159/95 H 97
--- NOTE | 2020-11-25 15:17 | Palliative Care Consultation ---
Date of Consultation November 25, 2020 Assessment & Plan (1) Palliative care encounter: I met with Roselia at bedside and discussed her concerns about her prognosis. She recognizes that she is approaching her dying time and is trying to accept this and plan for the future. We discussed what brings wally to her life, which is her family. She has been babysitting her youngest grandchildren but recently has only been able to sit and watch them play. She has considered dialysis and feels that if it will allow her to have better time with her family, she would want to proceed. She has been talking with her oldest daughter, Chanel, about some of her concerns and thoughts for the future. She is concerned about whether her truly understands what is happening for her. She is also concerned about whether he would be able to make decisions about her care on her behalf and indicates that she would want her daughter, Chanel, to be her healthcare POA. Will contact patient registered representative to complete POA documentation. She is planning to sit down with her family when they are all home for [facility] in a few weeks to discuss what her wishes will be. She thinks that she would want to be DNR because she would not want her family to have to make a decision to withdraw care if needed. She had to do this for her brother and wants to spare them this. However, she would like to wait until she talks to her family to officially change her code status. Palliative care will follow. Discussed with Dr. Hernandez. 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 Guadarrama Attending Physician: Alfredo Guadarrama MD History of Present Illness 75 yo lady with ESRD who has had progressive renal failure over the last few months to most recent creatinine of 7.5. She is followed by Dr. Hernandez. She has had progressive fatigue and weakness since September but particularly over the last few weeks. She has had very complicated medical course. She has REARDON with cirrhosis and ascites and has had recurrent paracentesis with hospitalization last month for SBP. She had paracentesis earlier today for 2.7 liters. She has a pancreatic mass and elevated C19-9 at 1233 though attempts for tissue diagnosis have been negative for malignancy. She has been seen by oncology and reports that they told her that she was a candidate for chemotherapy. She notes that through the course of these illnesses she has lost approximately 100 lbs. Given her progressive renal failure, she is planning to start dialysis and we have been consulted to assist with goals of care. Allergies Allergy/AdvReac Type Severity Reaction Status Date / Time adhesive AdvReac Intermediate BANDAIDS-INCREASES Verified 11/24/20 19:14 ECZEMA REDNESS Home Medications Medication Instructions Recorded Confirmed Type loratadine [Claritin] 10 mg PO QAM #0 tab 10/09/14 11/24/20 History paroxetine HCl [Paxil] 10 mg PO QAM #0 tab 10/09/14 11/24/20 History potassium chloride 20 meq PO BID #0 01/24/18 11/24/20 History Align 4 mg PO QAM 01/21/19 11/24/20 History ferrous sulfate 27 mg PO QAM 01/21/19 11/24/20 History dicyclomine 10 mg PO HS 04/05/20 11/24/20 History multivitamin 1 tab PO QAM 09/24/20 11/24/20 History sodium bicarbonate 650 mg PO BID #60 tab 09/30/20 11/24/20 Rx cholecalciferol (vitamin D3) 25 mcg PO QAM 10/22/20 11/24/20 History alprazolam [Xanax] 0.25 mg PO HS PRN 11/16/20 11/24/20 History ciprofloxacin HCl 250 mg PO QAM 11/16/20 11/24/20 History furosemide 20 mg PO QAM 11/16/20 11/24/20 History Patient History Medical History Anxiety Degenerative arthritis of left knee End stage renal disease follows with Dr. 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 follows with [facility] Hepatology Osteoarthritis Pancreatic cyst highly suspicious for mucinous neoplasm; not a surgical or chemotherapy candidate Portal hypertension Secondary esophageal varices without bleeding Squamous cell cancer of skin of forearm Weight [place] [facility] [place] [id number]; March 158; Apr 145; Aug 2020 133 lb Surgical History History of appendectomy History of carpal tunnel release of both wrists History of colonoscopy History of endoscopy EUS History of ERCP With EUS/EGD 09/28/20 during admission at [facility] for PUNEET on CKD/cirrhosis History of esophagogastroduodenoscopy (EGD) History of knee replacement procedure of left knee History of knee replacement procedure of right knee History of squamous cell carcinoma excision History of surgical removal of ganglion cyst History of tonsillectomy and adenoidectomy History of total abdominal hysterectomy and bilateral salpingo-oophorectomy Family History Father Cancer Mother Diabetes Other No family history of adverse response to anesthesia Social History Smoking Status: Never smoker Tobacco Type: Cigarettes Second Hand Exposure: No; Hx Alcohol Use: No Hx Substance Use: No Preferred Language: Yakut Communication Ability: Effective Raiser Helper Required: No Beliefs That Will Affect Care: None marital status: Current Living Situation: Spouse Other Information That Helps Us Care for You: No Feels Safe at Home: Yes Safety Concerns: Feels Safe At This Time Assistive Devices: Denture - Upper and Glasses Review of Systems Review of Systems: Fowler Symptom Assessment Scale Pain 0/3 Dyspnea 2/3, relieved after paracentesis Nausea 0/3 Anxiety 2/3 Fatigue 2/3 Drowsiness 0/3 Palliative Performance Score 50% Physical Exam Constitutional: no acute distress ENMT: Mouth: + dry oral mucous membranes Respiratory: normal respiratory effort; no labored breathing Cardiovascular: Rate/Rhythm: regular rate and regular rhythm Gastrointestinal (Abdomen): Inspection/Auscultation: abdomen not distended Neurologic: awake; not confused Results & Data ([facility]) Vital Signs (Past 12 Hours) Vital Signs Temp Pulse Pulse Pulse Resp BP Pulse Ox 11/25/20 12:43 98.4 F 67 22 127/69 97 11/25/20 08:00 70 11/25/20 07:32 97.9 F 71 19 139/81 100 11/25/20 03:17 97.5 F L 95 H 19 159/95 H 97 PG Care Time/CCT Total # of Minutes Spent Total Time Spent with Patient: Total time spent is greater than 50% in coordination of care (as documented) at patient's floor/unit and/or counseling patient: total time spent 65 minutes with more than 50% of time spent on goals of care, surrogate decision maker and support. 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
[2020-11-25] MEDS: ACETAMINOPHEN 500 MG TAB PO PRN (15:35)
[2020-11-25] MEDS: DICYCLOMINE HCL 10 MG CAP PO SCH (21:37)
[2020-11-25] MEDS: CEFEPIME 500 MG in SYRINGE 0 ML IV SCH (21:40)
[2020-11-25 22:50] LABS: Hematocrit (blood only) 24.5 % (37-47); Hemoglobin 8.5 g/dL (12.0-16.0)
[2020-11-26] MEDS: ALPRAZolam 0.25 MG TABLET PO PRN (00:53)
--- NOTE | 2020-11-26 06:09 | Electrocardiogram Report ---
Test Reason : Blood Pressure : / mmHG Vent. Rate : 081 BPM Atrial Rate : 081 BPM P-R Int : 134 ms QRS Dur : 076 ms QT Int : 370 ms P-R-T Axes : 091 003 054 degrees QTc Int : 429 ms Poor data quality, interpretation may be adversely affected Sinus rhythm with Premature atrial complexes Otherwise normal ECG When compared with ECG of 22-OCT-2020 19:36, No significant change was found Confirmed by Mo Fan ([id number]) on 11/26/2020 6:09:20 AM Referred By: REFERRED SELF Confirmed By:Mo Fan
[2020-11-26 06:13] LABS: Hemoglobin 8.1 g/dL (12.0-16.0); Mean Corpuscular Hemoglobin 32.1 pg (25-34); Mean Corpuscular Hgb Conc 35.2 g/dL (32-36); Mean Corpuscular Volume 91.3 fL (80-100); RDW Coefficient of Variation 14.6 % (11.5-14.5); RDW Standard Deviation 48.6 fL (36.4-46.3); Red Blood Count 2.52 M/uL (4.2-5.4); White Blood Count 6.32 K/uL (4.8-10.8)
[2020-11-26 06:21] LABS: Mean Platelet Volume 10.3 fL (7.4-10.4); Platelet Count 70 K/uL (130-400)
[2020-11-26 06:58] LABS: Albumin Globulin Ratio 0.7 (0.9-2); Albumin Level 2.7 gm/dl (3.4-5.0); BUN Creatinine Ratio 8.8 (10-20); Creatinine Clr Calc Pharmacy 5.2 ml/min; Est GFR (African American) 5.4; Est GFR (Non-African American) 4.6; Globulin 3.7 gm/dl (2.5-4.0); Magnesium 2.1 mg/dl (1.8-2.4); Phosphorus 6.1 mg/dl (2.5-4.9); Potassium 4.5 mmol/L (3.5-5.1); Total Protein 6.4 gm/dl (6.4-8.2)
--- NOTE | 2020-11-26 06:58 | Hospitalist Progress Note ---
Date of Service November 26, 2020 Assessment & Plan (1) ESRD (end stage renal disease): (2) PUNEET (acute kidney injury): (3) Metabolic acidosis: (4) Anemia: (5) IPMN (intraductal papillary mucinous neoplasm): (6) Ascites: (7) Palliative care encounter: This is a 75-year-old female who presents with shortness of breath with exertion and found to have acute kidney injury on chronic kidney disease V and also ascites. 1. Shortness of breath on exertion, weakness, poor appetite. PUNEET on chronic kidney disease stage V: Baseline creatinine of 4.5, presently with creatinine of 7.5. Received IV Lasix 40 x2 on admission Nephrology consulted s/p permacath placement w/ vascular surgery (11/26) and started on HD 11/26, tolerated well Discussed with nephrology in detail, recommend palliative medicine consultation. 2. Metabolic acidosis secondary to above: Cont outpt PO bicarbonate tablets for now as per nephrology recommendations. Nephrology consulted, and further management per their service. Pt started on HD 4. Ascites, REARDON liver cirrhosis: S/p paracentesis November 25, 2020. 2.7 L of ascitic fluid removed.Not c/w SBP cultx pending Patient received albumin before and after paracentesis. GI consulted. 5. Thrombocytopenia secondary to liver cirrhosis: Follow the repeat labs. 6. Anemia: Most likely from end-stage renal disease. On iron supplements, which will be continued. Repeat hemoglobin 7.0 and 6.8. Blood consent obtained. S/p transfusion of 1 unit of packed red blood cells on 11/25 7. Depression and anxiety: Continue paroxetine and Xanax prn. 8. Possible urinary tract infection: Empircally on cefepime. Follow the cultures. 9. History of hypertension: We will monitor the blood pressure. 10. Elevated INR from the liver disease, will monitor. 11. History of intraductal papillary mucinous neoplasm of pancreas: Recently seen by hematology/oncology. No intervention planned at this time because of comorbid conditions. Goals of care: Palliative medicine consulted DVT prophylaxis: Sequential compression devices. DISPOSITION: Closely monitor in tele floor. PT and OT prior to discharge. Social service to help with discharge planning. Admission and Anticipated Discharge Date Admission Date: November 24, 2020 Subjective Patient seen in follow-up of shortness of breath, ascites, end-stage renal disease Patient status post paracentesis, 2.7 asc. fluid removed, not c/w SBP s/p transfusion of 1 unit of pRBC Today underwent placement of permacath w/ vasc. surgery, started on HD today, tolerated well Denies any more shortness of breath Currently laying in bed sleeping, says she feels tired after whole day, but otherwise feeling well Denies abd pain, n/v, hematemesis, melena, hematochezia, fever, chills, CP, SOB. Palliative medicine also consulted Review of Systems Review of Systems: All systems reviewed & are unremarkable except as noted in HPI & below Constitutional: + fatigue; no fever and no chills Respiratory: no cough and no dyspnea Cardiovascular: no chest pain and no palpitations Gastrointestinal: no abdominal pain, no nausea and no vomiting Physical Exam Physical Exam: GENERAL: The patient is thin and frail, not in acute distress. HEENT: Pupils equal, round, reactive to light. Oral mucosa moist. NECK: No JVD, no neck masses. CARDIOVASCULAR: S1, S2 heard, regular rate and rhythm, no murmur, no gallop. RESPIRATORY SYSTEM: Normal AP diameter. No accessory muscle use. No wheezing, no crackles. ABDOMEN: soft, mildly distended. Bowel sounds present. No tenderness, no guarding, no rigidity. NEURO: Alert and oriented x3, speech fluent, no facial asymmetry, answering questions appropriately, moving extremities spontaneously EXTREMITIES: + trace b/l lower extremity edema present. Mild erythematous changes noted. Results & Data Results & Data ([facility]) Vital Signs (Past 12 Hours) Vital Signs Temp Pulse Pulse Resp BP Pulse Ox 11/26/20 03:56 36.7 C 67 16 110/59 L 98 11/25/20 23:40 36.6 C 70 16 97/57 L 98 11/25/20 20:15 37.1 C 62 18 171/80 H 94 Laboratory Results 11/26/20 11/26/20 11/25/20 Range/Units 05:45 05:45 Unknown WBC 6.32 (4.8-10.8) K/uL RBC 2.52 L (4.2-5.4) M/uL Hgb 8.1 L (12.0-16.0) g/dL Hct 23.0 L (37-47) % MCV 91.3 (80-100) fL MCH 32.1 (25-34) pg MCHC 35.2 (32-36) g/dL RDW Std Deviation 48.6 H (36.4-46.3) fL RDW Coeff of Suly 14.6 H (11.5-14.5) % Plt Count 70 L (130-400) K/uL MPV 10.3 (7.4-10.4) fL Sodium 134 L (136-145) mmol/L Potassium 4.5 (3.5-5.1) mmol/L Chloride 110 H (98-107) mmol/L Carbon Dioxide 11 L (21-32) mmol/L Anion Gap 13.0 H (3-11) BUN 69 H (7-18) mg/dl Creatinine 7.78 H* (0.6-1.2) mg/dl Est Cr Clr Drug Dosing 5.2 ml/min Est GFR ( Amer) 5.4 Est GFR (Non-Af Amer) 4.6 BUN/Creatinine Ratio 8.8 L (10-20) Glucose 81 (70-99) mg/dl Calcium 8.0 L (8.5-10.1) mg/dl Phosphorus 6.1 H (2.5-4.9) mg/dl Magnesium 2.1 (1.8-2.4) mg/dl Total Bilirubin 1.0 (0.2-1) mg/dl AST 42 H (15-37) U/L ALT 27 (12-78) U/L Alkaline Phosphatase 144 H (45-117) U/L Total Protein 6.4 (6.4-8.2) gm/dl Albumin 2.7 L (3.4-5.0) gm/dl Globulin 3.7 (2.5-4.0) gm/dl Albumin/Globulin Ratio 0.7 L (0.9-2) Fluid Neutrophils % 11 % Fluid Lymphocytes % 60 % Fluid Eosinophils % 0 % Fluid Basophils % 0 % Fluid Meso/Macro/Lemhi % 29 % Fluid Comment Peritoneal Color PALE YELLOW Peritoneal Appearance CLEAR Peritoneal WBC 287 (0-300) /ul Peritoneal RBC < 3000 /uL Blood Type Antibody Screen Crossmatch 11/25/20 11/25/20 11/25/20 Range/Units 22:32 11:56 11:12 WBC (4.8-10.8) K/uL RBC (4.2-5.4) M/uL Hgb 8.5 L 6.8 L* (12.0-16.0) g/dL Hct 24.5 L 20.1 L* (37-47) % MCV (80-100) fL MCH (25-34) pg MCHC (32-36) g/dL RDW Std Deviation (36.4-46.3) fL RDW Coeff of Suly (11.5-14.5) % Plt Count (130-400) K/uL MPV (7.4-10.4) fL Sodium (136-145) mmol/L Potassium (3.5-5.1) mmol/L Chloride (98-107) mmol/L Carbon Dioxide (21-32) mmol/L Anion Gap (3-11) BUN (7-18) mg/dl Creatinine (0.6-1.2) mg/dl Est Cr Clr Drug Dosing ml/min Est GFR ( Amer) Est GFR (Non-Af Amer) BUN/Creatinine Ratio (10-20) Glucose (70-99) mg/dl Calcium (8.5-10.1) mg/dl Phosphorus (2.5-4.9) mg/dl Magnesium (1.8-2.4) mg/dl Total Bilirubin (0.2-1) mg/dl AST (15-37) U/L ALT (12-78) U/L Alkaline Phosphatase (45-117) U/L Total Protein (6.4-8.2) gm/dl Albumin (3.4-5.0) gm/dl Globulin (2.5-4.0) gm/dl Albumin/Globulin Ratio (0.9-2) Fluid Neutrophils % % Fluid Lymphocytes % % Fluid Eosinophils % % Fluid Basophils % % Fluid Meso/Macro/Lemhi % % Fluid Comment Peritoneal Color Peritoneal Appearance Peritoneal WBC (0-300) /ul Peritoneal RBC /uL Blood Type A Positive Antibody Screen NEGATIVE Crossmatch See Detail Medications Administered Current Inpatient Medications Acetaminophen (Acetaminophen 500 Mg Tab) 500 mg PO Q4H PRN PRN Reason: pain, fever Stop: 12/25/20 15:23 Last Admin: 11/25/20 15:35 Dose: 500 mg Documented by: Alprazolam (Alprazolam 0.25 Mg Tablet) 0.25 mg PO HS PRN PRN Reason: Anxiety Stop: 12/25/20 00:03 Last Admin: 11/26/20 00:53 Dose: 0.25 mg Documented by: Dicyclomine HCl (Dicyclomine Hcl 10 Mg Cap) 10 mg PO HS [facility] Stop: 12/25/20 20:59 Last Admin: 11/25/20 21:37 Dose: 10 mg Documented by: Ferrous Sulfate (Ferrous Sulfate 325 Mg Tab) [facility] Stop: 12/25/20 08:59 Last Admin: 11/26/20 08:09 Dose: 325 mg Documented by: Cefepime HCl 500 mg/ Syringe 5.65 mls @ 5.5 mls/min IV DAILY@2200 KARAN; Protocol Stop: 12/05/20 21:59 Last Admin: 11/25/20 21:40 Dose: 5.5 mls/min Documented by: Cefazolin Sodium (Ancef 1000mg) 1,000 mg in 7.5 mls @ 2.5 mls/min IV PREOP ONE Stop: 11/26/20 10:02 Lactobacillus Acidoph/Casei/Rhamnos (Advanced Probiotic 1250 Mg Capsule) 2 cap PO [facility] Stop: 12/25/20 08:59 Last Admin: 11/26/20 08:09 Dose: 2 cap Documented by: Loratadine (Loratadine 10 Mg Tab) 10 mg PO [facility] Stop: 12/25/20 08:59 Last Admin: 11/26/20 08:08 Dose: 10 mg Documented by: Magnesium Oxide (Magnesium Oxide 400 Mg Tab) 400 mg PO BID [facility] Stop: 12/25/20 10:14 Last Admin: 11/26/20 08:08 Dose: 400 mg Documented by: Miscellaneous Information (Cefepime Consult Active) 1 ea N/A UD PRN PRN Reason: Consult Stop: 12/25/20 00:43 Multivitamins (Multivitamin Tab) 1 tab PO [facility] Stop: 12/25/20 08:59 Last Admin: 11/26/20 08:08 Dose: 1 tab Documented by: Nitroglycerin (Nitroglycerin Sl 0.4 Mg/Tab Tab) 0.4 mg SL UD PRN PRN Reason: Chest Pain Stop: 12/25/20 00:03 Ondansetron HCl (Ondansetron Inj 2 Mg/Ml 2 Ml Vial) 4 mg IV Q6H PRN PRN Reason: Nausea Stop: 12/25/20 00:03 Paroxetine HCl (Paroxetine Hcl 10 Mg Tab) 10 mg PO QAM [facility] Stop: 12/25/20 08:59 Last Admin: 11/26/20 08:08 Dose: 10 mg Documented by: Sodium Bicarbonate (Sodium Bicarbonate 650 Mg Tab) 650 mg PO BID [facility] Stop: 12/25/20 10:14 Last Admin: 11/26/20 08:08 Dose: 650 mg Documented by: Vitamin D (Cholecalciferol 1,000 Units 25 Mcg Tab) 1,000 units [facility] Stop: 12/25/20 08:59 Last Admin: 11/26/20 08:08 Dose: 1,000 units Documented by: (1) Anemia Anemia type: unspecified type Qualified Code(s): D64.9 - Anemia, unspecified (2) Ascites Ascites type: other type Qualified Code(s): R18.8 - Other ascites
[2020-11-26] MEDS: LORATADINE 10 MG TAB PO SCH (08:08)
[2020-11-26] MEDS: MAGNESIUM OXIDE 400 MG TAB PO SCH ×2 (08:08→21:16)
[2020-11-26] MEDS: PARoxetine HCL 10 MG TAB PO SCH (08:08)
[2020-11-26] MEDS: MULTIVITAMIN TAB PO SCH (08:08)
[2020-11-26] MEDS: CHOLECALCIFEROL 1,000 UNITS 25 MCG TAB PO SCH (08:08)
[2020-11-26] MEDS: SODIUM BICARBONATE 650 MG TAB PO SCH ×2 (08:08→21:17)
[2020-11-26] MEDS: FERROUS SULFATE 325 MG TAB PO SCH (08:09)
[2020-11-26] MEDS: ADVANCED PROBIOTIC 1250 MG CAPSULE PO SCH (08:09)
--- NOTE | 2020-11-26 08:14 | Gastroenterology Progress Note ---
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 intake, weakness, with progressive renal failure (is not felt by nephrology to represent hepatorenal syndrome), and plan is to initiate dialysis; GI asked to evaluate for cirhosis/ascites and h/o pancreatic lesion. Pt underwent 2.7 L tap yesterday, awaiting final culture results. On exam abd soft, nontender, no significant ascites. Her liver disease appears otherwise to be compensated without evidence for HE or GIB. - Await final culture results from tap - Low Na diet - Would avoid hepatotoxins - Monitor anemia, transfuse PRN - Appreciate nephrology, primary service mgmt of her co-morbidities Please call with any acute changes, questions or concerns ove the weekend. Please see addendum below with additional recommendation from my supervising physician. (2) Ascites: (3) IPMN (intraductal papillary mucinous neoplasm): Presumptive malignant diagnosis as EUS for tissue diagnosis was not able to be obtained given patient's worsening renal disease. Appears patient is not a surgical or chemotherapy candidate for suspected malignancy. In that respect, we don't have plans for further EUS at this point. Appreciate palliative consultation and and would recommend goals of care be established; appears pt is wanting to discuss further with family. Admission and Anticipated Discharge Date Admission Date: November 24, 2020 Supervising Physician Co-Signing Physician Notes I saw and evaluated the patient. She notes that she feels much improved after getting the blood transfusion yesterday. Of note she was started on dialysis this afternoon as well. With regard to her suspected pancreatic cancer the patient is not thought to be a medical candidate for surgical candidate thus further evaluation is probably not needed at the present time. Please call our service with any additional questions or concerns, GI to sign off for the present time. Subjective Patient seen and examined, chart reviewed. She feels somewhat improved this AM after 2.7 L paracentesis and pRBC transfusion yesterday for HGB 6.8. Initial fluid studies not consistent with SBP, final fluid culture pending. Labs reviewed today, today HGB 8.1; LFTs at baseline progressive renal dysfunction noted. Pt had palliative care discussion yesterday and plan is to initiate dialysis, pt will be getting Permacath placement today and she is NPO. Yesterday tolerated salad/fruit for dinner. Denies abd pain, n/v, hematemesis, melena, hematochezia, fever, chills, CP, SOB. Review of Systems Review of Systems: All systems reviewed & are unremarkable except as noted in HPI & below Physical Exam Constitutional: WD/WN, vitals as above Eyes: + anicteric sclerae Respiratory: normal respiratory effort Gastrointestinal (Abdomen): Inspection/Auscultation: normal bowel sounds Percussion/Palpation: abdomen soft; abdomen nontender Skin: no rashes, warm and dry Psychiatric: A+Ox3, euthymic affect Results & Data ([facility]) Vital Signs (Past 12 Hours) Vital Signs Temp Pulse Pulse Pulse Resp BP Pulse Ox 11/26/20 07:56 36.8 C 70 18 144/74 H 99 11/26/20 07:53 69 11/26/20 03:56 36.7 C 67 16 110/59 L 98 11/25/20 23:40 36.6 C 70 16 97/57 L 98 11/25/20 20:15 37.1 C 62 18 171/80 H 94 Laboratory Results 11/26/20 11/26/20 11/26/20 Range/Units 08:15 05:45 05:45 WBC 6.32 (4.8-10.8) K/uL RBC 2.52 L (4.2-5.4) M/uL Hgb 8.1 L (12.0-16.0) g/dL Hct 23.0 L (37-47) % MCV 91.3 (80-100) fL MCH 32.1 (25-34) pg MCHC 35.2 (32-36) g/dL RDW Std Deviation 48.6 H (36.4-46.3) fL RDW Coeff of Suly 14.6 H (11.5-14.5) % Plt Count 70 L (130-400) K/uL MPV 10.3 (7.4-10.4) fL Sodium 134 L (136-145) mmol/L Potassium 4.5 (3.5-5.1) mmol/L Chloride 110 H (98-107) mmol/L Carbon Dioxide 11 L (21-32) mmol/L Anion Gap 13.0 H (3-11) BUN 69 H (7-18) mg/dl Creatinine 7.78 H* (0.6-1.2) mg/dl Est Cr Clr Drug Dosing 5.2 ml/min Est GFR ( Amer) 5.4 Est GFR (Non-Af Amer) 4.6 BUN/Creatinine Ratio 8.8 L (10-20) Glucose 81 (70-99) mg/dl Calcium 8.0 L (8.5-10.1) mg/dl Phosphorus 6.1 H (2.5-4.9) mg/dl Magnesium 2.1 (1.8-2.4) mg/dl Total Bilirubin 1.0 (0.2-1) mg/dl AST 42 H (15-37) U/L ALT 27 (12-78) U/L Alkaline Phosphatase 144 H (45-117) U/L Total Protein 6.4 (6.4-8.2) gm/dl Albumin 2.7 L (3.4-5.0) gm/dl Globulin 3.7 (2.5-4.0) gm/dl Albumin/Globulin Ratio 0.7 L (0.9-2) Fluid Neutrophils % % Fluid Lymphocytes % % Fluid Eosinophils % % Fluid Basophils % % Fluid Meso/Macro/Harmon % % Fluid Comment Peritoneal Color Peritoneal Appearance Peritoneal WBC (0-300) /ul Peritoneal RBC /uL Hep Bs Antigen Neg (Neg) Hep Bs Antibody Immune Hep Bs Antibody, Quant 35.27 (>or=10mIU/mL Immune) mIU/mL Blood Type Antibody Screen Crossmatch 11/25/20 11/25/20 11/25/20 Range/Units Unknown 22:32 11:56 WBC (4.8-10.8) K/uL RBC (4.2-5.4) M/uL Hgb 8.5 L (12.0-16.0) g/dL Hct 24.5 L (37-47) % MCV (80-100) fL MCH (25-34) pg MCHC (32-36) g/dL RDW Std Deviation (36.4-46.3) fL RDW Coeff of Suly (11.5-14.5) % Plt Count (130-400) K/uL MPV (7.4-10.4) fL Sodium (136-145) mmol/L Potassium (3.5-5.1) mmol/L Chloride (98-107) mmol/L Carbon Dioxide (21-32) mmol/L Anion Gap (3-11) BUN (7-18) mg/dl Creatinine (0.6-1.2) mg/dl Est Cr Clr Drug Dosing ml/min Est GFR ( Amer) Est GFR (Non-Af Amer) BUN/Creatinine Ratio (10-20) Glucose (70-99) mg/dl Calcium (8.5-10.1) mg/dl Phosphorus (2.5-4.9) mg/dl Magnesium (1.8-2.4) mg/dl Total Bilirubin (0.2-1) mg/dl AST (15-37) U/L ALT (12-78) U/L Alkaline Phosphatase (45-117) U/L Total Protein (6.4-8.2) gm/dl Albumin (3.4-5.0) gm/dl Globulin (2.5-4.0) gm/dl Albumin/Globulin Ratio (0.9-2) Fluid Neutrophils % 11 % Fluid Lymphocytes % 60 % Fluid Eosinophils % 0 % Fluid Basophils % 0 % Fluid Meso/Macro/Harmon % 29 % Fluid Comment Peritoneal Color PALE YELLOW Peritoneal Appearance CLEAR Peritoneal WBC 287 (0-300) /ul Peritoneal RBC < 3000 /uL Hep Bs Antigen (Neg) Hep Bs Antibody Hep Bs Antibody, Quant (>or=10mIU/mL Immune) mIU/mL Blood Type A Positive Antibody Screen NEGATIVE Crossmatch See Detail 11/25/20 Range/Units 11:12 WBC (4.8-10.8) K/uL RBC (4.2-5.4) M/uL Hgb 6.8 L* (12.0-16.0) g/dL Hct 20.1 L* (37-47) % MCV (80-100) fL MCH (25-34) pg MCHC (32-36) g/dL RDW Std Deviation (36.4-46.3) fL RDW Coeff of Suly (11.5-14.5) % Plt Count (130-400) K/uL MPV (7.4-10.4) fL Sodium (136-145) mmol/L Potassium (3.5-5.1) mmol/L Chloride (98-107) mmol/L Carbon Dioxide (21-32) mmol/L Anion Gap (3-11) BUN (7-18) mg/dl Creatinine (0.6-1.2) mg/dl Est Cr Clr Drug Dosing ml/min Est GFR ( Amer) Est GFR (Non-Af Amer) BUN/Creatinine Ratio (10-20) Glucose (70-99) mg/dl Calcium (8.5-10.1) mg/dl Phosphorus (2.5-4.9) mg/dl Magnesium (1.8-2.4) mg/dl Total Bilirubin (0.2-1) mg/dl AST (15-37) U/L ALT (12-78) U/L Alkaline Phosphatase (45-117) U/L Total Protein (6.4-8.2) gm/dl Albumin (3.4-5.0) gm/dl Globulin (2.5-4.0) gm/dl Albumin/Globulin Ratio (0.9-2) Fluid Neutrophils % % Fluid Lymphocytes % % Fluid Eosinophils % % Fluid Basophils % % Fluid Meso/Macro/Harmon % % Fluid Comment Peritoneal Color Peritoneal Appearance Peritoneal WBC (0-300) /ul Peritoneal RBC /uL Hep Bs Antigen (Neg) Hep Bs Antibody Hep Bs Antibody, Quant (>or=10mIU/mL Immune) mIU/mL Blood Type Antibody Screen Crossmatch Diagnostic Findings US paracentesis: IMPRESSION: Ultrasound-guided paracentesis with removal of 2.7 liters of ascites. 1 L of ascites was sent to the laboratory for analysis as ordered. (1) Ascites Ascites type: other type Qualified Code(s): R18.8 - Other ascites
[2020-11-26] MEDS ORDERED: SODIUM CHLORIDE 0.9% 1000ML 1,000 ML IV PRN (08:29)
--- NOTE | 2020-11-26 08:31 | Nephrology Progress Note ---
Date of Service November 26, 2020 Assessment & Plan (1) IPMN (intraductal papillary mucinous neoplasm): 3 cm mass in panc >> presumptive malignancy versus high grade dysplasia. Not a candidate for surgical or medical therapy per outpatient notes. In the setting of ESRD and advanced liver cirrhosis w/ complications from REARDON (2) ESRD (end stage renal disease): She certainly meets criteria for starting hemodialysis (d/t acidosis primarily, volume status, and poorer po intake though latter could be multifactorial) and I have obtained consent to do that. AFTER palliative discussion (in put much appreciated) and discussion w/ GI, renal, family, pt wishes to proceed w/ HD trial. Hemodialysis at this point would be palliative. I did d/w pt that she is at higher risk than others for complications of dialysis especially symptomatic low blood pressure and challenges stopping bleeding and to need transfusion -for TDC today then first tx >>>>pls get case mgt to work on [facility] in center hemo admission -daily bmp and mag -cont to avoid nephrotoxins -f/u palliative recommendations -for now cont to hold potassium supplements > despite her advanced renal disease, she needs significant K supplements daily as OP >>>for now w/ poor po intake and outpt K requirement and periodic lasix > could be on regular diet when taking po to start but do give her 1.5L fluid limit when taking po and not on liquid diet (3) Anemia: -no epo d/t concern for malignancy, at least to start -- pt aware; will d/w Dr Ovalles palliative epo versus frequent pRBC; pt open to either -transfuse prn per primary service (4) Metabolic acidosis: combination of renal failure and ? 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 minimal edema. had tap. palliative, GI , hosp notes reviewed; for TDC 1330; wishes to trial HD, understands she her dying time is approaching though timeframe not clear >> HD so she can be as long as possible w/ her family Review of Systems Review of Systems: All systems reviewed & are unremarkable except as noted in Subjective Physical Exam Constitutional: well developed and + ill appearing (more chronically ill appearing that last month); no acute distress Eyes: EOM intact bilaterally ENMT: Ears: no external ear abnormality Nose: no external nose abnormality Mouth: + dry oral mucous membranes Neck: no nuchal rigidity Respiratory: normal respiratory effort Auscultation: + diminished lung sounds Cardiovascular: Rate/Rhythm: regular rate and regular rhythm Heart Sounds: + murmur Extremities: + edema (trace BLE) Gastrointestinal (Abdomen): Inspection/Auscultation: normal bowel sounds Percussion/Palpation: abdomen soft; abdomen nontender Musculoskeletal: Extremities: strength 5/5 throughout Skin: no rashes, warm and dry no jaundice Psychiatric: A+Ox3, euthymic affect Speech: normal rate/rhythm/volume of speech Insight: good insight Judgement: good judgement Results & Data ([facility]) Vital Signs (Past 12 Hours) Vital Signs Temp Pulse Pulse Pulse Resp BP Pulse Ox 11/26/20 07:56 36.8 C 70 18 144/74 H 99 11/26/20 07:53 69 11/26/20 03:56 36.7 C 67 16 110/59 L 98 11/25/20 23:40 36.6 C 70 16 97/57 L 98 Laboratory Results 11/26/20 05:45 11/26/20 05:45 (1) Anemia Anemia type: unspecified type Qualified Code(s): D64.9 - Anemia, unspecified
[2020-11-26 09:45] LABS: Hepatitis B Surface Ab Quant 35.27 mIU/mL (>or=10mIU/mL Immune); Hepatitis B Surface Antibody Immune
[2020-11-26 09:56] LABS: Hepatitis B Surf Ag Rflx Conf Neg (Neg)
[2020-11-26] MEDS ORDERED: ceFAZolin 1000MG 1,000 MG/7.5 ML SYR IV ONE (10:00)
--- NOTE | 2020-11-26 10:07 | History & Physical Bridge Note ---
Date of Service November 26, 2020 History & Physical Bridge Note Patient for permcath insertion today. I have discussed the risks options and benefits of the procedure with the patient. The patient understands the risks options and benefits and agrees to the procedure. I have examined the patient, reviewed the History & Physical and in the interval since the performance of the History & Physical I have noted the following changes of clinical significance: no changes noted
[2020-11-26] MEDS: SODIUM CHLORIDE 0.9% 500 ML IV SCH ×2 (10:12→20:16)
--- NOTE | 2020-11-26 10:27 | Pre Anesthesia Assessment ---
Date of Service November 26, 2020 Pre Sedation Assessment Vital Signs Temp Pulse Pulse Pulse Resp BP BP 11/26/20 10:06 36.9 C 70 18 117/69 11/26/20 07:56 36.8 C 70 18 144/74 H 11/26/20 07:53 69 11/26/20 03:56 36.7 C 67 16 110/59 L 11/25/20 23:40 36.6 C 70 16 97/57 L 11/25/20 20:15 37.1 C 62 18 171/80 H 11/25/20 17:52 37.0 C 73 143/86 H 11/25/20 17:34 36.7 C 64 144/72 H 11/25/20 17:09 36.7 C 68 141/76 H 11/25/20 16:39 36.6 C 70 147/67 H 11/25/20 16:24 36.4 C L 72 128/69 11/25/20 16:03 36.6 C 74 130/71 11/25/20 15:52 36.7 C 69 17 132/65 11/25/20 12:43 36.9 C 67 22 127/69 Pulse Ox 11/26/20 10:06 100 11/26/20 07:56 99 11/26/20 07:53 11/26/20 03:56 98 11/25/20 23:40 98 11/25/20 20:15 94 11/25/20 17:52 11/25/20 17:34 11/25/20 17:09 11/25/20 16:39 11/25/20 16:24 11/25/20 16:03 11/25/20 15:52 100 11/25/20 12:43 97 Cardiovascular RRR, no murmur, no edema Respiratory normal respiratory effort, lungs clear to auscultation Pre-Sedation Airway Assessment Smoking Status: Never smoker Hx Sleep Apnea: No Short, Thick Neck: No Thyromental Distance: > or= 3.5 Finger Breadths Oral Cavity: + WNL Mallampati Class: III ASA: ASA4 NPO Status Date of Last Intake of Fluids: 11/26/20 Time of Last Intake of Fluids: 06:00 Date of Last Intake of Solid Food: 11/25/20 Time of Last Intake of Solid Foods: 22:00 Procedure Planning Contraindications for Sedation: none Current Medications Reviewed: Yes Notes The planned sedation has been discussed with the patient. Informed Consent was obtained. I have identified the patient, determined the appropriateness of sedation and have assessed the patient immediately prior to the procedure. All medicine(s) and interventions are by my order.
[2020-11-26] MEDS ORDERED: HEPARIN SOD (PORCINE) 5,000 UNITS/ML VIAL ONE (10:30)
[2020-11-26] MEDS ORDERED: MIDAZOLAM HCL 1 MG/ML 2ML VIAL ONE (10:31)
[2020-11-26] MEDS ORDERED: fentaNYL citrate 100 MCG/2 ML VIAL ONE (10:31)
[2020-11-26] MEDS ORDERED: LIDOCAINE HCL 1% 20 ML VIAL INJ ONE (11:02)
--- NOTE | 2020-11-26 11:11 | Post Operative Brief Note ---
Immediate Post Op Note v1 Date of Surgery November 26, 2020 Pre & Post Diagnosis Operation Date: 11/26/20 13:20 Pre-Op Diagnosis: Acute Kidney Injury Post-Op Diagnosis: Acute Kidney Injury I identified the patient and participated in the time-out.: Yes Procedure Operation Date: 11/26/20 13:20 Actual Procedures p Insertion of Perm Catheter, Right Internal Jugular Approach, Ultrasound Localization of Right Internal Jugular Vein, Fluoroscopy for Positioning, Moderate Sedation [id number](Right) - Omid Winslow MD Surgeon Omid Winslow MD [facility] MD Rodrigo Estimated Blood Loss 5 Findings Consistent with Post-Op Diagnosis Anesthesia Type RN Sedation Complications none Disposition Accompanied Patient To Recovery: No Disposition: Recovery Room
--- NOTE | 2020-11-26 11:24 | Post Anesthesia Assessment ---
Date of Service November 26, 2020 Post Sedation Assessment Vital Signs Temp Pulse Pulse Pulse Resp BP BP 11/26/20 11:14 70 19 115/68 11/26/20 11:08 74 19 117/66 11/26/20 11:03 74 19 111/66 11/26/20 10:58 70 19 124/78 11/26/20 10:53 72 19 119/65 11/26/20 10:48 65 19 130/78 11/26/20 10:43 69 19 144/78 H 11/26/20 10:38 69 19 145/79 H 11/26/20 10:34 63 19 144/78 H 11/26/20 10:06 36.9 C 70 18 117/69 11/26/20 07:56 36.8 C 70 18 144/74 H 11/26/20 07:53 69 11/26/20 03:56 36.7 C 67 16 110/59 L 11/25/20 23:40 36.6 C 70 16 97/57 L 11/25/20 20:15 37.1 C 62 18 171/80 H 11/25/20 17:52 37.0 C 73 143/86 H 11/25/20 17:34 36.7 C 64 144/72 H 11/25/20 17:09 36.7 C 68 141/76 H 11/25/20 16:39 36.6 C 70 147/67 H 11/25/20 16:24 36.4 C L 72 128/69 11/25/20 16:03 36.6 C 74 130/71 11/25/20 15:52 36.7 C 69 17 132/65 11/25/20 12:43 36.9 C 67 22 127/69 Pulse Ox 11/26/20 11:14 100 11/26/20 11:08 99 11/26/20 11:03 100 11/26/20 10:58 100 11/26/20 10:53 100 11/26/20 10:48 100 11/26/20 10:43 100 11/26/20 10:38 100 11/26/20 10:34 100 11/26/20 10:06 100 11/26/20 07:56 99 11/26/20 07:53 11/26/20 03:56 98 11/25/20 23:40 98 11/25/20 20:15 94 11/25/20 17:52 11/25/20 17:34 11/25/20 17:09 11/25/20 16:39 11/25/20 16:24 11/25/20 16:03 11/25/20 15:52 100 11/25/20 12:43 97 Recovery Score Activity: Moves 4 extremities Respiration: Deep Breath/Cough Circulation: +/-20% PreAnes Value Consciousness: Fully Awake Oxygen Saturation: > 92% On Room Air Post Anesthesia Score: 10 Discharge Sedation Level of Care: Fast Track Phase II Post Sedation Plan On clinical assessment, the patient appears to have tolerated the sedation without complications. Patient is recovering as anticipated. Patient will continue to be monitored by nursing and may be discharged when sedation discharge criteria are met per below protocol. Upon Completions of procedure up to 15 minutes continue every 5 minute vital signs and the P.A.R. score; then discharge to a Phase I or Fast Track to Phase II per the following guidelines: * Discharge Patient to appropriate Phase II area if PAR is 8 or greater or return to pre- procedure baseline. The post - procedure orders will be as directed. * If PAR score is less than 8 or not return to pre-procedure baseline then patient will follow Phase I monitoring till PAR is reached for Phase II. The Phase I may be done in procedure room or may call to secure a Phase I area. * If naloxone or flumazenil are used for reversal, hold in Phase I for continued monitoring from when last reversal dose was given for a minimum of 60 minutes or longer pending the nurse and/or physician discretion of patient condition before discharge to Phase II. Please call the Sedation Physician to re-evaluate and complete post-note for discharge to Phase II area. Do NOT discharge from procedure sedation or Phase 1 until post- sedation evaluation note is complete by procedure /sedation MD Sedation Discharge Instructions to be given to the patient at discharge to home.
--- NOTE | 2020-11-26 11:27 | Operative Report ---
Post Operative Report Pre & Post Diagnosis Operation Date: 11/26/20 13:20 Pre-Op Diagnosis: Acute Kidney Injury Post-Op Diagnosis: Acute Kidney Injury I identified the patient and participated in the time-out.: Yes Procedure Operation Date: 11/26/20 13:20 Actual Procedures p Insertion of Perm Catheter, Right Internal Jugular Approach, Ultrasound Loc alization of Right Internal Jugular Vein, Fluoroscopy for Positioning, Moderate Sedation [id number](Right) - Omid Winslow MD Surgeon Delisa Schneider MD Show Card Letterer MD Rodrigo Estimated Blood Loss 5 Findings Consistent with Post-Op Diagnosis Specimens none Anesthesia Type RN Sedation Complications none Indications ESRD Description of Procedure Patient was taken to the angio suite and placed in the supine position. The right side of the neck and chest wall were prepped and draped in a sterile manner. The patient was identified and a timeout was performed. Local anesthesia was then administered to the appropriate areas of the neck and chest wall. Ultrasound was then used to locate the right internal jugular vein. The vein compressed easily, had no filing defects, and was patent. The vein was then punctured under direct ultrasound imaging. A guidewire was then passed centrally under fluoroscopic imaging. A stab wound was then made in the anterior chest wall and a 19 cm permcath was passed from the stab wound on the chest wall to the puncture site on the neck. The puncture site was then dilated till the 14Fr peel away sheath was inserted. The permcath was then inserted through the sheath to a central position in the distal superior vena cava. The peel away sheath was then removed. The catheter was then sutured in place using nylon sutures. The puncture was then closed using a 4-0 Vicryl subcuticular suture. Dermabond was used for a dressing on the puncture site. Both ports aspirated and flushed easily and were then packed with heparin. A sterile dressing was applied to the catheter. The patient left the angio suite in good condition and tolerated the procedure well. Dr. Winslow was present and scrubbed for the entire procedure. I attest to the content of the Intraoperative Record and any orders documented therein. Any exceptions are noted below.
--- NOTE | 2020-11-26 14:12 | Palliative Care Progress Note ---
Date of Service November 26, 2020 Assessment & Plan (1) Palliative care encounter: Roselia feels comfortable with her decision to start dialysis and is looking forward to seeing her family for their holiday in December. She is planning to discuss her goals of care with them at that time. She has said that she would want her daughter Chanel, to be her surrogate decision maker and Chanel will be part of this conversation. I have given her the phone number to call for outpatient palliative care followup after she talks further with her family. Admission and Anticipated Discharge Date Admission Date: November 24, 2020 Subjective Feels better. She had IJ line placement today and abbreviated dialysis. She tolerated it well and feels that her legs are stronger. She feels less anxious today. Review of Systems Review of Systems: Vinson Symptom Assessment Scale Pain 0/3 Dyspnea 0/3 Anxiety 1/3 Fatigue 1/3 Nausea 0/3 Anorexia 0/3 Palliative Performance Score 50% Physical Exam Constitutional: no acute distress ENMT: Mouth: + dry oral mucous membranes Respiratory: normal respiratory effort; no labored breathing Musculoskeletal: Extremities: + muscle atrophy Neurologic: awake; not confused Results & Data ([facility]) Vital Signs (Past 12 Hours) Vital Signs Temp Pulse Pulse Pulse Resp BP BP 11/26/20 13:30 97.7 F 87 87 122/71 122/71 11/26/20 13:20 87 114/68 11/26/20 13:00 85 110/64 11/26/20 12:40 78 102/55 L 11/26/20 12:20 78 93/65 L 11/26/20 12:00 81 87/55 L 11/26/20 11:40 69 107/67 11/26/20 11:31 98.2 F 67 11/26/20 11:29 67 120/72 11/26/20 11:14 70 19 115/68 11/26/20 11:08 74 19 117/66 11/26/20 11:03 74 19 111/66 11/26/20 10:58 70 19 124/78 11/26/20 10:53 72 19 119/65 11/26/20 10:48 65 19 130/78 11/26/20 10:43 69 19 144/78 H 11/26/20 10:38 69 19 145/79 H 11/26/20 10:34 63 19 144/78 H 11/26/20 10:06 98.4 F 70 18 117/69 11/26/20 07:56 98.2 F 70 18 144/74 H 11/26/20 07:53 69 11/26/20 03:56 98.1 F 67 16 110/59 L Pulse Ox 11/26/20 13:30 11/26/20 13:20 11/26/20 13:00 11/26/20 12:40 11/26/20 12:20 11/26/20 12:00 11/26/20 11:40 11/26/20 11:31 11/26/20 11:29 11/26/20 11:14 100 11/26/20 11:08 99 11/26/20 11:03 100 11/26/20 10:58 100 11/26/20 10:53 100 11/26/20 10:48 100 11/26/20 10:43 100 11/26/20 10:38 100 11/26/20 10:34 100 11/26/20 10:06 100 11/26/20 07:56 99 11/26/20 07:53 11/26/20 03:56 98 PG Care Time/CCT Total # of Minutes Spent Total Time Spent with Patient: Total time spent is greater than 50% in coordination of care (as documented) at patient's floor/unit and/or counseling patient: Coding Level of Care Code 41313 Subseq Hosp Care Lvl 2 Diagnoses Palliative care encounter Z51.5
[2020-11-26] MEDS: DICYCLOMINE HCL 10 MG CAP PO SCH (21:16)
[2020-11-26] MEDS: CEFEPIME 500 MG in SYRINGE 0 ML IV SCH (21:18)
[2020-11-27] MEDS: ALPRAZolam 0.25 MG TABLET PO PRN ×2 (01:03→23:17)
[2020-11-27 06:29] LABS: Hematocrit (blood only) 21.6 % (37-47); Hemoglobin 7.4 g/dL (12.0-16.0); Mean Corpuscular Hemoglobin 31.2 pg (25-34); Mean Corpuscular Hgb Conc 34.3 g/dL (32-36); Mean Corpuscular Volume 91.1 fL (80-100); RDW Coefficient of Variation 14.8 % (11.5-14.5); RDW Standard Deviation 48.9 fL (36.4-46.3); Red Blood Count 2.37 M/uL (4.2-5.4); White Blood Count 6.62 K/uL (4.8-10.8)
[2020-11-27 06:31] LABS: Mean Platelet Volume 10.2 fL (7.4-10.4); Platelet Count 59 K/uL (130-400)
[2020-11-27] MEDS ORDERED: SODIUM CHLORIDE 0.9% 250 ML IV PRN (06:41)
[2020-11-27] MEDS ORDERED: SODIUM CHLORIDE 0.9% 1000ML 1,000 ML IV PRN (07:00)
[2020-11-27 07:07] LABS: Calcium 7.5 mg/dl (8.5-10.1); Creatinine Clr Calc Pharmacy 7.3 ml/min; Est GFR (Non-African American) 6.9; Magnesium 2.1 mg/dl (1.8-2.4); Phosphorus 4.9 mg/dl (2.5-4.9); Potassium 3.5 mmol/L (3.5-5.1)
--- NOTE | 2020-11-27 08:24 | Hospitalist Progress Note ---
Date of Service November 27, 2020 Assessment & Plan (1) ESRD (end stage renal disease): (2) PUNEET (acute kidney injury): (3) Metabolic acidosis: (4) Anemia: (5) IPMN (intraductal papillary mucinous neoplasm): (6) Ascites: (7) Palliative care encounter: This is a 75-year-old female who presents with shortness of breath with exertion and found to have acute kidney injury on chronic kidney disease V and also ascites. 1. Shortness of breath on exertion, weakness, poor appetite. PUNEET on chronic kidney disease stage V: Baseline creatinine of 4.5, presently with creatinine of 7.5. Received IV Lasix 40 x2 on admission Nephrology consulted s/p permacath placement w/ vascular surgery (11/26) and started on HD 11/26, tolerated well Plan for HD today Discussed with nephrology in detail, recommend palliative medicine consultation. 2. Metabolic acidosis secondary to above: Cont outpt PO bicarbonate tablets for now as per nephrology recommendations. Nephrology consulted, and further management per their service. Pt started on HD 4. Ascites, REARDON liver cirrhosis: S/p paracentesis November 25, 2020. 2.7 L of ascitic fluid removed.Not c/w SBP cultx pending Patient received albumin before and after paracentesis. GI consulted. 5. Thrombocytopenia secondary to liver cirrhosis: Follow the repeat labs. 6. Anemia: Most likely from end-stage renal disease. On iron supplements, which will be continued. No reports of bleeding Repeat hemoglobin 7.0 and 6.8. Blood consent obtained. S/p transfusion of 1 unit of packed red blood cells on 11/25 Hgb 7.4 on 11/27, plan to transfuse 1 unit of pRBC 7. Depression and anxiety: Continue paroxetine and Xanax prn. 8. Possible UTI: Empircally on cefepime. Follow the cultures. 9. History of hypertension: We will monitor the blood pressure. 10. Elevated INR from the liver disease, will monitor. 11. History of intraductal papillary mucinous neoplasm of pancreas: Recently seen by hematology/oncology. No intervention planned at this time because of comorbid conditions. Goals of care: Palliative medicine consulted DVT prophylaxis: Sequential compression devices. DISPOSITION: Closely monitor in tele floor. PT and OT prior to discharge. Social service to help with discharge planning. Admission and Anticipated Discharge Date Admission Date: November 24, 2020 Subjective Patient seen in follow-up of shortness of breath, ascites, end-stage renal disease Patient status post paracentesis, 2.7 asc. fluid removed, not c/w SBP s/p transfusion of 1 unit of pRBC s/p permacath w/ vasc. surgery, started on HD yesterday, tolerated well Denies any more shortness of breath, says she feels much better today Currently sitting up in chair in NAD, comfortable Denies chest pain shortness of breath, fever, chills ,abd pain, n/v, hematemesis, melena, hematochezia Palliative medicine also consulted Hgb down at 7.4 today, plan for HD today, plan for transfusion of 1 unit pRBC Review of Systems Review of Systems: All systems reviewed & are unremarkable except as noted in HPI & below Constitutional: no fever and no chills Respiratory: no cough and no dyspnea Cardiovascular: no chest pain and no palpitations Gastrointestinal: no abdominal pain, no nausea and no vomiting Physical Exam Physical Exam: GENERAL: The patient is thin and frail, not in acute distress. HEENT: NC/AT. Pupils equal, round, reactive to light. Oral mucosa moist. NECK: No JVD, no neck masses. CARDIOVASCULAR: S1, S2 heard, regular rate and rhythm, no murmur, no gallop. RESPIRATORY SYSTEM: Normal AP diameter. No accessory muscle use. No wheezing, no crackles. ABDOMEN: soft, mildly distended. Bowel sounds present. No tenderness, no guarding, no rigidity. NEURO: Alert and oriented x3, speech fluent, no facial asymmetry, answering questions appropriately, moving extremities spontaneously EXTREMITIES: + trace b/l lower extremity edema present. Mild erythematous changes noted. Results & Data Results & Data ([facility]) Vital Signs (Past 12 Hours) Vital Signs Temp Pulse Pulse Resp BP Pulse Ox 11/27/20 07:17 36.6 C 73 20 101/57 L 97 11/27/20 03:55 37 C 63 18 80/44 L 94 11/26/20 22:47 37.3 C 85 18 92/66 L 97 Laboratory Results 11/27/20 11/27/20 11/27/20 Range/Units 06:00 06:00 06:00 WBC 6.62 (4.8-10.8) K/uL RBC 2.37 L (4.2-5.4) M/uL Hgb 7.4 L (12.0-16.0) g/dL Hct 21.6 L (37-47) % MCV 91.1 (80-100) fL MCH 31.2 (25-34) pg MCHC 34.3 (32-36) g/dL RDW Std Deviation 48.9 H (36.4-46.3) fL RDW Coeff of Suly 14.8 H (11.5-14.5) % Plt Count 59 L (130-400) K/uL MPV 10.2 (7.4-10.4) fL Sodium 135 L (136-145) mmol/L Potassium 3.5 D (3.5-5.1) mmol/L Chloride 106 (98-107) mmol/L Carbon Dioxide 17 L (21-32) mmol/L Anion Gap 12.0 H (3-11) BUN 45 H (7-18) mg/dl Creatinine 5.59 H* D (0.6-1.2) mg/dl Est Cr Clr Drug Dosing 7.3 ml/min Est GFR ( Amer) 8.0 Est GFR (Non-Af Amer) 6.9 BUN/Creatinine Ratio 8.0 L (10-20) Glucose 108 H (70-99) mg/dl Calcium 7.5 L (8.5-10.1) mg/dl Phosphorus 4.9 D (2.5-4.9) mg/dl Magnesium 2.1 (1.8-2.4) mg/dl Hep Bs Antigen (Neg) Hep Bs Antibody Hep Bs Antibody, Quant (>or=10mIU/mL Immune) mIU/mL Blood Type Recheck A Positive Crossmatch 11/26/20 11/25/20 Range/Units 08:15 11:56 WBC (4.8-10.8) K/uL RBC (4.2-5.4) M/uL Hgb (12.0-16.0) g/dL Hct (37-47) % MCV (80-100) fL MCH (25-34) pg MCHC (32-36) g/dL RDW Std Deviation (36.4-46.3) fL RDW Coeff of Suly (11.5-14.5) % Plt Count (130-400) K/uL MPV (7.4-10.4) fL Sodium (136-145) mmol/L Potassium (3.5-5.1) mmol/L Chloride (98-107) mmol/L Carbon Dioxide (21-32) mmol/L Anion Gap (3-11) BUN (7-18) mg/dl Creatinine (0.6-1.2) mg/dl Est Cr Clr Drug Dosing ml/min Est GFR ( Amer) Est GFR (Non-Af Amer) BUN/Creatinine Ratio (10-20) Glucose (70-99) mg/dl Calcium (8.5-10.1) mg/dl Phosphorus (2.5-4.9) mg/dl Magnesium (1.8-2.4) mg/dl Hep Bs Antigen Neg (Neg) Hep Bs Antibody Immune Hep Bs Antibody, Quant 35.27 (>or=10mIU/mL Immune) mIU/mL Blood Type Recheck Crossmatch See Detail Medications Administered Current Inpatient Medications Acetaminophen (Acetaminophen 500 Mg Tab) 500 mg PO Q4H PRN PRN Reason: pain, fever Stop: 12/25/20 15:23 Last Admin: 11/25/20 15:35 Dose: 500 mg Documented by: Alprazolam (Alprazolam 0.25 Mg Tablet) 0.25 mg PO HS PRN PRN Reason: Anxiety Stop: 12/25/20 00:03 Last Admin: 11/27/20 01:03 Dose: 0.25 mg Documented by: Dicyclomine HCl (Dicyclomine Hcl 10 Mg Cap) 10 mg PO HS KARAN Stop: 12/25/20 20:59 Last Admin: 11/26/20 21:16 Dose: 10 mg Documented by: Ferrous Sulfate (Ferrous Sulfate 325 Mg Tab) [facility] Stop: 12/25/20 08:59 Last Admin: 11/26/20 08:09 Dose: 325 mg Documented by: Cefepime HCl 500 mg/ Syringe 5.65 mls @ 5.5 mls/min IV DAILY@2200 KARAN; Protocol Stop: 12/05/20 21:59 Last Admin: 11/26/20 21:18 Dose: 5.5 mls/min Documented by: Sodium Chloride (Nss) 500 mls @ 15 mls/hr IV .Q24H KARAN Stop: 12/26/20 10:14 Last Admin: 11/26/20 20:16 Dose: Not Given Documented by: Sodium Chloride (Nss 1000ml) 1,000 mls @ 0 mls/hr IV .Q0M PRN PRN Reason: For Hemodialysis Use ONLY Stop: 11/27/20 12:59 Sodium Chloride (Nss) 250 mls @ 15 mls/hr IV .[id number] PRN PRN Reason: For Transfusion Stop: 11/27/20 16:41 Lactobacillus Acidoph/Casei/Rhamnos (Advanced Probiotic 1250 Mg Capsule) [facility] Stop: 12/25/20 08:59 Last Admin: 11/26/20 08:09 Dose: 2 cap Documented by: Loratadine (Loratadine 10 Mg Tab) [facility] Stop: 12/25/20 08:59 Last Admin: 11/26/20 08:08 Dose: 10 mg Documented by: Magnesium Oxide (Magnesium Oxide 400 Mg Tab) 400 mg PO BID [facility] Stop: 12/25/20 10:14 Last Admin: 11/26/20 21:16 Dose: 400 mg Documented by: Miscellaneous Information (Cefepime Consult Active) 1 ea N/A UD PRN PRN Reason: Consult Stop: 12/25/20 00:43 Multivitamins (Multivitamin Tab) 1 tab PO [facility] Stop: 12/25/20 08:59 Last Admin: 11/26/20 08:08 Dose: 1 tab Documented by: Nitroglycerin (Nitroglycerin Sl 0.4 Mg/Tab Tab) 0.4 mg SL UD PRN PRN Reason: Chest Pain Stop: 12/25/20 00:03 Ondansetron HCl (Ondansetron Inj 2 Mg/Ml 2 Ml Vial) 4 mg IV Q6H PRN PRN Reason: Nausea Stop: 12/25/20 00:03 Paroxetine HCl (Paroxetine Hcl 10 Mg Tab) [facility] Stop: 12/25/20 08:59 Last Admin: 11/26/20 08:08 Dose: 10 mg Documented by: Sodium Bicarbonate (Sodium Bicarbonate 650 Mg Tab) 650 mg PO BID [facility] Stop: 12/25/20 10:14 Last Admin: 11/26/20 21:17 Dose: 650 mg Documented by: Vitamin D (Cholecalciferol 1,000 Units 25 Mcg Tab) 1,000 units PO QAM [facility]AN Stop: 12/25/20 08:59 Last Admin: 11/26/20 08:08 Dose: 1,000 units Documented by: (1) Anemia Anemia type: unspecified type Qualified Code(s): D64.9 - Anemia, unspecified (2) Ascites Ascites type: other type Qualified Code(s): R18.8 - Other ascites
[2020-11-27] MEDS: MAGNESIUM OXIDE 400 MG TAB PO SCH ×2 (10:38→20:51)
[2020-11-27] MEDS: PARoxetine HCL 10 MG TAB PO SCH (10:38)
[2020-11-27] MEDS: LORATADINE 10 MG TAB PO SCH (10:38)
[2020-11-27] MEDS: ADVANCED PROBIOTIC 1250 MG CAPSULE PO SCH (10:38)
[2020-11-27] MEDS: FERROUS SULFATE 325 MG TAB PO SCH (10:39)
[2020-11-27] MEDS: SODIUM BICARBONATE 650 MG TAB PO SCH ×2 (10:39→20:52)
[2020-11-27] MEDS: MULTIVITAMIN TAB PO SCH (10:39)
[2020-11-27] MEDS: CHOLECALCIFEROL 1,000 UNITS 25 MCG TAB PO SCH (10:39)
--- NOTE | 2020-11-27 15:12 | Progress Notes ---
DATE: 11/27/2020 NEPHROLOGY DIALYSIS NOTE SUBJECTIVE: The patient was seen during dialysis. She is tolerating it pretty well. Blood pressure is reasonable. Dialysis catheter is working just fine. OBJECTIVE: VITAL SIGNS: Blood pressure is 111/57, temperature 36.6, 97% on room air. HEENT: Mucous membranes moist. NECK: Supple. CHEST: Bilaterally clear to auscultation. CARDIOVASCULAR: S1, S2 regular. ABDOMEN: Soft, nontender. Mild ascites present. EXTREMITIES: Show no edema. LABORATORY TESTS: Blood work from this morning was reviewed. Hemoglobin is 7.4, WBC count is 6.62, platelet count 59,000. She just received blood transfusion 1 unit. Sodium 135, potassium 3.5, BUN 45, creatinine 5.59. ASSESSMENT AND PLAN: A 75-year-old female with known liver cirrhosis secondary to nonalcoholic steatohepatitis, now has progressed to end-stage renal disease from chronic kidney disease V and also has newly diagnosed most likely pancreatic cancer. End-stage renal disease: We will continue dialysis today. We will give her a break for Sunday tomorrow. Next dialysis will be on Sunday. After arrangements for outpatient dialysis, she can be discharged. She understands that this dialysis is palliative in nature.
[2020-11-27] MEDS: DICYCLOMINE HCL 10 MG CAP PO SCH (20:51)
[2020-11-27] MEDS: CEFEPIME 500 MG in SYRINGE 0 ML IV SCH (20:53)
[2020-11-28 06:29] LABS: Hematocrit (blood only) 26.2 % (37-47); Hemoglobin 9.1 g/dL (12.0-16.0); Mean Corpuscular Hemoglobin 31.3 pg (25-34); Mean Corpuscular Hgb Conc 34.7 g/dL (32-36); RDW Coefficient of Variation 15.6 % (11.5-14.5); RDW Standard Deviation 51.8 fL (36.4-46.3); Red Blood Count 2.91 M/uL (4.2-5.4); White Blood Count 6.93 K/uL (4.8-10.8)
[2020-11-28 06:35] LABS: Mean Platelet Volume 10.6 fL (7.4-10.4); Platelet Count 56 K/uL (130-400)
[2020-11-28 07:08] LABS: BUN Creatinine Ratio 6.7 (10-20); Calcium 7.9 mg/dl (8.5-10.1); Creatinine Clr Calc Pharmacy 11.7 ml/min; Est GFR (African American) 14.3; Est GFR (Non-African American) 12.3; Phosphorus 3.2 mg/dl (2.5-4.9); Potassium 2.6 mmol/L (3.5-5.1)
[2020-11-28] MEDS: SODIUM CHLORIDE 0.9% 500 ML IV SCH ×2 (07:09→09:08)
[2020-11-28] MEDS: MAGNESIUM OXIDE 400 MG TAB PO SCH ×2 (08:39→21:38)
[2020-11-28] MEDS: LORATADINE 10 MG TAB PO SCH (08:39)
[2020-11-28] MEDS: ADVANCED PROBIOTIC 1250 MG CAPSULE PO SCH (08:39)
[2020-11-28] MEDS: SODIUM BICARBONATE 650 MG TAB PO SCH (08:39)
[2020-11-28] MEDS: MULTIVITAMIN TAB PO SCH (08:40)
[2020-11-28] MEDS: PARoxetine HCL 10 MG TAB PO SCH (08:40)
[2020-11-28] MEDS: FERROUS SULFATE 325 MG TAB PO SCH (08:40)
[2020-11-28] MEDS: CHOLECALCIFEROL 1,000 UNITS 25 MCG TAB PO SCH (08:40)
[2020-11-28] MEDS: ACETAMINOPHEN 500 MG TAB PO PRN (08:41)
[2020-11-28] MEDS ORDERED: POTASSIUM CHLORIDE CRTAB 20 MEQ TABCR PO STA ×2 (08:48→22:40)
--- NOTE | 2020-11-28 08:50 | Hospitalist Progress Note ---
Date of Service November 28, 2020 Assessment & Plan (1) ESRD (end stage renal disease): (2) PUNEET (acute kidney injury): (3) Metabolic acidosis: (4) Anemia: (5) IPMN (intraductal papillary mucinous neoplasm): (6) Ascites: (7) Palliative care encounter: This is a 75-year-old female who presents with shortness of breath with exertion and found to have acute kidney injury on chronic kidney disease V and also ascites. 1. Shortness of breath on exertion, weakness, poor appetite. PUNEET on chronic kidney disease stage V: Baseline creatinine of 4.5, presently with creatinine of 7.5. Received IV Lasix 40 x2 on admission Nephrology consulted s/p permacath placement w/ vascular surgery (11/26) and started on HD 11/26, tolerated well Plan for HD on Sunday (11/29), no HD today Discussed with nephrology in detail, recommend palliative medicine consultation. 2. Metabolic acidosis secondary to above: Cont outpt PO bicarbonate tablets for now as per nephrology recommendations. Nephrology consulted, and further management per their service. Pt started on HD Now resolved 4. Ascites, REARDON liver cirrhosis: S/p paracentesis November 25, 2020. 2.7 L of ascitic fluid removed.Not c/w SBP cultx - negative Patient received albumin before and after paracentesis. GI consulted. 5. Thrombocytopenia secondary to liver cirrhosis: Follow the repeat labs. 6. Anemia: Most likely from end-stage renal disease. On iron supplements, which will be continued. No reports of bleeding Repeat hemoglobin 7.0 and 6.8. Blood consent obtained. S/p transfusion of 1 unit of packed red blood cells on 11/25 Hgb 7.4 on 11/27, transfused 1 unit of pRBC (total of 2 units this admission) Current Hgb 9.1 (11/28) 7. Depression and anxiety: Continue paroxetine and Xanax prn. 8. Possible UTI: Empircally on cefepime. Follow the cultures. 9. History of hypertension: We will monitor the blood pressure. 10. Elevated INR from the liver disease, will monitor. 11. History of intraductal papillary mucinous neoplasm of pancreas: Recently seen by hematology/oncology. No intervention planned at this time because of comorbid conditions. Goals of care: Palliative medicine consulted DVT prophylaxis: SCDs. DISPOSITION: Closely monitor in tele floor. PT and OT prior to discharge. Social service to help with discharge planning. Admission and Anticipated Discharge Date Admission Date: November 24, 2020 Subjective Patient seen in follow-up of shortness of breath, ascites, end-stage renal disease Patient status post paracentesis, 2.7 asc. fluid removed, not c/w SBP s/p transfusion of 2 units of pRBC s/p permacath w/ vasc. surgery, started on HD tolerated well Denies any more shortness of breath, says she feels well Currently sitting up in chair in NAD, comfortable Denies chest pain shortness of breath, fever, chills ,abd pain, n/v, hematemesis, melena, hematochezia Palliative medicine also consulted Review of Systems Review of Systems: All systems reviewed & are unremarkable except as noted in HPI & below Constitutional: no fever and no chills Respiratory: no cough and no dyspnea Cardiovascular: no chest pain and no palpitations Gastrointestinal: no abdominal pain, no nausea and no vomiting Genitourinary: no dysuria Physical Exam Physical Exam: GENERAL: The patient is thin and frail, not in acute distress. HEENT: NC/AT. Pupils equal, round, reactive to light. Oral mucosa moist. NECK: No JVD, no neck masses. CARDIOVASCULAR: S1, S2 heard, regular rate and rhythm, no murmur, no gallop. RESPIRATORY SYSTEM: Normal AP diameter. No accessory muscle use. No wheezing, no crackles. ABDOMEN: soft, mildly distended. Bowel sounds present. No tenderness, no guarding, no rigidity. NEURO: Alert and oriented x3, speech fluent, no facial asymmetry, answering questions appropriately, moving extremities spontaneously EXTREMITIES: + trace b/l lower extremity edema. Mild erythematous changes noted. Results & Data Results & Data ([facility]) Vital Signs (Past 12 Hours) Vital Signs Temp Pulse Pulse Pulse Resp BP Pulse Ox 11/28/20 07:11 68 11/28/20 07:10 36.8 C 71 19 101/65 96 11/28/20 03:18 36.8 C 70 16 107/57 L 98 11/28/20 00:13 90 11/27/20 23:03 37.1 C 93 H 20 101/66 93 11/27/20 22:23 87 Laboratory Results 11/28/20 11/28/20 11/25/20 Range/Units 06:17 06:17 11:56 WBC 6.93 (4.8-10.8) K/uL RBC 2.91 L (4.2-5.4) M/uL Hgb 9.1 L (12.0-16.0) g/dL Hct 26.2 L (37-47) % MCV 90.0 (80-100) fL MCH 31.3 (25-34) pg MCHC 34.7 (32-36) g/dL RDW Std Deviation 51.8 H (36.4-46.3) fL RDW Coeff of Suly 15.6 H (11.5-14.5) % Plt Count 56 L (130-400) K/uL MPV 10.6 H (7.4-10.4) fL Sodium 134 L (136-145) mmol/L Potassium 2.6 L D (3.5-5.1) mmol/L Chloride 103 (98-107) mmol/L Carbon Dioxide 25 (21-32) mmol/L Anion Gap 6.0 (3-11) BUN 23 H (7-18) mg/dl Creatinine 3.47 H D (0.6-1.2) mg/dl Est Cr Clr Drug Dosing 11.7 ml/min Est GFR ( Amer) 14.3 Est GFR (Non-Af Amer) 12.3 BUN/Creatinine Ratio 6.7 L (10-20) Glucose 93 (70-99) mg/dl Calcium 7.9 L (8.5-10.1) mg/dl Phosphorus 3.2 D (2.5-4.9) mg/dl Magnesium 2.0 (1.8-2.4) mg/dl Blood Type A Positive Antibody Screen NEGATIVE Crossmatch See Detail Medications Administered Current Inpatient Medications Acetaminophen (Acetaminophen 500 Mg Tab) 500 mg PO Q4H PRN PRN Reason: pain, fever Stop: 12/25/20 15:23 Last Admin: 11/28/20 08:41 Dose: 500 mg Documented by: Alprazolam (Alprazolam 0.25 Mg Tablet) 0.25 mg PO HS PRN PRN Reason: Anxiety Stop: 12/25/20 00:03 Last Admin: 11/27/20 23:17 Dose: 0.25 mg Documented by: Dicyclomine HCl (Dicyclomine Hcl 10 Mg Cap) 10 mg PO HS [facility] Stop: 12/25/20 20:59 Last Admin: 11/27/20 20:51 Dose: 10 mg Documented by: Ferrous Sulfate (Ferrous Sulfate 325 Mg Tab) 325 mg PO QAM [facility] Stop: 12/25/20 08:59 Last Admin: 11/28/20 08:40 Dose: 325 mg Documented by: Cefepime HCl 500 mg/ Syringe 5.65 mls @ 5.5 mls/min IV DAILY@2200 KARAN; Protocol Stop: 12/05/20 21:59 Last Admin: 11/27/20 20:53 Dose: 5.5 mls/min Documented by: Sodium Chloride (Nss) 500 mls @ 15 mls/hr IV .Q24H [facility] Stop: 12/26/20 10:14 Last Admin: 11/28/20 07:09 Dose: Not Given Documented by: Lactobacillus Acidoph/Casei/Rhamnos (Advanced Probiotic 1250 Mg Capsule) 2 cap PO [facility] Stop: 12/25/20 08:59 Last Admin: 11/28/20 08:39 Dose: 2 cap Documented by: Loratadine (Loratadine 10 Mg Tab) 10 mg PO [facility] Stop: 12/25/20 08:59 Last Admin: 11/28/20 08:39 Dose: 10 mg Documented by: Magnesium Oxide (Magnesium Oxide 400 Mg Tab) 400 mg PO BID [facility] Stop: 12/25/20 10:14 Last Admin: 11/28/20 08:39 Dose: 400 mg Documented by: Miscellaneous Information (Cefepime Consult Active) 1 ea N/A UD PRN PRN Reason: Consult Stop: 12/25/20 00:43 Multivitamins (Multivitamin Tab) 1 tab PO [facility] Stop: 12/25/20 08:59 Last Admin: 11/28/20 08:40 Dose: 1 tab Documented by: Nitroglycerin (Nitroglycerin Sl 0.4 Mg/Tab Tab) 0.4 mg SL UD PRN PRN Reason: Chest Pain Stop: 12/25/20 00:03 Ondansetron HCl (Ondansetron Inj 2 Mg/Ml 2 Ml Vial) 4 mg IV Q6H PRN PRN Reason: Nausea Stop: 12/25/20 00:03 Paroxetine HCl (Paroxetine Hcl 10 Mg Tab) 10 mg PO QAM [facility] Stop: 12/25/20 08:59 Last Admin: 11/28/20 08:40 Dose: 10 mg Documented by: Potassium Chloride (Potassium Chloride Crtab 20 Meq Tabcr) 60 meq PO NOW STA Stop: 11/28/20 08:49 Sodium Bicarbonate (Sodium Bicarbonate 650 Mg Tab) 650 mg PO BID [facility] Stop: 12/25/20 10:14 Last Admin: 11/28/20 08:39 Dose: 650 mg Documented by: Vitamin D (Cholecalciferol 1,000 Units 25 Mcg Tab) 1,000 units PO QAM [facility] Stop: 12/25/20 08:59 Last Admin: 11/28/20 08:40 Dose: 1,000 units Documented by: (1) Anemia Anemia type: unspecified type Qualified Code(s): D64.9 - Anemia, unspecified (2) Ascites Ascites type: other type Qualified Code(s): R18.8 - Other ascites
--- NOTE | 2020-11-28 15:56 | Nephrology Progress Note ---
Date of Service November 28, 2020 Assessment & Plan Admission and Anticipated Discharge Date Admission Date: November 24, 2020 Subjective NEPHROLOGY DIALYSIS NOTE SUBJECTIVE: No issues with dialysis. Blood pressure is reasonable. Dialysis catheter is working just fine. OBJECTIVE: VITAL SIGNS: Blood pressure is 111/57, temperature 36.6, 97% on room air. HEENT: Mucous membranes moist. NECK: Supple. CHEST: Bilaterally clear to auscultation. CARDIOVASCULAR: S1, S2 regular. ABDOMEN: Soft, nontender. Mild ascites present. EXTREMITIES: Show no edema. LABORATORY TESTS: Low K. ASSESSMENT AND PLAN: A 75-year-old female with known liver cirrhosis secondary to nonalcoholic steatohepatitis, now has progressed to end-stage renal disease from chronic kidney disease V and also has newly diagnosed most likely pancreatic cancer. End-stage renal disease: We will continue dialysis today. We will give her a break for Sunday tomorrow. Next dialysis will be on Sunday. After arrangements for outpatient dialysis, she can be discharged. She understands that this dialysis is palliative in nature. very low K--Give more K. Also we will do 4k bath tomorrow Results & Data ([facility]) Vital Signs (Past 12 Hours) Vital Signs Temp Pulse Pulse Resp BP Pulse Ox 11/28/20 15:03 78 11/28/20 14:38 36.7 C 83 18 109/71 99 11/28/20 11:27 36.9 C 79 20 101/70 98 11/28/20 07:11 68 11/28/20 07:10 36.8 C 71 19 101/65 96
[2020-11-28 20:37] LABS: BUN Creatinine Ratio 6.3 (10-20); Calcium 7.7 mg/dl (8.5-10.1); Creatinine Clr Calc Pharmacy 9.1 ml/min; Est GFR (African American) 10.5; Est GFR (Non-African American) 9.1; Potassium 3.2 mmol/L (3.5-5.1)
[2020-11-28] MEDS: CEFEPIME 500 MG in SYRINGE 0 ML IV SCH (21:37)
[2020-11-28] MEDS: DICYCLOMINE HCL 10 MG CAP PO SCH (21:39)
[2020-11-28] MEDS: ALPRAZolam 0.25 MG TABLET PO PRN (23:26)
[2020-11-29] MEDS ORDERED: SODIUM CHLORIDE 0.9% 1000ML 1,000 ML IV PRN ×2 (07:00→07:33)
[2020-11-29] MEDS ORDERED: HEPARIN SOD (PORCINE) 1000 UNIT/ML IV SCH (07:00)
[2020-11-29 07:06] LABS: Hematocrit (blood only) 28.5 % (37-47); Hemoglobin 9.8 g/dL (12.0-16.0); Mean Corpuscular Hgb Conc 34.4 g/dL (32-36); Mean Corpuscular Volume 90.2 fL (80-100); RDW Coefficient of Variation 15.4 % (11.5-14.5); RDW Standard Deviation 51.3 fL (36.4-46.3); Red Blood Count 3.16 M/uL (4.2-5.4); White Blood Count 6.58 K/uL (4.8-10.8)
[2020-11-29 07:11] LABS: Mean Platelet Volume 10.7 fL (7.4-10.4); Platelet Count 62 K/uL (130-400)
[2020-11-29 07:49] LABS: BUN Creatinine Ratio 7.1 (10-20); Calcium 7.8 mg/dl (8.5-10.1); Creatinine Clr Calc Pharmacy 9.1 ml/min; Est GFR (African American) 10.4; Magnesium 2.2 mg/dl (1.8-2.4); Phosphorus 3.3 mg/dl (2.5-4.9); Potassium 3.7 mmol/L (3.5-5.1)
[2020-11-29] MEDS: CHOLECALCIFEROL 1,000 UNITS 25 MCG TAB PO SCH (07:55)
[2020-11-29] MEDS: LORATADINE 10 MG TAB PO SCH (07:55)
[2020-11-29] MEDS: FERROUS SULFATE 325 MG TAB PO SCH (07:55)
[2020-11-29] MEDS: MAGNESIUM OXIDE 400 MG TAB PO SCH (07:55)
[2020-11-29] MEDS: PARoxetine HCL 10 MG TAB PO SCH (07:56)
[2020-11-29] MEDS: ADVANCED PROBIOTIC 1250 MG CAPSULE PO SCH (07:56)
[2020-11-29] MEDS: MULTIVITAMIN TAB PO SCH (07:56)
--- NOTE | 2020-11-29 07:58 | Hospitalist Progress Note ---
Date of Service November 29, 2020 Assessment & Plan (1) ESRD (end stage renal disease): (2) PUNEET (acute kidney injury): (3) Metabolic acidosis: (4) Anemia: (5) IPMN (intraductal papillary mucinous neoplasm): (6) Ascites: (7) Palliative care encounter: This is a 75-year-old female who presents with shortness of breath with exertion and found to have acute kidney injury on chronic kidney disease V and also ascites. 1. Shortness of breath on exertion, weakness, poor appetite. PUNEET on chronic kidney disease stage V: Baseline creatinine of 4.5, presently with creatinine of 7.5. Received IV Lasix 40 x2 on admission Nephrology consulted s/p permacath placement w/ vascular surgery (11/26) and started on HD 11/26, tolerated well Discussed with nephrology in detail, recommend palliative medicine consultation. Patient is to be set up for dialysis as outpatient, case management aware 2. Metabolic acidosis secondary to above: Cont outpt PO bicarbonate tablets for now as per nephrology recommendations. Nephrology consulted, and further management per their service. Pt started on HD Now resolved 4. Ascites, REARDON liver cirrhosis: S/p paracentesis November 25, 2020. 2.7 L of ascitic fluid removed.Not c/w SBP cultx - negative Patient received albumin before and after paracentesis. GI consulted. 5. Thrombocytopenia secondary to liver cirrhosis: Follow the repeat labs. 6. Anemia: Most likely from end-stage renal disease. On iron supplements, which will be continued. No reports of bleeding Repeat hemoglobin 7.0 and 6.8. Blood consent obtained. S/p transfusion of 1 unit of packed red blood cells on 11/25 Hgb 7.4 on 11/27, transfused 1 unit of pRBC (total of 2 units this admission) Current Hgb 9.8 (11/29) 7. Depression and anxiety: Continue paroxetine and Xanax prn. 8. Possible UTI: Empircally on cefepime. Follow the cultures. 9. History of hypertension: We will monitor the blood pressure. 10. Elevated INR from the liver disease, will monitor. 11. History of intraductal papillary mucinous neoplasm of pancreas: Recently seen by hematology/oncology. No intervention planned at this time because of comorbid conditions. Goals of care: Palliative medicine consulted DVT prophylaxis: SCDs. DISPOSITION: Closely monitor in tele floor. PT and OT prior to discharge. Social service to help with discharge planning. Admission and Anticipated Discharge Date Admission Date: November 24, 2020 Subjective Patient seen in follow-up of shortness of breath, ascites, end-stage renal disease Patient status post paracentesis, 2.7 asc. fluid removed, not c/w SBP s/p transfusion of 2 units of pRBC s/p permacath w/ vasc. surgery, started on HD Denies any more shortness of breath, says she feels well Palliative medicine also consulted Patient examined during dialysis today, she is feeling well no complaints Case management aware, to arrange outpatient dialysis Review of Systems Review of Systems: All systems reviewed & are unremarkable except as noted in HPI & below Constitutional: no fever and no chills Respiratory: no cough and no dyspnea Cardiovascular: no chest pain and no palpitations Gastrointestinal: no abdominal pain and no vomiting Physical Exam Physical Exam: GENERAL: The patient is thin and frail, not in acute distress. HEENT: NC/AT. Pupils equal, round, reactive to light. Oral mucosa moist. NECK: No JVD, no neck masses. CARDIOVASCULAR: S1, S2 heard, regular rate and rhythm, no murmur, no gallop. RESPIRATORY SYSTEM: Normal AP diameter. No accessory muscle use. No wheezing, no crackles. ABDOMEN: soft, mildly distended. Bowel sounds present. No tenderness, no guarding, no rigidity. NEURO: Alert and oriented x3, speech fluent, no facial asymmetry, answering questions appropriately, moving extremities spontaneously EXTREMITIES: + trace b/l lower extremity edema. Mild erythematous changes noted. Results & Data Results & Data ([facility]) Vital Signs (Past 12 Hours) Vital Signs Temp Pulse Pulse Pulse Resp BP BP 11/29/20 07:19 65 11/29/20 07:14 36.7 C 71 18 124/72 11/29/20 03:24 36.7 C 74 18 101/57 L 11/28/20 23:46 75 11/28/20 22:43 36.8 C 79 18 120/71 Pulse Ox 11/29/20 07:19 11/29/20 07:14 98 11/29/20 03:24 96 11/28/20 23:46 11/28/20 22:43 99 Laboratory Results 11/29/20 11/29/20 11/28/20 Range/Units 06:45 06:45 19:47 WBC 6.58 (4.8-10.8) K/uL RBC 3.16 L (4.2-5.4) M/uL Hgb 9.8 L (12.0-16.0) g/dL Hct 28.5 L (37-47) % MCV 90.2 (80-100) fL MCH 31.0 (25-34) pg MCHC 34.4 (32-36) g/dL RDW Std Deviation 51.3 H (36.4-46.3) fL RDW Coeff of Suly 15.4 H (11.5-14.5) % Plt Count 62 L (130-400) K/uL MPV 10.7 H (7.4-10.4) fL Sodium 135 L 134 L (136-145) mmol/L Potassium 3.7 D 3.2 L D (3.5-5.1) mmol/L Chloride 105 103 (98-107) mmol/L Carbon Dioxide 23 25 (21-32) mmol/L Anion Gap 7.0 6.0 (3-11) BUN 33 H 28 H (7-18) mg/dl Creatinine 4.51 H* 4.46 H D (0.6-1.2) mg/dl Est Cr Clr Drug Dosing 9.1 9.1 ml/min Est GFR ( Amer) 10.4 10.5 Est GFR (Non-Af Amer) 9.0 9.1 BUN/Creatinine Ratio 7.1 L 6.3 L (10-20) Glucose 84 184 H (70-99) mg/dl POC Glucose (70-99) mg/dl Calcium 7.8 L 7.7 L (8.5-10.1) mg/dl Phosphorus 3.3 (2.5-4.9) mg/dl Magnesium 2.2 (1.8-2.4) mg/dl 11/28/20 Range/Units 11:24 WBC (4.8-10.8) K/uL RBC (4.2-5.4) M/uL Hgb (12.0-16.0) g/dL Hct (37-47) % MCV (80-100) fL MCH (25-34) pg MCHC (32-36) g/dL RDW Std Deviation (36.4-46.3) fL RDW Coeff of Suly (11.5-14.5) % Plt Count (130-400) K/uL MPV (7.4-10.4) fL Sodium (136-145) mmol/L Potassium (3.5-5.1) mmol/L Chloride (98-107) mmol/L Carbon Dioxide (21-32) mmol/L Anion Gap (3-11) BUN (7-18) mg/dl Creatinine (0.6-1.2) mg/dl Est Cr Clr Drug Dosing ml/min Est GFR ( Amer) Est GFR (Non-Af Amer) BUN/Creatinine Ratio (10-20) Glucose (70-99) mg/dl POC Glucose 114 H (70-99) mg/dl Calcium (8.5-10.1) mg/dl Phosphorus (2.5-4.9) mg/dl Magnesium (1.8-2.4) mg/dl Medications Administered Current Inpatient Medications Acetaminophen (Acetaminophen 500 Mg Tab) 500 mg PO Q4H PRN PRN Reason: pain, fever Stop: 12/25/20 15:23 Last Admin: 11/28/20 08:41 Dose: 500 mg Documented by: Alprazolam (Alprazolam 0.25 Mg Tablet) 0.25 mg PO HS PRN PRN Reason: Anxiety Stop: 12/25/20 00:03 Last Admin: 11/28/20 23:26 Dose: 0.25 mg Documented by: Dicyclomine HCl (Dicyclomine Hcl 10 Mg Cap) 10 mg PO HS KARAN Stop: 12/25/20 20:59 Last Admin: 11/28/20 21:39 Dose: 10 mg Documented by: Ferrous Sulfate (Ferrous Sulfate 325 Mg Tab) 325 mg PO QAM [facility] Stop: 12/25/20 08:59 Last Admin: 11/29/20 07:55 Dose: 325 mg Documented by: Heparin Sodium (Porcine) (Heparin Sod (Porcine) 1000 Unit/Ml 10 Ml Vial) 2,000 units IV TODAY@0700 [facility] Stop: 11/29/20 18:00 Sodium Chloride (Nss) 500 mls @ 15 mls/hr IV .Q24H [facility] Stop: 12/26/20 10:14 Last Admin: 11/28/20 09:08 Dose: Not Given Documented by: Sodium Chloride (Nss 1000ml) 1,000 mls @ 0 mls/hr IV .Q0M PRN PRN Reason: For Hemodialysis Use ONLY Stop: 11/29/20 12:59 Sodium Chloride (Nss 1000ml) 1,000 mls @ 0 mls/hr IV .Q0M PRN PRN Reason: For Hemodialysis Use ONLY Stop: 11/29/20 13:32 Lactobacillus Acidoph/Casei/Rhamnos (Advanced Probiotic 1250 Mg Capsule) [facility] [place] Stop: 12/25/20 08:59 Last Admin: 11/29/20 07:56 Dose: 2 cap Documented by: Loratadine (Loratadine 10 Mg Tab) 10 mg PO [facility] Stop: 12/25/20 08:59 Last Admin: 11/29/20 07:55 Dose: 10 mg Documented by: Magnesium Oxide (Magnesium Oxide 400 Mg Tab) 400 mg PO BID [facility] Stop: 12/25/20 10:14 Last Admin: 11/29/20 07:55 Dose: 400 mg Documented by: Miscellaneous Information (Cefepime Consult Active) 1 ea N/A UD PRN PRN Reason: Consult Stop: 12/25/20 00:43 Multivitamins (Multivitamin Tab) 1 tab PO [facility] Stop: 12/25/20 08:59 Last Admin: 11/29/20 07:56 Dose: 1 tab Documented by: Nitroglycerin (Nitroglycerin Sl 0.4 Mg/Tab Tab) 0.4 mg SL UD PRN PRN Reason: Chest Pain Stop: 12/25/20 00:03 Ondansetron HCl (Ondansetron Inj 2 Mg/Ml 2 Ml Vial) 4 mg IV Q6H PRN PRN Reason: Nausea Stop: 12/25/20 00:03 Paroxetine HCl (Paroxetine Hcl 10 Mg Tab) 10 mg PO [facility] Stop: 12/25/20 08:59 Last Admin: 11/29/20 07:56 Dose: 10 mg Documented by: Vitamin D (Cholecalciferol 1,000 Units 25 Mcg Tab) 1,000 units [facility] [place] Stop: 12/25/20 08:59 Last Admin: 11/29/20 07:55 Dose: 1,000 units Documented by: (1) Anemia Anemia type: unspecified type Qualified Code(s): D64.9 - Anemia, unspecified (2) Ascites Ascites type: other type Qualified Code(s): R18.8 - Other ascites
--- NOTE | 2020-11-29 11:59 | Dialysis Progress Note ---
Date of Service November 29, 2020 Assessment & Plan (1) IPMN (intraductal papillary mucinous neoplasm): 3 cm mass in pancreas >> presumptive malignancy versus high grade dysplasia. Not a candidate for surgical or medical therapy per outpatient notes. In the setting of ESRD and advanced liver cirrhosis w/ complications from REARDON. supportive care (2) ESRD (end stage renal disease): ESRD now on dialysis. AFTER palliative discussion (in put much appreciated) and discussion w/ GI, renal, family, pt wishes to proceed w/ HD trial. Hemodialysis at this point would be palliative. I did d/w pt that she is at higher risk than others for complications of dialysis especially symptomatic low blood pressure and challenges stopping bleeding and to need transfusion -today is 3rd tx; tolerating well so far >appreciate case mgt work on [facility] in center hemo admission -daily bmp and mag -cont to avoid nephrotoxins -not needing supplemental K at tihs point; no need for diuretics eithe rcurrently >started 1.8L FR (3) Anemia: -no epo d/t concern for malignancy, at least to start -- pt aware; will d/w Dr Ovalles palliative epo versus frequent pRBC; pt open to either -transfuse prn per primary service -monitoring her closely today after she had bolus ordered by MD at start of HD > no evidence of bleeding so far, effects/risk of this heparin transient (4) Metabolic acidosis: improved w/ HD; no longer needing bicarb tabs (5) Acute on chronic renal insufficiency: she is ESRD w/ continued progressive renal dysfunction; as above (6) Hypomagnesemia: normalized on bid mag ox > will drop to daily today and see if she can maintain mag (7) 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: -s/p paracentesis Admission and Anticipated Discharge Date Admission Date: November 24, 2020 Subjective seen on dialysis at approximately 1030; tolerating tx well. eating a bit better; still weak but stronger than admission. no sob. no obvious bleeding Review of Systems Review of Systems: All systems reviewed & are unremarkable except as noted in Subjective Physical Exam Constitutional: well developed and + ill appearing (more chronically ill appearing that last month); no acute distress Eyes: EOM intact bilaterally ENMT: Ears: no external ear abnormality Nose: no external nose abnormality Mouth: + dry oral mucous membranes Neck: no nuchal rigidity Respiratory: normal respiratory effort Auscultation: + diminished lung sounds Cardiovascular: Rate/Rhythm: regular rate and regular rhythm Heart Sounds: + murmur Extremities: no edema Gastrointestinal (Abdomen): Inspection/Auscultation: + abdomen distended and normal bowel sounds Percussion/Palpation: abdomen soft; abdomen nontender Musculoskeletal: Extremities: strength 5/5 throughout Skin: no rashes, warm and dry no jaundice Neurologic: sanchez, fluent speech, no tremor Psychiatric: A+Ox3, euthymic affect Speech: normal rate/rhythm/volume of speech Insight: good insight Judgement: good judgement Results & Data ([facility]) Vital Signs (Past 12 Hours) Vital Signs Temp Pulse Pulse Pulse Resp BP BP 11/29/20 11:40 93 H 101/48 L 11/29/20 11:20 101 H 139/90 11/29/20 11:00 99 H 112/71 11/29/20 10:40 93 H 109/71 11/29/20 10:20 95 H 108/66 11/29/20 10:00 93 H 115/68 11/29/20 09:40 99 H 107/70 11/29/20 09:20 90 102/67 11/29/20 08:55 36.5 C 86 11/29/20 07:19 65 11/29/20 07:14 36.7 C 71 18 11/29/20 03:24 36.7 C 74 18 101/57 L BP Pulse Ox 11/29/20 11:40 11/29/20 11:20 11/29/20 11:00 11/29/20 10:40 11/29/20 10:20 11/29/20 10:00 11/29/20 09:40 11/29/20 09:20 11/29/20 08:55 11/29/20 07:19 11/29/20 07:14 124/72 98 11/29/20 03:24 96 Laboratory Results 11/29/20 06:45 11/29/20 06:45 (1) Anemia Anemia type: unspecified type Qualified Code(s): D64.9 - Anemia, unspecified
[2020-11-29] MEDS: DICYCLOMINE HCL 10 MG CAP PO SCH (20:24)
[2020-11-29] MEDS: ALPRAZolam 0.25 MG TABLET PO PRN (23:31)
[2020-11-30 06:51] LABS: BUN Creatinine Ratio 5.7 (10-20); Calcium 8.3 mg/dl (8.5-10.1); Creatinine Clr Calc Pharmacy 14.3 ml/min; Est GFR (Non-African American) 15.5; Potassium 3.7 mmol/L (3.5-5.1)
[2020-11-30] MEDS: CHOLECALCIFEROL 1,000 UNITS 25 MCG TAB PO SCH (07:54)
[2020-11-30] MEDS: MULTIVITAMIN TAB PO SCH (07:54)
[2020-11-30] MEDS: LORATADINE 10 MG TAB PO SCH (07:55)
[2020-11-30] MEDS: ADVANCED PROBIOTIC 1250 MG CAPSULE PO SCH (07:55)
[2020-11-30] MEDS: FERROUS SULFATE 325 MG TAB PO SCH (07:55)
[2020-11-30] MEDS: PARoxetine HCL 10 MG TAB PO SCH (07:56)
--- NOTE | 2020-11-30 08:01 | Nephrology Progress Note ---
Date of Service November 30, 2020 Assessment & Plan (1) IPMN (intraductal papillary mucinous neoplasm): 3 cm mass in pancreas >> presumptive malignancy versus high grade dysplasia. Not a candidate for surgical or medical therapy per outpatient notes. In the setting of ESRD and advanced liver cirrhosis w/ complications from REARDON. supportive care (2) ESRD (end stage renal disease): ESRD now on dialysis. AFTER palliative discussion (in put much appreciated) and discussion w/ GI, renal, family, pt wishes to proceed w/ HD trial. Hemodialysis at this point would be palliative. I did d/w pt that she is at higher risk than others for complications of dialysis especially symptomatic low blood pressure and challenges stopping bleeding and to need transfusion -tolerated 3.5 hr tx w/ 1L off yesterday DISCHARGE RECOMMENDATIONS >[facility] ; orders given to unit; no heparin on tx; routine anemia protocols; will monitor bmp, cbc weekly d/t K, plts >>cont 1.8L FR at d/c >do not resume outpt bicarbonate, lasix at d/c >lower K supplement to 20 mEq daily at d/c -pls d/c po iron and oral mag at d/c >pls have d/c capacity planner cancel any nephrology clinic appts moving forward > we will follow at dialysis; needs to keep/get clinic f/u w/ GI, PCP, palliative though (3) Anemia: -no epo d/t concern for malignancy, at least to start though this raises risk for transfusion dependence -- did d/w Dr Ovalles who feels epo ok as palliative here and so ordered for OP dialysis (4) Metabolic acidosis: improved w/ HD; no longer needing bicarb tabs (5) Acute on chronic renal insufficiency: she is ESRD w/ continued progressive renal dysfunction; as above (6) Hypomagnesemia: normalized on bid then mag ox > will stop at d/c and monitor after d/c (7) 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: -s/p paracentesis Admission and Anticipated Discharge Date Admission Date: November 24, 2020 Subjective slept well; tolerated tx yesterday w/o cramp or n/v or other concern; no edema; no worsening abd fullness; many questions about d/c and post d/c f/u Review of Systems 2 Review of Systems: All systems reviewed & are unremarkable except as noted in Subjective Physical Exam Constitutional: well developed and + ill appearing (more chronically ill appearing that last month); no acute distress Eyes: EOM intact bilaterally ENMT: Ears: no external ear abnormality Nose: no external nose abnormality Mouth: + dry oral mucous membranes Neck: no nuchal rigidity Respiratory: normal respiratory effort Auscultation: + diminished lung sounds Cardiovascular: Rate/Rhythm: regular rate and regular rhythm Heart Sounds: + murmur Extremities: no edema Gastrointestinal (Abdomen): Inspection/Auscultation: + abdomen distended and normal bowel sounds Percussion/Palpation: abdomen soft; abdomen nontender Musculoskeletal: Extremities: strength 5/5 throughout Skin: no rashes, warm and dry no jaundice Neurologic: sanchez, fluent speech, no tremor Psychiatric: A+Ox3, euthymic affect Speech: normal rate/rhythm/volume of speech Insight: good insight Judgement: good judgement Results & Data ([facility]) Vital Signs (Past 12 Hours) Vital Signs Temp Pulse Pulse Resp BP Pulse Ox 11/30/20 02:49 36.9 C 72 18 100/68 99 11/30/20 00:23 84 11/29/20 22:19 37.0 C 86 16 104/70 97 Laboratory Results 11/29/20 06:45 11/30/20 05:23 (1) Anemia Anemia type: unspecified type Qualified Code(s): D64.9 - Anemia, unspecified
--- NOTE | 2020-11-30 08:39 | Hospitalist Progress Note ---
Date of Service November 30, 2020 Assessment & Plan (1) ESRD (end stage renal disease): (2) PUNEET (acute kidney injury): (3) Metabolic acidosis: (4) Anemia: (5) IPMN (intraductal papillary mucinous neoplasm): (6) Ascites: (7) Palliative care encounter: This is a 75-year-old female who presents with shortness of breath with exertion and found to have acute kidney injury on chronic kidney disease V and also ascites. 1. Shortness of breath on exertion, weakness, poor appetite. PUNEET on chronic kidney disease stage V: Baseline creatinine of 4.5, presently with creatinine of 7.5. Received IV Lasix 40 x2 on admission Nephrology consulted s/p permacath placement w/ vascular surgery (11/26) and started on HD 11/26, tolerated well Discussed with nephrology in detail, recommend palliative medicine consultation. Patient is set up for dialysis as outpatient - 12/02, case management aware 2. Metabolic acidosis secondary to above: Nephrology consulted, and further management per their service. Pt started on HD STOP bicarbonate tablets as pt is now on HD Now resolved 4. Ascites, REARDON liver cirrhosis: S/p paracentesis November 25, 2020. 2.7 L of ascitic fluid removed.Not c/w SBP cultx - negative Patient received albumin before and after paracentesis. GI consulted. 5. Thrombocytopenia secondary to liver cirrhosis: Follow the repeat labs. 6. Anemia: Most likely from end-stage renal disease. On iron supplements, which will be continued. No reports of bleeding Repeat hemoglobin 7.0 and 6.8. Blood consent obtained. S/p transfusion of 1 unit of packed red blood cells on 11/25 Hgb 7.4 on 11/27, transfused 1 unit of pRBC (total of 2 units this admission) Current Hgb 9.8 (11/29) 7. Depression and anxiety: Continue paroxetine and Xanax prn. 8. Possible UTI: Empircally on cefepime. Follow the cultures. 9. History of hypertension: We will monitor the blood pressure. 10. Elevated INR from the liver disease, will monitor. 11. History of intraductal papillary mucinous neoplasm of pancreas: Recently seen by hematology/oncology. No intervention planned at this time because of comorbid conditions. Goals of care: Palliative medicine consulted DVT prophylaxis: SCDs. DISPOSITION: Plan to DC home. Outpt HD scheduled for 12/02/2020. Admission and Anticipated Discharge Date Admission Date: November 24, 2020 Subjective Patient seen in follow-up of shortness of breath, ascites, end-stage renal disease Patient status post paracentesis, 2.7 asc. fluid removed, not c/w SBP s/p transfusion of 2 units of pRBC s/p permacath w/ vasc. surgery, started on HD Denies any more shortness of breath, says she feels well Palliative medicine also consulted Currently she feels well, she is excited about discharge home. Outpatient dialysis arranged for December 02 Review of Systems Review of Systems: All systems reviewed & are unremarkable except as noted in HPI & below Constitutional: no fever and no chills Respiratory: no cough and no dyspnea Cardiovascular: no chest pain and no palpitations Gastrointestinal: no abdominal pain, no nausea and no vomiting Physical Exam Physical Exam: GENERAL: The patient is thin and frail, not in acute distress. HEENT: NC/AT. Pupils equal, round, reactive to light. Oral mucosa moist. NECK: No JVD, no neck masses. CARDIOVASCULAR: S1, S2 heard, regular rate and rhythm, no murmur, no gallop. RESPIRATORY SYSTEM: Normal AP diameter. No accessory muscle use. No wheezing, no crackles. ABDOMEN: soft, mildly distended. Bowel sounds present. No tenderness, no guarding, no rigidity. NEURO: Alert and oriented x3, speech fluent, no facial asymmetry, answering questions appropriately, moving extremities spontaneously EXTREMITIES: + trace b/l lower extremity edema. Mild erythematous changes noted. Results & Data Results & Data ([facility]) Vital Signs (Past 12 Hours) Vital Signs Temp Pulse Pulse Resp BP Pulse Ox 11/30/20 08:24 36.7 C 75 16 99/66 L 98 11/30/20 02:49 36.9 C 72 18 100/68 99 11/30/20 00:23 84 11/29/20 22:19 37.0 C 86 16 104/70 97 Laboratory Results 11/30/20 Range/Units 05:23 Sodium 134 L (136-145) mmol/L Potassium 3.7 (3.5-5.1) mmol/L Chloride 103 (98-107) mmol/L Carbon Dioxide 27 (21-32) mmol/L Anion Gap 4.0 (3-11) BUN 16 D (7-18) mg/dl Creatinine 2.87 H D (0.6-1.2) mg/dl Est Cr Clr Drug Dosing 14.3 ml/min Est GFR ( Amer) 18.0 Est GFR (Non-Af Amer) 15.5 BUN/Creatinine Ratio 5.7 L (10-20) Glucose 85 (70-99) mg/dl Calcium 8.3 L (8.5-10.1) mg/dl Magnesium 2.0 (1.8-2.4) mg/dl Medications Administered Current Inpatient Medications Acetaminophen (Acetaminophen 500 Mg Tab) 500 mg PO Q4H PRN PRN Reason: pain, fever Stop: 12/25/20 15:23 Last Admin: 11/28/20 08:41 Dose: 500 mg Documented by: Alprazolam (Alprazolam 0.25 Mg Tablet) 0.25 mg PO HS PRN PRN Reason: Anxiety Stop: 12/25/20 00:03 Last Admin: 11/29/20 23:31 Dose: 0.25 mg Documented by: Dicyclomine HCl (Dicyclomine Hcl 10 Mg Cap) 10 mg PO HS KARAN Stop: 12/25/20 20:59 Last Admin: 11/29/20 20:24 Dose: 10 mg Documented by: Ferrous Sulfate (Ferrous Sulfate 325 Mg Tab) [facility] [place] Stop: 12/25/20 08:59 Last Admin: 11/30/20 07:55 Dose: 325 mg Documented by: Sodium Chloride (Nss) 500 mls @ 15 mls/hr IV .Q24H [facility] Stop: 12/26/20 10:14 Last Admin: 11/28/20 09:08 Dose: Not Given Documented by: Lactobacillus Acidoph/Casei/Rhamnos (Advanced Probiotic 1250 Mg Capsule) 2 cap PO QAM [facility] Stop: 12/25/20 08:59 Last Admin: 11/30/20 07:55 Dose: 2 cap Documented by: Loratadine (Loratadine 10 Mg Tab) 10 mg PO QAM [facility] Stop: 12/25/20 08:59 Last Admin: 11/30/20 07:55 Dose: 10 mg Documented by: Magnesium Oxide (Magnesium Oxide 400 Mg Tab) 400 [facility] [place] Stop: 12/30/20 08:59 Last Admin: 11/30/20 07:54 Dose: 400 mg Documented by: Multivitamins (Multivitamin Tab) 1 tab PO [facility] Stop: 12/25/20 08:59 Last Admin: 11/30/20 07:54 Dose: 1 tab Documented by: Nitroglycerin (Nitroglycerin Sl 0.4 Mg/Tab Tab) 0.4 mg SL UD PRN PRN Reason: Chest Pain Stop: 12/25/20 00:03 Ondansetron HCl (Ondansetron Inj 2 Mg/Ml 2 Ml Vial) 4 mg IV Q6H PRN PRN Reason: Nausea Stop: 12/25/20 00:03 Paroxetine HCl (Paroxetine Hcl 10 Mg Tab) 10 mg PO [facility] Stop: 12/25/20 08:59 Last Admin: 11/30/20 07:56 Dose: 10 mg Documented by: Vitamin D (Cholecalciferol 1,000 Units 25 Mcg Tab) 1,000 units PO [facility] Stop: 12/25/20 08:59 Last Admin: 11/30/20 07:54 Dose: 1,000 units Documented by: (1) Anemia Anemia type: unspecified type Qualified Code(s): D64.9 - Anemia, unspecified (2) Ascites Ascites type: other type Qualified Code(s): R18.8 - Other ascites
[2020-11-30] MEDS ORDERED: MAGNESIUM OXIDE 400 MG TAB PO SCH (09:00)
--- NOTE | 2020-11-30 10:12 | Discharge Summary ---
Date of Service November 30, 2020 Admission HPI Per Admitting Provider A 75-year-old female with past medical history significant for VILLAGOMEZ liver cirrhosis with ascites, esophageal varices without bleeding, portal hypertension, history of bradycardia, hyperlipidemia, intraductal papillary mucinous neoplasm of the pancreas, chronic kidney disease stage IV/V, hypertension, presence of pancreatic duct stent, eczema, iron deficiency anemia, thrombocytopenia, anxiety, history of C. diff infection, who lives with her , who was recently in the hospital for sepsis, treated with cefepime and discharged on p.o. Cipro for possible SBP, and PUNEET on chronic kidney disease stage IV to V, and the patient did fine and discharged. The patient is supposed to see vascular surgery at the end of the month for possibly starting on dialysis. Presents because of feeling weak, tired, poor appetite. Getting shortness of breath on exertion and distended abdomen. She is taking Lasix 20 mg daily at home. In the ER, her labs showed INR of 1.4, creatinine of 7.5, which was around 4.5-4.8 on discharge last admission. Given dose of IV Lasix in the ER after talking to nephrology. Made urine in the ER. Currently, resting comfortably and hemodynamically stable. Denies any chest pain. No cough, feeling cold. No fevers, no headache, no blurred vision, no earache, no runny nose, no sore throat. Appetite is down. No difficulty swallowing. No diarrhea or constipation. Denies any blood in the stools. Denies any blood in the urine. Ambulating without support, but feeling very weak at home. Admission Exam Per Admitting Provider GENERAL: The patient is thin and frail, not in acute distress. VITAL SIGNS: Temperature 36.4, pulse 93, respiratory rate 23, blood pressure 144/80, oxygen 100% on room air. HEENT: Pupils equal, round, reactive to light. Oral mucosa moist. NECK: No JVD, no neck masses. CARDIOVASCULAR: S1, S2 heard, regular rate and rhythm, no murmur, no gallop. RESPIRATORY SYSTEM: Normal AP diameter. No accessory muscle use. No wheezing, no crackles. ABDOMEN: Distended. Bowel sounds present. No tenderness, no guarding, no rigidity. CENTRAL NERVOUS SYSTEM: Cranial nerves II through XII grossly intact, nonfocal. EXTREMITIES: Bilateral lower extremity edema present. Mild erythematous changes seen. Principal Diagnosis End-stage renal disease, PUNEET, metabolic acidosis Ascites, Villagomez cirrhosis IPMNintraductal papillary mucinous neoplasm Now started on dialysis Discharge Exam GENERAL: The patient is thin and frail, not in acute distress. HEENT: NC/AT. Pupils equal, round, reactive to light. Oral mucosa moist. NECK: No JVD, no neck masses. CARDIOVASCULAR: S1, S2 heard, regular rate and rhythm, no murmur, no gallop. RESPIRATORY SYSTEM: Normal AP diameter. No accessory muscle use. No wheezing, no crackles. ABDOMEN: soft, mildly distended. Bowel sounds present. No tenderness, no guarding, no rigidity. NEURO: Alert and oriented x3, speech fluent, no facial asymmetry, answering questions appropriately, moving extremities spontaneously EXTREMITIES: + trace b/l lower extremity edema. Mild erythematous changes noted. Discharge Data Allergies Allergy/AdvReac Type Severity Reaction Status Date / Time adhesive AdvReac Intermediate BANDAIDS-INCREASES Verified 11/24/20 19:14 ECZEMA REDNESS Consultations 11/24/20 20:54 ED Decision to Admit Stat 11/25/20 07:51 Consult Vascular Surgery Routine 11/25/20 08:00 Consult Gastroenterology Routine Consult Nephrology Routine 11/25/20 09:08 Consult Palliative Care Routine Procedures Performed Operation Date: 11/26/20 13:20 Actual Procedures p Insertion of Perm Catheter, Right Internal Jugular Approach, Ultrasound Localization of Right Internal Jugular Vein, Fluoroscopy for Positioning, Moderate Sedation [id number](Right) - Omid Winslow MD Ordered Studies 11/25/20 10:00 US paracentesis abd w/image Routine 11/26/20 07:07 US EV guide vascular access Routine 11/26/20 10:00 EV cvc insrt tunnel wo prt/specialist employee labor relations Routine Hospital Course (1) ESRD (end stage renal disease): (2) PUNEET (acute kidney injury): (3) Metabolic acidosis: (4) Anemia: (5) IPMN (intraductal papillary mucinous neoplasm): (6) Ascites: (7) Palliative care encounter: This is a 75-year-old female who presents with shortness of breath with exertion and found to have acute kidney injury on chronic kidney disease V and also ascites. 1. Shortness of breath on exertion, weakness, poor appetite. PUNEET on chronic kidney disease stage V: Baseline creatinine of 4.5, presently with creatinine of 7.5. Received IV Lasix 40 x2 on admission Nephrology consulted s/p permacath placement w/ vascular surgery (11/26) and started on HD 11/26, tolerated well Discussed with nephrology in detail, recommend palliative medicine consultation. Patient is set up for dialysis as outpatient - 12/02, case management aware 2. Metabolic acidosis secondary to above: Nephrology consulted, and further management per their service. Pt started on HD STOP bicarbonate tablets as pt is now on HD Now resolved 4. Ascites, VILLAGOMEZ liver cirrhosis: S/p paracentesis November 25, 2020. 2.7 L of ascitic fluid removed.Not c/w SBP cultx - negative Patient received albumin before and after paracentesis. GI consulted. 5. Thrombocytopenia secondary to liver cirrhosis: Follow the repeat labs. 6. Anemia: Most likely from end-stage renal disease. On iron supplements, which will be continued. No reports of bleeding Repeat hemoglobin 7.0 and 6.8. Blood consent obtained. S/p transfusion of 1 unit of packed red blood cells on 11/25 Hgb 7.4 on 11/27, transfused 1 unit of pRBC (total of 2 units this admission) Current Hgb 9.8 (11/29) 7. Depression and anxiety: Continue paroxetine and Xanax prn. 8. Possible UTI: Empircally on cefepime. Follow the cultures. 9. History of hypertension: We will monitor the blood pressure. 10. Elevated INR from the liver disease, will monitor. 11. History of intraductal papillary mucinous neoplasm of pancreas: Recently seen by hematology/oncology. No intervention planned at this time because of comorbid conditions. Goals of care: Palliative medicine consulted DVT prophylaxis: SCDs. DISPOSITION: Plan to DC home. Outpt HD scheduled for 12/02/2020. Total Time Total Time Spent Total Time Spent (In Minutes): 40 Total Time Includes: Examination of the Patient, Discharge Planning, Medication Reconciliation and Communication With Other Providers Discharge Plan Discharge Items Patient Disposition: Home - Self-Care Reason For Visit: SOB Discharge Diagnosis: End-stage renal disease, PUNEET, metabolic acidosis Ascites, Villagomze cirrhosis IPMNintraductal papillary mucinous neoplasm Now started on dialysis Activity: Per Instructions section Non-emergency contact: Primary Care Provider and Specialist Call non-emergency contact if: you have any medication questions and your symptoms worsen Follow-up/Referrals: Anisha Romano DO [Primary Care Provider] - (Date & Time 12/03/2020 11:10 AM Provider Ansiha Romano DO Department Internal Medicine [facility] ) Diet: Dialysis Renal Addtl Attending Provider Instructions: Your next dialysis is scheduled for December 02. Your airconditioning plant operator/kidney doctor, Dr. Hernandez will be following with you at your dialysis, and therefore you do not have to follow-up in the clinic anymore. Follow-up with your primary care doctor, on December 03. Do not take sodium bicarbonate anymore. Also stop taking iron supplement. Do not take furosemide/Lasix either. Stop taking magnesium, and only take your potassium pill once a day (20 mEq). Pending Studies at Discharge: No Stand-Alone Forms: [facility] [employer], Smoking Cessation Medications and DC Order Prescriptions: Continued paroxetine HCl [Paxil] 10 mg Tablet 10 mg PO QAM Qty: 0 RF: 0 loratadine [Claritin] 10 mg Tablet 10 mg PO QAM Qty: 0 RF: 0 multivitamin Tablet 1 tab PO QAM RF: 0 Align 4 mg Capsule 4 mg PO QAM RF: 0 dicyclomine 10 mg Capsule 10 mg PO HS RF: 0 cholecalciferol (vitamin D3) 25 mcg (1,000 unit) Tablet 25 mcg PO QAM RF: 0 alprazolam [Xanax] 0.25 mg Tablet 0.25 mg PO HS PRN (Reason: Anxiety) RF: 0 Changed potassium chloride 20 mEq Tablet Extended Release 20 meq PO QAM Qty: 0 RF: 0 Discontinued sodium bicarbonate 650 mg Tablet 650 mg PO BID Qty: 60 RF: 0 ferrous sulfate 27 mg iron Tablet 27 mg PO QAM RF: 0 ciprofloxacin HCl 250 mg tablet 250 mg PO QAM RF: 0 furosemide 20 mg tablet 20 mg PO QAM RF: 0 Discharge Orders: Discharge Order (Routine); Ordered 11/30/20 Ordered By: Alfredo Guadarrama Admission Data Admit Date/Time: 11/24/20 22:55 Attending Provider: Alfredo Guadarrama Admit Provider: Brandan Ricks Primary Care Provider: Anisha Romano Other Providers: Brandan Ricks ; Omid Winslow ; Jarad May ; Rebecca Cote ; Billie Metz ; Su Brandt ; Robert Acosta ; Manny Druon ; Wolf Cheng ; Sundar Jesus ; Suresh Matos ; Rola Blank ; Marianne Haney ; Claudia Aragon ; Mara Burns ; Tho Upton ; Keyana Hernandez ; Nino King ; Beverly Ruiz ; Janis Valverde ; Leslie Pretty ; Kaz Andres ; Tanvi Simmons
== END 2020-11-30 13:45 | disposition home or self-care (01) | DRG 682 ==
LOC: ED 15:47 → 2S 22:55 → 2N 11-28 11:35

== ENCOUNTER 2021-03-28 17:32 | Inpatient (IN) ==
--- NOTE | 2021-03-28 18:07 | Emergency Department Note ---
Impression & Plan Hypotension, Weakness, Liver failure, Acute hyponatremia, Coagulopathy, Elevated lactic acid level, Leukocytosis ED Provider Note NAME: HITESH CALIXTO AGE: 75 SEX: F : 1945 ARRIVES VIA: Walk-In INFORMANT: [Patient] ED PROVIDER(S): [Jadon Shaw MD] CHIEF COMPLAINT: Abnormal labs HISTORY OF PRESENT ILLNESS: The patient is a 75-year-old female presents to the ER with abnormal outpatient laboratory testing. She has known liver disease. The patient had a par acentesis performed 5 days ago and she believes she has already filled back up with fluid. Her belly is quite distended. The patient states that she had laboratory testing today and her INR was over 3, this is high for her and she was referred to the ED. The patient admits to some shortness of breath with exertion as well as some extremity weakness. She feels fatigued and tired. There has been no increased cough, no sore throat. She did have a temperature 2 days ago but this was a one-time event, no fever since. The patient denies fall. She does not receive dialysis on Sunday, and Sunday. She went to dialysis on Sunday as scheduled. She is due for dialysis again tomorrow. Of note, the patient's blood pressure has been quite low lately. The staff had to keep her at dialysis for quite a bit the last time she was there because her pressure was just too low. REVIEW OF SYSTEMS: See HPI for pertinent positives and negatives. A total of ten systems were reviewed and were otherwise negative. PMHx/PSHx: See Below SOCIAL HISTORY: See Below. PHYSICAL EXAM: GENERAL: Patient is in no acute distress. HEENT: No acute trauma, normocephalic atraumatic, mucous membranes moist, no nasal congestion NECK: No stridor, no adenopathy, no meningismus, trachea is midline. LUNGS: Clear to auscultation bilaterally, no wheeze, no rhonchi, breath sounds equal. HEART: Without murmurs gallops or rubs, regular rate and rhythm. ABDOMEN: Soft, nontender, bowel sounds positive, no peritonitis, significant distention is noted. EXTREMITIES: No cyanosis, mild bilateral pedal edema, full range of motion of all the joints without pain or difficulty, no signs for acute trauma. NEUROLOGIC: Oriented x 3, no acute motor or sensory deficits, no focal weakness. SKIN: No rash, moderate jaundice, no diaphoresis. DIFFERENTIAL DIAGNOSIS: Infection, dehydration, metabolic abnormality, hypo/hyperglycemia, liver or renal failure, coagulopathy, ascites, intra-abdominal bleeding, electrolyte disturbance, anemia, hypoxia, cardiac sources, intracerebral event, toxicologic issues, stroke, TIA, as well as other pathologies. EMERGENCY DEPARTMENT COURSE/PROCEDURES: ECG: Indication was weakness. The ECG shows a normal sinus rhythm with some baseline artifact. The rate is 95. There is no ST elevation, no PVCs. There is poor R wave progression. The QTc is 442. Continuous Cardiac Monitoring: An order was placed for continuous cardiac monitoring. The monitor shows a rate of 99 with normal sinus rhythm. Critical Care Note: I have personally spent 52 minutes of critical care time in the direct management of this patient. This includes bedside care, interpretat ion of diagnostic studies, and testing, discussion with consultants, patient, and family members, and other required patient management activities. This 52 minutes is in excess of all separately billable procedures.52 MEDICAL DECISION MAKING: There is a moderate leukocytosis which would be consistent with infection. The patient is anemic but she has a history of the same. There is a normal platelet count. The patient does have an elevation to her INR 3.8, this is above her typical values. The elevation is likely a result of worsening liver disease. She is hyponatremic with a sodium of 128. Creatinine is high at 4.7, consistent with her need for dialysis. Lactic acid level was elevated at 4.2, this could be consistent with infection and/or dehydration. Bilirubin was quite high at 7.1, this is above her typical values. She had a normal ammonia level. The patient appeared to be in a euthyroid state. ECG showed a sinus rhythm, there was no acute ischemia. Cardiac enzyme testing x1 is not consistent with acute cardiac injury. Covid testing returned negative. Chest x-ray did not show pneumonia or CHF. Abdominal and pelvis CT showed ascites, bowel edema, an enlarged gallbladder and a subacute compression fracture. There was no acute surgical process by CT imaging. The patient was given 1.5 L of IV saline. She was given IV cefepime as empiric antibiotic coverage. I was hesitant to give any more fluid as she is a dialysis patient and actually scheduled for dialysis tomorrow. I was very concerned about excessive fluid administration and resultant CHF. Patient's blood pressure improved significantly with the amount of fluid administered. Blood pressure was 112 systolic on my last patient assessment. I spoke to the patient and case preparer and liner. Hospitalization is warranted. She has multiple issues found today that need addressed. She may in fact be septic. I did have a discussion with her and her family, she is a DNR/DNI. She prefers to be comfortable more so than anything. She does agree to IV fluids and IV antibiotics and hospitalization. I did speak with case management, the on-call hospitalist was consulted. Past Med/Surg History Medical History Anxiety Degenerative arthritis of left knee End stage renal disease follows with Dr. 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 for PUNEET on CKD/cirrhosis History of esophagogastroduodenoscopy (EGD) History of knee replacement procedure of left knee History of knee replacement procedure of right knee History of squamous cell carcinoma excision History of surgical removal of ganglion cyst History of tonsillectomy and adenoidectomy History of total abdominal hysterectomy and bilateral salpingo-oophorectomy Family History Father Cancer Mother Diabetes Other No family history of adverse response to anesthesia Social History Smoking Status: Former smoker Tobacco Type: Cigarettes Second Hand Exposure: Yes (at times); Hx Alcohol Use: No Hx Substance Use: No Preferred Language: German Communication Ability: Effective Executive Vice President Required: No Beliefs That Will Affect Care: None marital status: Current Living Situation: Spouse Feels Safe at Home: Yes Assistive Devices: Cane, Denture - Upper and Glasses Allergies Allergies Allergy/AdvReac Type Severity Reaction Status Date / Time adhesive AdvReac Intermediate BANDAIDS-INCREASES Verified 03/28/21 12:15 ECZEMA REDNESS Home Meds Home Medications Medication Instructions Recorded Confirmed loratadine 10 mg tablet (Claritin) 10 mg PO QAM #0 tab 10/09/14 03/28/21 paroxetine HCl 10 mg tablet (Paxil) 10 mg PO QAM #0 tab 10/09/14 03/28/21 Bifidobacterium infantis 4 mg 4 mg PO QAM 01/21/19 03/28/21 capsule (Align) dicyclomine 10 mg capsule 10 mg PO HS 04/05/20 03/28/21 cholecalciferol (vitamin D3) 25 25 mcg PO QAM 10/22/20 03/28/21 mcg (1,000 unit) tablet alprazolam 0.25 mg tablet (Xanax) 0.25 mg PO HS PRN 11/16/20 03/28/21 vitamin B complex-vitamin C-folic 1 tab PO DAILY 12/16/20 03/28/21 acid 0.8 mg tablet (Nephro-Nitin) epoetin beta, methoxy peg 30 30 mcg SUBCUT WK 02/09/21 03/28/21 mcg/0.3 mL injection syringe (Mircera) docusate sodium 50 mg capsule 50 mg PO BID 02/23/21 03/28/21 simethicone 40 mg chewable tablet 40 mg PO DAILY PRN 02/23/21 03/28/21 sulfamethoxazole 400 1 tab PO DAILY 02/23/21 03/28/21 mg-trimethoprim 80 mg tablet (Bactrim) Previous Rx's Medication Instructions Recorded potassium chloride 20 mEq 20 meq PO QAM #0 tab 11/30/20 tablet,extended release Results & Data (ED) Vital Signs Vital Signs - 24 hr 03/28/21 17:48 03/28/21 18:26 03/28/21 18:30 Temperature 36.0 C L Temperature Source Temporal Artery Scan Pulse Rate 99 H 98 H 99 H Pulse Rhythm Regular Pulse Strength Normal Respiratory Rate 18 20 17 Respiratory Effort / Characteristics Non-Labored Spontaneous Respiratory Depth Normal Respiratory Pattern Regular Blood Pressure 81/59 L Blood Pressure Mean 66 Blood Pressure Position Sitting Pulse Oximetry 97 Oxygen Delivery Method Room Air Sepsis Recent Fever Within 48 Hours No Sepsis New/Unexplained Change in Mental Status No Sepsis Action Taken by Nursing No Action Required 03/28/21 18:49 Temperature Temperature Source Pulse Rate Pulse Rhythm Pulse Strength Respiratory Rate Respiratory Effort / Characteristics Respiratory Depth Respiratory Pattern Blood Pressure Blood Pressure Mean Blood Pressure Position Pulse Oximetry 98 Oxygen Delivery Method Room Air Sepsis Recent Fever Within 48 Hours Sepsis New/Unexplained Change in Mental Status Sepsis Action Taken by Longterm Medications Current Medication List: was personally reviewed by me Laboratory Data Attestation: I reviewed the patient's lab results. Result diagrams: 03/28/21 18:33 03/28/21 18:33 Lab Results 03/28/21 03/28/21 03/28/21 Range/Units 18:33 18:33 18:33 WBC 16.90 H (4.8-10.8) K/uL RBC 3.30 L (4.2-5.4) M/uL Hgb 10.2 L (12.0-16.0) g/dL Hct 30.3 L (37-47) % MCV 91.8 (80-100) fL MCH 30.9 (25-34) pg MCHC 33.7 (32-36) g/dL RDW Std Deviation 54.9 H (36.4-46.3) fL RDW Coeff of Suly 16.9 H (11.5-14.5) % Plt Count 155 (130-400) K/uL MPV 11.2 H (7.4-10.4) fL Immature Gran % (Auto) 0.3 % Neut % (Auto) 85.0 % Lymph % (Auto) 7.8 % Meeker % (Auto) 6.6 % Eos % (Auto) 0.2 % Baso % (Auto) 0.1 % Neut # (Auto) 14.38 H (1.4-6.5) K/uL Lymph # (Auto) 1.31 (1.2-3.4) K/uL Meeker # (Auto) 1.11 H (0.11-0.59) K/uL Eos # (Auto) 0.04 (0-0.5) K/uL Baso # (Auto) 0.01 (0-0.2) K/uL Immature Gran # (Auto) 0.05 H (0.00-0.02) K/uL Hypochromasia Present PT 34.5 H (9.0-12.0) Seconds INR 3.8 H (0.9-1.1) APTT 62.6 H* (21.0-31.0) Seconds PTT Ratio 2.4 Sodium 128 L (136-145) mmol/L Potassium 4.1 (3.5-5.1) mmol/L Chloride 93 L (98-107) mmol/L Carbon Dioxide 25 (21-32) mmol/L Anion Gap 11.0 (3-11) BUN 30 H (7-18) mg/dl Creatinine 4.87 H* (0.6-1.2) mg/dl Est Cr Clr Drug Dosing 8.6 ml/min Est GFR ( Amer) 9.5 ml/min Est GFR (Non-Af Amer) 8.2 ml/min BUN/Creatinine Ratio 6.1 L (10-20) Glucose 159 H (70-99) mg/dl Lactate (0.4-2.0) mmol/L Calcium 8.8 (8.5-10.1) mg/dl Magnesium 2.2 (1.8-2.4) mg/dl Total Bilirubin 7.1 H (0.2-1) mg/dl AST 53 H (15-37) U/L ALT 33 (12-78) U/L Alkaline Phosphatase 243 H (45-117) U/L Ammonia (11-32) umol/L Troponin I < 0.015 (0-0.045) ng/ml Total Protein 7.1 (6.4-8.2) gm/dl Albumin 2.1 L (3.4-5.0) gm/dl Globulin 5.0 H (2.5-4.0) gm/dl Albumin/Globulin Ratio 0.4 L (0.9-2) TSH 2.450 (0.300-4.500) uIu/ml COVID-19 Eval Order SARS-CoV-2 (PCR) (Negative) 08/16/21 08/16/21 08/16/21 Range/Units 18:33 18:33 18:35 WBC (4.8-10.8) K/uL RBC (4.2-5.4) M/uL Hgb (12.0-16.0) g/dL Hct (37-47) % MCV (80-100) fL MCH (25-34) pg MCHC (32-36) g/dL RDW Std Deviation (36.4-46.3) fL RDW Coeff of Suly (11.5-14.5) % Plt Count (130-400) K/uL MPV (7.4-10.4) fL Immature Gran % (Auto) % Neut % (Auto) % Lymph % (Auto) % Meeker % (Auto) % Eos % (Auto) % Baso % (Auto) % Neut # (Auto) (1.4-6.5) K/uL Lymph # (Auto) (1.2-3.4) K/uL Meeker # (Auto) (0.11-0.59) K/uL Eos # (Auto) (0-0.5) K/uL Baso # (Auto) (0-0.2) K/uL Immature Gran # (Auto) (0.00-0.02) K/uL Hypochromasia PT (9.0-12.0) Seconds INR (0.9-1.1) APTT (21.0-31.0) Seconds PTT Ratio Sodium (136-145) mmol/L Potassium (3.5-5.1) mmol/L Chloride (98-107) mmol/L Carbon Dioxide (21-32) mmol/L Anion Gap (3-11) BUN (7-18) mg/dl Creatinine (0.6-1.2) mg/dl Est Cr Clr Drug Dosing ml/min Est GFR ( Amer) ml/min Est GFR (Non-Af Amer) ml/min BUN/Creatinine Ratio (10-20) Glucose (70-99) mg/dl Lactate 4.2 H* (0.4-2.0) mmol/L Calcium (8.5-10.1) mg/dl Magnesium (1.8-2.4) mg/dl Total Bilirubin (0.2-1) mg/dl AST (15-37) U/L ALT (12-78) U/L Alkaline Phosphatase (45-117) U/L Ammonia < 10.0 L (11-32) umol/L Troponin I (0-0.045) ng/ml Total Protein (6.4-8.2) gm/dl Albumin (3.4-5.0) gm/dl Globulin (2.5-4.0) gm/dl Albumin/Globulin Ratio (0.9-2) TSH (0.300-4.500) uIu/ml COVID-19 Eval Order Covid19 [address] [facility] SARS-CoV-2 (PCR) (Negative) 03/28/21 Range/Units 18:35 WBC (4.8-10.8) K/uL RBC (4.2-5.4) M/uL Hgb (12.0-16.0) g/dL Hct (37-47) % MCV (80-100) fL MCH (25-34) pg MCHC (32-36) g/dL RDW Std Deviation (36.4-46.3) fL RDW Coeff of Suly (11.5-14.5) % Plt Count (130-400) K/uL MPV (7.4-10.4) fL Immature Gran % (Auto) % Neut % (Auto) % Lymph % (Auto) % Meeker % (Auto) % Eos % (Auto) % Baso % (Auto) % Neut # (Auto) (1.4-6.5) K/uL Lymph # (Auto) (1.2-3.4) K/uL Meeker # (Auto) (0.11-0.59) K/uL Eos # (Auto) (0-0.5) K/uL Baso # (Auto) (0-0.2) K/uL Immature Gran # (Auto) (0.00-0.02) K/uL Hypochromasia PT (9.0-12.0) Seconds INR (0.9-1.1) APTT (21.0-31.0) Seconds PTT Ratio Sodium (136-145) mmol/L Potassium (3.5-5.1) mmol/L Chloride (98-107) mmol/L Carbon Dioxide (21-32) mmol/L Anion Gap (3-11) BUN (7-18) mg/dl Creatinine (0.6-1.2) mg/dl Est Cr Clr Drug Dosing ml/min Est GFR ( Amer) ml/min Est GFR (Non-Af Amer) ml/min BUN/Creatinine Ratio (10-20) Glucose (70-99) mg/dl Lactate (0.4-2.0) mmol/L Calcium (8.5-10.1) mg/dl Magnesium (1.8-2.4) mg/dl Total Bilirubin (0.2-1) mg/dl AST (15-37) U/L ALT (12-78) U/L Alkaline Phosphatase (45-117) U/L Ammonia (11-32) umol/L Troponin I (0-0.045) ng/ml Total Protein (6.4-8.2) gm/dl Albumin (3.4-5.0) gm/dl Globulin (2.5-4.0) gm/dl Albumin/Globulin Ratio (0.9-2) TSH (0.300-4.500) uIu/ml COVID-19 Eval Order SARS-CoV-2 (PCR) NEGATIVE (Negative) Administered Medications Discontinued Medications Cefepime HCl (Maxipime) 2,000 mg in 20 mls @ 5 mls/min IV NOW STA; Protocol Stop: 03/28/21 18:55 Last Admin: 03/28/21 19:47 Dose: 5 mls/min Documented by: [id number] Sodium Chloride (Nss 1000ml) 500 mls @ 999 mls/hr IV .Q31M ONE Stop: 03/28/21 19:22 Last Admin: 03/28/21 19:44 Dose: 999 mls/hr Documented by: [id number] Sodium Chloride (Nss 1000ml) 1,000 mls @ 999 mls/hr IV .Q1H1M ONE Stop: 03/28/21 20:25 Last Admin: 03/28/21 19:44 Dose: 999 mls/hr Documented by: [id number] Imaging Data Radiologist's Impression: Abdomen/Pelvis CT 03/28/21 18:02 CT SCAN OF THE ABDOMEN AND PELVIS WITHOUT IV CONTRAST CLINICAL HISTORY: Abdominal distention. COMPARISON STUDY: Abdominal CT dated 10/23/2020. TECHNIQUE: CT scan of the abdomen and pelvis is performed from the lung bases to the proximal femora. Images are reviewed in the axial, sagittal, and coronal planes. IV contrast was not administered for this examination. Note that the examination is significantly suboptimal without IV contrast. A dose lowering technique was utilized adhering to the principles of ALARA. CT DOSE: 565.38 mGy.cm FINDINGS: Lung bases: The tip of a central venous catheter terminates at the cavoatrial j unction. The heart is normal in size noting trace pericardial effusion. The coronary arteries are densely calcified. There is a small left pleural effusion with associated left basilar atelectasis. Liver: The unenhanced liver is cirrhotic in morphology and heterogeneous and attenuation. There is nodularity of the hepatic surface contour. There is mild intrahepatic biliary ductal dilatation. Trace pneumobilia suggests patency of the common bile duct stent. Gallbladder: Gallbladder is distended. Gallbladder wall thickening and edema is nonspecific. There is layering hyperdense material within the gallbladder lumen. A common bile duct stent is in place. Spleen: Normal in size and attenuation. Pancreas: The unenhanced pancreas is moderately atrophic and not well evaluated. A pancreatic duct stent is in place. There is dilatation of the distal pancreatic duct which measures up to 6 mm in diameter. Internal soft tissue thickening around the celiac axis is similar to previous. Adrenal glands: Unremarkable. Kidneys: The unenhanced kidneys are atrophic and without hydronephrosis. Hyperdense material within the renal collecting system bilaterally may represent excreted contrast, renal vascular calcifications, or less likely small calculi. There is no evidence of contour deforming renal mass lesion. Abdominal vasculature: The abdominal aorta is normal in course and caliber noting moderate to advanced atherosclerotic calcification. Bowel: There is gaseous distention of the stomach. There is moderate colonic fecal retention. No bowel obstruction is seen. Wall thickening is seen throughout the colon, greatest involving the right colon. There is also mild wall thickening of the small bowel loops. The appendix is not identified and reported surgically absent. Peritoneum: There is a moderate to large volume of abdominopelvic ascites. No intraperitoneal free air is identified. There is no ascitic fluid containing umbilical hernia. Lymphadenopathy: None. Pelvic viscera: The bladder is decompressed and not well evaluated. The uterus is surgically absent. No adnexal lesion is seen. Skeletal structures: The skeletal structures are osteopenic. There is is an acute to subacute compression fracture of L3 with mild mild loss of height. No retropulsed fragments are identified. There is also a fracture through the left transverse process of L3. Mild sclerotic change in around the fractures may be related to early healing. These are new as compared to 10/23/2020. No additional fracture is identified. No lytic or blastic lesions are seen. There are healed right-sided rib fractures. Soft tissues: There is body wall edema. IMPRESSION: 1. There is an acute to subacute compression fracture of L3 with mild loss of height. There is also a minimally displaced left transverse process fracture of L3. Mild sclerotic change around the fracture sites may represent early healing. These are new from 10/23/2020. Clinical correlation will be required. 2. Cirrhotic liver morphology. 3. Moderate to large volume of abdominopelvic ascites. 4. Stents are present within the common bile duct and the pancreatic duct. 5. The gallbladder is distended and contains hyperdense material. Gallbladder wall thickening and edema is nonspecific and may be related to cirrhosis and ascites. Correlate clinically for evidence of acute cholecystitis. 6. Small left pleural effusion with associated atelectasis. This is new from 10/23/2020. 7. There is wall thickening throughout the colon, greatest involving the right colon. Mild edema is also suggested within the wall of the small bowel. This likely represents portal enterocolopathy. Correlate clinically for evidence of an infectious enterocolitis. 8. Body wall edema. 9. Additional findings as above. ACT 112: Negative or not required by law. Electronically signed by: Jadon Esparza M.D. 03/28/2021 8:15 PM Chest X-Ray 03/28/21 18:02 SINGLE VIEW CHEST CLINICAL HISTORY: Generalized weakness. FINDINGS: An AP, portable, upright chest radiograph is compared to study dated 11/24/2020. A right sided central venous catheter is new from previous. The heart is top normal for projection noting atherosclerotic calcification of the thoracic aorta. There are low lung volumes with bibasilar atelectasis. Question trace pleural effusions. No airspace consolidation is identified typical for pneumonia. No pneumothorax is seen. The skeletal structures are osteopenic. The bony thorax is grossly intact. Gaseous distention of the stomach is noted in the upper abdomen. IMPRESSION: 1. Low lung volumes with bibasilar atelectasis. 2. Question trace pleural effusions. ACT 112: Negative or not required by law. Electronically signed by: Jadon Esparza M.D. 03/28/2021 7:20 PM Discharge Plan Visit Data Chief Complaint: Abnormal Labs/Diagnostic Testing Stated Complaint: ABNORMAL LABS ED Provider: Jadon Shaw Discharge Problem: Hypotension, Weakness, Liver failure, Acute hyponatremia, Coagulopathy, Elevated lactic acid level, Leukocytosis Patient Disposition: Admitted As Inpatient Condition: Serious Forms Stand Alone Forms: [facility] Medical Prescriptions Prescriptions: No Action paroxetine HCl [Paxil] 10 mg Tablet 10 mg PO QAM Qty: 0 RF: 0 loratadine [Claritin] 10 mg Tablet 10 mg PO QAM Qty: 0 RF: 0 Align 4 mg Capsule 4 mg PO QAM RF: 0 dicyclomine 10 mg Capsule 10 mg PO HS RF: 0 cholecalciferol (vitamin D3) 25 mcg (1,000 unit) Tablet 25 mcg PO QAM RF: 0 alprazolam [Xanax] 0.25 mg Tablet 0.25 mg PO HS PRN (Reason: Anxiety) RF: 0 potassium chloride 20 mEq Tablet Extended Release 20 meq PO QAM Qty: 0 RF: 0 Nephro-Nitin 0.8 mg Tablet 1 tab PO DAILY RF: 0 Mircera 30 mcg/0.3 mL Syringe 30 mcg subcut WK RF: 0 docusate sodium 50 mg Capsule 50 mg PO BID RF: 0 simethicone 40 mg Tablet,Chewable 40 mg PO DAILY PRN (Reason: Gi Upset) RF: 0 sulfamethoxazole-trimethoprim [Bactrim] 400-80 mg Tablet 1 tab PO DAILY RF: 0 Referrals Referrals: Anisha Romano DO [Primary Care Provider] - Discharge Problem: Hypotension Qualifiers: Hypotension type: unspecified hypotension type Qualified Code(s): I95.9 - Hypotension, unspecified Liver failure Qualifiers: Liver failure chronicity: unspecified chronicity Hepatic coma status: without hepatic coma Qualified Code(s): K72.90 - Hepatic failure, unspecified without coma Leukocytosis Qualifiers: Leukocytosis type: unspecified Qualified Code(s): D72.829 - Elevated white blood cell count, unspecified
[2021-03-28 18:44] LABS: Hematocrit (blood only) 30.3 % (37-47); Hemoglobin 10.2 g/dL (12.0-16.0); Mean Corpuscular Hemoglobin 30.9 pg (25-34); Mean Corpuscular Hgb Conc 33.7 g/dL (32-36); Mean Corpuscular Volume 91.8 fL (80-100); Mean Platelet Volume 11.2 fL (7.4-10.4); Platelet Count 155 K/uL (130-400); RDW Coefficient of Variation 16.9 % (11.5-14.5); RDW Standard Deviation 54.9 fL (36.4-46.3)
[2021-03-28] MEDS ORDERED: SODIUM CHLORIDE 0.9% 1000ML 500 ML IV ONE (18:52)
[2021-03-28] MEDS ORDERED: CEFEPIME 2,000 MG/20 ML VIAL IV STA (18:52)
[2021-03-28 19:06] LABS: INR 3.8 (0.9-1.1); Partial Thromboplastin Ratio 2.4; Prothrombin Time 34.5 Seconds (9.0-12.0)
[2021-03-28 19:11] LABS: Basophils # (auto) 0.01 K/uL (0-0.2); Basophils % (auto) 0.1 %; Eosinophils # (auto) 0.04 K/uL (0-0.5); Eosinophils % (auto) 0.2 %; Hypochromasia Present; Immature Granulocytes # (auto) 0.05 K/uL (0.00-0.02); Immature Granulocytes % (auto) 0.3 %; Lymphocytes # (auto) 1.31 K/uL (1.2-3.4); Lymphocytes % (auto) 7.8 %; Monocytes # (auto) 1.11 K/uL (0.11-0.59); Monocytes % (auto) 6.6 %; Neutrophils # (auto) 14.38 K/uL (1.4-6.5)
[2021-03-28 19:21] LABS: Alanine Aminotransferase 33 U/L (12-78); Albumin Globulin Ratio 0.4 (0.9-2); Albumin Level 2.1 gm/dl (3.4-5.0); Alkaline Phosphatase 243 U/L (45-117); Aspartate Aminotransferase 53 U/L (15-37); BUN Creatinine Ratio 6.1 (10-20); Bilirubin,Total 7.1 mg/dl (0.2-1); Blood Urea Nitrogen 30 mg/dl (7-18); Calcium 8.8 mg/dl (8.5-10.1); Carbon Dioxide 25 mmol/L (21-32); Chloride 93 mmol/L (98-107); Creatinine Clr Calc Pharmacy 8.6 ml/min; Est GFR (African American) 9.5 ml/min; Est GFR (Non-African American) 8.2 ml/min; Glucose 159 mg/dl (70-99); Magnesium 2.2 mg/dl (1.8-2.4); Potassium 4.1 mmol/L (3.5-5.1); Sodium 128 mmol/L (136-145); Total Protein 7.1 gm/dl (6.4-8.2); Troponin I < 0.015 ng/ml (0-0.045)
--- NOTE | 2021-03-28 19:22 | XRay Report ---
SINGLE VIEW CHEST CLINICAL HISTORY: Generalized weakness. FINDINGS: An AP, portable, upright chest radiograph is compared to study dated 11/24/2020. A right rebecca ed central venous catheter is new from previous. The heart is top normal for projection noting athero sclerotic calcification of the thoracic aorta. There are low lung volumes with bibasilar atelectasis. Question trace pleural effusions. No airspace consolidation is identified typical for pneumonia. No pneumothorax is seen. The skeletal structures are osteopenic. The bony thorax is grossly intact. Gase ous distention of the stomach is noted in the upper abdomen. IMPRESSION: 1. Low lung volumes with bibasilar atelectasis. 2. Question trace pleural effusions. ACT 112: Negative or not required by law. Electronically signed by: Jadon Esparza M.D. 03/28/2021 7:20 PM
[2021-03-28] MEDS ORDERED: SODIUM CHLORIDE 0.9% 1000ML 1,000 ML IV ONE (19:25)
[2021-03-28 19:38] LABS: Partial Thromboplastin Time 62.6 Seconds (21.0-31.0)
--- NOTE | 2021-03-28 20:16 | CT Scan Report ---
CT SCAN OF THE ABDOMEN AND PELVIS WITHOUT IV CONTRAST CLINICAL HISTORY: Abdominal distention. COMPARISON STUDY: Abdominal CT dated 10/23/2020. TECHNIQUE: CT scan of the abdomen and pelvis is performed from the lung bases to the proximal femora. Images are reviewed in the axial, sagittal, and coronal planes. IV contrast was not administered for this examination. Note that the examination is significantly suboptimal without IV contrast. A dose lowering technique was utilized adhering to the principles of ALARA. CT DOSE: 565.38 mGy.cm FINDINGS: Lung bases: The tip of a central venous catheter terminates at the cavoatrial junction. The heart is normal in size noting trace pericardial effusion. The coronary arteries are densely calcified. There is a small left pleural effusion with associated left basilar atelectasis. Liver: The unenhanced liver is cirrhotic in morphology and heterogeneous and attenuation. There is no dularity of the hepatic surface contour. There is mild intrahepatic biliary ductal dilatation. Trace pneumobilia suggests patency of the common bile duct stent. Gallbladder: Gallbladder is distended. Gallbladder wall thickening and edema is nonspecific. There is layering hyperdense material within the gallbladder lumen. A common bile duct stent is in place. Spleen: Normal in size and attenuation. Pancreas: The unenhanced pancreas is moderately atrophic and not well evaluated. A pancreatic duct st ent is in place. There is dilatation of the distal pancreatic duct which measures up to [address] Internal soft tissue thickening around the celiac axis is similar to previous. Adrenal glands: Unremarkable. Kidneys: The unenhanced kidneys are atrophic and without hydronephrosis. Hyperdense material within t he renal collecting system bilaterally may represent excreted contrast, renal vascular calcifications , or less likely small calculi. There is no evidence of contour deforming renal mass lesion. Abdominal vasculature: The abdominal aorta is normal in course and caliber noting moderate to advance d atherosclerotic calcification. Bowel: There is gaseous distention of the stomach. There is moderate colonic fecal retention. No anastasiya l obstruction is seen. Wall thickening is seen throughout the colon, greatest involving the right col on. There is also mild wall thickening of the small bowel loops. The appendix is not identified and reported surgically absent. Peritoneum: There is a moderate to large volume of abdominopelvic ascites. No intraperitoneal free ai r is identified. There is no ascitic fluid containing umbilical hernia. Lymphadenopathy: None. Pelvic viscera: The bladder is decompressed and not well evaluated. The uterus is surgically absent. No adnexal lesion is seen. Skeletal structures: The skeletal structures are osteopenic. There is is an acute to subacute marina rola fracture of L3 with mild mild loss of height. No retropulsed fragments are identified. There is also a fracture through the left transverse process of L3. Mild sclerotic change in around the fractu res may be related to early healing. These are new as compared to 10/23/2020. No additional fracture i s identified. No lytic or blastic lesions are seen. There are healed right-sided rib fractures. Soft tissues: There is body wall edema. IMPRESSION: 1. There is an acute to subacute compression fracture of L3 with mild loss of height. There is also a minimally displaced left transverse process fracture of L3. Mild sclerotic change around the fractur e sites may represent early healing. These are new from 10/23/2020. Clinical correlation will be requi red. 2. Cirrhotic liver morphology. 3. Moderate to large volume of abdominopelvic ascites. 4. Stents are present within the common bile duct and the pancreatic duct. 5. The gallbladder is distended and contains hyperdense material. Gallbladder wall thickening and christiane ma is nonspecific and may be related to cirrhosis and ascites. Correlate clinically for evidence of a cute cholecystitis. 6. Small left pleural effusion with associated atelectasis. This is new from 10/23/2020. 7. There is wall thickening throughout the colon, greatest involving the right colon. Mild edema is a lso suggested within the wall of the small bowel. This likely represents portal enterocolopathy. Jasper elate clinically for evidence of an infectious enterocolitis. 8. Body wall edema. 9. Additional findings as above. ACT 112: Negative or not required by law. Electronically signed by: Jadon Esparza M.D. 03/28/2021 8:15 PM
--- NOTE | 2021-03-28 21:27 | History & Physical Report ---
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 Bedoya's addendum for A&P. History of Present Illness Chief Complaint: Shortness of breath, weakness, abdominal distention Primary Care Provider: Anisha Romano DO 75-year-old female with PMH ESRD on dialysis, REARDON cirrhosis with portal hypertension, ascites, esophageal varices, IPMN with biliary stricture s/p stent placement, history of C. difficile infection with fecal transplant, and other problems listed below who presents the ED for evaluation of shortness of breath, weakness, abdominal distention. Patient with history of ascites and underwent paracentesis for 3 L on 03/23. Patient reports fluid reaccumulated quickly. Patient was scheduled for an additional paracentesis today however labs showed an INR of 3.3, therefore procedure was canceled. Patient reports having a fever of 101 a few days ago. She reports chronic diarrhea at baseline which has been somewhat worse recently. No bright red bleeding per rectum or dark tarry stools. She reports some left-sided abdominal pain today which has since resolved. No nausea or vomiting. Reports worsening shortness of breath with exertion. No cough or sputum production. Denies chest pain. No lightheadedness, dizziness, diaphoresis, syncopal events. She denies urinary symptoms. In the ED, patient is hypotensive and mildly tachycardic in the 90s. Labs show WBC 16 K, lactic acid 4.2. Na+ 128, INR 3.8, total bili 7.1, AST 53, alk phos 243. CT ABD chest pelvis shows moderate to large abdominopelvic ascites. Patient was given IV cefepime and IVF. Allergies Allergy/AdvReac Type Severity Reaction Status Date / Time adhesive AdvReac Intermediate BANDAIDS-INCREASES Verified 03/28/21 12:15 ECZEMA REDNESS Home Medications Medication Instructions Recorded Confirmed Type loratadine 10 mg tablet (Claritin) 10 mg PO QAM #0 tab 10/09/14 03/28/21 History paroxetine HCl 10 mg tablet (Paxil) 10 mg PO QAM #0 tab 10/09/14 03/28/21 History Bifidobacterium infantis 4 mg 4 mg PO QAM 01/21/19 03/28/21 History capsule (Align) dicyclomine 10 mg capsule 10 mg PO HS 04/05/20 03/28/21 History cholecalciferol (vitamin D3) 25 25 mcg PO QAM 10/22/20 03/28/21 History mcg (1,000 unit) tablet alprazolam 0.25 mg tablet (Xanax) 0.25 mg PO HS PRN 11/16/20 03/28/21 History potassium chloride 20 mEq 20 meq PO QAM #0 tab 11/30/20 03/28/21 Rx tablet,extended release vitamin B complex-vitamin C-folic 1 tab PO DAILY 12/16/20 03/28/21 History acid 0.8 mg tablet (Nephro-Nitin) epoetin beta, methoxy peg 30 30 mcg SUBCUT WK 02/09/21 03/28/21 History mcg/0.3 mL injection syringe (Mircera) docusate sodium 50 mg capsule 50 mg PO BID 02/23/21 03/28/21 History simethicone 40 mg chewable tablet 40 mg PO DAILY PRN 02/23/21 03/28/21 History sulfamethoxazole 400 1 tab PO 3XWK 02/23/21 03/28/21 History mg-trimethoprim 80 mg tablet (Bactrim) Past Med/Surg History Medical History Anemia Degenerative arthritis of left knee ESRD (end stage renal disease) on dialysis History of abdominal paracentesis History of ascites History of biliary stent insertion History of Clostridioides difficile infection s/p fecal transplant History of squamous cell carcinoma IPMN (intraductal papillary mucinous neoplasm) 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 follows with [facility] Hepatology Osteoarthritis Pancreatic cyst highly suspicious for mucinous neoplasm; not a surgical or chemotherapy candidate Portal hypertension Secondary esophageal varices without bleeding Squamous cell cancer of skin of forearm Weight loss [facility] clinic weights [id number]; March 158; Apr 145; Aug 2020 133 lb Surgical History History of appendectomy History of carpal tunnel release of both wrists History of colonoscopy History of endoscopy EUS History of ERCP With EUS/EGD 09/28/20 during admission at [facility] for PUNEET on CKD/cirrhosis History of esophagogastroduodenoscopy (EGD) History of knee replacement procedure of left knee History of knee replacement procedure of right knee History of squamous cell carcinoma excision History of surgical removal of ganglion cyst History of tonsillectomy and adenoidectomy History of total abdominal hysterectomy and bilateral salpingo-oophorectomy Family History Father Cancer Mother Diabetes Other No family history of adverse response to anesthesia Social History Smoking Status: Former smoker Tobacco Type: Cigarettes Second Hand Exposure: Yes (at times); Hx Alcohol Use: No Hx Substance Use: No Preferred Language: Divehi Communication Ability: Effective 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 Beliefs That Will Affect Care: None marital status: Current Living Situation: Spouse Other Information That Helps Us Care for You: No Feels Safe at Home: Yes Safety Concerns: Feels Safe At This Time Assistive Devices: Cane Review of Systems Review of Systems: ROS per HPI, all other systems reviewed and negative Physical Exam Constitutional: WD/WN, vitals as above Eyes: PERRL; no conjunctival abnormality Sclera icteric ENMT: external ear and nose normal, oropharynx normal Respiratory: normal respiratory effort; no respiratory distress Auscultation: + diminished lung sounds (Bilaterally) Cardiovascular: Rate/Rhythm: regular rate and regular rhythm Vessels: normal peripheral pulses Extremities: + edema (+3 pitting edema BLE) Gastrointestinal (Abdomen): Inspection/Auscultation: + abdomen distended and normal bowel sounds Percussion/Palpation: + ascites and + abdomen firm; abdomen nontender and no hepatosplenomegaly Musculoskeletal: no cyanosis or clubbing, extremities motor strength 5/5 Skin: no rashes, warm and dry Neurologic: PERRL, EOMI, accommodation nl, no face palsy, no dysarthria Psychiatric: A+Ox3, euthymic affect Results & Data Results & Data ([facility]) Vital Signs (Past 12 Hours) Vital Signs Temp Pulse Resp BP Pulse Ox 03/28/21 18:49 98 03/28/21 18:30 99 H 17 03/28/21 18:26 98 H 20 03/28/21 17:48 36.0 C L 99 H 18 81/59 L 97 Laboratory Results Short CBC 03/28/21 Range/Units 18:33 WBC 16.90 H (4.8-10.8) K/uL Hgb 10.2 L (12.0-16.0) g/dL Hct 30.3 L (37-47) % Plt Count 155 (130-400) K/uL BMP 03/28/21 18:33 Sodium 128 L Potassium 4.1 Chloride 93 L Carbon Dioxide 25 BUN 30 H Creatinine 4.87 H* Glucose 159 H Calcium 8.8 Cardiac Enzymes 03/28/21 Range/Units 18:33 Troponin I < 0.015 (0-0.045) ng/ml Liver Function 03/28/21 Range/Units 18:33 Total Bilirubin 7.1 H (0.2-1) mg/dl AST 53 H (15-37) U/L ALT 33 (12-78) U/L Alkaline Phosphatase 243 H (45-117) U/L Albumin 2.1 L (3.4-5.0) gm/dl Diagnostic Findings Abdomen/Pelvis CT 03/28/21 18:02 CT SCAN OF THE ABDOMEN AND PELVIS WITHOUT IV CONTRAST CLINICAL HISTORY: Abdominal distention. COMPARISON STUDY: Abdominal CT dated 10/23/2020. TECHNIQUE: CT scan of the abdomen and pelvis is performed from the lung bases to the proximal femora. Images are reviewed in the axial, sagittal, and coronal planes. IV contrast was not administered for this examination. Note that the examination is significantly suboptimal without IV contrast. A dose lowering technique was utilized adhering to the principles of ALARA. CT DOSE: 565.38 mGy.cm FINDINGS: Lung bases: The tip of a central venous catheter terminates at the cavoatrial junction. The heart is normal in size noting trace pericardial effusion. The coronary arteries are densely calcified. There is a small left pleural effusion with associated left basilar atelectasis. Liver: The unenhanced liver is cirrhotic in morphology and heterogeneous and attenuation. There is nodularity of the hepatic surface contour. There is mild intrahepatic biliary ductal dilatation. Trace pneumobilia suggests patency of the common bile duct stent. Gallbladder: Gallbladder is distended. Gallbladder wall thickening and edema is nonspecific. There is layering hyperdense material within the gallbladder lumen. A common bile duct stent is in place. Spleen: Normal in size and attenuation. Pancreas: The unenhanced pancreas is moderately atrophic and not well evaluated. A pancreatic duct stent is in place. There is dilatation of the distal pancreatic duct which measures up to 6 mm in diameter. Internal soft tissue thickening around the celiac axis is similar to previous. Adrenal glands: Unremarkable. Kidneys: The unenhanced kidneys are atrophic and without hydronephrosis. Hyperdense material within the renal collecting system bilaterally may represent excreted contrast, renal vascular calcifications, or less likely small calculi. There is no evidence of contour deforming renal mass lesion. Abdominal vasculature: The abdominal aorta is normal in course and caliber noting moderate to advanced atherosclerotic calcification. Bowel: There is gaseous distention of the stomach. There is moderate colonic fecal retention. No bowel obstruction is seen. Wall thickening is seen throughout the colon, greatest involving the right colon. There is also mild wall thickening of the small bowel loops. The appendix is not identified and reported surgically absent. Peritoneum: There is a moderate to large volume of abdominopelvic ascites. No intraperitoneal free air is identified. There is no ascitic fluid containing umbilical hernia. Lymphadenopathy: None. Pelvic viscera: The bladder is decompressed and not well evaluated. The uterus is surgically absent. No adnexal lesion is seen. Skeletal structures: The skeletal structures are osteopenic. There is is an acute to subacute compression fracture of L3 with mild mild loss of height. No retropulsed fragments are identified. There is also a fracture through the left transverse process of L3. Mild sclerotic change in around the fractures may be related to early healing. These are new as compared to 10/23/2020. No additional fracture is identified. No lytic or blastic lesions are seen. There are healed right-sided rib fractures. Soft tissues: There is body wall edema. IMPRESSION: 1. There is an acute to subacute compression fracture of L3 with mild loss of height. There is also a minimally displaced left transverse process fracture of L3. Mild sclerotic change around the fracture sites may represent early healing. These are new from 10/23/2020. Clinical correlation will be required. 2. Cirrhotic liver morphology. 3. Moderate to large volume of abdominopelvic ascites. 4. Stents are present within the common bile duct and the pancreatic duct. 5. The gallbladder is distended and contains hyperdense material. Gallbladder wall thickening and edema is nonspecific and may be related to cirrhosis and ascites. Correlate clinically for evidence of acute cholecystitis. 6. Small left pleural effusion with associated atelectasis. This is new from 10/23/2020. 7. There is wall thickening throughout the colon, greatest involving the right colon. Mild edema is also suggested within the wall of the small bowel. This likely represents portal enterocolopathy. Correlate clinically for evidence of an infectious enterocolitis. 8. Body wall edema. 9. Additional findings as above. ACT 112: Negative or not required by law. Electronically signed by: Jadon Esparza M.D. 03/28/2021 8:15 PM Chest X-Ray 03/28/21 18:02 SINGLE VIEW CHEST CLINICAL HISTORY: Generalized weakness. FINDINGS: An AP, portable, upright chest radiograph is compared to study dated 11/24/2020. A right sided central venous catheter is new from previous. The heart is top normal for projection noting atherosclerotic calcification of the thoracic aorta. There are low lung volumes with bibasilar atelectasis. Question trace pleural effusions. No airspace consolidation is identified typical for pneumonia. No pneumothorax is seen. The skeletal structures are osteopenic. The bony thorax is grossly intact. Gaseous distention of the stomach is noted in the upper abdomen. IMPRESSION: 1. Low lung volumes with bibasilar atelectasis. 2. Question trace pleural effusions. ACT 112: Negative or not required by law. Electronically signed by: Jadon Esparza M.D. 03/28/2021 7:20 PM Code Status & VTE Plan Code Status Patient is a full code as per my discussion with her. VTE Prophylaxis Plan VTE Prophylaxis will be ordered: Yes Supervising Physician Co-Signing Physician Notes IM ATTENDING : Patient seen and examined. History obtained from patient, family, and records. Preceding documentation by LEORA Gutierrez reviewed. FINAL ASSESSMENT AND PLAN as follows : Recurrent ascites possible SBP, possible sepsis Decompensated NAFLD cirrhosis Diarrhea rule out recurrent C. difficile History C. difficile status post fecal transplantation Acute on chronic hyponatremia secondary to illness Chronic anemia, hemoglobin at baseline Coagulopathy, episodic thrombocytopenia secondary to liver disease ESRD on HD Pancreatic neoplasm status post stent placement, possible malignancy given elevated CA 19-9 levels. (Patient not a candidate for any intervention due to comorbidities as per outpatient oncology note.) Past tobacco abuse PCU monitoring given hypotension CS IV albumin, Ceftriaxone for possible SBP Follow lactic acid Diagnostic and therapeutic paracentesis in a.m. Vitamin K 1 dose for coagulopathy in anticipation of procedure. GI consult Re: Recurrent ascites DVT prophylaxis. SCDs if INR less than 2 Re: Episodic thrombocytopenia/coagulopathy of liver disease Full code Patient requesting update providers. Yolanda Anand Stafford, contact #[phone]. Text document was generated using [employer] voice recognition software. It may contain grammatical or spelling errors. Kindly contact undersigned for clarification of any documentation item in question. (1) Ascites Ascites type: other type Qualified Code(s): R18.8 - Other ascites
[2021-03-28] MEDS ORDERED: PHYTONADIONE 10 MG in SODIUM CHLORIDE 0.9% 50 ML IV SCH (21:30)
[2021-03-28] MEDS: ALBUMIN 25% 12.5 GM/50 ML VIAL IV SCH ×2 (21:32→22:38)
[2021-03-28] MEDS ORDERED: ACETAMINOPHEN 325 MG TAB PO PRN (22:35)
[2021-03-29] MEDS: ALBUMIN 25% 12.5 GM/50 ML VIAL IV SCH ×5 (00:35→23:57)
[2021-03-29] MEDS: ALPRAZolam 0.25 MG TABLET PO PRN (00:38)
[2021-03-29 06:02] LABS: Basophils # (auto) 0.01 K/uL (0-0.2); Basophils % (auto) 0.1 %; Eosinophils # (auto) 0.06 K/uL (0-0.5); Eosinophils % (auto) 0.5 %; Hematocrit (blood only) 26.4 % (37-47); Hemoglobin 8.9 g/dL (12.0-16.0); Immature Granulocytes # (auto) 0.05 K/uL (0.00-0.02); Immature Granulocytes % (auto) 0.4 %; Mean Corpuscular Hemoglobin 30.7 pg (25-34); Mean Corpuscular Hgb Conc 33.7 g/dL (32-36); Mean Platelet Volume 10.9 fL (7.4-10.4); Monocytes # (auto) 1.66 K/uL (0.11-0.59); Monocytes % (auto) 14.1 %; Neutrophils # (auto) 9.26 K/uL (1.4-6.5); Neutrophils % (auto) 78.9 %; Platelet Count 111 K/uL (130-400); RDW Coefficient of Variation 16.9 % (11.5-14.5); RDW Standard Deviation 54.8 fL (36.4-46.3); White Blood Count 11.74 K/uL (4.8-10.8)
[2021-03-29 06:09] LABS: INR 1.7 (0.9-1.1); Prothrombin Time 16.4 Seconds (9.0-12.0)
[2021-03-29 06:49] LABS: Albumin Globulin Ratio 0.5 (0.9-2); Albumin Level 2.1 gm/dl (3.4-5.0); BUN Creatinine Ratio 7.1 (10-20); Bilirubin,Total 6.1 mg/dl (0.2-1); Calcium 8.2 mg/dl (8.5-10.1); Creatinine Clr Calc Pharmacy 8.6 ml/min; Est GFR (African American) 9.3 ml/min; Globulin 3.9 gm/dl (2.5-4.0); Potassium 4.1 mmol/L (3.5-5.1)
[2021-03-29] MEDS: PARoxetine HCL 10 MG TAB PO SCH (08:03)
[2021-03-29] MEDS: NEPHROCAPS PO SCH (08:03)
[2021-03-29] MEDS: LORATADINE 10 MG TAB PO SCH (08:03)
[2021-03-29] MEDS ORDERED: cefTRIAXone SODIUM 1,000 MG in DEXTROSE 5% 50 ML IV SCH (09:00)
--- NOTE | 2021-03-29 09:10 | Hospitalist Progress Note ---
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 Moderate to large volume of abdominopelvic ascites. Stents are present within the common bile duct and the pancreatic duct. The gallbladder is distended and contains hyperdense material. Gallbladder wall thickening and edema is nonspecific and may be related to cirrhosis and ascites. Correlate clinically for evidence of acute cholecystitis. Small left pleural effusion with associated atelectasis. This is new from 10/23/2020. There is wall thickening throughout the colon, greatest involving the right colon. Mild edema is also suggested within the wall of the small bowel. This likely represents portal enterocolopathy. Correlate clinically for evidence of an infectious enterocolitis. Body wall edema. --S/P paracentesis with removal of approximately 5 liters of ascitic fluid on 03/29/21 Poor prognosis Not a candidate for any chemotherapy as per records Appreciate GI input Chronically on Bactrim for SBP prophylaxis. Continue Rocephin empirically Will consult palliative care to address goals of care. Received albumin Follow-up blood, peritoneal fluid cultures Monitor Volume status Acute/Subacute L3 compression fracture -CT:There is an acute to subacute compression fracture of L3 with mild loss of height. There is also a minimally displaced left transverse process fracture of L3. Mild sclerotic change around the fracture sites may represent early healing. These are new from 10/23/2020. -Incidental finding -PT/OT Diarrhea H/O C. difficile S/P fecal transplantation Chronic as per patient Stool for C diff is negative Acute on chronic hyponatremia Secondary to volume overload Monitor sodium levels Mental status at baseline currently ESRD On Sunday dialysis usually Given paracentesis today no dialysis planned for today Appreciate nephrology input Plan for dialysis likely tomorrow Anemia of Chronic disease Hb at baseline Monitor Coagulopathy Thrombocytopenia Secondary to liver disease Received vitamin K for paracentesis No bleeding issues Monitor INR DVT Px: SCDs for now Code Status Full code Palliative Care consulted to address goals of care. Admission and Anticipated Discharge Date Admission Date: March 28, 2021 Subjective Patient is seen and examined at bedside States having significant abdominal distention leading to dyspnea Also reports chronic diarrhea which has been worse for the last 1 to 2 days Denies chest pain, nausea, vomiting Plan for abdominal paracentesis today Discussed with nephrology today Offers no other complaints Review of Systems Review of Systems: All systems reviewed & are unremarkable except as noted in Subjective Physical Exam Physical Exam: Physical Exam: Vitals signs as noted above General Appearance: Chronically appearing, in no apparent distress Head: normocephalic, Atraumatic Eyes: normal inspection, EOMI Neck: supple, Trachea midline Respiratory/Chest: Normal breath sounds, CTA, No accessory muscle use Cardiovascular: S1, S2, No murmur Abdomen/GI:Soft, distended, nontender, Bowel sounds present Extremities/Musculoskeletal:normal inspection, 1-2+ B/L LE edema Neurologic/Psych:AAOX3, grossly no focal neurological deficits Skin: normal color, warm Results & Data Results & Data ([facility]) Vital Signs (Past 12 Hours) Vital Signs Temp Pulse Pulse Resp BP BP Pulse Ox 03/29/21 08:00 84 03/29/21 07:43 36.6 C 84 20 97/63 L 96 03/29/21 04:25 36.9 C 84 18 97/65 L 95 03/28/21 23:53 36.5 C 78 18 146/72 H 96 03/28/21 22:20 90 03/28/21 22:15 36.9 C 89 20 100/63 96 Laboratory Results Short CBC 03/28/21 03/29/21 Range/Units 18:33 05:43 WBC 16.90 H 11.74 H (4.8-10.8) K/uL Hgb 10.2 L 8.9 L (12.0-16.0) g/dL Hct 30.3 L 26.4 L (37-47) % Plt Count 155 111 L (130-400) K/uL BMP 03/28/21 03/29/21 18:33 05:43 Sodium 128 L 129 L Potassium 4.1 4.1 Chloride 93 L 99 Carbon Dioxide 25 25 BUN 30 H 35 H Creatinine 4.87 H* 4.95 H* Glucose 159 H 93 Calcium 8.8 8.2 L Cardiac Enzymes 03/28/21 Range/Units 18:33 Troponin I < 0.015 (0-0.045) ng/ml Liver Function 03/28/21 03/29/21 Range/Units 18:33 05:43 Total Bilirubin 7.1 H 6.1 H (0.2-1) mg/dl AST 53 H 43 H (15-37) U/L ALT 33 24 (12-78) U/L Alkaline Phosphatase 243 H 180 H (45-117) U/L Albumin 2.1 L 2.1 L (3.4-5.0) gm/dl (1) Ascites Ascites type: other type Qualified Code(s): R18.8 - Other ascites
--- NOTE | 2021-03-29 09:47 | Nephrology Consultation ---
Date of Consultation March 29, 2021 Assessment & Plan (1) ESRD (end stage renal disease) on dialysis: pt has TRSat dialysis normally. she had a 5L paracentesis today; given concerns for sepsis w/ paracentesis > will hold off on dialysis today; follow up results of pending blood cxs and of paracentesis results -NO dialysis today; plan next tx tomorrow tentatively -serum chemistries are acceptable >> hyponatremia is d/t vol OL w/ the liver disease/ascites -oncology in the past ok'd using MARIANO w/ dialysis and will give MARIANO on tx tomorrow -will give midodrine w/ hd (2) Ascites: await results of paracentesis; continue coverage for SBP (3) IPMN (intraductal papillary mucinous neoplasm): follows w/ GI for this (4) Hyponatremia: reflects volume overload (5) Hypotension: her blood pressure is chronically in the 90s as an outpatient -- would be reluctant to call her current BP far off her her baseline; we support this with midodrine carefully dosed b/c she has had bradycardia in the past with this medication. Her paracenteses have been limited to 3L historically d/t concerns about hypotension History of Present Illness Reason for Consultation: ESRD on dialysis Requesting Physician: Dr Bedoya Attending Physician: Daren Sung MD History of Present Illness 75 y/o F whom I'm asked to see for dialysis needs after her outpatient paracentesis was changed to an admission to evaluate elevated INR of 3.3; she also endorsed a F to 101 a few days back and was noted to have WBC 16K, lactate 4.2 on presentation, and exertional dyspnea, increasing ascites. Other PMH includes REARDON cirrhosis with portal hypertension/ascites/esophageal varices, as of spring 2020 3 cm IPMN with biliary stricture s/p stent placement, history of C. difficile infection with fecal transplant, chronic hypotension on midodrine with blood pressures on dialysis chronically in the 90s systolic with no sx. She has been evaluated in past by oncology and surgical oncology and is not a candidate for medical or surgical therapy for her presumptive cancer/precancer. She was started on cefepime and given IV fluids > her INR was corrected. She is for paracentesis late this AM-had 5L off. CT also revealed some biliary duct dilatation and acute/subacute lumbar compression fracture. She had a treatment on 03/26; took of 1L of fluid; felt quite poorly after tx w/ generalized weakness and report of F to 101.5 but this improved/resolved w/ one dose tylenol. SOB improved after tap today; she is still quite weak and has some RUQ pain currently. no n/v; was not tolerating po prior to admission but is doign so now in small amounts. Allergies Allergy/AdvReac Type Severity Reaction Status Date / Time adhesive AdvReac Intermediate BANDAIDS-INCREASES Verified 03/28/21 12:15 ECZEMA REDNESS Home Medications Medication Instructions Recorded Confirmed Type loratadine 10 mg tablet (Claritin) 10 mg PO QAM #0 tab 10/09/14 03/28/21 History paroxetine HCl 10 mg tablet (Paxil) 10 mg PO QAM #0 tab 10/09/14 03/28/21 History Bifidobacterium infantis 4 mg 4 mg PO QAM 01/21/19 03/28/21 History capsule (Align) dicyclomine 10 mg capsule 10 mg PO HS 04/05/20 03/28/21 History cholecalciferol (vitamin D3) 25 25 mcg PO QAM 10/22/20 03/28/21 History mcg (1,000 unit) tablet alprazolam 0.25 mg tablet (Xanax) 0.25 mg PO HS PRN 11/16/20 03/28/21 History potassium chloride 20 mEq 20 meq PO QAM #0 tab 11/30/20 03/28/21 Rx tablet,extended release vitamin B complex-vitamin C-folic 1 tab PO DAILY 12/16/20 03/28/21 History acid 0.8 mg tablet (Nephro-Nitin) epoetin beta, methoxy peg 30 30 mcg SUBCUT WK 02/09/21 03/28/21 History mcg/0.3 mL injection syringe (Mircera) docusate sodium 50 mg capsule 50 mg PO BID 02/23/21 03/28/21 History simethicone 40 mg chewable tablet 40 mg PO DAILY PRN 02/23/21 03/28/21 History sulfamethoxazole 400 1 tab PO 3XWK 02/23/21 03/28/21 History mg-trimethoprim 80 mg tablet (Bactrim) Patient History Medical History Anemia Degenerative arthritis of left knee ESRD (end stage renal disease) on dialysis History of abdominal paracentesis History of ascites History of biliary stent insertion History of Clostridioides difficile infection s/p fecal transplant History of squamous cell carcinoma IPMN (intraductal papillary mucinous neoplasm) 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 follows with S Hepatology Osteoarthritis Pancreatic cyst highly suspicious for mucinous neoplasm; not a surgical or chemotherapy candidate Portal hypertension Secondary esophageal varices without bleeding Squamous cell cancer of skin of forearm Weight loss [facility] weights 2019145; March 158; Apr 145; Aug 2020 133 lb Surgical History History of appendectomy History of carpal tunnel release of both wrists History of colonoscopy History of endoscopy EUS History of ERCP With EUS/EGD 09/28/20 during admission at [facility] for PUNEET on CKD/cirrhosis History of esophagogastroduodenoscopy (EGD) History of knee replacement procedure of left knee History of knee replacement procedure of right knee History of squamous cell carcinoma excision History of surgical removal of ganglion cyst History of tonsillectomy and adenoidectomy History of total abdominal hysterectomy and bilateral salpingo-oophorectomy Family History Father Cancer Mother Diabetes Other No family history of adverse response to anesthesia Social History Smoking Status: Former smoker Tobacco Type: Cigarettes Second Hand Exposure: Yes (at times); Hx Alcohol Use: No Hx Substance Use: No Preferred Language: Rwandan Communication Ability: Effective Lamination Spinner Required: No Beliefs That Will Affect Care: None marital status: Current Living Situation: Spouse Other Information That Helps Us Care for You: No Feels Safe at Home: Yes Safety Concerns: Feels Safe At This Time Assistive Devices: Cane Review of Systems Review of Systems: All systems reviewed & are unremarkable except as noted in HPI & below Physical Exam Constitutional: well developed, + cachectic, + frail appearing and cooperative Eyes: EOM intact bilaterally ENMT: Ears: no external ear abnormality Nose: no external nose abnormality Mouth: + dry oral mucous membranes Neck: no nuchal rigidity Respiratory: normal respiratory effort Auscultation: + diminished lung sounds Cardiovascular: Rate/Rhythm: regular rate and regular rhythm Extremities: + edema Gastrointestinal (Abdomen): Inspection/Auscultation: normal bowel sounds Percussion/Palpation: abdomen soft and + ascites; abdomen nontender (RUQ), no guarding and abdomen not rigid Musculoskeletal: Extremities: strength 5/5 throughout Skin: no rashes, warm and dry + jaundice Neurologic: sanchez, fluent speech, no tremor Psychiatric: Orientation: alert and oriented x 3 Results & Data ([facility]) Vital Signs (Past 12 Hours) Vital Signs Temp Pulse Pulse Resp BP BP Pulse Ox 03/29/21 08:00 84 03/29/21 07:43 36.6 C 84 20 97/63 L 96 03/29/21 04:25 36.9 C 84 18 97/65 L 95 03/28/21 23:53 36.5 C 78 18 146/72 H 96 03/28/21 22:20 90 03/28/21 22:15 36.9 C 89 20 100/63 96 Laboratory Results 03/29/21 05:43 03/29/21 05:[address] abd/pelvis Lung bases: The tip of a central venous catheter terminates at the cavoatrial junction. The heart is normal in size noting trace pericardial effusion. The coronary arteries are densely calcified. There is a small left pleural effusion with associated left basilar atelectasis. Liver: The unenhanced liver is cirrhotic in morphology and heterogeneous and attenuation. There is nodularity of the hepatic surface contour. There is mild intrahepatic biliary ductal dilatation. Trace pneumobilia suggests patency of the common bile duct stent. Gallbladder: Gallbladder is distended. Gallbladder wall thickening and edema is nonspecific. There is layering hyperdense material within the gallbladder lumen. A common bile duct stent is in place. Spleen: Normal in size and attenuation. Pancreas: The unenhanced pancreas is moderately atrophic and not well evaluated. A pancreatic duct stent is in place. There is dilatation of the distal pancreati c duct which measures up to 6 mm in diameter. Internal soft tissue thickening around the celiac axis is similar to previous. Adrenal glands: Unremarkable. Kidneys: The unenhanced kidneys are atrophic and without hydronephrosis. Hyperdense material within the renal collecting system bilaterally may represent excreted contrast, renal vascular calcifications, or less likely small calculi. There is no evidence of contour deforming renal mass lesion. Abdominal vasculature: The abdominal aorta is normal in course and caliber noting moderate to advanced atherosclerotic calcification. Bowel: There is gaseous distention of the stomach. There is moderate colonic fecal retention. No bowel obstruction is seen. Wall thickening is seen throughout the colon, greatest involving the right colon. There is also mild wall thickening of the small bowel loops. The appendix is not identified and reported surgically absent. Peritoneum: There is a moderate to large volume of abdominopelvic ascites. No intraperitoneal free air is identified. There is no ascitic fluid containing umbilical hernia. Lymphadenopathy: None. Pelvic viscera: The bladder is decompressed and not well evaluated. The uterus is surgically absent. No adnexal lesion is seen. Skeletal structures: The skeletal structures are osteopenic. There is is an acute to subacute compression fracture of L3 with mild mild loss of height. No retropulsed fragments are identified. There is also a fracture through the left transverse process of L3. Mild sclerotic change in around the fractures may be related to early healing. These are new as compared to 10/23/2020. No additional fracture is identified. No lytic or blastic lesions are seen. There are healed right-sided rib fractures. Soft tissues: There is body wall edema. IMPRESSION: 1. There is an acute to subacute compression fracture of L3 with mild loss of height. There is also a minimally displaced left transverse process fracture of L3. Mild sclerotic change around the fracture sites may represent early healing. These are new from 10/23/2020. Clinical correlation will be required. 2. Cirrhotic liver morphology. 3. Moderate to large volume of abdominopelvic ascites. 4. Stents are present within the common bile duct and the pancreatic duct. 5. The gallbladder is distended and contains hyperdense material. Gallbladder wall thickening and edema is nonspecific and may be related to cirrhosis and ascites. Correlate clinically for evidence of acute cholecystitis. 6. Small left pleural effusion with associated atelectasis. This is new from 10/23/2020. 7. There is wall thickening throughout the colon, greatest involving the right colon. Mild edema is also suggested within the wall of the small bowel. This likely represents portal enterocolopathy. Correlate clinically for evidence of an infectious enterocolitis. 8. Body wall edema. 9. Additional findings as above. CXR 1. Low lung volumes with bibasilar atelectasis. 2. Question trace pleural effusions. (1) Ascites Ascites type: other type Qualified Code(s): R18.8 - Other ascites
--- NOTE | 2021-03-29 11:51 | Gastrointestinal Consultation ---
Date of Consultation March 29, 2021 Assessment & Plan (1) IPMN (intraductal papillary mucinous neoplasm): Unfortunately, prognosis is not good. Likely malignant and not a candidate for surgery or chemo. Discussed previously with the family and hem/onc note document the same discussion. (2) Ascites: Q 2 wk paracentesis - set up as OP Given recent fever: ascitic fluid cell count, culture; and blood cx (ordered, will review results when available). (3) 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: Cont OP f/u with LEORA Cain Cont daily bactrim for SBP prophylaxis. Consider palliative care consult. Supervising Physician Co-Signing Physician Notes I saw and evaluated the patient. She is known to our service due to a number of problems to include cirrhosis of the liver and a mucinous tumor of the pancreatic head. Unfortunately due to her multitude of problems she was not a surgical candidate during her initial diagnosis last year. She continues to have problems with volume overload and presented with abdominal discomfort ascites and fatigue. She underwent a paracentesis this afternoon and notes that she is feeling much improved today. Physical examination No asterixis, no slurring of speech patient alert and oriented and able to speak in full sentences Abdomen with fluid wave not tense this afternoon Impression: Patient with a history of recurrent volume overload manifest by ascites as result of her cirrhosis and underlying pancreatic malignancy. She appears to be requiring paracentesis more often, previously she had undergone 5 L every other week. Given the reaccumulation rate perhaps we should move her to once weekly paracentesis as an outpatient. Would suggest that she have her next paracentesis in 1 week as previously scheduled with the use of albumin to help prevent volume shifts and further compromise of her renal function. Please call with any additional questions or concerns, GI to sign off History of Present Illness Reason for Consultation: Ascites Requesting Physician: Dr. Smith Attending Physician: Daren Sung MD History of Present Illness Ms. Roselia Stafford is a 75 yr old female pt of Dr. Romano with a hx of Roselia Stafford is a 75 year old female w a hx of recurrent C-diff s/p fecal transplant,ESRD on dialysis, REARDON cirrhosis complicated by esophageal varices and ascites, prior SBP in November 2020 (on daily Bactrim) and a 2.6 cm pancreatic tail lesion w elevated CA19-9 (3142), biliary stricture s/p metal stent placement. Though no definitive dx of pancreas cancer, EUS with fluid aspiration with low amylase and the elevated CA19-9 are suggestive of an mucinous cystic neoplasm. Seen by oncology with opinion that she is a not candidate for medical chemo (based on cirrhosis, ascites and prior SBP). She is also not a candidate for surgery based on her ascites. She is managed in GI clinic by LEORA Cain who has her set up for monthly paracentesis. Last week she had additional accumulation of fluid and paracenteses were changed to Q 2 wks. Over the past month, she has experienced a steady decline in overall health. She presented to the ED for increasing ascites and report of recent illness. On Sat after dialysis she had a brief febrile period with temp to 101, resolved within a few hrs. She felt poorly all weekend, feeling like her legs are too weak to walk, poor appetite, and some SOB. CT with suggestion of a vertebral fx, and cirrhosis with large volume ascites. Most recent EGD/EUS in November [address] Duron with a large amt of food in the stomach. Hx of ERCP in Sep 2020 with a malignant appearing mid CBD stricture, sphincterotomy and placement of a metal CBD stent. Most recent prior amniocentesis: 03/23/21 with 272 WBC, culture (-). Paracentesis today - 5L removed. Pt reports all symptoms are improved after paracentesis. Allergies Allergy/AdvReac Type Severity Reaction Status Date / Time adhesive AdvReac Intermediate BANDAIDS-INCREASES Verified 03/28/21 12:15 ECZEMA REDNESS Home Medications Medication Instructions Recorded Confirmed Type loratadine 10 mg tablet (Claritin) 10 mg PO QAM #0 tab 10/09/14 03/28/21 History paroxetine HCl 10 mg tablet (Paxil) 10 mg PO QAM #0 tab 10/09/14 03/28/21 History Bifidobacterium infantis 4 mg 4 mg PO QAM 01/21/19 03/28/21 History capsule (Align) dicyclomine 10 mg capsule 10 mg PO HS 04/05/20 03/28/21 History cholecalciferol (vitamin D3) 25 25 mcg PO QAM 10/22/20 03/28/21 History mcg (1,000 unit) tablet alprazolam 0.25 mg tablet (Xanax) 0.25 mg PO HS PRN 11/16/20 03/28/21 History potassium chloride 20 mEq 20 meq PO QAM #0 tab 11/30/20 03/28/21 Rx tablet,extended release vitamin B complex-vitamin C-folic 1 tab PO DAILY 12/16/20 03/28/21 History acid 0.8 mg tablet (Nephro-Nitin) epoetin beta, methoxy peg 30 30 mcg SUBCUT WK 02/09/21 03/28/21 History mcg/0.3 mL injection syringe (Mircera) docusate sodium 50 mg capsule 50 mg PO BID 02/23/21 03/28/21 History simethicone 40 mg chewable tablet 40 mg PO DAILY PRN 02/23/21 03/28/21 History sulfamethoxazole 400 1 tab PO 3XWK 02/23/21 03/28/21 History mg-trimethoprim 80 mg tablet (Bactrim) Patient History Medical History Anemia Degenerative arthritis of left knee ESRD (end stage renal disease) on dialysis History of abdominal paracentesis History of ascites History of biliary stent insertion History of Clostridioides difficile infection s/p fecal transplant History of squamous cell carcinoma IPMN (intraductal papillary mucinous neoplasm) 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 follows with S Hepatology Osteoarthritis Pancreatic cyst highly suspicious for mucinous neoplasm; not a surgical or chemotherapy candidate Portal hypertension Secondary esophageal varices without bleeding Squamous cell cancer of skin of forearm Weight loss [facility] [place] [facility] weights 2019145; March 158; Apr 145; Aug 2020 133 lb Surgical History History of appendectomy History of carpal tunnel release of both wrists History of colonoscopy History of endoscopy EUS History of ERCP With EUS/EGD 09/28/20 during admission at [facility] for PUNEET on CKD/cirrhosis History of esophagogastroduodenoscopy (EGD) History of knee replacement procedure of left knee History of knee replacement procedure of right knee History of squamous cell carcinoma excision History of surgical removal of ganglion cyst History of tonsillectomy and adenoidectomy History of total abdominal hysterectomy and bilateral salpingo-oophorectomy Family History Father Cancer Mother Diabetes Other No family history of adverse response to anesthesia Social History Smoking Status: Former smoker Tobacco Type: Cigarettes Second Hand Exposure: Yes (at times); Hx Alcohol Use: No Hx Substance Use: No Preferred Language: Wolof Communication Ability: Effective Metal Hanger Required: No Beliefs That Will Affect Care: None marital status: Current Living Situation: Spouse Other Information That Helps Us Care for You: No Feels Safe at Home: Yes Safety Concerns: Feels Safe At This Time Assistive Devices: Cane Review of Systems Review of Systems: ROS: Gen: + weakness, + fever on Sat, + weight loss Eyes: No eye redness, or pain, no recent vision changes Resp: No SOB, no cough Cardio: No palpitations/irregular beats, no chest pain GI: As per HPI, otherwise (-) : Denies pain on urination Skin: No jaundice, itching or new rashes Physical Exam Constitutional: + ill appearing, + thin, cooperative and comfortable Eyes: PEARLA, icterus ENMT: external ear and nose normal, oropharynx normal Neck: trachea midline, no thyromegaly Respiratory: normal respiratory effort, lungs clear to auscultation Cardiovascular: Rate/Rhythm: regular rate and regular rhythm Extremities: + edema (1+ bilat lower leg) Gastrointestinal (Abdomen): Inspection/Auscultation: normal bowel sounds; no abdominal edema mild ascites after paracentesis Skin: + turgor decreased and + jaundice Neurologic: PERRL, EOMI, accommodation nl, no face palsy, no dysarthria Psychiatric: A+Ox3, euthymic affect Results & Data ([facility]) Vital Signs (Past 12 Hours) Vital Signs Temp Pulse Pulse Resp BP BP Pulse Ox 03/29/21 08:00 84 03/29/21 07:43 36.6 C 84 20 97/63 L 96 03/29/21 04:25 36.9 C 84 18 97/65 L 95 03/28/21 23:53 36.5 C 78 18 146/72 H 96 Laboratory Results WBC 11, Hb 8.9, Hct 26, glucose 11, PT 16, INR 1.7, Na 129, K 4.1, Cl 99, CO2 25, BUN 35, Cr 4.9, glucose 93. Diagnostic Findings CTAP non contrast March 28, 2021: 1. There is an acute to subacute compression fracture of L3 with mild loss of height. There is also a minimally displaced left transverse process fracture of L3. Mild sclerotic change around the fracture sites may represent early healing. These are new from 10/23/2020. Clinical correlation will be required. 2. Cirrhotic liver morphology. 3. Moderate to large volume of abdominopelvic ascites. 4. Stents are present within the common bile duct and the pancreatic duct. 5. The gallbladder is distended and contains hyperdense material. Gallbladder wall thickening and edema is nonspecific and may be related to cirrhosis and ascites. Correlate clinically for evidence of acute cholecystitis. 6. Small left pleural effusion with associated atelectasis. This is new from 10/23/2020. 7. There is wall thickening throughout the colon, greatest involving the right colon. Mild edema is also suggested within the wall of the small bowel. This likely represents portal enterocolopathy. Correlate clinically for evidence of an infectious enterocolitis. 8. Body wall edema. 9. Additional findings as above. US today: Successful ultrasound-guided paracentesis with removal of approximately 5 liters of ascitic fluid. CXR with possible small pleural effusions, no consolidation. (1) Ascites Ascites type: other type Qualified Code(s): R18.8 - Other ascites
[2021-03-29 12:02] LABS: Hepatitis B Surf Ag Rflx Conf Neg (Neg); Hepatitis B Surface Ab Quant 43.49 mIU/mL (>or=10mIU/mL Immune); Hepatitis B Surface Antibody Immune
--- NOTE | 2021-03-29 12:13 | Ultrasound Report ---
PARACENTESIS UNDER ULTRASOUND GUIDANCE CLINICAL HISTORY: Cirrhosis and ascites. Abdominal distention. COMPARISON STUDY: Abdominal CT dated 03/28/2021. PROCEDURE: The risks, benefits, and alternatives to the procedure were discussed with the patient who voiced understanding. Written informed consent was obtained. Following real-time ultrasound localiza tion of a suitable pocket of fluid in the left lower quadrant, the abdomen was prepped and draped in the usual sterile fashion. The skin and soft tissues were anesthetized with 1% lidocaine. The sheathe d paracentesis needle was inserted and approximately 5 liters of dark ascitic fluid was removed by va cuum suction. A sample was sent for laboratory analysis. The procedure was well tolerated and without immediate complication. The patient left the department in satisfactory condition. IMPRESSION: Successful ultrasound-guided paracentesis with removal of approximately 5 liters of ascit ic fluid. ACT 112: Negative or not required by law. Electronically signed by: Jadon Esparza M.D. 03/29/2021 12:12 PM
[2021-03-29] MEDS: LOPERAMIDE HCL 2 MG CAP PO PRN ×2 (12:47→16:09)
[2021-03-29 13:21] LABS: Albumin Peritoneal Fluid 0.6 g/dl
[2021-03-29 13:35] LABS: Total Protein Peritoneal Fluid 1.3 g/dl
[2021-03-29] MEDS: oxyCODONE HCL IR 5 MG TAB (IMMEDIATE RELEASE) PO PRN ×2 (16:09→23:56)
--- NOTE | 2021-03-29 16:42 | Electrocardiogram Report ---
Test Reason : Blood Pressure : / mmHG Vent. Rate : 095 BPM Atrial Rate : 095 BPM P-R Int : 142 ms QRS Dur : 078 ms QT Int : 352 ms P-R-T Axes : 052 010 073 degrees QTc Int : 442 ms Poor data quality, interpretation may be adversely affected Normal sinus rhythm Low voltage QRS Cannot rule out Anterior infarct , age undetermined Abnormal ECG When compared with ECG of 24-NOV-2020 19:10, Premature atrial complexes are no longer Present Confirmed by Sundar Dawn ([id number]) on 03/29/2021 4:42:35 PM Referred By: REFERRED SELF Confirmed By:Sundar Dawn
[2021-03-29] MEDS ORDERED: MoRPHine SULFATE 2 MG/ML CARP IV ONE (17:56)
[2021-03-29] MEDS: PROMETHAZINE HCL 12.5 MG in SODIUM CHLORIDE 0.9% 50 ML IV PRN (18:24)
--- NOTE | 2021-03-29 19:35 | XRay Report ---
XR ribs RT min 2V CLINICAL HISTORY: R/O Rib fracture COMPARISON: March 28, 2021 DISCUSSION: No definite acute fracture or dislocation seen. No acute displaced rib fracture seen. No infiltrates or consolidative lesion of the right lung are seen. Stable position of right-sided dialysis catheter. TIPS catheter is seen within right upper quadrant. Degenerative changes of the spine. Aorta is calcified. Evaluation is limited due to severe diffuse osteopenia. IMPRESSION: No definite acute displaced rib fractures seen. ACT 112: Negative or not required by law. The above report was generated using voice recognition software. It may contain grammatical, syntax o r spelling errors. Electronically signed by: Lissette Garza DO 03/29/2021 7:33 PM
[2021-03-30 06:01] LABS: Basophils # (auto) 0.01 K/uL (0-0.2); Basophils % (auto) 0.1 %; Eosinophils # (auto) 0.01 K/uL (0-0.5); Eosinophils % (auto) 0.1 %; Hematocrit (blood only) 27.7 % (37-47); Hemoglobin 9.4 g/dL (12.0-16.0); Immature Granulocytes # (auto) 0.07 K/uL (0.00-0.02); Immature Granulocytes % (auto) 0.6 %; Lymphocytes # (auto) 1.16 K/uL (1.2-3.4); Lymphocytes % (auto) 10.3 %; Mean Corpuscular Hemoglobin 30.4 pg (25-34); Mean Corpuscular Hgb Conc 33.9 g/dL (32-36); Mean Corpuscular Volume 89.6 fL (80-100); Mean Platelet Volume 10.7 fL (7.4-10.4); Monocytes # (auto) 1.21 K/uL (0.11-0.59); Monocytes % (auto) 10.7 %; Neutrophils # (auto) 8.82 K/uL (1.4-6.5); Neutrophils % (auto) 78.2 %; Platelet Count 113 K/uL (130-400); RDW Coefficient of Variation 16.8 % (11.5-14.5); RDW Standard Deviation 52.3 fL (36.4-46.3); Red Blood Count 3.09 M/uL (4.2-5.4); White Blood Count 11.28 K/uL (4.8-10.8)
[2021-03-30] MEDS: ALBUMIN 25% 12.5 GM/50 ML VIAL IV SCH ×4 (06:03→23:23)
[2021-03-30 06:18] LABS: INR 1.3 (0.9-1.1); Prothrombin Time 13.3 Seconds (9.0-12.0)
[2021-03-30 06:44] LABS: Albumin Level 2.4 gm/dl (3.4-5.0); BUN Creatinine Ratio 7.9 (10-20); Bilirubin Direct 6.1 mg/dl (0-0.2); Calcium 8.6 mg/dl (8.5-10.1); Creatinine Clr Calc Pharmacy 6.8 ml/min; Est GFR (African American) 7.2 ml/min; Est GFR (Non-African American) 6.3 ml/min; Potassium 4.1 mmol/L (3.5-5.1); Total Protein 6.3 gm/dl (6.4-8.2)
[2021-03-30] MEDS ORDERED: SODIUM CHLORIDE 0.9% 1000ML 1,000 ML IV PRN (08:35)
[2021-03-30] MEDS ORDERED: EPOETIN ALFA 10,000 UNITS/ML VIAL IV ONE (08:35)
[2021-03-30] MEDS ORDERED: MIDODRINE HCL 2.5 MG TAB PO STA (08:37)
[2021-03-30] MEDS: LORATADINE 10 MG TAB PO SCH (08:45)
[2021-03-30] MEDS ORDERED: ALBUMIN 25% 12.5 GM/50 ML VIAL IV SCH ×2 (08:45→10:00)
[2021-03-30] MEDS: PARoxetine HCL 10 MG TAB PO SCH (08:45)
[2021-03-30] MEDS: NEPHROCAPS PO SCH (08:45)
[2021-03-30] MEDS: PROMETHAZINE HCL 12.5 MG in SODIUM CHLORIDE 0.9% 50 ML IV PRN (09:54)
--- NOTE | 2021-03-30 11:23 | Dialysis Progress Note ---
Date of Service March 30, 2021 Assessment & Plan (1) ESRD (end stage renal disease) on dialysis: Plan: pt has TRSat dialysis normally. she had a 5L paracentesis March 29; follow up results of pending blood cxs and of paracentesis results -For4 hour dialysis treatment today with goal of 2.2 L UF as pressure tolerates blood pressure support as below; no heparin after recent procedure -serum chemistries are acceptable >> hyponatremia is d/t vol OL w/ the liver di sease/ascites -oncology in the past ok'd using MARIANO w/ dialysis and will give MARIANO on tx 10,000 units -will give midodrine w/ hd -follow up on goals of care discussions (2) Ascites: Plan: await results of paracentesis; continue coverage for SBP (3) IPMN (intraductal papillary mucinous neoplasm): Plan: follows w/ GI for this; presumed malignant and with very poor prognosis (4) Hyponatremia: Plan: reflects volume overload (5) Hypotension: Plan: her blood pressure is chronically in the 80-90s as an outpatient -- would be reluctant to call her current BP far off her her baseline; we support this with midodrine carefully dosed b/c she has had bradycardia in the past with this medication. Also receiving albumin today on treatment. Her paracenteses have been limited to 3L historically d/t concerns about hypotension Admission and Anticipated Discharge Date Admission Date: March 28, 2021 Subjective Received morphine overnight for abdominal pain; significant nausea this morning with even more weakness and fatigue than yesterday. Worried about whether she is still receiving antibiotics; flustered for the first time I have worked with her that goals of care discussion has been started again; palliative care consult pending Review of Systems 2 Review of Systems: Other (Review of systems limited by patient malaise) Physical Exam Constitutional: well developed, + cachectic, + frail appearing and + lethargic Eyes: EOM intact bilaterally ENMT: Ears: no external ear abnormality Nose: no external nose abnormality Mouth: + dry oral mucous membranes Neck: no nuchal rigidity Respiratory: normal respiratory effort Auscultation: + diminished lung sounds Cardiovascular: Rate/Rhythm: regular rate and regular rhythm Extremities: + edema Gastrointestinal (Abdomen): Inspection/Auscultation: normal bowel sounds Percussion/Palpation: abdomen soft and + ascites; abdomen nontender (RUQ), no guarding and abdomen not rigid Musculoskeletal: Extremities: strength 5/5 throughout Skin: no rashes, warm and dry + jaundice Neurologic: Moves all extremities with effort, limited but appropriate speech Psychiatric: Orientation: oriented x 3 and cooperative Results & Data ([facility]) Vital Signs (Past 12 Hours) Vital Signs Temp Pulse Resp BP BP Pulse Ox 03/30/21 07:30 36.5 C 85 16 83/52 L 92 03/30/21 04:19 98/54 L 03/30/21 04:05 36.4 C L 90 16 87/55 L 91 03/29/21 23:49 37.1 C 90 18 93/64 L 91 Laboratory Results 03/30/21 05:44 03/30/21 05:44 (1) Ascites Ascites type: other type Qualified Code(s): R18.8 - Other ascites
--- NOTE | 2021-03-30 14:15 | Palliative Care Consultation ---
Date of Consultation March 30, 2021 Assessment & Plan (1) Palliative care encounter: Roselia remembered our prior conversation in November. She has spoken with her family about her preferences and has designated her daughter, Chanel Antonio, as her surrogate. She understands that she is very ill and tells me that she is not ready to . She feels that her dying time is approaching faster than she anticipated. I asked her if she had unfinished business or things that she wanted to do and she said no. She tells me that she feels like she will know when it is time to let go. We discussed her code status and what she would want to happen if her heart stopped or her breathing stopped. She tells me that she would want to be at home with her family for her dying time. I explained that with full code and her current fragile status, it was likely that she would be in the hospital for her . She asked me to talk with her daughter Chanel and she would like to talk with Chanel after that to discuss her plan of care. I spoke with her daughter Chanel, on the phone. I reviewed the conversation that Roselia and I had earlier and told her that Roselia wanted to discuss this further with her. She had questions about hospice and what caring for her mother at home would look like. She asked about inpatient hospice unit at [facility] where she works. This is a unit for GIP hospice patients and would not be a snf stay, though if she were to stop dialysis, Roselia's prognosis would be likely days. Chanel will discuss further with her mother and we will touch base tomorrow. 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 Sung Attending Physician: Kirk Lantigua MD History of Present Illness 75 yo lady with ESRD who has been on hemodialysis since November. She also has a history of REARDON with cirrhosis and has been receiving regular paracentesis. She has also had a pancreatic mass thought to be mucinous carcinoma though there has not been a tissue diagnosis, she has had elevated CA 19-9 of 3142 and a 2.6 cm pancreatic tail mass. She had been seen by palliative care in November at the time of her decision to start dialysis. She presents this admission with abdominal pain, shortness of breath and sepsis. Her and dyspnea abdominal distension which improved with paracentesis of 5L fluid. She is currently receiving hemodialysis and is significantly hyptensive with SBP in the 60s at times. She denies pain or dyspnea. Allergies Allergy/AdvReac Type Severity Reaction Status Date / Time adhesive AdvReac Intermediate BANDAIDS-INCREASES Verified 03/28/21 12:15 ECZEMA REDNESS Home Medications Medication Instructions Recorded Confirmed Type loratadine 10 mg tablet (Claritin) 10 mg PO QAM #0 tab 10/09/14 03/28/21 History paroxetine HCl 10 mg tablet (Paxil) 10 mg PO QAM #0 tab 10/09/14 03/28/21 History Bifidobacterium infantis 4 mg 4 mg PO QAM 01/21/19 03/28/21 History capsule (Align) dicyclomine 10 mg capsule 10 mg PO HS 04/05/20 03/28/21 History cholecalciferol (vitamin D3) 25 25 mcg PO QAM 10/22/20 03/28/21 History mcg (1,000 unit) tablet alprazolam 0.25 mg tablet (Xanax) 0.25 mg PO HS PRN 11/16/20 03/28/21 History potassium chloride 20 mEq 20 meq PO QAM #0 tab 11/30/20 03/28/21 Rx tablet,extended release vitamin B complex-vitamin C-folic 1 tab PO DAILY 12/16/20 03/28/21 History acid 0.8 mg tablet (Nephro-Nitin) epoetin beta, methoxy peg 30 30 mcg SUBCUT WK 02/09/21 03/28/21 History mcg/0.3 mL injection syringe (Mircera) docusate sodium 50 mg capsule 50 mg PO BID 02/23/21 03/28/21 History simethicone 40 mg chewable tablet 40 mg PO DAILY PRN 02/23/21 03/28/21 History sulfamethoxazole 400 1 tab PO 3XWK 02/23/21 03/28/21 History mg-trimethoprim 80 mg tablet (Bactrim) Patient History Medical History Anemia Degenerative arthritis of left knee ESRD (end stage renal disease) on dialysis History of abdominal paracentesis History of ascites History of biliary stent insertion History of Clostridioides difficile infection s/p fecal transplant History of squamous cell carcinoma IPMN (intraductal papillary mucinous neoplasm) 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 Hepatology Osteoarthritis Pancreatic cyst highly suspicious for mucinous neoplasm; not a surgical or chemotherapy candidate Portal hypertension Secondary esophageal varices without bleeding Squamous cell cancer of skin of forearm Weight loss [facility] weights [id number]; March 158; Apr 145; Aug 2020 133 lb Surgical History History of appendectomy History of carpal tunnel release of both wrists History of colonoscopy History of endoscopy EUS History of ERCP With EUS/EGD 09/28/20 during admission at [facility] for PUNEET on CKD/cirrhosis History of esophagogastroduodenoscopy (EGD) History of knee replacement procedure of left knee History of knee replacement procedure of right knee History of squamous cell carcinoma excision History of surgical removal of ganglion cyst History of tonsillectomy and adenoidectomy History of total abdominal hysterectomy and bilateral salpingo-oophorectomy Family History Father Cancer Mother Diabetes Other No family history of adverse response to anesthesia Social History Smoking Status: Former smoker Tobacco Type: Cigarettes Second Hand Exposure: Yes (at times); Hx Alcohol Use: No Hx Substance Use: No Preferred Language: Persian Communication Ability: Effective Seconds Grader Required: No Beliefs That Will Affect Care: None marital status: Current Living Situation: Spouse Other Information That Helps Us Care for You: No Feels Safe at Home: Yes Safety Concerns: Feels Safe At This Time Assistive Devices: Glasses Review of Systems Review of Systems: [place] Symptom Assessment Scale Pain 0/3 Dyspnea 0/3 Anxiety 1/3 Fatigue 2/3 Nausea 0/3 Drowsiness 0/3 Palliative Performance Score 30% Physical Exam Constitutional: + ill appearing and + thin ENMT: Mouth: + dry oral mucous membranes Respiratory: normal respiratory effort; no labored breathing Cardiovascular: Rate/Rhythm: regular rate and regular rhythm Musculoskeletal: Extremities: + muscle atrophy Skin: + jaundice Results & Data ([facility]) Vital Signs (Past 12 Hours) Vital Signs Temp Pulse Pulse Pulse Resp BP BP 03/30/21 13:40 91 H 74/47 L 03/30/21 13:20 80 83/52 L 03/30/21 13:00 73 70/42 L 03/30/21 12:40 82 75/53 L 03/30/21 12:20 80 73/44 L 03/30/21 12:00 80 74/47 L 03/30/21 11:40 78 66/43 L 03/30/21 11:20 81 74/44 L 03/30/21 11:00 85 68/46 L 03/30/21 10:42 84 03/30/21 10:40 75 71/43 L 03/30/21 10:20 81 69/45 L 03/30/21 10:00 80 86/56 L 03/30/21 09:40 97.7 F 86 03/30/21 07:30 97.7 F 85 16 03/30/21 04:19 98/54 L 03/30/21 04:05 97.5 F L 90 16 87/55 L BP Pulse Ox 03/30/21 13:40 03/30/21 13:20 03/30/21 13:00 03/30/21 12:40 03/30/21 12:20 03/30/21 12:00 03/30/21 11:40 03/30/21 11:20 03/30/21 11:00 03/30/21 10:42 03/30/21 10:40 03/30/21 10:20 03/30/21 10:00 03/30/21 09:40 03/30/21 07:30 83/52 L 92 03/30/21 04:19 03/30/21 04:05 91 PG Care Time/CCT Total # of Minutes Spent Total Time Spent: 75 Total Time Spent with Patient: Total time spent is greater than 50% in coordination of care (as documented) at patient's floor/unit and/or counseling patient: code status, goals of care, hospice, patient and family education and support. 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
[2021-03-30] MEDS: cefTRIAXone SODIUM 1,000 MG in DEXTROSE 5% 50 ML IV SCH (14:40)
--- NOTE | 2021-03-30 14:57 | Hospitalist Progress Note ---
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 Sung's notes: --CT ABD:Cirrhotic liver morphology. Moderate to large volume of abdominopelvic ascites. Stents are present within the common bile duct and the pancreatic duct. The gallbladder is distended and contains hyperdense material. Gallbladder wall thickening and edema is nonspecific and may be related to cirrhosis and ascites. Correlate clinically for evidence of acute cholecystitis. Small left pleural effusion with associated atelectasis. This is new from 10/23/2020. There is wall thickening throughout the colon, greatest involving the right colon. Mild edema is also suggested within the wall of the small bowel. This likely represents portal enterocolopathy. Correlate clinically for evidence of an infectious enterocolitis. Body wall edema. --S/P paracentesis with removal of approximately 5 liters of ascitic fluid on 03/29/21 Poor prognosis Not a candidate for any chemotherapy as per records Chronically on Bactrim for SBP prophylaxis. 03/30/2021 Ascites Fluid culture: negative so far Blood cultures: negative so far Continue Rocephin Albumin ordered consulted palliative care to address goals of care- patient transitioned to DNR continue present magement Chest pain - r/o ACS initial troponin and EKG negative trend troponin if elevated, patient agreeable to low dose no bolus heparin -- PE ruled out -- PRN tramadol avoiding narcotics due to hypotension Hypotension -- in the setting of Liver Cirrhosis, ESRD -- Midodrine ordered Acute/Subacute L3 compression fracture -CT:There is an acute to subacute compression fracture of L3 with mild loss of height. There is also a minimally displaced left transverse process fracture of L3. Mild sclerotic change around the fracture sites may represent early healing. These are new from 10/23/2020. -Incidental finding -PT/OT Diarrhea H/O C. difficile S/P fecal transplantation Chronic as per patient Stool for C diff is negative Acute on chronic hyponatremia Secondary to volume overload Na 129 --> 130 ESRD On Sunday dialysis usually Nephro on board Anemia of Chronic disease Hb at baseline Monitor Coagulopathy Thrombocytopenia Secondary to liver disease Received vitamin K for paracentesis No bleeding issues INR 1.3 DVT Px: SCDs for now Code Status Full code Palliative Care consulted Admission and Anticipated Discharge Date Admission Date: March 28, 2021 Subjective ff up for recurrent ascites, liver cirrhosis, etc seen initially after HD sitting up, weak but alert, oriented states she feels tired denies abdominal pain, nausea, chest pain, dyspnea discussed code status- patient would like to be DNR, but ok with vasopressors until she speaks with her close family members re-evaluated around 530pm patient report central/left sided chest pain which occurs with deep inspiration discussed plan to r/o ACS and PE- patient agreeable with plan discussed case and plan of care with patient's and daughter Sugar at bedside in detail and at length all questions answered they are understanding, agreeable, comfortable with the plan of care Review of Systems Review of Systems: all noted and negative except for above Physical Exam Physical Exam: General- oriented x 3, not in distress, speaks in sentences with no effort or accessory muscle use weak Head- atraumatic Eyes- PERRL, EOMI, anicteric ENT- oropharynx clear Neck- supple, no JVD, no adenopathy, no thyromegaly; carotids +2/2, no bruits appreciated Lungs- clear to auscultation bilaterally, no rales/wheezes Heart- normal rate, regular rhythm; no murmur, no gallop, no rub appreciated Abdomen- normal bowel sounds, distended, nontender Extremities- mild pretibial edema, no calf tenderness; peripheral pulses intact Neuro- alert, oriented x 3; CN 2-12 grossly intact; motor 5/5 bilaterally;sensation 100% on all extremities; no other gross focal neurologic deficits Skin- warm & dry Results & Data Results & Data ([facility]) Vital Signs (Past 12 Hours) Vital Signs Temp Pulse Pulse Pulse Resp BP BP 03/30/21 13:40 91 H 74/47 L 03/30/21 13:20 80 83/52 L 03/30/21 13:00 73 70/42 L 03/30/21 12:40 82 75/53 L 03/30/21 12:20 80 73/44 L 03/30/21 12:00 80 74/47 L 03/30/21 11:40 78 66/43 L 03/30/21 11:20 81 74/44 L 03/30/21 11:00 85 68/46 L 03/30/21 10:42 84 03/30/21 10:40 75 71/43 L 03/30/21 10:20 81 69/45 L 03/30/21 10:00 80 86/56 L 03/30/21 09:40 36.5 C 86 03/30/21 07:30 36.5 C 85 16 03/30/21 04:19 98/54 L 03/30/21 04:05 36.4 C L 90 16 87/55 L BP Pulse Ox 03/30/21 13:40 03/30/21 13:20 03/30/21 13:00 03/30/21 12:40 03/30/21 12:20 03/30/21 12:00 03/30/21 11:40 03/30/21 11:20 03/30/21 11:00 03/30/21 10:42 03/30/21 10:40 03/30/21 10:20 03/30/21 10:00 03/30/21 09:40 03/30/21 07:30 83/52 L 92 03/30/21 04:19 03/30/21 04:05 91 all noted and reviewed including below (1) Ascites Ascites type: other type Qualified Code(s): R18.8 - Other ascites
[2021-03-30] MEDS: ALPRAZolam 0.25 MG TABLET PO PRN (15:58)
[2021-03-30] MEDS ORDERED: traMADol HCL 50 MG TABLET PO PRN (17:17)
[2021-03-30] MEDS ORDERED: traMADol HCL 50 MG TABLET ONE (17:22)
[2021-03-30] MEDS ORDERED: ALPRAZolam 0.25 MG TABLET PO PRN (17:31)
[2021-03-30] MEDS ORDERED: OPTIRAY 320 125ml IV ONE (18:11)
--- NOTE | 2021-03-30 18:48 | CT Scan Report ---
CHEST CTA for PULMONARY ARTERIES CT DOSE: 201.40 mGy.cm HISTORY: Shortness of breath. Assess for pulmonary embolus. TECHNIQUE: Multiaxial CT images of the chest were performed following the intravenous administration of contrast to evaluate the pulmonary arteries. Maximal intensity projection images were also obtaine d. A dose lowering technique was utilized adhering to the principles of ALARA. COMPARISON STUDY: Abdomen and pelvis CT 03/28/2021. FINDINGS: Small left pleural effusion and abdominal ascites is again noted. Mildly distended gas and fluid-filled stomach is also unchanged. Normal esophagus. Heterogeneous thyroid gland with a substern al thyroid nodule measuring 13 mm. This does not require follow-up by CT criteria. No mediastinal or hilar lymphadenopathy. No pericardial effusions. The heart is normal in size. Normal caliber thoracic aorta with no evidence for dissection. Mild mass effect along the left ventricle from the distended stomach and elevated left hemidiaphragm. However, no significant mediastinal shift. No filling defect s within the pulmonary arteries to suggest a pulmonary embolus. There are healing right lateral sixth and seventh rib fractures. No acute fractures within the visualized osseous structures. Bilateral lo wer lobe densities, left greater than right favor atelectasis. A pneumonia could also a similar appea hubert but is considered less likely. No pneumothorax. Small amount of mucoid material within the righ t mainstem bronchus. Remaining central airways are patent. A 3 mm subpleural nodular density within t he left lung apex image 192. This favors an area of scarring. There is mild emphysema. There is a 4 m m subpleural nodular density within the left upper lobe on image 121. Small focal areas of groundglas s density within the right upper lobe adjacent to the minor fissure may represent mild atelectasis. IMPRESSION: 1. No evidence for pulmonary embolus. 2. Small amount of mucoid material within the right mainstem bronchus. 3. Small left pleural effusion and the abdominal ascites remains unchanged. 4. There is mild mass effect along the left ventricle from the elevated left hemidiaphragm and gas-fi lled stomach. However, there is no mediastinal shift. 5. Bilateral lower lobe densities, left greater than right, likely represent atelectasis. A pneumonia could also have a similar appearance but is considered less likely. ACT 112: Negative or not required by law. Electronically signed by: Mike George M.D. 03/30/2021 6:47 PM
[2021-03-31] MEDS: ALBUMIN 25% 12.5 GM/50 ML VIAL IV SCH ×2 (06:06→12:44)
[2021-03-31 06:08] LABS: INR 1.5 (0.9-1.1); Prothrombin Time 14.6 Seconds (9.0-12.0)
[2021-03-31] MEDS ORDERED: MIDODRINE HCL 2.5 MG TAB PO SCH (07:30)
[2021-03-31] MEDS: LORATADINE 10 MG TAB PO SCH (08:07)
[2021-03-31] MEDS: NEPHROCAPS PO SCH (08:07)
[2021-03-31] MEDS: PARoxetine HCL 10 MG TAB PO SCH (08:07)
[2021-03-31] MEDS: cefTRIAXone SODIUM 1,000 MG in DEXTROSE 5% 50 ML IV SCH (08:08)
[2021-03-31 08:25] LABS: Basophils # (auto) 0.02 K/uL (0-0.2); Basophils % (auto) 0.3 %; Eosinophils # (auto) 0.03 K/uL (0-0.5); Eosinophils % (auto) 0.5 %; Hematocrit (blood only) 30.3 % (37-47); Immature Granulocytes % (auto) 4.6 %; Lymphocytes # (auto) 0.82 K/uL (1.2-3.4); Lymphocytes % (auto) 12.5 %; Mean Corpuscular Hemoglobin 30.5 pg (25-34); Mean Corpuscular Volume 92.4 fL (80-100); Monocytes # (auto) 0.39 K/uL (0.11-0.59); Monocytes % (auto) 5.9 %; Neutrophils # (auto) 5.02 K/uL (1.4-6.5); Neutrophils % (auto) 76.2 %; Platelet Count 136 K/uL (130-400); RDW Coefficient of Variation 17.5 % (11.5-14.5); RDW Standard Deviation 57.3 fL (36.4-46.3); Red Blood Count 3.28 M/uL (4.2-5.4); White Blood Count 6.58 K/uL (4.8-10.8)
[2021-03-31 09:06] LABS: BUN Creatinine Ratio 7.6 (10-20); Creatinine Clr Calc Pharmacy 11.9 ml/min; Est GFR (African American) 14.3 ml/min; Est GFR (Non-African American) 12.3 ml/min; Potassium 3.3 mmol/L (3.5-5.1)
--- NOTE | 2021-03-31 11:33 | Palliative Care Progress Note ---
Date of Service March 31, 2021 Assessment & Plan (1) Palliative care encounter: Plan: Roselia showed me her advance directive that was completed several months ago which indicates no resuscitation, no antibiotics, no surgery. Her code status was changed to DNR yesterday. She has considered her options. Yesterday she was thinking about going home with hospice care but has since decided that she is not comfortable going home. At this time she is requesting shift of care to comfort measures. She does not wish to continue dialysis or medications not related to her comfort. She asked about prognosis and we discussed that her prognosis is likely days to a week or so. She denies any unfinished business or worries. Her highest priority at this time is spending time with her family. I called her daughter, Chanel and was on speaker phone with her father and siblings. We reviewed my conversation with Roselia. They support her decision. Dr. Lantigua and Dr. Hernandez notified. 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 She was very weak after dialysis and did not sleep well last night. Had some chest pain relieved with tramadol. Review of Systems Review of Systems: [place] Symptom Assessment Scale Pain 1/3 Dyspnea 0/3 Anxiety 1/3 Anorexia 2/3 Drowsiness 0/3 Palliative Performance Score 30% Physical Exam Constitutional: + ill appearing and + thin ENMT: Mouth: + dry oral mucous membranes Respiratory: normal respiratory effort; no labored breathing Cardiovascular: Rate/Rhythm: regular rate and regular rhythm Gastrointestinal (Abdomen): Distended Neurologic: awake; not confused Results & Data ([facility]) Vital Signs (Past 12 Hours) Vital Signs Temp Pulse Pulse Pulse Resp BP Pulse Ox 03/31/21 08:04 97.5 F L 86 18 75/36 L 96 03/31/21 07:51 86 03/31/21 03:40 97.5 F L 87 17 72/49 L 96 03/31/21 00:36 80 03/30/21 23:48 98.1 F 90 16 78/48 L 94 PG Care Time/CCT Total # of Minutes Spent Total Time Spent: 100 Total Time Spent with Patient: Total time spent is greater than 50% in coordination of care (as documented) at patient's floor/unit and/or counseling patient: symptom management, goals of care, advance directive, patient and family education and support, prognosis, coordination of care Coding Level of Care Code 84980 Prolonged Care-adt'l 30m Diagnoses Palliative care encounter Z51.5 ESRD (end stage renal disease) on dialysis N18.6; Z99.2 Ascites R18.8 Ascites type: other type 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
[2021-03-31] MEDS ORDERED: GLYCOPYRROLATE 0.2 MG/ML VIAL IV PRN (12:11)
[2021-03-31] MEDS ORDERED: LORazepam 0.5 MG/1 ML VIAL IV PRN (12:11)
[2021-03-31] MEDS ORDERED: oxyCODONE HCL SOLN 5 MG/5 ML UDC PO PRN (12:26)
--- NOTE | 2021-03-31 13:20 | Gastroenterology Progress Note ---
Date of Service March 31, 2021 Assessment & Plan (1) IPMN (intraductal papillary mucinous neoplasm): Plan: Unfortunately, prognosis is not good. Discussed with pt today. Likely malignant pancreas mass and not a candidate for surgery or chemo. Discussed previously with the family and hem/onc note document the same discussion. Multiple co-morbidities such as cirrhosis with ascites and ESRD complicate the presentation and management. Discussed with Pt and her daughter in law. Today, decision has been made to transition to comfort care. (2) Ascites: Plan: Can arrange paracentesis for comfort - if patient feels this would help. 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 Admission and Anticipated Discharge Date Admission Date: March 28, 2021 Supervising Physician Co-Signing Physician Notes I saw and evaluated the patient this afternoon. She does have recurrent ascites and would likely benefit from large-volume paracentesis as needed for symptom control. We did have a discussion about the goals of care as the patient is not a candidate for surgical resection nor chemotherapy she may be best off with hospice care. Paracentesis could certainly be offered on an as-needed basis for this patient as it be meaningful for her quality of life with what ever time is left. Would recommend that large volume paracentesis with albumin be ordered by her internal medicine/hospitalist provider on an as-needed basis. Please call with any questions or concerns, GI to sign off Subjective Pt with ESRD on dialysis, (likely) pancreatic malignancy with biliary stricture and post CBD stent placement, REARDON cirrhosis with portal hypertension, ascites, esophageal varices. Pt's ascites increasing again quickly and GI was asked to see pt again today to discuss prognosis and plan for paracenteses for comfort and goals of care. Review of Systems Review of Systems: ROS: Gen: +weakness, no fevers, + weight loss Eyes: + icterus; no eye redness, or pain, no recent vision changes Resp: + mildly SOB today with increasing ascites; no cough Cardio: No palpitations/irregular beats, no chest pain GI: + increasing ascites and abd fullness discomfort : Denies pain on urination Skin: +jaundice Physical Exam Constitutional: + ill appearing, + thin, cooperative and comfortable ENMT: external ear and nose normal, oropharynx normal Neck: trachea midline, no thyromegaly Respiratory: normal respiratory effort, lungs clear to auscultation Cardiovascular: Rate/Rhythm: regular rate and regular rhythm Extremities: + edema (1+ bilat lower leg) Gastrointestinal (Abdomen): Inspection/Auscultation: normal bowel sounds; no abdominal edema Skin: + turgor decreased and + jaundice Neurologic: PERRL, EOMI, accommodation nl, no face palsy, no dysarthria Psychiatric: A+Ox3, euthymic affect Results & Data ([facility]) Vital Signs (Past 12 Hours) Vital Signs Temp Pulse Pulse Pulse Resp BP Pulse Ox 03/31/21 11:40 36.7 C 86 17 80/53 L 94 03/31/21 08:04 36.4 C L 86 18 75/36 L 96 03/31/21 07:51 86 03/31/21 03:40 36.4 C L 87 17 72/49 L 96 Laboratory Results WBC 6.5, Hb 10, Hct 30, Plts 136, Na 131, K 3.3, Cl 99, CO2 22, BUN 26, Cr 3.47. Diagnostic Findings CTA chest 03/30/21: 1. No evidence for pulmonary embolus. 2. Small amount of mucoid material within the right mainstem bronchus. 3. Small left pleural effusion and the abdominal ascites remains unchanged. 4. There is mild mass effect along the left ventricle from the elevated left hemidiaphragm and gas-filled stomach. However, there is no mediastinal shift. 5. Bilateral lower lobe densities, left greater than right, likely represent atelectasis. A pneumonia could also have a similar appearance but is considered less likely. (1) Ascites Ascites type: other type Qualified Code(s): R18.8 - Other ascites
[2021-03-31] MEDS ORDERED: SULFA/TRIMETH 400/80MG TAB PO SCH (15:00)
--- NOTE | 2021-03-31 18:17 | Hospitalist Progress Note ---
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 Sung's notes: --CT ABD:Cirrhotic liver morphology. Moderate to large volume of abdominopelvic ascites. Stents are present within the common bile duct and the pancreatic duct. The gallbladder is distended and contains hyperdense material. Gallbladder wall thickening and edema is nonspecific and may be related to cirrhosis and ascites. Correlate clinically for evidence of acute cholecystitis. Small left pleural effusion with associated atelectasis. This is new from 10/23/2020. There is wall thickening throughout the colon, greatest involving the right colon. Mild edema is also suggested within the wall of the small bowel. This likely represents portal enterocolopathy. Correlate clinically for evidence of an infectious enterocolitis. Body wall edema. --S/P paracentesis with removal of approximately 5 liters of ascitic fluid on 03/29/21 Poor prognosis Not a candidate for any chemotherapy as per records Chronically on Bactrim for SBP prophylaxis. Ascites Fluid culture: negative so far Blood cultures: 1/2 bottle gram positive cocci in clusters IV Rocephin Albumin ordered consulted palliative care to address goals of care- patient transitioned to DNR -- Comfort measures status only Chest pain, ACS ruled out -- PE ruled out Hypotension -- in the setting of Liver Cirrhosis, ESRD -- Midodrine ordered Acute/Subacute L3 compression fracture -CT:There is an acute to subacute compression fracture of L3 with mild loss of height. There is also a minimally displaced left transverse process fracture of L3. Mild sclerotic change around the fracture sites may represent early healing. These are new from 10/23/2020. -Incidental finding -PT/OT Diarrhea H/O C. difficile S/P fecal transplantation Chronic as per patient Stool for C diff is negative Acute on chronic hyponatremia Secondary to volume overload Na 129 --> 130 ESRD On Sunday dialysis usually Nephro on board -- patient declines Hemodialysis now Anemia of Chronic disease Hb at baseline Monitor Coagulopathy Thrombocytopenia Secondary to liver disease Received vitamin K for paracentesis No bleeding issues INR 1.3 DVT Px: SCDs for now Code Status DNR Palliative Care consulted Admission and Anticipated Discharge Date Admission Date: March 28, 2021 Subjective ff up for liver cirrhosis with ascites, ESRD etc seen resting in bed, sitting up alert, oriented x 3 chest pain has resolved with PRN tramadol no dyspnea, cough, abdominal pain had some breakfast no other symptoms Review of Systems Review of Systems: all noted and negative except for above Physical Exam Physical Exam: General- oriented x 3, not in distress, speaks in sentences with no effort or accessory muscle use Eyes- anicteric Neck- no JVD Lungs- clear BS BL Heart- normal rate, regular rhythm; no murmurs Abdomen- normal bowel sounds,moderately distended, soft, nontender Extremities- mild pretibial edema, no calf tenderness Neuro- alert, oriented x 3; no gross focal neurologic deficits Skin- warm & dry Results & Data Results & Data ([facility]) Vital Signs (Past 12 Hours) Vital Signs Temp Pulse Pulse Pulse Resp BP Pulse Ox 03/31/21 11:40 36.7 C 86 17 80/53 L 94 03/31/21 08:04 36.4 C L 86 18 75/36 L 96 03/31/21 07:51 86 (1) Ascites Ascites type: other type Qualified Code(s): R18.8 - Other ascites
[2021-03-31] MEDS: HYDROmorphone INJ 0.5 MG/0.5 ML SYR IV PRN ×3 (20:25→22:44)
--- NOTE | 2021-04-01 05:29 | Electrocardiogram Report ---
Test Reason : Blood Pressure : / mmHG Vent. Rate : 088 BPM Atrial Rate : 088 BPM P-R Int : 134 ms QRS Dur : 082 ms QT Int : 374 ms P-R-T Axes : 028 -11 066 degrees QTc Int : 452 ms Normal sinus rhythm Normal ECG When compared with ECG of 28-MAR-2021 18:19, No significant change was found Confirmed by Mo Fan ([id number] on 04/01/2021 5:28:47 AM Referred By: REFERRED SELF Confirmed By:Mo Fan
[2021-04-01] MEDS: HYDROmorphone INJ 0.5 MG/0.5 ML SYR IV PRN ×3 (05:55→11:04)
[2021-04-01] MEDS ORDERED: ATROPINE SULFATE 1% OP SOLN 5 ML BTL SL PRN (10:29)
[2021-04-01] MEDS ORDERED: SCOPOLAMINE 1 MG TDSY TD SCH (11:00)
[2021-04-01] MEDS ORDERED: STAT IV Infusion **Titration per Protocol STA (11:43)
--- NOTE | 2021-04-01 12:16 | Palliative Care Progress Note ---
Date of Service April 01, 2021 Assessment & Plan (1) Pain: Plan: Nonspecific with immobility, liver disease and ESRD Will start hydromorphone infusion. She is at risk for opioid toxicity, though less risk than morphine, and will need to be monitored for myoclonus, delirium and allodynia. Will use lorazepam in addition for restlessness and to help control toxicity symptoms. 1430 Recheck on Roselia for pain management with hydromorphone infusion running. She is no longer moaning or restless. She appears comfortable. Family feels that she is comfortable. Will continue infusion at current rate with prn lorazepam and hydromorphone. (2) Increased tracheal secretions: Plan: Glycopyrrolate as needed. (3) Palliative care encounter: Plan: I talked with family at bedside. They are concerned that she is not able to communicate with them and hopeful that better pain control will improve this. We discussed that she will likely not be able to interact them but encouraged them to talk with her. I anticipate that she will within hours to days. 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 Moaning, pulling up legs. Had been waving arms. She has had 5-6 prn doses of hydromorphone in the last 24 hours. Per family, she seems to settle temporarily. Review of Systems Review of Systems: Unobtainable due to cognitive status Sparks Symptom Assessment Scale PainAD 3/3 Dyspnea 0/3 Palliative Performance Score 20% Physical Exam Constitutional: + ill appearing; + uncomfortable Respiratory: normal respiratory effort; no labored breathing audible rhonchi Cardiovascular: LE edema Gastrointestinal (Abdomen): distended Neurologic: no myoclonus noted PG Care Time/CCT Total # of Minutes Spent Total Time Spent: 45 Total Time Spent with Patient: Total time spent is greater than 50% in coordination of care (as documented) at patient's floor/unit and/or counseling patient: symptom management, patient and family education and support, coordination of care. 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
[2021-04-01] MEDS ORDERED: HYDROmorphone/NSS 100 MG/100 ML BAG IV SCH (12:30)
--- NOTE | 2021-04-01 14:57 | Hospitalist Progress Note ---
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 Sung's notes: --CT ABD:Cirrhotic liver morphology. Moderate to large volume of abdominopelvic ascites. Stents are present within the common bile duct and the pancreatic duct. The gallbladder is distended and contains hyperdense material. Gallbladder wall thickening and edema is nonspecific and may be related to cirrhosis and ascites. Correlate clinically for evidence of acute cholecystitis. Small left pleural effusion with associated atelectasis. This is new from 10/23/2020. There is wall thickening throughout the colon, greatest involving the right colon. Mild edema is also suggested within the wall of the small bowel. This likely represents portal enterocolopathy. Correlate clinically for evidence of an infectious enterocolitis. Body wall edema. --S/P paracentesis with removal of approximately 5 liters of ascitic fluid on 03/29/21 Poor prognosis Not a candidate for any chemotherapy as per records Chronically on Bactrim for SBP prophylaxis. Ascites Fluid culture: negative so far Blood cultures: 1/2 bottle gram positive cocci in clusters IV Rocephin Albumin ordered consulted palliative care to address goals of care- patient transitioned to DNR -- Comfort measures status only comfortable continue Morphine, Ativan, Scopolamine, Atropine, etc Chest pain, ACS ruled out -- PE ruled out Hypotension -- in the setting of Liver Cirrhosis, ESRD -- Midodrine ordered Acute/Subacute L3 compression fracture -CT:There is an acute to subacute compression fracture of L3 with mild loss of height. There is also a minimally displaced left transverse process fracture of L3. Mild sclerotic change around the fracture sites may represent early healing. These are new from 10/23/2020. -Incidental finding -PT/OT Diarrhea H/O C. difficile S/P fecal transplantation Chronic as per patient Stool for C diff is negative Acute on chronic hyponatremia Secondary to volume overload Na 129 --> 130 ESRD On Sunday dialysis usually Nephro on board -- patient declines Hemodialysis now Anemia of Chronic disease Hb at baseline Monitor Coagulopathy Thrombocytopenia Secondary to liver disease Received vitamin K for paracentesis No bleeding issues INR 1.3 DVT Px: SCDs for now Code Status DNR Palliative Care consulted Admission and Anticipated Discharge Date Admission Date: March 28, 2021 Subjective ff up for liver cirrhosis, etc seen with family at bedside not responsive, her eyes are mostly open comfortable, not in distress was having increased secretions this morning Scopolamine, Atropine PRN ordered Review of Systems Review of Systems: unable to obtain full ROS due to altered mental status Physical Exam Physical Exam: General- not in distress Lungs- mild rhonchi BL Extremities- mild edema Neuro- not responsive (1) Ascites Ascites type: other type Qualified Code(s): R18.8 - Other ascites
[2021-04-01] MEDS ORDERED: CHECK SCOPOLAMINE PATCH PLACEMENT SCH (16:00)
--- NOTE | 2021-04-02 09:30 | Discharge Summary ---
Date of Service April 02, 2021 Admission HPI Per Admitting Provider 75-year-old female with PMH ESRD on dialysis, REARDON cirrhosis with portal hypertension, ascites, esophageal varices, IPMN with biliary stricture s/p stent placement, history of C. difficile infection with fecal transplant, and other problems listed below who presents the ED for evaluation of shortness of breath, weakness, abdominal distention. Patient with history of ascites and underwent paracentesis for 3 L on 03/23. Patient reports fluid reaccumulated quickly. Patient was scheduled for an additional paracentesis today however labs showed an INR of 3.3, therefore procedure was canceled. Patient reports having a fever of 101 a few days ago. She reports chronic diarrhea at baseline which has been somewhat worse recently. No bright red bleeding per rectum or dark tarry stools. She reports some left-sided abdominal pain today which has since resolved. No nausea or vomiting. Reports worsening shortness of breath with exertion. No cough or sputum production. Denies chest pain. No lightheadedness, dizziness, diaphoresis, syncopal events. She denies urinary symptoms. In the ED, patient is hypotensive and mildly tachycardic in the 90s. Labs show WBC 16 K, lactic acid 4.2. Na+ 128, INR 3.8, total bili 7.1, AST 53, alk phos 243. CT ABD chest pelvis shows moderate to large abdominopelvic ascites. Patient was given IV cefepime and IVF. Admission Exam Per Admitting Provider Constitutional: WD/WN, vitals as above Eyes: PERRL; no conjunctival abnormality Sclera icteric ENMT: external ear and nose normal, oropharynx normal Respiratory: normal respiratory effort; no respiratory distress Auscultation: + diminished lung sounds (Bilaterally) Cardiovascular: Rate/Rhythm: regular rate and regular rhythm Vessels: normal peripheral pulses Extremities: + edema (+3 pitting edema BLE) Gastrointestinal (Abdomen): Inspection/Auscultation: + abdomen distended and normal bowel sounds Percussion/Palpation: + ascites and + abdomen firm; abdomen nontender and no hepatosplenomegaly Musculoskeletal: no cyanosis or clubbing, extremities motor strength 5/5 Skin: no rashes, warm and dry Neurologic: PERRL, EOMI, accommodation nl, no face palsy, no dysarthria Psychiatric: A+Ox3, euthymic affect Principal Diagnosis END STAGE LIVER DISEASE LIVER CIRRHOSIS WITH ASCITES ESRD Discharge Exam PATIENT Discharge Data Allergies Allergy/AdvReac Type Severity Reaction Status Date / Time adhesive AdvReac Intermediate BANDAIDS-INCREASES Verified 03/28/21 12:15 ECZEMA REDNESS Consultations 03/28/21 19:34 ED Decision to Admit Stat 03/28/21 22:35 Consult Gastroenterology Routine Consult Nephrology Routine 03/29/21 12:04 Consult Palliative Care Routine Ordered Studies 03/28/21 18:02 CT abd pelvis wo con Stat 03/29/21 11:00 US paracentesis abd w/image Routine 03/30/21 17:24 CT angio chest PE protocol Stat Hospital Course (1) Severe sepsis: (2) Ascites: (3) 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 Sung's notes: --CT ABD:Cirrhotic liver morphology. Moderate to large volume of abdominopelvic ascites. Stents are present within the common bile duct and the pancreatic duct. The gallbladder is distended and contains hyperdense material. Gallbladder wall thickening and edema is nonspecific and may be related to cirrhosis and ascites. Correlate clinically for evidence of acute cholecystitis. Small left pleural effusion with associated atelectasis. This is new from 10/23/2020. There is wall thickening throughout the colon, greatest involving the right colon. Mild edema is also suggested within the wall of the small bowel. This likely represents portal enterocolopathy. Correlate clinically for evidence of an infectious enterocolitis. Body wall edema. --S/P paracentesis with removal of approximately 5 liters of ascitic fluid on 03/29/21 Poor prognosis Not a candidate for any chemotherapy as per records Chronically on Bactrim for SBP prophylaxis. Ascites Fluid culture: negative Blood cultures: 1/2 bottle gram positive cocci in clusters IV Rocephin Albumin ordered consulted palliative care to address goals of care- patient transitioned to DNR -- Comfort measures status only comfortable given Morphine, Ativan, Scopolamine, Atropine, etc patient pronounced 04/01 15:50 family at bedside Chest pain, ACS ruled out -- PE ruled out Hypotension -- in the setting of Liver Cirrhosis, ESRD -- Midodrine ordered Acute/Subacute L3 compression fracture -CT:There is an acute to subacute compression fracture of L3 with mild loss of height. There is also a minimally displaced left transverse process fracture of L3. Mild sclerotic change around the fracture sites may represent early healing. These are new from 10/23/2020. -Incidental finding -PT/OT Diarrhea H/O C. difficile S/P fecal transplantation Chronic as per patient Stool for C diff is negative Acute on chronic hyponatremia Secondary to volume overload Na 129 --> 130 ESRD On Sunday dialysis usually Nephro on board -- patient declined Hemodialysis Anemia of Chronic disease Hb at baseline Monitor Coagulopathy Thrombocytopenia Secondary to liver disease Received vitamin K for paracentesis No bleeding issues INR 1.3 Total Time Total Time Spent Total Time Spent (In Minutes): 30 minutes Discharge Plan Discharge Items Patient Disposition:
== END 2021-04-01 17:00 | disposition expired | DRG 871 ==
LOC: ED 17:32 → SUATTDRO 20:59 → 2S 20:59 → 3W 03-31 16:21
DX: K76.6 Portal hypertension; R65.20 Severe sepsis without septic shock; I85.10 Secondary esophageal varices without bleeding; D49.0 Neoplasm of unspecified behavior of digestive system; N18.6 End stage renal disease; Z66 Do not resuscitate; R18.8 Other ascites; K72.91 Hepatic failure, unspecified with coma; A41.9 Sepsis, unspecified organism; Z87.891 Personal history of nicotine dependence; Z51.5 Encounter for palliative care; K74.60 Unspecified cirrhosis of liver; D72.89 Other specified disorders of white blood cells; R19.7 Diarrhea, unspecified; E87.1 Hypo-osmolality and hyponatremia; K81.0 Acute cholecystitis